=== PATIENT | female | born 1940 | race Caucasian/White ===

== ENCOUNTER → 2020-11-18 13:51 | Outpatient (BNVA) | payer MEDICARE, OTHER, SELFPAY | PROVIDERS: PCP Hospitalist; Referring Provider Hospitalist; Visit Provider Internal Medicine Cardiovascular Disease | DX: I48.0 Paroxysmal atrial fibrillation (principal); Z79.01 Long term (current) use of anticoagulants | CPT/HCPCS: 93005; 99202 ==

== ENCOUNTER 2020-12-03 10:07 | Outpatient (REF) | payer MEDICARE, OTHER, SELFPAY ==
[2020-12-03 14:50] LABS: TSH reflex Free T4 5.27 mIU/mL (0.32-4.0)
[2020-12-03 15:43] LABS: Free T4 (Free Thyroxine) 1.33 ng/dL (0.71-1.85)
== END 2020-12-03 10:08 | disposition home or self-care (01) ==
LOC: HO.WFDLDS 10:07
PROVIDERS: Visit Provider Hospitalist
DX: T46.2X1A Poisoning by other antidysrhythmic drugs, accidental (unintentional), initial encounter (principal); E03.2 Hypothyroidism due to medicaments and other exogenous substances
CPT/HCPCS: 36415; 84439; 84443

== ENCOUNTER → 2020-12-09 14:03 | Outpatient (REF) | payer MEDICARE, OTHER, SELFPAY ==
--- NOTE | 2020-12-09 14:06 | CA_ITS ---
Transthoracic Echocardiogram Patient (Last, First, Middle): Sandi Leonardo, Gender: Female Date of : 1940 Age: 79 Procedure Date: 12/09/2020 Procedure Type: Transthoracic Echocardiogram Location: OP Height: 170.18 cm Weight: 77.57 kg BSA: 1.89 m2 Heart Rate: bpm BP: 126 / 61 mmHg Wood [employer] Apprentice: DSG Referring MD: Don Gonzales MD Symptoms: I48.0 - Paroxysmal atrial fibrillation Study Quality: Good ECG Rhythm: Sinus Conclusions: - The left ventricular systolic function is normal. The visually estimated ejection fraction is between 65-70%. - Evidence suggests grade II (moderate) diastolic dysfunction. - There is mild aortic valve regurgitation. - There is mild mitral valve regurgitation. - There is mild tricuspid valve regurgitation. - Mild pulmonary hypertension is present. - There is mild dilatation of the ascending aorta measuring 3.90 cm. Findings Left Ventricle Normal left ventricular cavity size. There is normal left ventricular wall thickness. The left ventricular systolic function is normal. The visually estimated ejection fraction is between 65-70%. There is no evidence of regional wall motion abnormalities. E/E prime ratio is between 8 and 15 consistent with indeterminate filling pressures. Evidence suggests grade II (moderate) diastolic dysfunction. Right Ventricle Normal right ventricular cavity size and systolic function. Atria The left atrium is normal in size. The right atrium is normal in size. Aortic Valve There is a normal trileaflet aortic valve. There is mild calcification of the aortic valve. There is no aortic valve stenosis. There is mild aortic valve regurgitation. Mitral Valve The mitral valve appears normal. There is mild mitral valve regurgitation. There is no mitral valve stenosis. Pulmonic Valve The pulmonic valve was not well visualized. Tricuspid Valve Normal tricuspid valve structure. There is mild tricuspid valve regurgitation. The right ventricular systolic pressure is 40 mmHg. Mild pulmonary hypertension is present. Great Vessels There is mild dilatation of the ascending aorta measuring 3.90 cm. Venous The inferior vena cava is normal in size and collapses greater than 50% with inspiration. Pericardium/Pleural There is no evidence of pericardial effusion. Prior Study Comparison No prior study available for comparison. Measurements 2D Linear Measurements IVSd: 1.37 0.6-0.9/0.6-1.0 cm LVIDd: 4.43 3.9-5.3/4.2-5.9 cm LVIDd Index: 2.34 2.4-3.2/2.2-3.1 cm/m2 LVIDs: 2.29 2.0-3.6 cm LVPWd: 1.31 0.7-1.1 cm Ao Root: 3.10 2.1-3.5 cm LA Diam: 3.90 2.7-3.8/3.0-4.0 cm LAIDs Index: 2.06 1.5-2.3 cm/m2 LV Mass: 283.39 67-162/88-224 g LV Mass Index: 149.94 43-95/49-115 g/m2 LVOT Diam: 2.10 3.0+(-)1.3 cm 2D Systolic Function EF 4C: 81.50 >55% EF 2C: 67.60 >55% EF BiP: 75.60 >55% Mitral Valve MV Pk E: 0.85 MV PK A: 0.50 MV Decel Time: 239.00 E/A: 1.70 E'Lateral: 9.67 E'Medial: 7.25 E/E' Med: 11.80 E/E' Lat: 8.80 PHT: 70.00 MVA PHT: 3.14 Decel Angelina: 3.57 Aortic Valve AoV Pk Gabe: 1.28 AoV Pk Grad: 7.00 AI Pk Gabe: 3.60 AI Angelina: 1.24 LVOT LVOT Pk Gabe: 0.92 LVOT Mn Gabe: 0.58 LVOT VTI: 0.24 LVOT Pk Grad: 3.00 LVOT Mn Grad: 2.00 LVOT Diam: 2.10 LVOT Area: 3.46 Diastolic Function MV Pk E: 0.85 MV Pk A: 0.50 E/A: 1.70 E'Medial: 7.25 E/E' Med: 11.80 E' Laterial: 9.67 E/E' Lat: 8.80 Tricuspid Valve TR Pk Gabe: 3.05 TR Pk Grad: 37.00 RA Press: 3.00 RVSP: 40.00 Great Vessels Aorta Ao Root-2D: 3.10 2.0-3.7 cm Ao Asc: 3.90 2.1-3.4 cm Ao Arch: 2.40 Updated in Other Vendor System with Status of Final Aditya Espinosa MD electronically signed on 12/10/2020 10:22:34 AM with status of Final
== END ==
LOC: HO.CARD 14:03
PROVIDERS: PCP Hospitalist; Visit Provider Internal Medicine Cardiovascular Disease
DX: I48.0 Paroxysmal atrial fibrillation (principal); I10 Essential (primary) hypertension
CPT/HCPCS: 93306

== ENCOUNTER → 2021-02-26 11:01 | Outpatient (BNVA) | payer MEDICARE, OTHER, SELFPAY | PROVIDERS: PCP Hospitalist; Visit Provider Internal Medicine Cardiovascular Disease | DX: I10 Essential (primary) hypertension (principal); I48.0 Paroxysmal atrial fibrillation; Z51.81 Encounter for therapeutic drug level monitoring; Z79.899 Other long term (current) drug therapy | CPT/HCPCS: 93005; 99212 ==

== ENCOUNTER 2021-04-29 07:23 | Outpatient (REF) | payer MEDICARE, OTHER, SELFPAY ==
[2021-04-29 10:45] LABS: MANUAL DIFF FLAG NO
[2021-04-29 10:52] LABS: Basophils Percent Auto 0.7 % (0-2); Eosinophils Absolute Auto 0.2 X10*3/uL (0.0-0.4); Eosinophils Percent Auto 2.7 % (0-4); Hemoglobin 12.2 g/dl (12.0-16.0); Imm Gran Abs Auto 0.02 X10*3/uL (0.00-0.03); Imm Gran Pct Auto 0.4 % (0.0-0.4); Lymphocytes Absolute Auto 1.9 X10*3/uL (1.2-4.9); Lymphocytes Percent Auto 33.7 % (20-40); Mean Corpuscular HGB Conc 32.1 g/dl (31.0-35.0); Mean Corpuscular Volume 87.2 fL (80-98); Mean Platelet Volume 10.1 fL (9.4-12.3); Monocytes Percent Auto 18.1 % (2-11); Neutrophils Absolute Auto 2.5 X10*3/uL (2.0-8.3); Neutrophils Percent Auto 44.4 % (45-73); Platelet Count 247 X10*3/uL (160-400); Red Blood Count 4.36 X10*6/uL (4.20-5.50); Red Cell Distribution Width 14.2 % (11.0-16.0); White Blood Count 5.6 X10*3/uL (4.8-10.8)
[2021-04-29 11:20] LABS: Alanine Aminotransferase 24 U/L (0-31); Albumin Level 4.3 g/dL (3.5-5.0); Alkaline Phosphatase 103 U/L (39-117); Anion Gap 15 (12-20); Aspartate Amino Transferase 27 U/L (5-31); Bilirubin Total 0.7 mg/dL (0.0-1.0); Blood Urea Nitrogen 38 mg/dL (9-16); Calcium 10.4 mg/dL (8.4-10.2); Carbon Dioxide 21 mmol/L (22-29); Chloride 106 mmol/L (96-108); Cholesterol 180 mg/dL; Estimated Glomerular Filt Rate 25; Glucose Fasting 99 mg/dL (60-99); HDL Cholesterol 44 mg/dL; LDL Cholesterol Calculated 100 mg/dl; Potassium 5.2 mmol/L (3.3-5.1); Sodium 137 mmol/L (135-145); Total Protein 6.9 g/dL (6.5-8.0); Triglycerides 182 mg/dL
[2021-04-29 11:43] LABS: Thyroid Stimulating Hormone 5.49 uIU/mL (0.32-4.0); Vitamin D 25-OH Total 40.9 ng/mL (>30)
[2021-04-29 11:46] LABS: Creatinine Urine 213.97 mg/dL; Microalbum/Creatinine Ratio Ur 8.8 ug/mg cr
[2021-04-29 11:57] LABS: Folate > 20.0 ng/mL (> or = 4.0); Vitamin B12 996 pg/mL (200-900)
[2021-04-30 20:28] LABS: Triiodothyronine T3 Total 71 ng/dL (76-181)
== END 2021-04-29 07:24 | disposition home or self-care (01) ==
LOC: HO.WFDLDS 07:23
PROVIDERS: Visit Provider Family Medicine
DX: Z00.00 Encounter for general adult medical examination without abnormal findings (principal); E78.00 Pure hypercholesterolemia, unspecified; I10 Essential (primary) hypertension; E03.9 Hypothyroidism, unspecified; E03.2 Hypothyroidism due to medicaments and other exogenous substances; E53.8 Deficiency of other specified B group vitamins; E55.9 Vitamin D deficiency, unspecified; T46.2X1A Poisoning by other antidysrhythmic drugs, accidental (unintentional), initial encounter
CPT/HCPCS: 36415; 80053; 80061; 82043; 82306; 82607; 82746; 84443; 84480; 85025

== ENCOUNTER 2021-06-26 09:37 | Outpatient (REF) | payer MEDICARE, OTHER, SELFPAY ==
--- NOTE | ~2021-06-26 | MM_ITS ---
EXAMINATION: MM SCREENING DIGITAL BREAST TOMOSYNTHESIS, BILATERAL CLINICAL INFORMATION: Screening. Asymptomatic. Prior cbr-qa-[id number] mammography from [place] currently unavailable. The lifetime risk of breast cancer based on the Tyrer-Cuzick Model is 3%. COMPARISON: None. Radiology department staff will attempt to retrieve prior [id number] mammography to allow for comparison in an addendum report. TECHNIQUE: Digital breast tomosynthesis is performed in both the craniocaudal and mediolateral oblique views along with computer-aided detection (CAD). Synthesized 2D images are generated from the tomosynthesis. FINDINGS: There are scattered areas of fibroglandular density (ACR BI-RADS breast composition Category b). There are benign-appearing asymmetries on the right. Left breast has small intramammary node mid upper outer quadrant. Neither breast shows significant mass or architectural abnormality or abnormal calcifications. The axilla and skin contours are unremarkable. MM/MM tomosynthesis screening BI IMPRESSION: No mammographic evidence of malignancy. ASSESSMENT: BI-RADS 2: Benign RECOMMENDATION: Routine annual mammography screening. This patient's information was entered into a reminder system with a target due date for their next mammogram.
--- NOTE | ~2021-06-26 | XR_ITS ---
EXAMINATION: XR CHEST CLINICAL INFORMATION: Paroxysmal A. fib COMPARISON: None TECHNIQUE: 2 views of the chest were obtained. FINDINGS: Cardiac silhouette is normal in size. Lungs are well aerated. Subtle opacity at the medial right lung base is nonspecific but most suggestive of atelectasis. There is mild biapical pleural thickening. Mild degenerative changes of the spine. XR/XR chest 2V IMPRESSION: Suspected subtle right basilar atelectasis.
== END 2021-06-26 09:38 | disposition home or self-care (01) ==
LOC: HO.MAMMO 09:37
PROVIDERS: Absent Provider Internal Medicine Cardiovascular Disease; PCP Hospitalist; Visit Provider Family Medicine
DX: I48.0 Paroxysmal atrial fibrillation (principal); Z12.31 Encounter for screening mammogram for malignant neoplasm of breast
CPT/HCPCS: 71046; 77063; 77067

== ENCOUNTER 2021-06-30 09:20 | Outpatient (REF) | payer MEDICARE, OTHER, SELFPAY ==
[2021-06-30 11:29] LABS: Anion Gap 13 (12-20); Blood Urea Nitrogen 35 mg/dL (9-16); Calcium 10.4 mg/dL (8.4-10.2); Carbon Dioxide 23 mmol/L (22-29); Chloride 106 mmol/L (96-108); Estimated Glomerular Filt Rate 27; Glucose Random 123 mg/dL (60-115); Potassium 5.1 mmol/L (3.3-5.1); Sodium 137 mmol/L (135-145)
== END 2021-06-30 09:21 | disposition home or self-care (01) ==
LOC: HO.WFDLDS 09:20
PROVIDERS: Visit Provider Family Medicine
DX: T46.2X1A Poisoning by other antidysrhythmic drugs, accidental (unintentional), initial encounter (principal); E03.2 Hypothyroidism due to medicaments and other exogenous substances; R79.89 Other specified abnormal findings of blood chemistry
CPT/HCPCS: 36415; 80048; 84443

== ENCOUNTER → 2021-07-14 13:15 | Outpatient (BNVA) | payer MEDICARE, OTHER, SELFPAY | PROVIDERS: PCP Hospitalist; Referring Provider Hospitalist; Visit Provider Internal Medicine Cardiovascular Disease | DX: I48.0 Paroxysmal atrial fibrillation (principal); I10 Essential (primary) hypertension | CPT/HCPCS: 99212 ==

== ENCOUNTER → 2021-11-20 15:02 | Outpatient (BNVA) | payer MEDICARE, OTHER, SELFPAY | PROVIDERS: PCP Hospitalist; Referring Provider Hospitalist; Visit Provider Nurse Practitioner Family | DX: I48.91 Unspecified atrial fibrillation (principal) | CPT/HCPCS: 93005 ==

== ENCOUNTER → 2021-11-24 09:53 | Outpatient (BNVA) | payer MEDICARE, OTHER, SELFPAY | PROVIDERS: PCP Hospitalist; Referring Provider Hospitalist; Visit Provider Nurse Practitioner Family | DX: I48.91 Unspecified atrial fibrillation (principal) | CPT/HCPCS: 93005 ==

== ENCOUNTER → 2021-11-27 12:39 | Outpatient (BNVA) | payer MEDICARE, OTHER, SELFPAY | PROVIDERS: PCP Hospitalist; Referring Provider Hospitalist; Visit Provider Nurse Practitioner Family | DX: I48.0 Paroxysmal atrial fibrillation (principal); I10 Essential (primary) hypertension; Z79.01 Long term (current) use of anticoagulants | CPT/HCPCS: 93005; 99212 ==

== ENCOUNTER 2021-11-28 08:48 | Outpatient (REF) | payer MEDICARE, OTHER, SELFPAY ==
[2021-11-28 10:59] LABS: MANUAL DIFF FLAG NO
[2021-11-28 11:02] LABS: Basophils Absolute Auto 0.1 X10*3/uL (0.0-0.2); Eosinophils Absolute Auto 0.1 X10*3/uL (0.0-0.4); Eosinophils Percent Auto 1.3 % (0-4); Hematocrit 38.7 % (37.0-47.0); Hemoglobin 12.2 g/dl (12.0-16.0); Imm Gran Abs Auto 0.07 X10*3/uL (0.00-0.03); Imm Gran Pct Auto 1.2 % (0.0-0.4); Lymphocytes Absolute Auto 1.4 X10*3/uL (1.2-4.9); Lymphocytes Percent Auto 23.1 % (20-40); Mean Corpuscular HGB Conc 31.5 g/dl (31.0-35.0); Mean Corpuscular Hemoglobin 27.3 pg (27.0-33.0); Mean Corpuscular Volume 86.6 fL (80.0-98.0); Mean Platelet Volume 9.8 fL (9.4-12.3); Monocytes Absolute Auto 0.9 X10*3/uL (0.1-1.2); Monocytes Percent Auto 14.5 % (2-11); Neutrophils Absolute Auto 3.6 x10*3/uL (2.0-8.3); Neutrophils Percent Auto 58.9 % (45-73); Platelet Count 289 X10*3/uL (160-400); Red Blood Count 4.47 X10*6/uL (4.20-5.50); Red Cell Distribution Width 14.4 % (11.0-16.0)
[2021-11-28 11:27] LABS: Alanine Aminotransferase 15 U/L (0-31); Albumin Level 4.1 g/dL (3.5-5.0); Alkaline Phosphatase 90 U/L (39-117); Anion Gap 12 (12-20); Aspartate Amino Transferase 17 U/L (5-31); Bilirubin Total 0.4 mg/dL (0.0-1.0); Blood Urea Nitrogen 36 mg/dL (9-16); Calcium 10.3 mg/dL (8.4-10.2); Carbon Dioxide 22 mmol/L (22-29); Chloride 107 mmol/L (96-108); Estimated Glomerular Filt Rate 28; Glucose Random 98 mg/dL (60-115); Potassium 5.1 mmol/L (3.3-5.1); Sodium 136 mmol/L (135-145); Total Protein 6.7 g/dL (6.5-8.0)
[2021-11-28 11:54] LABS: TSH reflex Free T4 2.87 uIU/mL (0.32-4.0)
== END 2021-11-28 08:49 | disposition home or self-care (01) ==
LOC: HO.WFDLDS 08:48
PROVIDERS: PCP Hospitalist; Visit Provider Nurse Practitioner Family
DX: I48.0 Paroxysmal atrial fibrillation (principal); I48.20 Chronic atrial fibrillation, unspecified
CPT/HCPCS: 36415; 80053; 84443; 85025

== ENCOUNTER 2021-12-05 10:24 | Day surgery (SDC) | payer MEDICARE, OTHER, SELFPAY ==
--- NOTE | 2021-12-04 08:32 | HO.ANESPROP2 ---
Documented by User: Mari Rico NP 12/04/21 08:35 HPI - Anesthesia Eval Consult details Narrative: 80yo F for Cardioversion Eliquis for afib PMFSH Active Problems Active Problems: All Active Problems (Updated 11/27/21 @ 13:33 by Yvette Dinh NP-C) Anticoagulant long-term use (Acute) Elevated serum creatinine (Acute) Breast cancer screening by mammogram (Acute) Screening for osteoporosis (Acute) Adult general medical exam (Acute) Screening for breast cancer (Acute) Screening for colon cancer (Acute) Therapeutic drug monitoring (Acute) Hypertension, essential (Acute) High cholesterol (Acute) Hx of squamous cell carcinoma of skin (Acute) Hx of skin cancer, basal cell (Acute) Vitamin B 12 deficiency (Acute) PAF (paroxysmal atrial fibrillation) (Acute) Cellulitis of right lower extremity (Acute) Vitamin D deficiency (Acute) 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) Chronic a-fib (Acute) Past Medical History Medical History Anticoagulant long-term use High cholesterol History of cardioversion History of hypothyroidism History of vitamin D deficiency Hx of skin cancer, basal cell Hx of squamous cell carcinoma of skin Hypertension, essential PAF (paroxysmal atrial fibrillation) Vitamin B 12 deficiency Family History Family History Mother Stroke Father Pancreatic cancer Brother Lyme disease Surgical History Surgical History (Updated 12/05/21 @ 10:55 by Mis Armstrong RN) History of dilation and curettage History of hand surgery Status post surgical removal of malignant neoplasm of skin Social History Social History Housing: House Alcohol intake: current Alcohol intake frequency: holidays/special occasions only Alcohol type: wine Patient Tobacco Use Status: Never used Tobacco e-Cigarette/Vaping Use: Never Used Use of substances other than those prescribed or required for medical reasons: No Are you DNR?: No Advance Directives: No Advance Directives Information Provided: Yes Current occupational status: retired Meds Allergies Allergy/AdvReac Type Severity Reaction Status Date / Time prednisone Allergy Intermediate REd Verified 12/05/21 10:56 Blotchy codeine AdvReac Intermediate Swelling Verified 12/05/21 10:56 sulfamethoxazole AdvReac Intermediate Stomach Verified 12/05/21 10:56 [From Bactrim] Upset trimethoprim [From Bactrim] AdvReac Intermediate Stomach Verified 12/05/21 10:56 Upset Home Medications Medication Instructions Recorded Confirmed Last Taken Type spironolactone 25 mg tablet 25 mg PO DAILY 09/10/20 11/27/21 12/05/21 07:00 History apixaban 5 mg tablet (Eliquis) 5 mg PO BID 11/18/20 11/27/21 12/05/21 07:00 History cholecalciferol (vitamin D3) 50 50 mcg PO DAILY 11/18/20 11/27/21 Unknown History mcg (2,000 unit) capsule multivitamin,[id number] 1 tab PO DAILY 11/18/20 11/27/21 Unknown History (Complete Multivitamin) Exam Exam Date and Time: December 04, 2021 0832 Pertinent Lab Results Pertinent Lab Results: Laboratory Tests 11/28/21 11/28/21 09:00 09:00 WBC 6.0 Hgb 12.2 Hct 38.7 Plt Count 289 Sodium 136 Potassium 5.1 Chloride 107 Carbon Dioxide 22 BUN 36 H Creatinine 1.78 H Narrative Narrative: EKG 11/2021 atrial fibrillation, left axis deviation, septal Q-wave, rate 87, QTC 416 milliseconds ECHO 11/2020 Conclusions: - The left ventricular systolic function is normal.? The visually estimated ejection fraction is between 65-70%. ? - Evidence suggests grade II (moderate) diastolic dysfunction. ? - There is mild aortic valve regurgitation.? - There is mild mitral valve regurgitation.? - There is mild tricuspid valve regurgitation. ? - Mild pulmonary hypertension is present.? - There is mild dilatation of the ascending aorta measuring 3.90 cm.? ?? Assessment and Plan Assessment Anesthesia Assessment: Chart Reviewed Documented by User: Tuyet Rangel MD 12/05/21 12:36 PMF Past Medical History Medical History Anticoagulant long-term use High cholesterol History of cardioversion History of hypothyroidism History of vitamin D deficiency Hx of skin cancer, basal cell Hx of squamous cell carcinoma of skin Hypertension, essential PAF (paroxysmal atrial fibrillation) Vitamin B 12 deficiency Functional capacity: independent ambulation Patient : No Family History Family History Mother Stroke Father Pancreatic cancer Brother Lyme disease Family history of problems with anesthesia: No Surgical History Surgical History (Updated 12/05/21 @ 10:55 by Mis Armstrong RN) History of dilation and curettage History of hand surgery Status post surgical removal of malignant neoplasm of skin History of Problems with Anesthesia: No Social History Social History Housing: House Alcohol intake: current Alcohol intake frequency: holidays/special occasions only Alcohol type: wine Patient Tobacco Use Status: Never used Tobacco e-Cigarette/Vaping Use: Never Used Use of substances other than those prescribed or required for medical reasons: No Are you DNR?: No Advance Directives: No Advance Directives Information Provided: Yes Current occupational status: retired Meds Allergies Allergy/AdvReac Type Severity Reaction Status Date / Time prednisone Allergy Intermediate REd Verified 12/05/21 10:56 Blotchy codeine AdvReac Intermediate Swelling Verified 12/05/21 10:56 sulfamethoxazole AdvReac Intermediate Stomach Verified 12/05/21 10:56 [From Bactrim] Upset trimethoprim [From Bactrim] AdvReac Intermediate Stomach Verified 12/05/21 10:56 Upset Home Medications Medication Instructions Recorded Confirmed Last Taken Type spironolactone 25 mg tablet 25 mg PO DAILY 09/10/20 11/27/21 12/05/21 07:00 History apixaban 5 mg tablet (Eliquis) 5 mg PO BID 11/18/20 11/27/21 12/05/21 07:00 History cholecalciferol (vitamin D3) 50 50 mcg PO DAILY 11/18/20 11/27/21 Unknown History mcg (2,000 unit) capsule multivitamin,[id number] 1 tab PO DAILY 11/18/20 11/27/21 Unknown History (Complete Multivitamin) Exam Airway Mallampati Class: II TM Dist: >3cm Neck ROM: Full Heart: CTA Lungs: Irregular Assessment and Plan Final Anesthetic Review Family History of Problems with Anesthesia: No History of Problems with Anesthesia: No ASA Class: III Final Preanesthetic Review: No Changes in Pt Med Stat, Meds/Allgs Chart Reviewed, Consent Obtained/Reviewed and Anes Risks/Benef Reviewed Patient Risk: Intermediate Procedure Risk: Low Anesthetic Plan Anesthetic Plan: MAC: Disposition: Standard PACU
--- NOTE | 2021-12-05 | ECG_ITS ---
Test Reason : postop Blood Pressure : / mmHG Vent. Rate : 057 BPM Atrial Rate : 057 BPM P-R Int : 152 ms QRS Dur : 086 ms QT Int : 418 ms P-R-T Axes : 112 -26 -27 degrees QTc Int : 406 ms Sinus bradycardia Nonspecific ST and T wave abnormality Abnormal ECG No previous ECGs available Referred By: Don Gonzales Electronically Signed By:Don Gonzales
[2021-12-05 10:57] VITALS: BMI 26.5
[2021-12-05 11:05] VITALS: BP 172/96; PULSE 113; RESP 16; TEMP 36.4; O2SAT 98
[2021-12-05] MEDS: Lactated Ringers 1,000 ML 50 ML IVCONT (11:31)
--- NOTE | 2021-12-05 12:41 | MHC.SHP ---
Pre-Procedural Eval Section A Date of Service: 12/05/21 The patient is an INPATIENT: No The History & Physical has been completed within 30 days and I have reviewed it.: Yes Section B Chief Complaint: A-Fib Allergies: Allergies Allergy/AdvReac Type Severity Reaction Status Date / Time prednisone Allergy Intermediate REd Verified 12/05/21 10:56 Blotchy codeine AdvReac Intermediate Swelling Verified 12/05/21 10:56 sulfamethoxazole AdvReac Intermediate Stomach Verified 12/05/21 10:56 [From Bactrim] Upset trimethoprim [From Bactrim] AdvReac Intermediate Stomach Verified 12/05/21 10:56 Upset Plan Diagnosis/Plan: Unchanged I have reviewed the history and physical and performed a pertinent physical examination on my patient. No changes have occurred unless specified.
--- NOTE | 2021-12-05 12:47 | HO.CARDIVERS ---
Cardioversion Procedure Note Cardioversion Date of Procedure: 12/05/21 Ordering Provider: Don Gonzales Performing Provider: Don Gonzales Indication for Procedure: Afib Performed with Transesophageal Echo: No Consent: Verbal and Written consent was obtained from the patient before starting. The patient was made aware of the risk of stroke and failure. Procedure: After consent obtained, defib pads were attached and the patient was sedated by the anesthesia team. Once adequate sedation achieved, single synchronized shock of 200 J was given. Patient converted to sinus rhythm. Complications: None Recommendations: c/w Eliquis and Amiodarone as before.
[2021-12-05 12:50] VITALS: BP 175/97; PULSE 62; RESP 16; TEMP 36.1; O2SAT 100
--- NOTE | 2021-12-05 12:52 | HO.POSTANES ---
Post Anesthesia Evaluation Post Anesthesia Evaluation Vital Signs: Vital Signs Temp Pulse Resp BP Pulse Ox 12/05/21 12:50 97.0 F 62 16 175/97 H 100 12/05/21 11:05 97.5 F 113 H 16 172/96 H 98 Anesthesia: Monitored Pain Control: Satisfactory Nausea/Vomiting: None Hydration: Adequate Anesthesia-Related Issues: No Anes. Related Issues
[2021-12-05 12:55] VITALS: BP 138/51; PULSE 55; RESP 14; O2SAT 100
[2021-12-05 13:00] VITALS: BP 125/55; PULSE 57; RESP 17; O2SAT 99
[2021-12-05 13:05] VITALS: BP 143/56; PULSE 58; RESP 17; O2SAT 100
[2021-12-05 13:20] VITALS: BP 143/56; PULSE 55; RESP 17; TEMP 36.2; O2SAT 100
== END 2021-12-05 14:05 | disposition home or self-care (01) ==
PROVIDERS: PCP Hospitalist; Visit Provider Internal Medicine Cardiovascular Disease
PROC: 5A2204Z Restoration of Cardiac Rhythm, Single (ICD-10-PCS; principal; 2021-12-05 12:00)
DX: I48.0 Paroxysmal atrial fibrillation (principal); I10 Essential (primary) hypertension; E78.00 Pure hypercholesterolemia, unspecified; E03.9 Hypothyroidism, unspecified; Z79.01 Long term (current) use of anticoagulants; Z79.899 Other long term (current) drug therapy; Z88.8 Allergy status to other drugs, medicaments and biological substances
CPT/HCPCS: 92960; 93005; J0461

== ENCOUNTER → 2021-12-18 13:06 | Outpatient (BNVA) | payer MEDICARE, OTHER, SELFPAY | PROVIDERS: PCP Hospitalist; Referring Provider Hospitalist; Visit Provider Nurse Practitioner Family | DX: I48.0 Paroxysmal atrial fibrillation (principal); I10 Essential (primary) hypertension; Z79.01 Long term (current) use of anticoagulants | CPT/HCPCS: 93005; 99212 ==

== ENCOUNTER 2022-01-14 08:02 | Emergency (ER) | payer MEDICARE, OTHER, SELFPAY ==
[2022-01-14] VITALS (14 sets, daily range): BP systolic 162–219; BP diastolic 62–88; PULSE 66–105; RESP 8–18; TEMP 36.4; O2SAT 95–100; BMI 26.9
--- NOTE | 2022-01-14 | ECG_ITS ---
Test Reason : afib Blood Pressure : / mmHG Vent. Rate : 098 BPM Atrial Rate : 000 BPM P-R Int : 000 ms QRS Dur : 094 ms QT Int : 322 ms P-R-T Axes : 000 -46 097 degrees QTc Int : 411 ms Atrial fibrillation Left axis deviation Moderate voltage criteria for LVH, may be normal variant ( R in aVL , [place]of[place] product ) Septal infarct , age undetermined Abnormal ECG When compared with ECG of 05-DEC-2021 13:00, Significant changes have occurred Referred By: Thania Moore Electronically Signed By:Don Gonzales
--- NOTE | 2022-01-14 | ECG_ITS ---
Test Reason : POST CARDIOVERT Blood Pressure : / mmHG Vent. Rate : 071 BPM Atrial Rate : 071 BPM P-R Int : 212 ms QRS Dur : 088 ms QT Int : 384 ms P-R-T Axes : 091 -42 056 degrees QTc Int : 417 ms Sinus rhythm with 1st degree A-V block Left axis deviation Moderate voltage criteria for LVH, may be normal variant ( R in aVL , [place] product ) Anterolateral infarct (cited on or before 14-JAN-2022) Abnormal ECG When compared with ECG of 14-JAN-2022 08:10, Sinus rhythm has replaced Atrial fibrillation Questionable change in initial forces of Septal leads Nonspecific T wave abnormality has replaced inverted T waves in Lateral leads Referred By: Thania Moore Electronically Signed By:Don Gonzales
--- NOTE | ~2022-01-14 | XR_ITS ---
EXAMINATION: XR CHEST CLINICAL INFORMATION: Weakness COMPARISON: Chest 06/26/2021 TECHNIQUE: Frontal view of the chest was obtained. FINDINGS: The lungs are well-expanded and clear. The heart size and pulmonary vascularity is normal. There is mild bilateral apical pleural thickening. No gross bony abnormality seen. XR/XR chest 1V IMPRESSION: Unremarkable chest exam.
--- NOTE | 2022-01-14 08:21 | ED.ARRPALP ---
HPI - Arrhythmia/Palpitations General Chief Complaint: Arrhythmia/Palpitations Stated Complaint: heart issues/nausea Time Seen by Provider: 01/14/22 08:20 Source: patient and old records reviewed Mode of arrival: ambulatory Limitations: no limitations History of Present Illness MD complaint: palpitations, irregular heart beat and atrial fibrillation Onset (ago): day(s) (last night) Duration: constant Severity: moderate Context: occurred during rest Arrhythmia history: atrial fibrillation Associated symptoms: shortness of breath, diaphoresis and other (felt week) Treatments prior to arrival: other (BP low last night 101/70s HR in 120s took a dose of metoprolol 25mg , she is compliant with her eliquis and amiodarone 200mg daily, she is s/p cardioversion on 12/05/21) Related Data Home Medications Medication Instructions Recorded Confirmed spironolactone 25 mg tablet 25 mg PO DAILY 09/10/20 12/19/21 cholecalciferol (vitamin D3) 50 50 mcg PO DAILY 11/18/20 12/19/21 mcg (2,000 unit) capsule multivitamin,[id number] 1 tab PO DAILY 11/18/20 12/19/21 (Complete Multivitamin) Previous Rx's Medication Instructions Recorded losartan 25 mg tablet 25 mg PO DAILY #30 tab 05/21/21 pravastatin 40 mg tablet 40 mg PO DAILY #30 tab 09/24/21 levothyroxine 50 mcg capsule 50 mcg PO DAILY #30 cap 11/10/21 (Tirosint) apixaban 5 mg tablet (Eliquis) 5 mg PO BID 90 Days #180 tab 12/18/21 amiodarone 200 mg tablet 200 mg PO DAILY #90 tab 12/29/21 Allergies Allergy/AdvReac Type Severity Reaction Status Date / Time prednisone Allergy Intermediate REd Verified 12/05/21 10:56 Blotchy codeine AdvReac Intermediate Swelling Verified 12/05/21 10:56 sulfamethoxazole AdvReac Intermediate Stomach Verified 12/05/21 10:56 [From Bactrim] Upset trimethoprim [From Bactrim] AdvReac Intermediate Stomach Verified 12/05/21 10:56 Upset Review of Systems Review of Systems: Constitutional : No Weight loss, No Fever, No Chills, pos sweats ENT/Mouth : No sore throat, No Rhinorrhea Eyes: No Eye Pain, No Swelling Cardiovascular : no Chest Pain, pos SOB, no Dyspnea on Exertion, No Orthopnea, No Edema, pos Palpitations Respiratory : No Cough, No Sputum Gastrointestinal : pos Nausea, No Vomiting, No Diarrhea, No abdominal Pain, No Hematochezia, No Melena Genitourinary : No Dysuria, No Urinary Frequency Musculoskeletal : No joint pain, No Myalgias, No Joint Swelling Skin : No Skin Lesions, No rash Neuro : pos Weakness, No Numbness, No Dizziness, No Headache Psych : No Anxiety/Panic, No Depression Heme/Lymph: No Bruising, No Lymphadenopathy Endocrine : No Polyuria, No Polydipsia All other systems reviewed and are negative [facility] Past Medical History Attestation statement: The following information was validated with the patient. Medical History Anticoagulant long-term use High cholesterol History of cardioversion History of hypothyroidism History of vitamin D deficiency Hx of skin cancer, basal cell Hx of squamous cell carcinoma of skin Hypertension, essential PAF (paroxysmal atrial fibrillation) Vitamin B 12 deficiency Surgical History History of dilation and curettage History of hand surgery Status post surgical removal of malignant neoplasm of skin Family History Family History Mother Stroke Father Pancreatic cancer Brother Lyme disease Social History Social History Housing: House Alcohol intake: current Alcohol intake frequency: holidays/special occasions only Alcohol type: wine Patient Tobacco Use Status: Former Tobacco user e-Cigarette/Vaping Use: Never Used Use of substances other than those prescribed or required for medical reasons: No Advance Directives: No Advance Directives Information Provided: No Current occupational status: retired Physical Exam Vital Signs: Vital Signs: Last Vital Signs Pulse 66 01/14/22 11:18 Resp 18 01/14/22 11:18 BP 168/65 H 01/14/22 11:18 Pulse Ox 100 01/14/22 11:18 Oxygen Flow Rate 2 01/14/22 10:28 BMI result Body Mass Index 26.9 Appearance: Alert. Oriented X3. No acute distress. Eyes: Pupils equal, round and reactive to light. ENT: Pharynx normal. Neck: Normal inspection. Neck supple. CVS: irregular heart rate and rhythm. Pulses normal. Respiratory: No respiratory distress. Breath sounds normal. Abdomen: Soft and non-tender. Skin: Skin warm and dry. Normal skin color. Normal skin turgor. Extremities: No lower extremity edema. No calf ttp Neuro: Oriented X 3. No motor deficit. No sensory deficit. Course Course Course Narrative: Dr. Gonzales at bedside after discussion plan is for cardioversion patient wants to proceed Christian at bedside. compliant with eliquis doing well awake feels better - NSR has no symptoms son will be her ride home once fully recovered BNP elevated but CXR clear no peripheral edema likely due to afib doubt clinical CHF Cr at baseline, K 5.5 will give one dose of lokelma MDM - Arrhythmia/Palpitations MDM Narrative Medical decision making narrative: 81 yo female with hx of chronic afib s/p cardioversion on 12/05/21 she is compliant with with her eliquis and amiodarone 200mg now feels sweaty and weak while she's back in afib. No med misses. She is NPO. She has no chest pain. 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 Lab Data Result diagrams: 01/14/22 08:39 01/14/22 11:13 Labs: Lab Results 01/14/22 01/14/22 01/14/22 Range/Units 08:39 08:39 08:39 WBC 5.7 (4.8-10.8) X10*3/uL RBC 4.53 (4.20-5.50) X10*6/uL Hgb 12.5 (12.0-16.0) g/dl Hct 38.2 (37.0-47.0) % MCV 84.3 (80.0-98.0) fL MCH 27.6 (27.0-33.0) pg MCHC 32.7 (31.0-35.0) g/dl RDW 14.2 (11.0-16.0) % Plt Count 256 (160-400) X10*3/uL MPV 9.3 L (9.4-12.3) fL Immature Gran % (Auto) 0.9 H (0.0-0.4) % Neut % (Auto) 65.4 (45-73) % Lymph % (Auto) 20.4 (20-40) % [place] % (Auto) 12.2 H (2-11) % Eos % (Auto) 0.4 (0-4) % Baso % (Auto) 0.7 (0-2) % Lymph # (Auto) 1.2 (1.2-4.9) X10*3/uL [place] # (Auto) 0.7 (0.1-1.2) X10*3/uL Eos # (Auto) 0.0 (0.0-0.4) X10*3/uL Baso # (Auto) 0.0 (0.0-0.2) X10*3/uL Abs Immat Gran (auto) 0.05 H (0.00-0.03) X10*3/uL Absolute Neuts (auto) 3.7 (2.0-8.3) x10*3/uL Absolute Nucleated RBC 0.000 (0.0-0.012) X10*3/uL Nucleated RBC % (auto) 0.0 (0.0-0.2) /100WBC PT 19.3 H (9.9-13.0) SEC INR 1.7 H (0.9-1.1) Sodium (135-145) mmol/L Potassium (3.3-5.1) mmol/L Chloride (96-108) mmol/L Carbon Dioxide (22-29) mmol/L Anion Gap (12-20) BUN (9-16) mg/dL Creatinine (0.5-1.4) mg/dL Estim Creat Clear Calc Estimated GFR Random Glucose (60-115) mg/dL Calcium (8.4-10.2) mg/dL Magnesium (1.6-2.6) mg/dL Total Bilirubin (0.0-1.0) mg/dL Direct Bilirubin (0.0-0.5) mg/dL AST (5-31) U/L ALT (0-31) U/L Alkaline Phosphatase (39-117) U/L Troponin I High Sens 4.4 (<3.5-17.0) ng/L B-Natriuretic Peptide 778 H (<100) pg/mL Total Protein (6.5-8.0) g/dL Albumin (3.5-5.0) g/dL COVID-19 (AMIRAH) (Negative) COVID-19 Clin Com 01/14/22 01/14/22 Range/Units 08:39 11:13 WBC (4.8-10.8) X10*3/uL RBC (4.20-5.50) X10*6/uL Hgb (12.0-16.0) g/dl Hct (37.0-47.0) % MCV (80.0-98.0) fL MCH (27.0-33.0) pg MCHC (31.0-35.0) g/dl RDW (11.0-16.0) % Plt Count (160-400) X10*3/uL MPV (9.4-12.3) fL Immature Gran % (Auto) (0.0-0.4) % Neut % (Auto) (45-73) % Lymph % (Auto) (20-40) % [place] % (Auto) (2-11) % Eos % (Auto) (0-4) % Baso % (Auto) (0-2) % Lymph # (Auto) (1.2-4.9) X10*3/uL [place] # (Auto) (0.1-1.2) X10*3/uL Eos # (Auto) (0.0-0.4) X10*3/uL Baso # (Auto) (0.0-0.2) X10*3/uL Abs Immat Gran (auto) (0.00-0.03) X10*3/uL Absolute Neuts (auto) (2.0-8.3) x10*3/uL Absolute Nucleated RBC (0.0-0.012) X10*3/uL Nucleated RBC % (auto) (0.0-0.2) /100WBC PT (9.9-13.0) SEC INR (0.9-1.1) Sodium 135 (135-145) mmol/L Potassium 5.5 H (3.3-5.1) mmol/L Chloride 105 (96-108) mmol/L Carbon Dioxide 23 (22-29) mmol/L Anion Gap 13 (12-20) BUN 31 H (9-16) mg/dL Creatinine 1.80 H (0.5-1.4) mg/dL Estim Creat Clear Calc 27.2 Estimated GFR 27 Random Glucose 115 (60-115) mg/dL Calcium 10.9 H (8.4-10.2) mg/dL Magnesium 2.1 (1.6-2.6) mg/dL Total Bilirubin 0.5 (0.0-1.0) mg/dL Direct Bilirubin 0.2 (0.0-0.5) mg/dL AST 25 D (5-31) U/L ALT 17 (0-31) U/L Alkaline Phosphatase 87 (39-117) U/L Troponin I High Sens (<3.5-17.0) ng/L B-Natriuretic Peptide (<100) pg/mL Total Protein 6.7 (6.5-8.0) g/dL Albumin 4.1 (3.5-5.0) g/dL COVID-19 (AMIRAH) Negative (Negative) COVID-19 Clin Com See Note ECG Data Attestation: I personally reviewed and interpreted this ECG as follows: ECG interpretation date: 01/14/22 ECG interpretation time: : Interpretation: Rate: 98 Rhythm: afib [place]: left Normal QRS complex. ST T wave : inverted t waves I and aVL, no ALEXA qTC: normal prior studies: changed from nov 2021 The study has been interpreted contemporaneously by me. EKG #2 Rate: 71 Rhythm: NSR with 1st degree AVB [place]: left, LVH Normal P waves. Normal BENIGNO. Normal QRS complex. ST T wave : normal no ALEXA qTC: normal prior studies: no acute ischemia The study has been interpreted contemporaneously by me. Procedures Procedure Narrative Procedure Narrative: cardioversion 200J synchronized - consent obtained ant/post approach resulted in immediate return to NSR - Dr. Gonzales present and performed procedure while I performed sedation component Procedural Sedation Indication: other (cardioversion) ASA Class: II Mallampati Class: II Time of Last PO Intake: 12:00 Preparation: front desk monitor applied, pulse oximeter, capnometry used, supplemental O2 applied, suction/airway equipment at bedside and IV secured IV Propofol dose (mg): 70 Patient Tolerated Procedure: well and no complications Complications: none Interventions: oxygen applied Critical Care Time Critical Care Time Critical Care Time: Yes Total Critical Care Time: 35 Attestation: review of records, medical consult, cardioversion to NSR I attest to this time spent taking care of the patient Discharge Plan Discharge Clinical Impression: Chronic a-fib, Acute hyperkalemia Patient Disposition: Home, Self-Care Instructions: A-fib (Atrial Fibrillation) (ED), Cardioversion (DC), Procedural Sedation (ED), Hyperkalemia (ED) Additional Instructions: return to ED for any worsening symptoms or concerns please follow up with your Assistant Professor Of Life Sciences in the next couple of weeks. Prescriptions: No Action losartan 25 mg tablet 25 mg PO DAILY Qty: 30 11RF pravastatin 40 mg tablet 40 mg PO DAILY Qty: 30 11RF levothyroxine [Tirosint] 50 mcg capsule 50 mcg PO DAILY Qty: 30 11RF amiodarone 200 mg tablet 200 mg PO DAILY Qty: 90 1RF spironolactone 25 mg tablet 25 mg PO DAILY 0RF cholecalciferol (vitamin D3) 50 mcg (2,000 unit) capsule 50 mcg PO DAILY 0RF Complete Multivitamin Tablet 1 tab PO DAILY 0RF Eliquis 5 mg tablet 5 mg PO BID 90 Days Qty: 180 3RF
--- NOTE | 2022-01-14 08:45 | PC.NURSE ---
pt alert and oriented, skin pwd, respirations even and unlabored. pt reports that she is back in a-fib that started yesterday, pt reports feeling very weak/feels like her legs will just give out slightly sob and some nausea as well, denies chest pain or any pain at this time. a-fib on the monitor in the 's
[2022-01-14 08:46] LABS: MANUAL DIFF FLAG NO
[2022-01-14 08:51] LABS: Basophils Percent Auto 0.7 % (0-2); Eosinophils Percent Auto 0.4 % (0-4); Hematocrit 38.2 % (37.0-47.0); Hemoglobin 12.5 g/dl (12.0-16.0); Imm Gran Abs Auto 0.05 X10*3/uL (0.00-0.03); Imm Gran Pct Auto 0.9 % (0.0-0.4); Lymphocytes Absolute Auto 1.2 X10*3/uL (1.2-4.9); Lymphocytes Percent Auto 20.4 % (20-40); Mean Corpuscular HGB Conc 32.7 g/dl (31.0-35.0); Mean Corpuscular Hemoglobin 27.6 pg (27.0-33.0); Mean Corpuscular Volume 84.3 fL (80.0-98.0); Mean Platelet Volume 9.3 fL (9.4-12.3); Monocytes Absolute Auto 0.7 X10*3/uL (0.1-1.2); Monocytes Percent Auto 12.2 % (2-11); Neutrophils Absolute Auto 3.7 x10*3/uL (2.0-8.3); Neutrophils Percent Auto 65.4 % (45-73); Platelet Count 256 X10*3/uL (160-400); Red Blood Count 4.53 X10*6/uL (4.20-5.50); Red Cell Distribution Width 14.2 % (11.0-16.0); White Blood Count 5.7 X10*3/uL (4.8-10.8)
[2022-01-14 09:00] LABS: INTERNATIONAL NORM RATIO 1.7 (0.9-1.1); Prothrombin Time 19.3 SEC (9.9-13.0)
[2022-01-14 09:03] LABS: COVID-19 Test Negative (Negative); IDNOW Serial# 16C4AD1C
[2022-01-14 09:10] LABS: B Type Natriuretic Peptide 778 pg/mL (<100); Troponin-I High Sensitivity 4.4 ng/L (<3.5-17.0)
--- NOTE | 2022-01-14 09:26 | P.CONCA_ITS ---
History of Present Illness History of Present Illness Date of Service: 01/14/22 Requesting physician: Thania Moore Chief complaint: Afib with RVR Narrative: Pleasant 81 year female with history of symptomatic paroxysmal atrial fibrillation. She underwent cardioversion in November and was started on amiodarone. It appears he started having some palpitations last night. She said she does not take metoprolol but took a dose of metoprolol. She said she felt quite tired after that. The morning again she was getting palpitations and noted her heart to be racing and she decided come to the emergency department in the ER she was noted to be in AFib. Her heart rate was in 90s. She was feeling some palpitations. We discussed about doing cardioversion in the ER and we proceeded with that. [facility] Past Medical History Medical History Anticoagulant long-term use High cholesterol History of cardioversion History of hypothyroidism History of vitamin D deficiency Hx of skin cancer, basal cell Hx of squamous cell carcinoma of skin Hypertension, essential PAF (paroxysmal atrial fibrillation) Vitamin B 12 deficiency Family History Family History Mother Stroke Father Pancreatic cancer Brother Lyme disease Surgical History Surgical History History of dilation and curettage History of hand surgery Status post surgical removal of malignant neoplasm of skin Social History Social History Housing: House Alcohol intake: current Alcohol intake frequency: holidays/special occasions only Alcohol type: wine Patient Tobacco Use Status: Former Tobacco user e-Cigarette/Vaping Use: Never Used Use of substances other than those prescribed or required for medical reasons: No Advance Directives: No Advance Directives Information Provided: No Current occupational status: retired Meds Allergies Allergy/AdvReac Type Severity Reaction Status Date / Time prednisone Allergy Intermediate REd Verified 12/05/21 10:56 Blotchy codeine AdvReac Intermediate Swelling Verified 12/05/21 10:56 sulfamethoxazole AdvReac Intermediate Stomach Verified 12/05/21 10:56 [From Bactrim] Upset trimethoprim [From Bactrim] AdvReac Intermediate Stomach Verified 12/05/21 10:56 Upset Home Medications Medication Instructions Recorded Confirmed Last Taken Type spironolactone 25 mg tablet 25 mg PO DAILY 09/10/20 12/19/21 12/05/21 07:00 History cholecalciferol (vitamin D3) 50 50 mcg PO DAILY 11/18/20 12/19/21 Unknown History mcg (2,000 unit) capsule multivitamin,[id number] 1 tab PO DAILY 11/18/20 12/19/21 Unknown History (Complete Multivitamin) Physical Exam Vital Signs: Vital Signs: Last Vital Signs Pulse 91 01/14/22 08:40 Resp 18 01/14/22 08:40 BP 181/84 H 01/14/22 08:40 Pulse Ox 97 01/14/22 08:40 BMI result Body Mass Index 26.9 GENERAL APPEARANCE: in no acute distress, pleasant. NECK: no carotid bruit, no jugular venous distention. SKIN: no suspicious lesions, warm and dry. HEART: no murmurs, irregular rate and rhythm. LUNGS: clear to auscultation bilaterally. ABDOMEN: soft, nontender. EXTREMITIES: no edema. PERIPHERAL PULSES: equal. NEUROLOGIC: No gross deficits, AAO X 3 Objective Labs and Meds Result diagrams: 01/14/22 08:39 01/14/22 11:13 Lab results: Laboratory Results - last 24 hr 01/14/22 01/14/22 01/14/22 08:39 08:39 08:39 WBC 5.7 RBC 4.53 Hgb 12.5 Hct 38.2 MCV 84.3 MCH 27.6 MCHC 32.7 RDW 14.2 Plt Count 256 MPV 9.3 L Immature Gran % (Auto) 0.9 H Neut % (Auto) 65.4 Lymph % (Auto) 20.4 [place] % (Auto) 12.2 H Eos % (Auto) 0.4 Baso % (Auto) 0.7 Lymph # (Auto) 1.2 [place] # (Auto) 0.7 Eos # (Auto) 0.0 Baso # (Auto) 0.0 Abs Immat Gran (auto) 0.05 H Absolute Neuts (auto) 3.7 Absolute Nucleated RBC 0.000 Nucleated RBC % (auto) 0.0 PT 19.3 H INR 1.7 H Troponin I High Sens 4.4 B-Natriuretic Peptide 778 H COVID-19 (AMIRAH) COVID-19 Clin Com 01/14/22 08:39 WBC RBC Hgb Hct MCV MCH MCHC RDW Plt Count MPV Immature Gran % (Auto) Neut % (Auto) Lymph % (Auto) [place] % (Auto) Eos % (Auto) Baso % (Auto) Lymph # (Auto) [place] # (Auto) Eos # (Auto) Baso # (Auto) Abs Immat Gran (auto) Absolute Neuts (auto) Absolute Nucleated RBC Nucleated RBC % (auto) PT INR Troponin I High Sens B-Natriuretic Peptide COVID-19 (AMIRAH) Negative COVID-19 Clin Com See Note Assessment and Plan (1) PAF (paroxysmal atrial fibrillation): Status: Acute Plan Pleasant 81 female who is presenting for palpitations and AFib with RVR. She has known history of paroxysmal atrial fibrillation. She was previously cardioverted and started on amiodarone. We discussed about management plan and decided to cardioversion in the ER. She was sedated with help of ER team and was given single shock of 200 joules and reverted back to sinus rhythm. Plan is to send her back home as she recovers from sedation. She is hyperkalemic and I think her spironolactone should be discontinued going forward. We will bring her in the office in the coming weeks and reassess the blood pressure and rhythm. We will adjust her blood pressure medications if her BP is high. She should continue amiodarone and her Eliquis as before. She does not need beta-chrissy because she feels fatigued after taking it. Thank you for allowing me to participate in the care of your patient. Please feel free to contact me if you have any questions. Procedures Date of Service Date of Service: 01/14/22
--- NOTE | 2022-01-14 09:49 | PC.NURSE ---
pt moved to room 4, plan to cardio vert the pt pt placed on pacer pads, respiratory called, t placed on 2l nasal cannual with cacography outbound supervisor
[2022-01-14] MEDS: propofoL 200 MG/20 ML VIAL IVPUSH (10:08)
--- NOTE | 2022-01-14 10:08 | PC.NURSE ---
dr becker pushed propofal 50mg iv and at 1009 pushed additional propofal 20mg iv
--- NOTE | 2022-01-14 10:11 | PC.NURSE ---
dr gant, dr bustillo cardiology, respiratory therapy at bedside pt shocked at 200j, pt converted from a-fib of hr 105 now normal sinus at 69-78 pt tolerated the procedure well
--- NOTE | 2022-01-14 11:30 | PC.NURSE ---
pt ambulated with steady gait to the bathroom, denies pain, vs stable
[2022-01-14 11:41] LABS: Alanine Aminotransferase 17 U/L (0-31); Albumin Level 4.1 g/dL (3.5-5.0); Alkaline Phosphatase 87 U/L (39-117); Anion Gap 13 (12-20); Aspartate Amino Transferase 25 U/L (5-31); Bilirubin Direct 0.2 mg/dL (0.0-0.5); Bilirubin Total 0.5 mg/dL (0.0-1.0); Blood Urea Nitrogen 31 mg/dL (9-16); Calcium 10.9 mg/dL (8.4-10.2); Carbon Dioxide 23 mmol/L (22-29); Chloride 105 mmol/L (96-108); Creatinine Clr Calc Pharmacy 27.2; Estimated Glomerular Filt Rate 27; Glucose Random 115 mg/dL (60-115); Magnesium 2.1 mg/dL (1.6-2.6); Potassium 5.5 mmol/L (3.3-5.1); Sodium 135 mmol/L (135-145); Total Protein 6.7 g/dL (6.5-8.0)
[2022-01-14] MEDS: Sodium Zirconium Cyclosilicate 5 GM POWD.PACK PO (12:20)
--- NOTE | 2022-01-14 12:31 | PC.NURSE ---
BP improved prior to med administration. Dr Moore aware and gave verbal orders to hold BP meds
--- NOTE | 2022-01-14 21:39 | HO.CARDIVERS ---
Cardioversion Procedure Note Cardioversion Date of Procedure: 01/14/22 Ordering Provider: Thania Moore Performing Provider: Don Gonzales Indication for Procedure: PAF Pre-Op Diagnosis: PAF Post-Op Diagnosis: PAF Performed with Transesophageal Echo: No History: 81 female with symptomatic Afib. Consent: Verbal and Written consent was obtained from the patient before starting. The patient was made aware of the risk of stroke and failure to achieve sinus rhythm. Procedure: After consent obtained, defib pads were attached and the patient was sedated by the anesthesia team. Once adequate sedation achieved, single synchronized shock of 200 joules was given which reverted to sinus rhythm. She was left with Emergency Department team in stable condition for recovery from sedation.
== END 2022-01-14 12:33 | disposition home or self-care (01) ==
PROVIDERS: Emergency Provider Emergency Medicine; PCP Hospitalist
DX: I48.20 Chronic atrial fibrillation, unspecified (principal); E87.5 Hyperkalemia; R06.02 Shortness of breath; R00.2 Palpitations; I10 Essential (primary) hypertension; E78.5 Hyperlipidemia, unspecified; Z20.822 Contact with and (suspected) exposure to COVID-19; Z79.01 Long term (current) use of anticoagulants
CPT/HCPCS: 36415; 71045; 80048; 80076; 83735; 83880; 84484; 85025; 85610; 87635; 92960; 93005; 96374; 99152; 99285; 99291

== ENCOUNTER → 2022-02-16 11:05 | Outpatient (BNVA) | payer MEDICARE, OTHER, SELFPAY | PROVIDERS: PCP Hospitalist; Referring Provider Hospitalist; Visit Provider Internal Medicine Cardiovascular Disease | DX: I48.0 Paroxysmal atrial fibrillation (principal) | CPT/HCPCS: 99212 ==

== ENCOUNTER 2022-02-17 10:19 | Outpatient (REF) | payer MEDICARE, OTHER, SELFPAY ==
[2022-02-17 13:42] LABS: Alanine Aminotransferase 16 U/L (0-31); Albumin Level 4.2 g/dL (3.5-5.0); Alkaline Phosphatase 93 U/L (39-117); Anion Gap 12 (12-20); Aspartate Amino Transferase 23 U/L (5-31); Bilirubin Direct 0.2 mg/dL (0.0-0.5); Bilirubin Total 0.6 mg/dL (0.0-1.0); Blood Urea Nitrogen 28 mg/dL (9-16); Calcium 10.3 mg/dL (8.4-10.2); Carbon Dioxide 26 mmol/L (22-29); Chloride 102 mmol/L (96-108); Estimated Glomerular Filt Rate 28; Glucose Random 108 mg/dL (60-115); Potassium 4.7 mmol/L (3.3-5.1); Sodium 135 mmol/L (135-145); Total Protein 6.7 g/dL (6.5-8.0)
[2022-02-17 14:02] LABS: TSH reflex Free T4 3.99 uIU/mL (0.32-4.0)
== END 2022-02-17 10:20 | disposition home or self-care (01) ==
LOC: HO.WFDLDS 10:19
PROVIDERS: Visit Provider Internal Medicine Cardiovascular Disease
DX: Z51.81 Encounter for therapeutic drug level monitoring (principal); Z79.899 Other long term (current) drug therapy
CPT/HCPCS: 36415; 80048; 80076; 84443

== ENCOUNTER 2022-04-20 08:47 | Outpatient (REF) | payer MEDICARE, OTHER, SELFPAY ==
[2022-04-20 12:08] LABS: Alanine Aminotransferase 17 U/L (0-31); Albumin Level 4.1 g/dL (3.5-5.0); Alkaline Phosphatase 90 U/L (39-117); Anion Gap 13 (12-20); Aspartate Amino Transferase 23 U/L (5-31); Bilirubin Direct 0.2 mg/dL (0.0-0.5); Bilirubin Total 0.6 mg/dL (0.0-1.0); Blood Urea Nitrogen 30 mg/dL (9-16); Calcium 9.8 mg/dL (8.4-10.2); Carbon Dioxide 25 mmol/L (22-29); Chloride 105 mmol/L (96-108); Cholesterol 164 mg/dL; Estimated Glomerular Filt Rate 33; Glucose Random 103 mg/dL (60-115); HDL Cholesterol 44 mg/dL; LDL Cholesterol Calculated 94 mg/dl; Potassium 4.5 mmol/L (3.3-5.1); Sodium 138 mmol/L (135-145); Total Protein 6.6 g/dL (6.5-8.0); Triglycerides 134 mg/dL
[2022-04-20 12:28] LABS: Vitamin B12 571 pg/mL (200-900)
[2022-04-23 19:06] LABS: Vitamin D 25-OH, D2 <4 ng/mL; Vitamin D 25-OH, D3 44 ng/mL; Vitamin D 25-OH, Total 44 ng/mL (30-100)
== END 2022-04-20 08:48 | disposition home or self-care (01) ==
LOC: HO.WFDLDS 08:47
PROVIDERS: Visit Provider Hospitalist
DX: Z00.00 Encounter for general adult medical examination without abnormal findings (principal); R94.4 Abnormal results of kidney function studies; I48.0 Paroxysmal atrial fibrillation; E78.00 Pure hypercholesterolemia, unspecified; E53.8 Deficiency of other specified B group vitamins; Z86.39 Personal history of other endocrine, nutritional and metabolic disease
CPT/HCPCS: 36415; 80048; 80061; 80076; 82306; 82607

== ENCOUNTER 2022-04-30 09:57 | Outpatient (REF) | payer MEDICARE, OTHER, SELFPAY ==
[2022-04-30 11:51] LABS: Anion Gap 12 (12-20); Blood Urea Nitrogen 31 mg/dL (9-16); Calcium 10.2 mg/dL (8.4-10.2); Carbon Dioxide 25 mmol/L (22-29); Chloride 104 mmol/L (96-108); Estimated Glomerular Filt Rate 29; Glucose Fasting 101 mg/dL (60-99); Potassium 4.7 mmol/L (3.3-5.1); Sodium 136 mmol/L (135-145)
== END 2022-04-30 09:58 | disposition home or self-care (01) ==
LOC: HO.WFDLDS 09:57
PROVIDERS: Visit Provider Hospitalist
DX: R94.4 Abnormal results of kidney function studies (principal)
CPT/HCPCS: 36415; 80048

== ENCOUNTER → 2022-05-25 10:37 | Outpatient (BNVA) | payer MEDICARE, OTHER, SELFPAY | PROVIDERS: PCP Hospitalist; Referring Provider Hospitalist; Visit Provider Internal Medicine Cardiovascular Disease | DX: I48.0 Paroxysmal atrial fibrillation (principal); Z51.81 Encounter for therapeutic drug level monitoring | CPT/HCPCS: 93005; 99212 ==

== ENCOUNTER 2022-05-28 07:58 | Emergency (ER) | payer MEDICARE, OTHER, SELFPAY ==
[2022-05-28] VITALS (7 sets, daily range): BP systolic 174–215; BP diastolic 78–127; PULSE 74–114; RESP 14–20; TEMP 36.8; O2SAT 97–100; BMI 27.1
--- NOTE | ~2022-05-28 | XR_ITS ---
EXAMINATION: XR CHEST CLINICAL INFORMATION: Palpitations. COMPARISON: January 14 2022. TECHNIQUE: Portable AP view of the chest was obtained. FINDINGS: No significant abnormality is identified involving the heart, lungs, mediastinum, bony thorax or soft tissues. XR/XR chest 1V IMPRESSION: Unremarkable examination.
--- NOTE | 2022-05-28 08:04 | ECG_ITS ---
Test Reason : afib Blood Pressure : / mmHG Vent. Rate : 105 BPM Atrial Rate : 000 BPM P-R Int : 000 ms QRS Dur : 100 ms QT Int : 342 ms P-R-T Axes : 000 -38 107 degrees QTc Int : 452 ms Atrial fibrillation with rapid ventricular response Left axis deviation Moderate voltage criteria for LVH, may be normal variant ( R in aVL , Cristofer product ) Septal infarct (cited on or before 14-JAN-2022) ST & T wave abnormality, consider lateral ischemia Abnormal ECG When compared with ECG of 14-JAN-2022 10:12, Atrial fibrillation has replaced Sinus rhythm Questionable change in initial forces of Septal leads Questionable change in initial forces of Lateral leads Referred By: Thania Moore Electronically Signed By:ARTHUR CALI MD
--- NOTE | 2022-05-28 08:05 | ED.ARRPALP ---
HPI - Arrhythmia/Palpitations General Chief Complaint: Arrhythmia/Palpitations Stated Complaint: AFIB Time Seen by Provider: 05/28/22 08:01 Source: patient and old records reviewed Mode of arrival: ambulatory Limitations: no limitations History of Present Illness HPI narrative: 81 yo female with hx of PAF on amio and eliquis, hypothyroidism s/p cardioversion in November and January 2022 by me in our ED. Noted she went back into afib last night while at rest. No associated CP/SOB. Compliant with all her medications. Just had checked up with Dr. Gonzales on Wednesday complaint: rapid heart beat and palpitations Onset (ago): day(s) Duration: constant Severity: moderate Context: occurred during rest Arrhythmia history: atrial fibrillation Associated symptoms: denies other symptoms Related Data Home Medications Medication Instructions Recorded Confirmed cholecalciferol (vitamin D3) 50 50 mcg PO DAILY 11/18/20 05/25/22 mcg (2,000 unit) capsule multivitamin,cm-[id number]-rcycyabk 1 tab PO DAILY 11/18/20 05/25/22 (Complete Multivitamin) fluticasone propionate 50 2 spray intranasal DAILY PRN 05/25/22 05/25/22 mcg/actuation nasal spray,suspension (Allergy Relief (fluticasone)) Previous Rx's Medication Instructions Recorded pravastatin 40 mg tablet 40 mg PO DAILY #30 tabs 09/24/21 levothyroxine 50 mcg capsule 50 mcg PO DAILY #30 caps 11/10/21 (Tirosint) apixaban 5 mg tablet (Eliquis) 5 mg PO BID 90 days #180 tabs 12/18/21 amiodarone 200 mg tablet 200 mg PO DAILY #90 tabs 03/05/22 chlorpheniramine-dextromethorphan 1 tab PO Q6H PRN cold symptoms #30 03/23/22 4 mg-30 mg tablet (Coricidin HBP tabs Cough and Cold) guaifenesin 600 mg tablet, 600 mg PO Q12H PRN congestion #30 03/23/22 extended release 12 hr (Mucinex) tabs losartan 25 mg tablet 25 mg PO DAILY #30 tabs 05/20/22 Allergies Allergy/AdvReac Type Severity Reaction Status Date / Time prednisone Allergy Intermediate REd Verified 05/25/22 10:40 Blotchy codeine AdvReac Intermediate Swelling Verified 05/25/22 10:40 sulfamethoxazole AdvReac Intermediate Stomach Verified 05/25/22 10:40 [From Bactrim] Upset trimethoprim [From Bactrim] AdvReac Intermediate Stomach Verified 05/25/22 10:40 Upset Review of Systems Review of Systems: Constitutional : No Weight loss, No Fever, No Chills ENT/Mouth : No sore throat, No Rhinorrhea Eyes: No Eye Pain, No Swelling Cardiovascular : no Chest Pain, no SOB, no Dyspnea on Exertion, No Orthopnea, No Edema, pos Palpitations Respiratory : No Cough, No Sputum Gastrointestinal : no Nausea, No Vomiting, No Diarrhea, No abdominal Pain, No Hematochezia, No Melena Genitourinary : No Dysuria, No Urinary Frequency Musculoskeletal : No joint pain, No Myalgias, No Joint Swelling Skin : No Skin Lesions, No rash Neuro : No Weakness, No Numbness, No Dizziness, No Headache Psych : No Anxiety/Panic, No Depression Heme/Lymph: No Bruising, No Lymphadenopathy Endocrine : No Polyuria, No Polydipsia All other systems reviewed and are negative [facility] Past Medical History Attestation statement: The following information was validated with the patient. Source: old records reviewed Medical History Anticoagulant long-term use High cholesterol History of cardioversion History of hypothyroidism History of vitamin D deficiency Hx of skin cancer, basal cell Hx of squamous cell carcinoma of skin Hypertension, essential PAF (paroxysmal atrial fibrillation) Vitamin B 12 deficiency Surgical History History of dilation and curettage History of hand surgery Status post surgical removal of malignant neoplasm of skin Family History Family History Mother Stroke Father Pancreatic cancer Brother Lyme disease Social History Social History Housing: House Alcohol intake: current Alcohol intake frequency: holidays/special occasions only Alcohol type: wine Patient Tobacco Use Status: Never used Tobacco e-Cigarette/Vaping Use: Never Used Advance Directives: No Advance Directives Information Provided: Yes Current occupational status: retired Physical Exam Vital Signs: Vital Signs: Last Vital Signs Temp 98.3 F 05/28/22 08:21 Pulse 80 05/28/22 11:00 Resp 14 05/28/22 11:00 BP 193/78 H 05/28/22 11:00 Pulse Ox 99 05/28/22 11:00 O2 Del Method 05/28/22 10:33 Oxygen Flow Rate 2 05/28/22 11:00 BMI result Body Mass Index 27.1 Appearance: Alert. Oriented X3. No acute distress. Eyes: Pupils equal, round and reactive to light. ENT: Pharynx normal. Neck: Normal inspection. Neck supple. CVS: irregular tachyardic heart rate and rhythm. Pulses normal. Respiratory: No respiratory distress. Breath sounds normal. Abdomen: Soft and nontender. Skin: Skin warm and dry. Normal skin color. Normal skin turgor. Extremities: trace pitting lower extremity edema. No calf ttp Neuro: Oriented X 3. No motor deficit. No sensory deficit. Course Course Course Narrative: Cardiology John aware - if no response to cardizem plan to cardiovert, patient agrees has been NPO since last night HR 60s 70s will hold dilt can follow up with cardiology chronically HTNive post cardioversion same as last time doing well post cardioversion no complaints will call son and DC her to son. MDM - Arrhythmia/Palpitations MDM Narrative Medical decision making narrative: 81 yo female with hx of PAF on amio and eliquis, hypothyroidism s/p cardioversion in November and January 2022 by me in our ED. Comes in with palpitations that started yesterday no CP/SOB. compliant with all medications. Just saw her administrative resources associate on Wednesday. At this time will obtain labs, EKG, CXR, IV dilt. If this does not work will discuss with cardiology about cardioversion has been NPO since last night. Lab Data Result diagrams: 05/28/22 08:30 05/28/22 09:01 Labs: Lab Results 05/28/22 05/28/22 05/28/22 Range/Units 08:30 08:30 08:30 WBC 5.8 (4.8-10.8) X10*3/uL RBC 4.63 (4.20-5.50) X10*6/uL Hgb 12.6 (12.0-16.0) g/dl Hct 38.6 (37.0-47.0) % MCV 83.4 (80.0-98.0) fL MCH 27.2 (27.0-33.0) pg MCHC 32.6 (31.0-35.0) g/dl RDW 14.3 (11.0-16.0) % Plt Count 260 (160-400) X10*3/uL MPV 9.2 L (9.4-12.3) fL Immature Gran % (Auto) 0.5 H (0.0-0.4) % Neut % (Auto) 56.2 (45-73) % Lymph % (Auto) 25.4 (20-40) % [place] % (Auto) 16.2 H (2-11) % Eos % (Auto) 0.5 (0-4) % Baso % (Auto) 1.2 (0-2) % Lymph # (Auto) 1.5 (1.2-4.9) X10*3/uL [place] # (Auto) 0.9 (0.1-1.2) X10*3/uL Eos # (Auto) 0.0 (0.0-0.4) X10*3/uL Baso # (Auto) 0.1 (0.0-0.2) X10*3/uL Abs Immat Gran (auto) 0.03 (0.00-0.03) X10*3/uL Absolute Neuts (auto) 3.2 (2.0-8.3) x10*3/uL Absolute Nucleated RBC 0.000 (0.0-0.012) X10*3/uL Nucleated RBC % (auto) 0.0 (0.0-0.2) /100WBC PT 17.5 H (10.0-13.1) SEC INR 1.5 H (0.9-1.1) Sodium (135-145) mmol/L Potassium (3.3-5.1) mmol/L Chloride (96-108) mmol/L Carbon Dioxide (22-29) mmol/L Anion Gap (12-20) BUN (9-16) mg/dL Creatinine (0.5-1.4) mg/dL Estim Creat Clear Calc Estimated GFR Random Glucose (60-115) mg/dL Calcium (8.4-10.2) mg/dL Magnesium (1.6-2.6) mg/dL Total Bilirubin (0.0-1.0) mg/dL Direct Bilirubin (0.0-0.5) mg/dL AST (5-31) U/L ALT (0-31) U/L Alkaline Phosphatase (39-117) U/L Troponin I High Sens 6.7 D (<3.5-17.0) ng/L B-Natriuretic Peptide 582 H (<100) pg/mL Total Protein (6.5-8.0) g/dL Albumin (3.5-5.0) g/dL COVID-19 (AMIRAH) (Negative) COVID-19 Clin Com 05/28/22 05/28/22 Range/Units 08:55 09:01 WBC (4.8-10.8) X10*3/uL RBC (4.20-5.50) X10*6/uL Hgb (12.0-16.0) g/dl Hct (37.0-47.0) % MCV (80.0-98.0) fL MCH (27.0-33.0) pg MCHC (31.0-35.0) g/dl RDW (11.0-16.0) % Plt Count (160-400) X10*3/uL MPV (9.4-12.3) fL Immature Gran % (Auto) (0.0-0.4) % Neut % (Auto) (45-73) % Lymph % (Auto) (20-40) % [place] % (Auto) (2-11) % Eos % (Auto) (0-4) % Baso % (Auto) (0-2) % Lymph # (Auto) (1.2-4.9) X10*3/uL [place] # (Auto) (0.1-1.2) X10*3/uL Eos # (Auto) (0.0-0.4) X10*3/uL Baso # (Auto) (0.0-0.2) X10*3/uL Abs Immat Gran (auto) (0.00-0.03) X10*3/uL Absolute Neuts (auto) (2.0-8.3) x10*3/uL Absolute Nucleated RBC (0.0-0.012) X10*3/uL Nucleated RBC % (auto) (0.0-0.2) /100WBC PT (10.0-13.1) SEC INR (0.9-1.1) Sodium 136 (135-145) mmol/L Potassium 4.2 (3.3-5.1) mmol/L Chloride 104 (96-108) mmol/L Carbon Dioxide 24 (22-29) mmol/L Anion Gap 12 (12-20) BUN 27 H (9-16) mg/dL Creatinine 1.69 H (0.5-1.4) mg/dL Estim Creat Clear Calc 29.1 Estimated GFR 29 Random Glucose 135 H (60-115) mg/dL Calcium 9.8 (8.4-10.2) mg/dL Magnesium 1.9 (1.6-2.6) mg/dL Total Bilirubin 0.5 (0.0-1.0) mg/dL Direct Bilirubin 0.2 (0.0-0.5) mg/dL AST 22 (5-31) U/L ALT 15 (0-31) U/L Alkaline Phosphatase 91 (39-117) U/L Troponin I High Sens (<3.5-17.0) ng/L B-Natriuretic Peptide (<100) pg/mL Total Protein 6.5 (6.5-8.0) g/dL Albumin 4.1 (3.5-5.0) g/dL COVID-19 (AMIRAH) Negative (Negative) COVID-19 Clin Com See Note ECG Data Attestation: I personally reviewed and interpreted this ECG as follows: ECG interpretation date: 05/28/22 ECG interpretation time: 08:23 Interpretation: Rate: 105 Rhythm: afib [place]: left , LVH Normal QRS complex. ST T wave : no ALEXA, nonspecific qTC: normal prior studies: no acute ischemia The study has been interpreted contemporaneously by me. . EKG #2 Rate: 80 Rhythm: NSR [place]: left LVH Normal P waves. 1st degree AVB Normal QRS complex. ST T wave : nonspecific no ALEXA qTC: normal prior studies: no acute ischemia The study has been interpreted contemporaneously by me. . Procedures Procedure Narrative Procedure Narrative: cardioversion - front and back lead placement 1 attempt at 200J patient in NSR 80s, under conscious sedation see procedure note Procedural Sedation Indication: other (cardioversion) ASA Class: II Mallampati Class: II Time of Last PO Intake: 20:00 Preparation: beef breaker applied, pulse oximeter, capnometry used, supplemental O2 applied, suction/airway equipment at bedside and IV secured IV Propofol dose (mg): 50 Patient Tolerated Procedure: well and no complications Complications: none Critical Care Time Critical Care Time Critical Care Time: Yes Total Critical Care Time: 45 Attestation: conscious sedation, medical consult, cardioversion I attest to this time spent taking care of the patient Discharge Plan Discharge Clinical Impression: Atrial fibrillation with rapid ventricular response Patient Disposition: Home, Self-Care Instructions: A-fib (Atrial Fibrillation) (ED), Cardioversion (DC) Additional Instructions: return to ED for any worsening symptoms or concerns continue medications please follow up with your administrative resources associate in the next week stay with responsible adult today Prescriptions: No Action pravastatin 40 mg tablet 40 mg PO DAILY Qty: 30 11RF levothyroxine [Tirosint] 50 mcg capsule 50 mcg PO DAILY Qty: 30 11RF amiodarone 200 mg tablet 200 mg PO DAILY Qty: 90 1RF losartan 25 mg tablet 25 mg PO DAILY Qty: 30 11RF cholecalciferol (vitamin D3) 50 mcg (2,000 unit) capsule 50 mcg PO DAILY Coricidin HBP Cough and Cold 4-30 mg tablet 1 tab PO Q6H PRN (Reason: cold symptoms) Qty: 30 1RF guaifenesin [Mucinex] 600 mg tablet extended release 12hr 600 mg PO Q12H PRN (Reason: congestion) Qty: 30 1RF Complete Multivitamin Tablet 1 tab PO DAILY Eliquis 5 mg tablet 5 mg PO BID 90 Days Qty: 180 3RF fluticasone propionate [Allergy Relief (fluticasone)] 50 mcg/actuation spray,suspension 2 spray intranasal DAILY PRN Rx Instructions: administer into each nostril Referrals: Don Gonzales MD [Physician] - (in next week)
[2022-05-28] MEDS: dilTIAZem HCL 50 MG/10 ML VIAL 10 MG IVPUSH ×2 (08:36→09:58)
[2022-05-28 08:42] LABS: MANUAL DIFF FLAG NO
[2022-05-28 08:46] LABS: Basophils Absolute Auto 0.1 X10*3/uL (0.0-0.2); Basophils Percent Auto 1.2 % (0-2); Eosinophils Percent Auto 0.5 % (0-4); Hematocrit 38.6 % (37.0-47.0); Hemoglobin 12.6 g/dl (12.0-16.0); Imm Gran Abs Auto 0.03 X10*3/uL (0.00-0.03); Imm Gran Pct Auto 0.5 % (0.0-0.4); Lymphocytes Absolute Auto 1.5 X10*3/uL (1.2-4.9); Lymphocytes Percent Auto 25.4 % (20-40); Mean Corpuscular HGB Conc 32.6 g/dl (31.0-35.0); Mean Corpuscular Hemoglobin 27.2 pg (27.0-33.0); Mean Corpuscular Volume 83.4 fL (80.0-98.0); Mean Platelet Volume 9.2 fL (9.4-12.3); Monocytes Absolute Auto 0.9 X10*3/uL (0.1-1.2); Monocytes Percent Auto 16.2 % (2-11); Neutrophils Absolute Auto 3.2 x10*3/uL (2.0-8.3); Neutrophils Percent Auto 56.2 % (45-73); Platelet Count 260 X10*3/uL (160-400); Red Blood Count 4.63 X10*6/uL (4.20-5.50); Red Cell Distribution Width 14.3 % (11.0-16.0); White Blood Count 5.8 X10*3/uL (4.8-10.8)
[2022-05-28 08:51] LABS: INTERNATIONAL NORM RATIO 1.5 (0.9-1.1); Prothrombin Time 17.5 SEC (10.0-13.1)
[2022-05-28 09:07] LABS: B Type Natriuretic Peptide 582 pg/mL (<100); Troponin-I High Sensitivity 6.7 ng/L (<3.5-17.0)
[2022-05-28 09:23] LABS: COVID-19 Test Negative (Negative)
[2022-05-28 09:46] LABS: Alanine Aminotransferase 15 U/L (0-31); Albumin Level 4.1 g/dL (3.5-5.0); Alkaline Phosphatase 91 U/L (39-117); Anion Gap 12 (12-20); Aspartate Amino Transferase 22 U/L (5-31); Bilirubin Direct 0.2 mg/dL (0.0-0.5); Bilirubin Total 0.5 mg/dL (0.0-1.0); Blood Urea Nitrogen 27 mg/dL (9-16); Calcium 9.8 mg/dL (8.4-10.2); Carbon Dioxide 24 mmol/L (22-29); Chloride 104 mmol/L (96-108); Creatinine Clr Calc Pharmacy 29.1; Estimated Glomerular Filt Rate 29; Glucose Random 135 mg/dL (60-115); Magnesium 1.9 mg/dL (1.6-2.6); Potassium 4.2 mmol/L (3.3-5.1); Sodium 136 mmol/L (135-145); Total Protein 6.5 g/dL (6.5-8.0)
--- NOTE | 2022-05-28 10:53 | ECG_ITS ---
Test Reason : cardioversion Blood Pressure : / mmHG Vent. Rate : 080 BPM Atrial Rate : 080 BPM P-R Int : 206 ms QRS Dur : 092 ms QT Int : 384 ms P-R-T Axes : 072 -41 086 degrees QTc Int : 442 ms Normal sinus rhythm Left axis deviation Left ventricular hypertrophy with repolarization abnormality ( R in aVL , [place] product ) Cannot rule out Septal infarct (cited on or before 14-JAN-2022) Abnormal ECG When compared with ECG of 28-MAY-2022 08:17, Sinus rhythm has replaced Atrial fibrillation Referred By: Thania Moore Electronically Signed By:ARTHUR CALI MD
[2022-05-28] MEDS: propofoL 200 MG/20 ML VIAL 100 MG IVPUSH (10:56)
== END 2022-05-28 13:21 | disposition home or self-care (01) ==
PROVIDERS: Emergency Provider Emergency Medicine; PCP Hospitalist
DX: I48.91 Unspecified atrial fibrillation (principal); R00.2 Palpitations; R06.02 Shortness of breath; Z79.899 Other long term (current) drug therapy; Z20.822 Contact with and (suspected) exposure to COVID-19
CPT/HCPCS: 36415; 71045; 80048; 80076; 83735; 83880; 84484; 85025; 85610; 87635; 93005; 96374; 96375; 96376; 99284

== ENCOUNTER 2022-09-04 09:50 | Emergency (ER) | payer MEDICARE, OTHER, SELFPAY ==
--- NOTE | ~2022-09-04 | XR_ITS ---
EXAMINATION: XR CHEST CLINICAL INFORMATION: Palpitations COMPARISON: May 28, 2022 TECHNIQUE: AP portable view of the chest was obtained. FINDINGS: No significant abnormality is noted involving the heart, lungs, mediastinum, bony thorax or soft tissues. XR/XR chest 1V IMPRESSION: No acute disease.
--- NOTE | 2022-09-04 09:51 | ECG_ITS ---
Test Reason : afib Blood Pressure : / mmHG Vent. Rate : 118 BPM Atrial Rate : 000 BPM P-R Int : 000 ms QRS Dur : 104 ms QT Int : 346 ms P-R-T Axes : 000 -52 105 degrees QTc Int : 484 ms Atrial fibrillation with rapid ventricular response Left anterior fascicular block Left ventricular hypertrophy with repolarization abnormality ( R in aVL , [place] product ) Anteroseptal infarct (cited on or before 14-JAN-2022) Abnormal ECG When compared with ECG of 28-MAY-2022 10:56, Atrial fibrillation has replaced Sinus rhythm T wave amplitude has increased in Inferior leads T wave amplitude has increased in Anterolateral leads Referred By: Generic ED Physician Electronically Signed By:MARNI GORDON MD
--- NOTE | 2022-09-04 10:03 | ED_ITS ---
HPI - Arrhythmia/Palpitations General Chief Complaint: Arrhythmia/Palpitations Stated Complaint: A fib Time Seen by Provider: 09/04/22 09:59 Source: patient Mode of arrival: ambulatory Limitations: no limitations History of Present Illness HPI narrative: 81 yo female with hx of afib on amiodarone on eliquis (compliant), HTN, here with c/o onset of afib and palpitations 530am. Usually does not respond to IV medications last cardioverted back in May by me. Feels palpitations. complaint: palpitations Onset (ago): hour(s) (530am today ) Duration: constant Severity: moderate Context: occurred during rest Arrhythmia history: atrial fibrillation Associated symptoms: shortness of breath Related Data Home Medications Medication Instructions Recorded Confirmed cholecalciferol (vitamin D3) 50 50 mcg PO DAILY 11/18/20 05/25/22 mcg (2,000 unit) capsule multivitamin,[id number] 1 tab PO DAILY 11/18/20 05/25/22 (Complete Multivitamin tablet) fluticasone propionate 50 2 spray intranasal DAILY PRN 05/25/22 05/25/22 mcg/actuation nasal spray,suspension (Allergy Relief (fluticasone)) Previous Rx's Medication Instructions Recorded pravastatin 40 mg tablet 40 mg PO DAILY #30 tabs 09/24/21 levothyroxine 50 mcg capsule 50 mcg PO DAILY #30 caps 11/10/21 (Tirosint) apixaban 5 mg tablet (Eliquis) 5 mg PO BID 90 days #180 tabs 12/18/21 amiodarone 200 mg tablet 200 mg PO DAILY #90 tabs 03/05/22 chlorpheniramine-dextromethorphan 1 tab PO Q6H PRN cold symptoms #30 03/23/22 4 mg-30 mg tablet (Coricidin HBP tabs Cough and Cold) guaifenesin 600 mg tablet, 600 mg PO Q12H PRN congestion #30 03/23/22 extended release 12 hr (Mucinex) tabs losartan 25 mg tablet 25 mg PO DAILY #30 tabs 05/20/22 Allergies Allergy/AdvReac Type Severity Reaction Status Date / Time prednisone Allergy Intermediate REd Verified 05/25/22 10:40 Blotchy codeine AdvReac Intermediate Swelling Verified 05/25/22 10:40 sulfamethoxazole AdvReac Intermediate Stomach Verified 05/25/22 10:40 [From Bactrim] Upset trimethoprim [From Bactrim] AdvReac Intermediate Stomach Verified 05/25/22 10:40 Upset Review of Systems Review of Systems: Constitutional : No Fever, No Chills ENT/Mouth : No sore throat, No Rhinorrhea, No Swallowing Difficulty Eyes: No Eye Pain, No Swelling, No Redness Cardiovascular : No Chest Pain, positive SOB, No Orthopnea, no edema, pos palpitations Respiratory : No Cough, No Sputum, No Wheezing, positive dyspnea Gastrointestinal : No Nausea, No Vomiting, No Diarrhea, No abdominal Pain, No Hematochezia, No Melena Genitourinary : No Dysuria, No Urinary Frequency, No Hematuria Musculoskeletal : No joint pain, No Myalgias Skin : No Skin Lesions, No rash Neuro : No Weakness, No Numbness, No Dizziness, No Headache Psych : No Anxiety/Panic, No Depression Heme/Lymph: No Bruising, No Lymphadenopathy Endocrine : No Polyuria, No Polydipsia All other systems reviewed and are negative FORMERLY [facility], [facility] Past Medical History Attestation statement: The following information was validated with the patient. Medical History Anticoagulant long-term use High cholesterol History of cardioversion History of hypothyroidism History of vitamin D deficiency Hx of skin cancer, basal cell Hx of squamous cell carcinoma of skin Hypertension, essential PAF (paroxysmal atrial fibrillation) Vitamin B 12 deficiency Surgical History History of dilation and curettage History of hand surgery Status post surgical removal of malignant neoplasm of skin Family History Family History Mother Stroke Father Pancreatic cancer Brother Lyme disease Social History Social History Housing: House Alcohol intake: current Alcohol intake frequency: holidays/special occasions only Alcohol type: wine Patient Tobacco Use Status: Never used Tobacco e-Cigarette/Vaping Use: Never Used Advance Directives: Yes Advance Directives Information Provided: Yes Advance Directives on File: No Current occupational status: retired Physical Exam Vital Signs: Vital Signs: Last Vital Signs Pulse 63 09/04/22 13:19 Resp 14 09/04/22 13:19 BP 196/69 H 09/04/22 13:19 Pulse Ox 100 09/04/22 13:19 O2 Del Method 09/04/22 13:19 O2 Flow Rate 3 09/04/22 13:19 BMI result Body Mass Index 27.2 Appearance: Alert. Oriented X3. No acute distress. Eyes: Pupils equal, round and reactive to light. ENT: Pharynx normal. Neck: Normal inspection. Neck supple. CVS: irregular tachycardic heart rate and rhythm. Pulses normal. Respiratory: No respiratory distress. Breath sounds normal. Abdomen: Soft and non-tender. Skin: Skin warm and dry. Normal skin color. Normal skin turgor. Extremities: No lower extremity edema. No calf ttp Neuro: Oriented X 3. No motor deficit. No sensory deficit. Course Course Course Narrative: has no complaints at this time feels much better at baseline stable for DC has safe ride home MDM - Arrhythmia/Palpitations MDM Narrative Medical decision making narrative: 81 yo female with hx of afib on amiodarone on eliquis (compliant), HTN, here with c/o onset of afib here with rapid afib with RVR feels palpitations and dyspnea - at this time will need basic labs, attempt IV dilt and if failed will discuss with diltiazem attempt cardioversion. The patient is requesting cardioversion has been converted in the past in our ED last in May. NPO since midnight. Lab Data Result diagrams: 09/04/22 10:09/04/22 10: Labs: Lab Results 09/04/22 09/04/22 09/04/22 Range/Units 10: 10: 10:22 WBC 6.5 (4.8-10.8) X10*3/uL RBC 4.63 (4.20-5.50) X10*6/uL Hgb 12.4 (12.0-16.0) g/dl Hct 38.7 (37.0-47.0) % MCV 83.6 (80.0-98.0) fL MCH 26.8 L (27.0-33.0) pg MCHC 32.0 (31.0-35.0) g/dl RDW 14.7 (11.0-16.0) % Plt Count 266 (160-400) X10*3/uL MPV 9.6 (9.4-12.3) fL Immature Gran % (Auto) 0.5 H (0.0-0.4) % Neut % (Auto) 73.9 H (45-73) % Lymph % (Auto) 16.6 L (20-40) % [place] % (Auto) 8.0 (2-11) % Eos % (Auto) 0.2 (0-4) % Baso % (Auto) 0.8 (0-2) % Lymph # (Auto) 1.1 L (1.2-4.9) X10*3/uL [place] # (Auto) 0.5 (0.1-1.2) X10*3/uL Eos # (Auto) 0.0 (0.0-0.4) X10*3/uL Baso # (Auto) 0.1 (0.0-0.2) X10*3/uL Abs Immat Gran (auto) 0.03 (0.00-0.03) X10*3/uL Absolute Neuts (auto) 4.8 (2.0-8.3) x10*3/uL Absolute Nucleated RBC 0.000 (0.0-0.012) X10*3/uL Nucleated RBC % (auto) 0.0 (0.0-0.2) /100WBC PT (10.0-13.1) SEC INR (0.9-1.1) Sodium 138 (135-145) mmol/L Potassium 4.3 (3.3-5.1) mmol/L Chloride 102 (96-108) mmol/L Carbon Dioxide 23 (22-29) mmol/L Anion Gap 17 (12-20) BUN 27 H (9-16) mg/dL Creatinine 1.52 H (0.5-1.4) mg/dL Estim Creat Clear Calc 32.4 Estimated GFR 33 Random Glucose 160 H (60-115) mg/dL Calcium 10.9 H D (8.4-10.2) mg/dL Magnesium 2.0 (1.6-2.6) mg/dL Total Bilirubin 0.5 (0.0-1.0) mg/dL Direct Bilirubin 0.2 (0.0-0.5) mg/dL AST 25 (5-31) U/L ALT 15 (0-31) U/L Alkaline Phosphatase 115 D (39-117) U/L Troponin I High Sens 8.4 (<3.5-17.0) ng/L B-Natriuretic Peptide 390 H (<100) pg/mL Total Protein 7.2 (6.5-8.0) g/dL Albumin 4.5 (3.5-5.0) g/dL Urine Color Urine Appearance Urine pH (5.0-9.0) Ur Specific [place] (1.005-1.025) Urine Protein (Neg-Trace) mg/dL Urine Glucose (UA) (Negative) mg/dL Urine Ketones (Negative) mg/dL Urine Blood (Negative) Urine Nitrite (Negative) Ur Leukocyte Esterase (Negative) COVID-19 (AMIRAH) (Negative) COVID-19 Clin Com 09/04/22 09/04/22 09/04/22 Range/Units 11:05 11:08 11:23 WBC (4.8-10.8) X10*3/uL RBC (4.20-5.50) X10*6/uL Hgb (12.0-16.0) g/dl Hct (37.0-47.0) % MCV (80.0-98.0) fL MCH (27.0-33.0) pg MCHC (31.0-35.0) g/dl RDW (11.0-16.0) % Plt Count (160-400) X10*3/uL MPV (9.4-12.3) fL Immature Gran % (Auto) (0.0-0.4) % Neut % (Auto) (45-73) % Lymph % (Auto) (20-40) % [place] % (Auto) (2-11) % Eos % (Auto) (0-4) % Baso % (Auto) (0-2) % Lymph # (Auto) (1.2-4.9) X10*3/uL [place] # (Auto) (0.1-1.2) X10*3/uL Eos # (Auto) (0.0-0.4) X10*3/uL Baso # (Auto) (0.0-0.2) X10*3/uL Abs Immat Gran (auto) (0.00-0.03) X10*3/uL Absolute Neuts (auto) (2.0-8.3) x10*3/uL Absolute Nucleated RBC (0.0-0.012) X10*3/uL Nucleated RBC % (auto) (0.0-0.2) /100WBC PT 16.9 H (10.0-13.1) SEC INR 1.5 H (0.9-1.1) Sodium (135-145) mmol/L Potassium (3.3-5.1) mmol/L Chloride (96-108) mmol/L Carbon Dioxide (22-29) mmol/L Anion Gap (12-20) BUN (9-16) mg/dL Creatinine (0.5-1.4) mg/dL Estim Creat Clear Calc Estimated GFR Random Glucose (60-115) mg/dL Calcium (8.4-10.2) mg/dL Magnesium (1.6-2.6) mg/dL Total Bilirubin (0.0-1.0) mg/dL Direct Bilirubin (0.0-0.5) mg/dL AST (5-31) U/L ALT (0-31) U/L Alkaline Phosphatase (39-117) U/L Troponin I High Sens (<3.5-17.0) ng/L B-Natriuretic Peptide (<100) pg/mL Total Protein (6.5-8.0) g/dL Albumin (3.5-5.0) g/dL Urine Color Yellow Urine Appearance Clear Urine pH 7.5 (5.0-9.0) Ur Specific [place] 1.010 (1.005-1.025) Urine Protein Negative (Neg-Trace) mg/dL Urine Glucose (UA) Negative (Negative) mg/dL Urine Ketones Negative (Negative) mg/dL Urine Blood Negative (Negative) Urine Nitrite Negative (Negative) Ur Leukocyte Esterase Negative (Negative) COVID-19 (AMIRAH) Negative (Negative) COVID-19 Clin Com See Note ECG Data Attestation: I personally reviewed and interpreted this ECG as follows: ECG interpretation date: 09/04/22 ECG interpretation time: 10:27 Interpretation: Rate: 118 Rhythm: afib with RVR [place]: left Normal QRS complex. ST T wave : no ALEXA, nonspecific changes inverted t waves I and aVL qTC: normal prior studies: no acute ischemia The study has been interpreted contemporaneously by me. EKG #2 Rate: 61 Rhythm: NSR [place]: left Normal P waves. Normal BENIG[place]. Normal QRS complex. Poor R wave progression ST T wave : nonspecific I and aVL, slight elevation in V2, no other ALEXA qTC: normal prior studies: changed from rapid afib The study has been interpreted contemporaneously by me. . Procedures Procedure Narrative Procedure Narrative: consent obtained : under consscious see separate note cardiac nurse practitioner bedside attendance RT and RN present, PA at bedside as well with me 200J synchronized cardioversion first attempt failed to convert to NSR 2nd attempt at 200J synchronized cardioverson in NSR front to back pads used BP stable, tolerated well no complications Procedural Sedation Indication: other (cardioversion) ASA Class: II Mallampati Class: II Time of Last PO Intake: 00:00 Preparation: cardiac nurse practitioner applied, pulse oximeter, capnometry used, supplemental O2 applied, reversal agents at bedside, suction/airway equipment at bedside and IV secured IV Propofol dose (mg): 110 Patient Tolerated Procedure: well and no complications Complications: none Critical Care Time Critical Care Time Critical Care Time: Yes Total Critical Care Time: 40 Attestation: cardioversion, review of records IV dilt bolus, reassessments, discussion with instrument lens inspector I attest to this time spent taking care of the patient Discharge Plan Discharge Clinical Impression: Atrial fibrillation with rapid ventricular response Patient Disposition: Home, Self-Care Instructions: A-fib (Atrial Fibrillation) (ED), Moderate Sedation (ED), Cardioversion (DC) Additional Instructions: return to ED for any worsening symptoms or concerns please see instrument lens inspector for discussion about ablation, take all medications as prescribed - call for appointment in next 2 weeks stay with responsible adult today Prescriptions: No Action pravastatin 40 mg tablet 40 mg PO DAILY Qty: 30 11RF levothyroxine [Tirosint] 50 mcg capsule 50 mcg PO DAILY Qty: 30 11RF amiodarone 200 mg tablet 200 mg PO DAILY Qty: 90 1RF losartan 25 mg tablet 25 mg PO DAILY Qty: 30 11RF cholecalciferol (vitamin D3) 50 mcg (2,000 unit) capsule 50 mcg PO DAILY Coricidin HBP Cough and Cold 4-30 mg tablet 1 tab PO Q6H PRN (Reason: cold symptoms) Qty: 30 1RF guaifenesin [Mucinex] 600 mg tablet extended release 12hr 600 mg PO Q12H PRN (Reason: congestion) Qty: 30 1RF Complete Multivitamin Tablet 1 tab PO DAILY Eliquis 5 mg tablet 5 mg PO BID 90 Days Qty: 180 3RF fluticasone propionate [Allergy Relief (fluticasone)] 50 mcg/actuation spray,suspension 2 spray intranasal DAILY PRN Rx Instructions: administer into each nostril Interventions: ED Discharge Assessment Last Done: 09/04/22 15:37 Discharge Date/Time: 09/04/22 15:37
[2022-09-04] MEDS: dilTIAZem HCL 50 MG/10 ML VIAL 10 MG IVPUSH (10:18)
[2022-09-04 10:19] VITALS: BP 188/100; PULSE 111; RESP 12; O2SAT 99; BMI 27.2
[2022-09-04 10:28] LABS: MANUAL DIFF FLAG NO
[2022-09-04 10:46] LABS: Basophils Absolute Auto 0.1 X10*3/uL (0.0-0.2); Basophils Percent Auto 0.8 % (0-2); Eosinophils Percent Auto 0.2 % (0-4); Hematocrit 38.7 % (37.0-47.0); Hemoglobin 12.4 g/dl (12.0-16.0); Imm Gran Abs Auto 0.03 X10*3/uL (0.00-0.03); Imm Gran Pct Auto 0.5 % (0.0-0.4); Lymphocytes Absolute Auto 1.1 X10*3/uL (1.2-4.9); Lymphocytes Percent Auto 16.6 % (20-40); Mean Corpuscular Hemoglobin 26.8 pg (27.0-33.0); Mean Corpuscular Volume 83.6 fL (80.0-98.0); Mean Platelet Volume 9.6 fL (9.4-12.3); Monocytes Absolute Auto 0.5 X10*3/uL (0.1-1.2); Neutrophils Absolute Auto 4.8 x10*3/uL (2.0-8.3); Neutrophils Percent Auto 73.9 % (45-73); Platelet Count 266 X10*3/uL (160-400); Red Blood Count 4.63 X10*6/uL (4.20-5.50); Red Cell Distribution Width 14.7 % (11.0-16.0); White Blood Count 6.5 X10*3/uL (4.8-10.8)
[2022-09-04 11:21] LABS: Appearance Urine Clear; Color Urine Yellow; Glucose Urine UA Negative (Negative); Leukocyte Esterase Urine Negative (Negative); Nitrite Urine Negative (Negative); PH 7.5 (5.0-9.0); Urine Blood Negative (Negative); Urine Ketones Negative (Negative); Urine Protein Negative (Neg-Trace)
[2022-09-04 11:37] LABS: INTERNATIONAL NORM RATIO 1.5 (0.9-1.1); Prothrombin Time 16.9 SEC (10.0-13.1)
[2022-09-04 11:38] LABS: COVID-19 Test Negative (Negative)
[2022-09-04 12:12] LABS: Alanine Aminotransferase 15 U/L (0-31); Albumin Level 4.5 g/dL (3.5-5.0); Alkaline Phosphatase 115 U/L (39-117); Anion Gap 17 (12-20); Aspartate Amino Transferase 25 U/L (5-31); Bilirubin Direct 0.2 mg/dL (0.0-0.5); Bilirubin Total 0.5 mg/dL (0.0-1.0); Blood Urea Nitrogen 27 mg/dL (9-16); Calcium 10.9 mg/dL (8.4-10.2); Carbon Dioxide 23 mmol/L (22-29); Chloride 102 mmol/L (96-108); Creatinine Clr Calc Pharmacy 32.4; Estimated Glomerular Filt Rate 33; Glucose Random 160 mg/dL (60-115); Potassium 4.3 mmol/L (3.3-5.1); Sodium 138 mmol/L (135-145); Total Protein 7.2 g/dL (6.5-8.0)
[2022-09-04 12:16] LABS: B Type Natriuretic Peptide 390 pg/mL (<100); Troponin-I High Sensitivity 8.4 ng/L (<3.5-17.0)
[2022-09-04 12:55] VITALS: BP 194/89; PULSE 108; RESP 16; O2SAT 97
[2022-09-04 13:04] VITALS: BP 194/89; PULSE 124; RESP 18; O2SAT 99
[2022-09-04] MEDS: propofoL 200 MG/20 ML VIAL 100 MG IVPUSH (13:04)
[2022-09-04] MEDS: propofoL 200 MG/20 ML VIAL 10 MG IVPUSH (13:05)
[2022-09-04 13:07] VITALS: O2SAT 98; O2SAT 99
--- NOTE | 2022-09-04 13:12 | ECG_ITS ---
Test Reason : AFIB Blood Pressure : / mmHG Vent. Rate : 061 BPM Atrial Rate : 061 BPM P-R Int : 196 ms QRS Dur : 096 ms QT Int : 446 ms P-R-T Axes : 072 -45 052 degrees QTc Int : 448 ms Normal sinus rhythm Left anterior fascicular block Moderate voltage criteria for LVH, may be normal variant ( R in aVL , [place] product ) Septal infarct (cited on or before 14-JAN-2022) Abnormal ECG When compared with ECG of 04-SEP-2022 09:51, Sinus rhythm has replaced Atrial fibrillation Vent. rate has decreased BY 57 BPM T wave inversion no longer evident in Lateral leads Referred By: Raquel Moore Electronically Signed By:MARNI GORDON MD
[2022-09-04 13:19] VITALS: BP 196/69; PULSE 63; RESP 14; O2SAT 100
--- NOTE | 2022-09-04 14:46 | PC.NURSE ---
awake and at baseline feels ready to go home. tolerated po intake
--- NOTE | 2022-09-04 14:47 | PC.NURSE ---
remains in a sr
== END 2022-09-04 15:37 | disposition home or self-care (01) ==
PROVIDERS: Emergency Provider Emergency Medicine; PCP Hospitalist
DX: I48.20 Chronic atrial fibrillation, unspecified (principal); Z20.822 Contact with and (suspected) exposure to COVID-19; R06.02 Shortness of breath; I10 Essential (primary) hypertension; E78.00 Pure hypercholesterolemia, unspecified; Z79.01 Long term (current) use of anticoagulants; Z79.02 Long term (current) use of antithrombotics/antiplatelets; Z79.899 Other long term (current) drug therapy
CPT/HCPCS: 71045; 80048; 80076; 81003; 83735; 83880; 84484; 85025; 85610; 87635; 92960; 93005; 99285

== ENCOUNTER → 2022-09-30 12:26 | Outpatient (BNVA) | payer MEDICARE, OTHER, SELFPAY | PROVIDERS: PCP Hospitalist; Visit Provider Internal Medicine Cardiovascular Disease | DX: I44.4 Left anterior fascicular block (principal); I48.0 Paroxysmal atrial fibrillation; R94.31 Abnormal electrocardiogram [ECG] [EKG]; Z98.890 Other specified postprocedural states; Z79.01 Long term (current) use of anticoagulants; Z51.81 Encounter for therapeutic drug level monitoring | CPT/HCPCS: 93005; 99212 ==

== ENCOUNTER 2022-10-21 08:45 | Inpatient (IN) | payer MEDICARE, OTHER, SELFPAY ==
[2022-10-21] VITALS (8 sets, daily range): BP systolic 128–175; BP diastolic 60–124; PULSE 98–127; RESP 11–20; TEMP 36.5–36.9; O2SAT 95–99; BMI 27.7
--- NOTE | 2022-10-21 | ECG_ITS ---
Test Reason : palpations, afib Blood Pressure : / mmHG Vent. Rate : 112 BPM Atrial Rate : 288 BPM P-R Int : 000 ms QRS Dur : 100 ms QT Int : 326 ms P-R-T Axes : 000 -48 112 degrees QTc Int : 444 ms Atrial fibrillation with rapid ventricular response Left axis deviation Left ventricular hypertrophy with repolarization abnormality ( R in aVL , [place] product ) Abnormal ECG When compared with ECG of 04-SEP-2022 13:12, Atrial flutter has replaced Sinus rhythm Vent. rate has increased BY 51 BPM T wave inversion now evident in Lateral leads Referred By: Magdiel Bolanos Electronically Signed By:ARTHUR CALI MD
--- NOTE | ~2022-10-21 | XR_ITS ---
EXAMINATION: XR CHEST CLINICAL INFORMATION: Bradycardia. COMPARISON: 09/04/2022 chest radiograph. TECHNIQUE: Frontal view of the chest was obtained. FINDINGS: No significant abnormality is noted involving the heart, lungs, mediastinum, bony thorax or soft tissues. XR/XR chest 1V IMPRESSION: No acute cardiopulmonary process.
--- NOTE | 2022-10-21 09:25 | ED.GENADULT ---
HPI - General Adult General Chief complaint: Arrhythmia/Palpitations Stated complaint: Afib Time Seen by Provider: 10/21/22 09:20 Source: patient Mode of arrival: ambulatory Limitations: no limitations History of Present Illness HPI narrative: Sandi is a 81 yo female with a PMHx of atrial fibrillation and hypothyroidism who presents to the emergency department today with a CC of palpitations. She says that she noticed these intermittent palpitations which started last night. She denies any chest pain, headache, fever, chills, nausea, vomiting, diarrhea, or constipation. She followed up with cardiology a few weeks ago and was told that she was stable at the time. She admits she has been cardioverted several times and this is the only thing that works, to correct the palpitations. The last time she underwent a cardioversion was 08/30/22. Patient states that she is having some minimal shortness of breath and has had issues of fluid retention in the past. Onset (ago): day(s) (1) Location: chest Radiation: non-radiation Severity: moderate Relieving factors: none Exacerbating factors: none Associated symptoms: shortness of breath Treatments prior to arrival: none Related Data Home Medications Medication Instructions Recorded Confirmed cholecalciferol (vitamin D3) 50 50 mcg PO DAILY 11/18/20 09/30/22 mcg (2,000 unit) capsule multivitamin,[id number] 1 tab PO DAILY 11/18/20 09/30/22 (Complete Multivitamin tablet) fluticasone propionate 50 2 spray intranasal DAILY PRN 05/25/22 09/30/22 mcg/actuation nasal spray,suspension (Allergy Relief (fluticasone)) Previous Rx's Medication Instructions Recorded pravastatin 40 mg tablet 40 mg PO DAILY #30 tabs 09/24/21 levothyroxine 50 mcg capsule 50 mcg PO DAILY #30 caps 11/10/21 (Tirosint) apixaban 5 mg tablet (Eliquis) 5 mg PO BID 90 days #180 tabs 12/18/21 amiodarone 200 mg tablet 200 mg PO DAILY #90 tabs 03/05/22 losartan 25 mg tablet 25 mg PO DAILY #30 tabs 05/20/22 Allergies Allergy/AdvReac Type Severity Reaction Status Date / Time prednisone Allergy Intermediate REd Verified 10/19/22 08:43 Blotchy codeine AdvReac Intermediate Swelling Verified 10/19/22 08:43 sulfamethoxazole AdvReac Intermediate Stomach Verified 10/19/22 08:43 [From Bactrim] Upset trimethoprim [From Bactrim] AdvReac Intermediate Stomach Verified 10/19/22 08:43 Upset Review of Systems Constitutional: Constitutional: Reports no additional constitutional complaints, Denies chills, Denies fever(s) and Denies night sweats Eyes: Eyes: Reports no additional eye complaints, Denies blurry vision, Denies change in vision, Denies diplopia, Denies eye discharge, Denies loss of vision and Denies eye pain ENT: Denies dizziness Cardiovascular: Cardiovascular: Reports no additional cardiovascular complaints, Denies chest pain, Reports irregular heart rhythm, Denies lightheadedness, Denies Loss of Consciousness and Reports dyspnea Respiratory: Respiratory: Reports no additional respiratory complaints and Reports dyspnea Gastrointestinal: Gastrointestinal: Reports no additional gastrointestinal complaints, Denies abdominal pain, Denies melena, Denies hematochezia, Denies change in bowel habits and Denies change in stool character Genitourinary: Genitourinary: Denies hematuria, Denies urinary frequency, Denies dysuria, Denies urinary incontinence, Denies urinary hesitancy and Denies urinary urgency Musculoskeletal: Musculoskeletal: Reports no additional musculoskeletal complaints, Denies numbness and Denies tingling Neurologic: Denies dizziness, Denies loss of vision, Denies numbness and Denies tingling Psychiatric: Psychiatric: Reports no additional psychiatric complaints Endocrine: Endocrine: Reports no additional endocrine complaints Hematologic/Lymphatic: Hematologic/Lymphatic: Reports no additional hematologic/lymphatic complaints Allergic/Immunologic: Allergic/Immunologic: Reports no additional allergic/immunologic complaints [facility] [place] Past Medical History Attestation statement: The following information was validated with the patient. Source: old records reviewed and nursing notes reviewed Medical History Anticoagulant long-term use High cholesterol History of cardioversion History of hypothyroidism History of vitamin D deficiency Hx of skin cancer, basal cell Hx of squamous cell carcinoma of skin Hypertension, essential PAF (paroxysmal atrial fibrillation) Vitamin B 12 deficiency Surgical History History of dilation and curettage History of hand surgery Status post surgical removal of malignant neoplasm of skin Family History Family History Mother Stroke Father Pancreatic cancer Brother Lyme disease Social History Social History Housing: House Alcohol intake: never Patient Tobacco Use Status: Never used Tobacco Smoked in Last 30 Days: No e-Cigarette/Vaping Use: Never Used Use of substances other than those prescribed or required for medical reasons: No Advance Directives: No Current occupational status: retired Physical Exam ED Vital Signs: Vital Signs - 24 hr 10/21/22 09:10 10/21/22 09:23 Temperature 97.9 F 98.5 F Pulse Rate 126 H 127 H Respiratory Rate 20 14 Blood Pressure 160/109 H 175/124 H Pulse Oximetry 98 95 Oxygen Delivery Method Room Air Room Air BMI result Body Mass Index 27.7 Const General: cooperative, no acute distress, alert and awake Nutritional Appearance: well nourished Orientation/consciousness: patient oriented x3 Limitations: no limitations HENMT Head: Yes normal to inspection and Yes atraumatic Ears: hearing grossly normal bilaterally and external ears normal General nose exam: Normal external nose present, no nasal discharge noted and no epistaxis Face and sinus: Yes normal facial exam, No abrasion and No laceration Mouth: Normal oral and palatal mucosa present, no drooling and no muffled voice Eyes General: appearance normal, both eyes and all related structures Periorbital: periorbital findings normal Eyelids: Yes eyelids normal Conjunctivae: conjunctivae normal Pupils: Equal, round and reactive pupils present EOM: EOMs intact bilaterally Neck Neck: Yes normal visual inspection, Yes full ROM and Yes no lymphadenopathy Chest Chest palpation & inspection: normal inspection of the chest Resp Effort & Inspection: normal respiratory effort and able to speak in complete sentences Auscultation: clear to auscultation bilaterally Cardio Rate: regular rate Rhythm: abnormal rhythm irregularly irregular Heart sounds: S1 normal heart sound present and S2 normal heart sound present Peripheral pulses: Peripheral pulses 2+ throughout GI Inspection: Yes normal to inspection Palpation (GI): Soft to palpation, not firm, nontender, no guarding and not rigid Neuro General: patient oriented x3 and moves all extremities Cranial nerves: Yes Equal, round and reactive pupils present Cognition (Neuro): normal cognition Motor exam (neuro): 5/5 motor strength present throughout Sensory Exam: Normal double simultaneous stimulation for sensation Coordination: [id number] test normal Extrem Other: minimal edema to the bilateral lower extremities General: Yes full ROM and Yes capillary refill normal Psych Appearance: grossly normal Mental Status: mental status grossly normal Affect: normal affect Attitude: cooperative Thought process: Normal thought process present Thought content: Normal thought content present Insight: Good insight present (Psych) Course Course Course Narrative: Sandi is a 81 yo female with a PMHx of Afib and hypothyroidism who presents today with 1 day of palpitations. She denies any other associated symptoms. PE is notable for Afib with some bilateral non-pitting edema, negative Mimi's sign, no chest pain, or SOB. Pt is taking 5mg of Eliquis. Pt would like to be cardioverted as she states this is the only treatment that helps her palpitations. She was last cardioverted on 08/30/22. Cardiology would like to consider an ablation but per cardiology note, pt wants to wait as is currently very ill. She does not want to schedule that procedure at this time. Reevaluation(s) Reevaluation #1: 10:38 Chest X-ray-no acute cardiopulmonary process is noted. CBC is consistent with previous values, PT and INR are therapeutic, chemistry still pending. Medications Administered Discontinued Medications Generic Name Dose Route Start Last Admin Trade Name Simoneq PRN Reason Stop Dose Admin Furosemide 40 mg 10/21/22 10:58 10/21/22 11:15 Furosemide 40 Mg/4 Ml Vial IVPUSH 10/21/22 10:59 40 mg ONCE ONE Administration Protocol Medical Decision Making Medical Decision Making [facility] Narrative: Patient is a 81 year old assigned female at with a history of atrial fibrillation presenting to the emergency department today with palpitations and shortness of breath. Patient's physical exam showed atrial fibrillation ranging from 88-110 with minimal bilateral lower leg edema. Patient's blood work showed an elevated BNP of 855. Patient's urine showed no acute process. Patient's EKG showed atrial fibrillation with a rate in the 110s. Patient's chest x-ray showed no acute process. I spoke to the hospitalist team who agreed to admission. I explained my physical exam findings as well as all test results to the patient. I answered all questions asked by the patient. Patient verbalized agreement and understanding with this treatment plan and admission. Differential Diagnoses: Differential diagnosis Differential Diagnosis: The differential diagnosis associated with the patient?s presentation includes: CHF exacerbation, fluid overload, atrial fibrillation with RVR Discussion of management with other physician/healthcare provider/other source (e.g., hospitalist, sap solution manager consultant, behavioral health): Discussion w/other physician/healthcare provider Management of the patient was discussed with: Hospitalist Spoke with the hospitalist team who agreed to admission. Lab Attestation: I reviewed the patient's lab results. Independent interpretation of EKG, rhythm strip, radiology study: Independent interp EKG,rhythm strip, radiology study I performed an independent interpretation of the: EKG Vent. Rate: 112 BPM ? ? Atrial Rate: 288 BPM P-R Int: 000 ms? QRS Dur: 100 ms QT Int: 326 ms ? ? ? P-R-T Axes: 000 -48 112 degrees QTc Int: 444 ms ? Atrial flutter with variable A-V block Left axis deviation Left ventricular hypertrophy with repolarization abnormality ( R in aVL , [place] product ) Abnormal ECG When compared with ECG of 04-SEP-2022 13:12, Atrial flutter has replaced Sinus rhythm Vent. rate has increased BY? 51 BPM T wave inversion now evident in Lateral leads DD/ [id number] Discussion of test interpretation with radiology: Discussion of test interpretation with radiology I did not discuss this result directly with the radiologist however, this is the radiologist impresson per their report. EXAMINATION: XR CHEST CLINICAL INFORMATION: Bradycardia. COMPARISON: 09/04/2022 chest radiograph. TECHNIQUE: Frontal view of the chest was obtained. FINDINGS: No significant abnormality is noted involving the heart, lungs, mediastinum, bony thorax or soft tissues. XR/XR chest 1V IMPRESSION: No acute cardiopulmonary process. Dictated By: Janusz Koehler MD Signed By: Electronically signed by Janusz Koehler MD 10/21/22 1024 Critical Care Time Critical Care Time Critical Care Time: Yes Total Critical Care Time: 30 Attestation: I spent 30 minutes of Critical Care Time with this patient. This does not include time spent on separately reported billable procedures. Discharge Plan Discharge Clinical Impression: PAF (paroxysmal atrial fibrillation), Elevated brain natriuretic peptide (BNP) level, Breath shortness Patient Disposition: Admitted As Inpatient Prescriptions: No Action pravastatin 40 mg tablet 40 mg PO DAILY Qty: 30 11RF levothyroxine [Tirosint] 50 mcg capsule 50 mcg PO DAILY Qty: 30 11RF amiodarone 200 mg tablet 200 mg PO DAILY Qty: 90 1RF losartan 25 mg tablet 25 mg PO DAILY Qty: 30 11RF cholecalciferol (vitamin D3) 50 mcg (2,000 unit) capsule 50 mcg PO DAILY Complete Multivitamin Tablet 1 tab PO DAILY Eliquis 5 mg tablet 5 mg PO BID 90 Days Qty: 180 3RF fluticasone propionate [Allergy Relief (fluticasone)] 50 mcg/actuation spray,suspension 2 spray intranasal DAILY PRN Rx Instructions: administer into each nostril
--- NOTE | 2022-10-21 10:03 | PC.NURSE ---
pt a&ox3, traffic monitor specialist intact afib on monitor, pt denies pain/discomfort at this time, iv inserted- unable to draw labs, pt is a difficulty stick, attemptedx2, currently warming arms with blankets to attempt again, call sawyer within reach, will continue to monitor
[2022-10-21 10:23] LABS: MANUAL DIFF FLAG NO
[2022-10-21 10:25] LABS: Basophils Percent Auto 0.8 % (0-2); Eosinophils Percent Auto 0.6 % (0-4); Hematocrit 37.8 % (37.0-47.0); Imm Gran Abs Auto 0.02 X10*3/uL (0.00-0.03); Imm Gran Pct Auto 0.4 % (0.0-0.4); Lymphocytes Absolute Auto 1.1 X10*3/uL (1.2-4.9); Lymphocytes Percent Auto 20.9 % (20-40); Mean Corpuscular HGB Conc 31.7 g/dl (31.0-35.0); Mean Corpuscular Hemoglobin 25.9 pg (27.0-33.0); Mean Corpuscular Volume 81.6 fL (80.0-98.0); Mean Platelet Volume 8.9 fL (9.4-12.3); Monocytes Absolute Auto 0.7 X10*3/uL (0.1-1.2); Monocytes Percent Auto 13.5 % (2-11); Neutrophils Absolute Auto 3.2 x10*3/uL (2.0-8.3); Neutrophils Percent Auto 63.8 % (45-73); Platelet Count 233 X10*3/uL (160-400); Red Blood Count 4.63 X10*6/uL (4.20-5.50); Red Cell Distribution Width 14.6 % (11.0-16.0)
--- NOTE | 2022-10-21 10:25 | PC.NURSE ---
pt ambulated with steady gait to bathroom, labs drawn by tech, will continue to monitor
[2022-10-21 10:31] LABS: INTERNATIONAL NORM RATIO 1.5 (0.9-1.1); Prothrombin Time 17.2 SEC (10.0-13.1)
[2022-10-21 10:34] LABS: Partial Thromboplastin Time 32.6 SEC (26.0-36.4)
[2022-10-21 10:41] LABS: Anion Gap 14 (12-20); Carbon Dioxide 25 mmol/L (22-29); Chloride 105 mmol/L (96-108); Potassium 4.6 mmol/L (3.3-5.1); Sodium 139 mmol/L (135-145)
[2022-10-21 10:45] LABS: B Type Natriuretic Peptide 855 pg/mL (<100)
[2022-10-21 10:46] LABS: Alanine Aminotransferase 18 U/L (0-31); Albumin Level 4.2 g/dL (3.5-5.0); Alkaline Phosphatase 101 U/L (39-117); Anion Gap 11 (12-20); Aspartate Amino Transferase 25 U/L (5-31); Bilirubin Total 0.5 mg/dL (0.0-1.0); Blood Urea Nitrogen 24 mg/dL (9-16); Calcium 10.8 mg/dL (8.4-10.2); Carbon Dioxide 28 mmol/L (22-29); Chloride 107 mmol/L (96-108); Creatinine Clr Calc Pharmacy 32.3; Estimated Glomerular Filt Rate 32; Glucose Random 130 mg/dL (60-115); Potassium 4.6 mmol/L (3.3-5.1); Sodium 141 mmol/L (135-145); Total Protein 6.6 g/dL (6.5-8.0)
[2022-10-21] MEDS: Furosemide 40 MG/4 ML VIAL IVPUSH ×2 (11:15→19:44)
[2022-10-21 11:57] LABS: Appearance Urine Clear; Color Urine Yellow; Glucose Urine UA Negative (Negative); Leukocyte Esterase Urine Trace (Negative); Nitrite Urine Negative (Negative); PH 7.5 (5.0-9.0); Specific Gravity - Urine <= 1.005 (1.005-1.025); UMIC TRIGGER UACC YES; Urine Blood Negative (Negative); Urine Ketones Negative (Negative); Urine Protein Negative (Neg-Trace)
[2022-10-21 12:02] LABS: Bacteria Urine None Seen (None Seen); Hyaline Casts Urine 0-2 /LPF (0-2); RBC Urine 0-2 /HPF (0-2); Squamous Epithelial Cell Urine 0-2 /HPF (0-2); WBC Urine 0-5 /HPF (0-5)
[2022-10-21 12:16] LABS: COVID-19 Test Negative (Negative); IDNOW Serial# 55D5AD1C
--- NOTE | 2022-10-21 12:37 | P.HPHOSP_ITS ---
History of Present Illness Date of Service: 10/21/22 Chief Complaint: palpitations 81 yo female with a PMHx of atrial fibrillation and hypothyroidism presents to the emergency department with palpitations that started yesterday. She has a hx of afib and has felt these palpitations in the past when she goes in afib. He previously had undergone cardioversion x6 last being 08/30/2022 and has recently talked about an ablation with youth coordinator. She denies any chest pain, headache, fever, chills, nausea, vomiting, diarrhea, or constipation. In the ER, heart rate noted to be in the 120s, Creatinine 1.54 seems at baseline, BNP 855, chest x-ray negative for consolidation effusion, elevated heart rate and blood pressure, urinalysis negative, COVID negative. In the ER she was started on diltiazem drip and given a dose of IV Lasix. She will be admitted for further management and treatment of acute congestive heart failure and atrial fibrillation with rapid ventricular response. Review of Systems Review of Systems: Denies any recent fever chills or decrease in appetite respiratory denies any shortness of breath coverage production cardiovascular denied chest pain, felt palpitations gastrointestinal denies any dysphagia abdominal pain nausea vomiting or diarrhea genitourinary denies any dysuria frequency or hematuria musculoskeletal denies any joint pain or swelling neuropsych denies any weakness or seizures all other systems reviewed are negative [facility] Medical History Anticoagulant long-term use High cholesterol History of cardioversion History of hypothyroidism History of vitamin D deficiency Hx of skin cancer, basal cell Hx of squamous cell carcinoma of skin Hypertension, essential PAF (paroxysmal atrial fibrillation) Vitamin B 12 deficiency Family History Mother Stroke Father Pancreatic cancer Brother Lyme disease Surgical History History of dilation and curettage History of hand surgery Status post surgical removal of malignant neoplasm of skin Social History Housing: House Alcohol intake: never Patient Tobacco Use Status: Never used Tobacco Smoked in Last 30 Days: No e-Cigarette/Vaping Use: Never Used Use of substances other than those prescribed or required for medical reasons: No Advance Directives: No Current occupational status: retired Meds Allergies Allergy/AdvReac Type Severity Reaction Status Date / Time prednisone Allergy Intermediate REd Verified 10/19/22 08:43 Blotchy codeine AdvReac Intermediate Swelling Verified 10/19/22 08:43 sulfamethoxazole AdvReac Intermediate Stomach Verified 10/19/22 08:43 [From Bactrim] Upset trimethoprim [From Bactrim] AdvReac Intermediate Stomach Verified 10/19/22 08:43 Upset Active Medications: Current Medications Acetaminophen (Acetaminophen 325 Mg Tablet) 650 mg PO Q6H PRN PRN Reason: Pain, Mild (Pain Scale 1-3) Furosemide (Furosemide 40 Mg/4 Ml Vial) 40 mg IVPUSH BID@0900,1800 GIRISH; Protocol Ondansetron HCl (Ondansetron Hcl 4 Mg/2 Ml Vial) 4 mg IVPUSH Q8H PRN PRN Reason: Nausea and Vomiting Pharmacy Consult (Consult Rx Perform Med Rec) 1 each MISCELLANE ONCE PRN PRN Reason: patient to be admitted Sodium Chloride (0.9 % Sodium Chloride Flush 3 Ml Syringe) 3 ml IVFLUSH QSHIST. [facility] Home Medications Medication Instructions Recorded Confirmed Last Taken Type cholecalciferol (vitamin D3) 50 50 mcg PO DAILY 11/18/20 10/21/22 Unknown History mcg (2,000 unit) capsule acetaminophen 325 mg tablet 650 mg PO Q4H PRN Mild Pain (Scale 10/21/22 10/21/22 Unknown History Score 1-4) pravastatin 40 mg tablet 40 mg PO BEDTIME 10/21/22 10/21/22 Unknown History Physical Exam Vital Signs and Narrative: Vital Signs: Last Vital Signs Temp 98.5 F 10/21/22 09:23 Pulse 127 H 10/21/22 09:23 Resp 14 10/21/22 09:23 BP 175/124 H 10/21/22 09:23 Pulse Ox 95 10/21/22 09:23 O2 Del Method 10/21/22 09:23 BMI result Body Mass Index 27.7 Appearing in no acute distress head is normocephalic atraumatic eyes pupils are PERRLA sclera is anicteric mouth throat mucous membranes are intact and moist neck is supple no lymphadenopathy, no JVD noted lung sounds are clear to auscultation heart irregularly irregular positive bowel sounds, abdomen is soft, nontender neuro patient is alert x3, no focal deficits Results Labs CBC and Chem 7: 10/21/22 10:20 10/21/22 10:20 Labs: Laboratory Results - last 24 hr 10/21/22 10/21/22 10/21/22 10:20 10:20 10:20 MCV 81.6 MCH 25.9 L MCHC 31.7 RDW 14.6 Plt Count 233 MPV 8.9 L Immature Gran % (Auto) 0.4 Neut % (Auto) 63.8 Lymph % (Auto) 20.9 [place] % (Auto) 13.5 H Eos % (Auto) 0.6 Baso % (Auto) 0.8 Lymph # (Auto) 1.1 L [place] # (Auto) 0.7 Eos # (Auto) 0.0 Baso # (Auto) 0.0 Abs Immat Gran (auto) 0.02 Absolute Neuts (auto) 3.2 Absolute Nucleated RBC 0.000 Nucleated RBC % (auto) 0.0 PT INR APTT Anion Gap 14 Estim Creat Clear Calc Estimated GFR Random Glucose Calcium Total Bilirubin AST ALT Alkaline Phosphatase Troponin I High Sens 9.0 B-Natriuretic Peptide Total Protein Albumin Urine Color Urine Appearance Urine pH Ur Specific [place] Urine Protein Urine Glucose (UA) Urine Ketones Urine Blood Urine Nitrite Ur Leukocyte Esterase Urine RBC Urine WBC Ur Squamous Epith Cells Urine Bacteria Hyaline Casts COVID-19 (AMIRAH) COVID-19 Clin Com 10/21/22 10/21/22 10/21/22 10:20 10:20 10:20 MCV MCH MCHC RDW Plt Count MPV Immature Gran % (Auto) Neut % (Auto) Lymph % (Auto) [place] % (Auto) Eos % (Auto) Baso % (Auto) Lymph # (Auto) [place] # (Auto) Eos # (Auto) Baso # (Auto) Abs Immat Gran (auto) Absolute Neuts (auto) Absolute Nucleated RBC Nucleated RBC % (auto) PT 17.2 H INR 1.5 H APTT 32.6 Anion Gap 11 L Estim Creat Clear Calc 32.3 Estimated GFR 32 Random Glucose 130 H Calcium 10.8 H Total Bilirubin 0.5 AST 25 ALT 18 Alkaline Phosphatase 101 Troponin I High Sens B-Natriuretic Peptide 855 H Total Protein 6.6 Albumin 4.2 Urine Color Urine Appearance Urine pH Ur Specific [place] Urine Protein Urine Glucose (UA) Urine Ketones Urine Blood Urine Nitrite Ur Leukocyte Esterase Urine RBC Urine WBC Ur Squamous Epith Cells Urine Bacteria Hyaline Casts COVID-19 (AMIRAH) COVID-19 Clin Com 10/21/22 10/21/22 11:48 11:48 MCV MCH MCHC RDW Plt Count MPV Immature Gran % (Auto) Neut % (Auto) Lymph % (Auto) [place] % (Auto) Eos % (Auto) Baso % (Auto) Lymph # (Auto) [place] # (Auto) Eos # (Auto) Baso # (Auto) Abs Immat Gran (auto) Absolute Neuts (auto) Absolute Nucleated RBC Nucleated RBC % (auto) PT INR APTT Anion Gap Estim Creat Clear Calc Estimated GFR Random Glucose Calcium Total Bilirubin AST ALT Alkaline Phosphatase Troponin I High Sens B-Natriuretic Peptide Total Protein Albumin Urine Color Yellow Urine Appearance Clear Urine pH 7.5 Ur Specific [place] <= 1.005 Urine Protein Negative Urine Glucose (UA) Negative Urine Ketones Negative Urine Blood Negative Urine Nitrite Negative Ur Leukocyte Esterase Trace H Urine RBC 0-2 Urine WBC 0-5 Ur Squamous Epith Cells 0-2 Urine Bacteria None Seen Hyaline Casts 0-2 COVID-19 (AMIRAH) Negative COVID-19 Clin Com See Note Imaging Radiologist's Impressions: Impressions Chest X-Ray 10/21/22 09:52 IMPRESSION: No acute cardiopulmonary process. Assessment and Plan (1) Persistent atrial fibrillation: Status: Acute Plan 81 year old women admitted with afib rvr and acute in chronic CHF Atrial fibrillation with rapid ventricular response Heart rate in the 120s Start diltiazem drip Cardiology consultation monitor on telemetry Previous history of successful cardioversion, may need to be cardioverted again Hold amiodarone for now Continue apixaban Acute on chronic heart failure with preserved ejection fraction Last echocardiogram 12/09/2020 showed EF of 65-70% with grade 2 diastolic dysfunction, mild pulmonary hypertension and no evidence of regional wall motion abnormalities Will start Lasix 40 mg IV b.i.d. Cardiology consultation Monitor on telemetry Daily weights, strict intake and output Hypertension Needs better blood pressure control Continue losartan and Lasix Hypothyroidism Continue levothyroxine CKD stage IIIB Baseline DVT prophylaxis with apixaban Attending Dr. Winters Full code Patient needs to inpatient midnights for treatment of atrial fibrillation with rapid ventricular response requiring IV diltiazem drip and possible cardioversion as well as IV diuretics for acute heart failure Quality Stroke Does the patient have a stroke diagnosis?: No VTE Prior VTE?: No VTE Risk Level:: Medical - moderate - high VTE Device Contraindication: Treatment Not Indicated VTE Drug Contraindication: N/A - Med Ordered
--- NOTE | 2022-10-21 12:51 | PHA.MEDREC ---
Pharmacy Consult ? Medication Reconciliation Pharmacy has completed the medication reconciliation.
[2022-10-21] MEDS: dilTIAZem HCL 125 MG in 0.9 % Sodium Chloride 100 ML 10 MG IVCONT (14:30)
--- NOTE | 2022-10-21 14:50 | PC.NURSE ---
Pt heart rate maintaining between 100-115, diltiazem drip parameters state to maintain drip to keep heart rate below 120. This RN santo texted Supriya Garvin, Hospitalist for confirmation of whether or not she wanted to have the drip started or held. Supriya would like the drip started. This RN started diltiazem drip at 1430, pt continues to maintain heart rate 100-115 at this time
--- NOTE | 2022-10-21 15:56 | PM.CNCAR ---
History of Present Illness History of Present Illness Date of Service: 10/21/22 Requesting physician: Surpiya Gonzales Consult reason: atrial fibrillation Chief complaint: Afib Narrative: I was consulted to see Sandi in cardiology consultation today for recurrent atrial fibrillation. She is a 81-year-old woman who has prior history of atrial fibrillation for last 5 years or so being managed on amiodarone with rhythm control has done very well with rhythm control. However she has had multiple cardioversions and last time seen couple weeks ago by she was recommended to see tree worker although due to social situation she wanted to postpone it. She came to the hospital starting having symptoms yesterday. She felt like heart was irregular and jumpy yesterday the whole day but then settled down and evening time went back into normal rhythm as per her. The around 02:30 she woke up and felt like she was in atrial fibrillation. She again in the morning when she woke up at 07:30 she felt not well she took a blood pressure and was this was low and she got diaphoretic and nauseous. She therefore decided come to the emergency room. Her blood pressure is low but heart rate was 88 beats per minute. She went to walk her dog out and said that she had reduce exercise capacity. She denies any lightheadedness, syncope although says she did not feel well and is very nondescript about not feeling well. No recent illness except for few weeks ago she said she had chills and fever but then this subsided. She has had no recent fever or chills or cough productive of phlegm. Review of Systems Constitutional: Constitutional: Reports lethargy, Reports malaise and Reports weakness Eyes: Eyes: Reports no additional eye complaints ENT: Reports system reviewed and no additional complaints, except as documented Cardiovascular: Cardiovascular: Denies chest pain, Denies lightheadedness, Denies Loss of Consciousness, Reports palpitations and Reports dyspnea on exertion Respiratory: Respiratory: Reports no additional respiratory complaints and Reports dyspnea on exertion Gastrointestinal: Gastrointestinal: Reports no additional gastrointestinal complaints Genitourinary: Genitourinary: Reports no additional female genitourinary complaints Musculoskeletal: Musculoskeletal: Reports no additional musculoskeletal complaints Integumentary/Breasts: Skin/Breast: Reports system reviewed and no additional complaints, except as docu Neurologic: Reports system reviewed and no additional complaints, except as documented and Reports weakness Psychiatric: Psychiatric: Reports no additional psychiatric complaints Endocrine: Endocrine: Reports no additional endocrine complaints and Reports palpitations Hematologic/Lymphatic: Hematologic/Lymphatic: Reports no additional hematologic/lymphatic complaints Allergic/Immunologic: Allergic/Immunologic: Reports no additional allergic/immunologic complaints [facility] Past Medical History Medical History (Updated 10/21/22 @ 16:04 by Wayne Lopez MD) Anticoagulant long-term use High cholesterol History of cardioversion History of hypothyroidism History of vitamin D deficiency Hx of skin cancer, basal cell Hx of squamous cell carcinoma of skin Hypertension, essential PAF (paroxysmal atrial fibrillation) Vitamin B 12 deficiency Family History Family History Mother Stroke Father Pancreatic cancer Brother Lyme disease Surgical History Surgical History History of dilation and curettage History of hand surgery Status post surgical removal of malignant neoplasm of skin Social History Social History Housing: House Alcohol intake: never Patient Tobacco Use Status: Never used Tobacco Smoked in Last 30 Days: No e-Cigarette/Vaping Use: Never Used Use of substances other than those prescribed or required for medical reasons: No Advance Directives: No Current occupational status: retired Meds Allergies Allergy/AdvReac Type Severity Reaction Status Date / Time prednisone Allergy Intermediate REd Verified 10/19/22 08:43 Blotchy codeine AdvReac Intermediate Swelling Verified 10/19/22 08:43 sulfamethoxazole AdvReac Intermediate Stomach Verified 10/19/22 08:43 [From Bactrim] Upset trimethoprim [From Bactrim] AdvReac Intermediate Stomach Verified 10/19/22 08:43 Upset Active Medications: Current Medications Acetaminophen (Acetaminophen 325 Mg Tablet) 650 mg PO Q6H PRN PRN Reason: Pain, Mild (Pain Scale 1-3) Apixaban (Apixaban 5 Mg Tablet) 5 mg PO BID [facility] Furosemide (Furosemide 40 Mg/4 Ml Vial) 40 mg IVPUSH BID@0900,1800 [facility]; Protocol Diltiazem HCl 125 mg/ Sodium (Chloride) 125 mls @ 0 mls/hr IVCONT .Q0M GIR[facility]; Protocol Last Admin: 10/21/22 14:30 Dose: 10 mg/hr, 10 mls/hr Levothyroxine Sodium (Levothyroxine Sodium 50 Mcg Tablet) 50 mcg PO DAILY [facility] Losartan Potassium (Losartan Potassium 25 Mg Tablet) 25 mg PO DAILY [facility]; Protocol Ondansetron HCl (Ondansetron Hcl 4 Mg/2 Ml Vial) 4 mg IVPUSH Q8H PRN PRN Reason: Nausea and Vomiting Pharmacy Consult (Consult Rx Perform Med Rec) 1 each MISCELLANE ONCE PRN PRN Reason: patient to be admitted Pravastatin Sodium (Pravastatin Sodium 40 Mg Tablet) 40 mg PO BEDTIME [facility] Sodium Chloride (0.9 % Sodium Chloride Flush 3 Ml Syringe) 3 ml IVFLUSH QSHIFT [facility] Vitamin D (Cholecalciferol (Vitamin D3) 25 Mcg Tablet) 50 mcg PO DAILY [facility] Home Medications Medication Instructions Recorded Confirmed Last Taken Type cholecalciferol (vitamin D3) 50 50 mcg PO DAILY 11/18/20 10/21/22 Unknown History mcg (2,000 unit) capsule acetaminophen 325 mg tablet 650 mg PO Q4H PRN Mild Pain (Scale 10/21/22 10/21/22 Unknown History Score 1-4) pravastatin 40 mg tablet 40 mg PO BEDTIME 10/21/22 10/21/22 Unknown History Physical Exam Vital Signs: Vital Signs: Last Vital Signs Temp 97.7 F 10/21/22 13:54 Pulse 118 H 10/21/22 14:30 Resp 11 L 10/21/22 14:30 BP 159/84 H 10/21/22 14:30 Pulse Ox 99 10/21/22 14:30 O2 Del Method 10/21/22 14:30 BMI result Body Mass Index 27.7 Const: General: cooperative, comfortable, no acute distress, alert and awake Nutritional Appearance: average body habitus Orientation/consciousness: patient oriented x3 HEENT: Head: Yes normocephalic and Yes atraumatic Neck: Neck: Yes trachea midline, Yes supple and Yes no JVD Resp: Effort & Inspection: normal respiratory effort Auscultation: clear to auscultation bilaterally Cardio: Jugular venous distension: no JVD Palpation: normal PMI Rate: tachycardic Rhythm: abnormal rhythm regularly irregular Heart sounds: S1 normal heart sound present, S2 normal heart sound present, no click, no gallops, no murmurs and no rubs GI: Percussion: Yes normal to percussion Skin: General skin exam: no rashes or lesions noted and ecchymosis Neuro: General: patient oriented x3 and no focal motor deficits Extrem: General: Yes no clubbing, cyanosis or edema Psych: Appearance: grossly normal Objective Labs and Meds Result diagrams: 10/21/22 10:20 10/21/22 10:20 Lab results: Laboratory Results - last 24 hr 10/21/22 10/21/22 10/21/22 10:20 10:20 10:20 WBC 5.0 RBC 4.63 Hgb 12.0 Hct 37.8 MCV 81.6 MCH 25.9 L MCHC 31.7 RDW 14.6 Plt Count 233 MPV 8.9 L Immature Gran % (Auto) 0.4 Neut % (Auto) 63.8 Lymph % (Auto) 20.9 Douglas % (Auto) 13.5 H Eos % (Auto) 0.6 Baso % (Auto) 0.8 Lymph # (Auto) 1.1 L Douglas # (Auto) 0.7 Eos # (Auto) 0.0 Baso # (Auto) 0.0 Abs Immat Gran (auto) 0.02 Absolute Neuts (auto) 3.2 Absolute Nucleated RBC 0.000 Nucleated RBC % (auto) 0.0 PT INR APTT Sodium 139 Potassium 4.6 Chloride 105 Carbon Dioxide 25 Anion Gap 14 BUN Creatinine Estim Creat Clear Calc Estimated GFR Random Glucose Calcium Total Bilirubin AST ALT Alkaline Phosphatase Troponin I High Sens 9.0 B-Natriuretic Peptide Total Protein Albumin Urine Color Urine Appearance Urine pH Ur Specific [place] Urine Protein Urine Glucose (UA) Urine Ketones Urine Blood Urine Nitrite Ur Leukocyte Esterase Urine RBC Urine WBC Ur Squamous Epith Cells Urine Bacteria Hyaline Casts COVID-19 (AMIRAH) COVID-19 Clin Com 10/21/22 10/21/22 10/21/22 10:20 10:20 10:20 WBC RBC Hgb Hct MCV MCH MCHC RDW Plt Count MPV Immature Gran % (Auto) Neut % (Auto) Lymph % (Auto) Douglas % (Auto) Eos % (Auto) Baso % (Auto) Lymph # (Auto) Douglas # (Auto) Eos # (Auto) Baso # (Auto) Abs Immat Gran (auto) Absolute Neuts (auto) Absolute Nucleated RBC Nucleated RBC % (auto) PT 17.2 H INR 1.5 H APTT 32.6 Sodium 141 Potassium 4.6 Chloride 107 Carbon Dioxide 28 Anion Gap 11 L BUN 24 H Creatinine 1.54 H Estim Creat Clear Calc 32.3 Estimated GFR 32 Random Glucose 130 H Calcium 10.8 H Total Bilirubin 0.5 AST 25 ALT 18 Alkaline Phosphatase 101 Troponin I High Sens B-Natriuretic Peptide 855 H Total Protein 6.6 Albumin 4.2 Urine Color Urine Appearance Urine pH Ur Specific [place] Urine Protein Urine Glucose (UA) Urine Ketones Urine Blood Urine Nitrite Ur Leukocyte Esterase Urine RBC Urine WBC Ur Squamous Epith Cells Urine Bacteria Hyaline Casts COVID-19 (AMIRAH) COVID-19 Clin Com 10/21/22 10/21/22 11:48 11:48 WBC RBC Hgb Hct MCV MCH MCHC RDW Plt Count MPV Immature Gran % (Auto) Neut % (Auto) Lymph % (Auto) Douglas % (Auto) Eos % (Auto) Baso % (Auto) Lymph # (Auto) Douglas # (Auto) Eos # (Auto) Baso # (Auto) Abs Immat Gran (auto) Absolute Neuts (auto) Absolute Nucleated RBC Nucleated RBC % (auto) PT INR APTT Sodium Potassium Chloride Carbon Dioxide Anion Gap BUN Creatinine Estim Creat Clear Calc Estimated GFR Random Glucose Calcium Total Bilirubin AST ALT Alkaline Phosphatase Troponin I High Sens B-Natriuretic Peptide Total Protein Albumin Urine Color Yellow Urine Appearance Clear Urine pH 7.5 Ur Specific [place] <= 1.005 Urine Protein Negative Urine Glucose (UA) Negative Urine Ketones Negative Urine Blood Negative Urine Nitrite Negative Ur Leukocyte Esterase Trace H Urine RBC 0-2 Urine WBC 0-5 Ur Squamous Epith Cells 0-2 Urine Bacteria None Seen Hyaline Casts 0-2 COVID-19 (AMIRAH) Negative COVID-19 Clin Com See Note Imaging Radiologist's impression: Impressions Chest X-Ray 10/21/22 09:52 IMPRESSION: No acute cardiopulmonary process. Assessment and Plan (1) Persistent atrial fibrillation: Status: Acute Persistent highly symptomatic atrial fibrillation most likely due to loss of AV synchrony. She did not have significant fast heart rate in the morning and felt very clammy. He has very difficult control and maintain atrial fibrillation. She has had multiple cardioversion the last year or so and the duration between cardioversion is getting shorter. Last cardioverted within last 2 months. Her overall clinical picture is consistent with structural atrial fibrillation. I think she would require electrophysiology consultation and consideration of ablation in addition to antiarrhythmic drug therapy with amiodarone. This was discussed with her. She was not very enthusiastic about it but she understands that she has no other option at this point time. She has elevated BNP but this most likely is related to atrial fibrillation and underlying diastolic dysfunction. Overtly does not appear to be in significant heart failure at this point time. Hold off on diuretic regimen. Continue with Cardizem therapy for rate control in addition to amiodarone. Continue Eliquis. Keep her NPO past midnight. Will pursue synchronized cardioversion again. This was discussed with her. She was explained the risk, benefits, alternatives and 2nd open to procedure. She understands agrees. Continue full oral anticoagulation. Eventually probably need dual therapy with amiodarone and possible Cardizem at the low-dose. She has not tolerated metoprolol therapy in the past with significant side effects with fatigue. Repeat echocardiogram Will follow with her. Thank you for allowing me to partake in the care Procedures Date of Service Date of Service: 10/21/22
--- NOTE | 2022-10-21 16:51 | MHC.CM.PN ---
IMM 10/21. Lives alone. A&Ox4. Independent. Drives. No DME/services. Pfizer x2. Booster x1. HCP at home. HCP/son Leland Rashid ([phone]). Copy requested. D/C plan: home without services. Pt to arrange transport. CM to follow for discharge needs.
--- NOTE | 2022-10-21 21:34 | PC.NURSE ---
RN to RN report given to TERRI Marcano. Pt being transferred to [facility]. Pt aware of plan of care.
[2022-10-21] MEDS: Apixaban 5 MG TABLET PO (22:42)
[2022-10-21] MEDS: Pravastatin Sodium 40 MG TABLET PO (22:42)
[2022-10-22] VITALS (12 sets, daily range): BP systolic 97–177; BP diastolic 48–90; PULSE 55–119; RESP 12–18; TEMP 36.1–37; O2SAT 95–99; BMI 27.2
--- NOTE | 2022-10-22 03:26 | PC.NURSE ---
Pt's finished first dose of diltiazem. When the bag finished pt's HR was in the range of 80-90 bpm. Pt was off the infusion for 15 minutes and HR increased to a 90-100 bpm. This RN contacted hospitalist to inform them about to pt. Hospitalist would like us to hold off on another dose of diltiazem unless the HR increased to <120 bpm.
[2022-10-22 04:47] LABS: Hematocrit 39.4 % (37.0-47.0); Hemoglobin 12.9 g/dl (12.0-16.0); Mean Corpuscular HGB Conc 32.7 g/dl (31.0-35.0); Mean Corpuscular Hemoglobin 26.6 pg (27.0-33.0); Mean Corpuscular Volume 81.2 fL (80.0-98.0); Mean Platelet Volume 9.4 fL (9.4-12.3); Platelet Count 246 X10*3/uL (160-400); Red Blood Count 4.85 X10*6/uL (4.20-5.50); Red Cell Distribution Width 14.6 % (11.0-16.0); White Blood Count 6.4 X10*3/uL (4.8-10.8)
[2022-10-22 05:02] LABS: Anion Gap 16 (12-20); Blood Urea Nitrogen 28 mg/dL (9-16); Calcium 10.6 mg/dL (8.4-10.2); Carbon Dioxide 26 mmol/L (22-29); Chloride 103 mmol/L (96-108); Creatinine Clr Calc Pharmacy 22.8; Estimated Glomerular Filt Rate 22; Glucose Random 123 mg/dL (60-115); Potassium 4.1 mmol/L (3.3-5.1); Sodium 141 mmol/L (135-145)
[2022-10-22 08:30] LABS: Glucose, Whole Blood 123 mg/dL (60-115)
[2022-10-22] MEDS: Apixaban 5 MG TABLET PO ×2 (08:51→20:08)
[2022-10-22] MEDS: 0.9 % Sodium Chloride Flush 3 ML SYRINGE IVFLUSH ×2 (08:52→18:02)
--- NOTE | 2022-10-22 09:00 | PC.NURSE ---
pt taken to OR for cardioversion. she denies cp/dizziness. c/o sob with exertion. HR mid to high 90s, diltiazem drip remains on hold. report given to short stay rn.
--- NOTE | 2022-10-22 09:30 | PC.NURSE ---
pt afib hr up to 127 denies chest pain, dizziness or chest pain, sob only mild with activity reported to dr. mae, here for cardioversion. initial order to re-start nohemy goddard, rescinded.
--- NOTE | 2022-10-22 10:23 | ECG_ITS ---
Test Reason : s/p cardioversion Blood Pressure : / mmHG Vent. Rate : 056 BPM Atrial Rate : 056 BPM P-R Int : 178 ms QRS Dur : 098 ms QT Int : 438 ms P-R-T Axes : 057 -41 092 degrees QTc Int : 422 ms Sinus bradycardia Left axis deviation Left ventricular hypertrophy with repolarization abnormality ( R in aVL , Cristofer product ) Abnormal ECG When compared with ECG of 21-OCT-2022 09:06, Normal sinus rhythm has replaced Atrial fibrillation with rapid ventricular response ST more depressed Lateral leads Nonspecific T wave abnormality now evident in Inferior leads Nonspecific T wave abnormality now evident in Anterior leads Nonspecific T wave abnormality has replaced inverted T waves in Lateral leads Referred By: Wayne Lopez Electronically Signed By:WAYNE LOPEZ MD
--- NOTE | 2022-10-22 10:32 | PM.PNCARD ---
Subjective Subjective Date of Service: 10/22/22 Principal diagnosis: Atrial fibrillation Interval history: Patient status post synchronized cardioversion. Currently maintaining sinus rhythm. Hemodynamically stable. Review of Systems Review of Systems Yes all other systems are reviewed and are negative Physical Exam Vital Signs: Last Vital Signs Temp 98.2 F 10/22/22 09:06 Pulse 119 H 10/22/22 09:06 Resp 18 10/22/22 09:06 BP 177/90 H 10/22/22 09:06 Pulse Ox 98 10/22/22 09:06 O2 Del Method 10/22/22 09:06 BMI result Body Mass Index 27.2 Const Orientation/consciousness: patient oriented x3 Neck Neck: Yes trachea midline, Yes supple and Yes no JVD Resp Effort & Inspection: normal respiratory effort Auscultation: clear to auscultation bilaterally Cardio Jugular venous distension: no JVD Palpation: normal PMI Rate: regular rate Rhythm: regular rhythm Heart sounds: S1 normal heart sound present, S2 normal heart sound present, no click, no gallops and no murmurs GI Auscultation: normal bowel sounds Neuro General: patient oriented x3 and no focal motor deficits Extrem General: Yes no clubbing, cyanosis or edema Objective Labs and Meds Result diagrams: 10/22/22 04:27 10/22/22 04:27 Lab results: Laboratory Results - last 24 hr 10/21/22 10/21/22 10/21/22 10:20 10:20 10:20 WBC RBC Hgb Hct MCV MCH MCHC RDW Plt Count MPV Absolute Nucleated RBC Nucleated RBC % (auto) PT 17.2 H INR 1.5 H APTT 32.6 Sodium 139 Potassium 4.6 Chloride 105 Carbon Dioxide 25 Anion Gap 14 BUN Creatinine Estim Creat Clear Calc Estimated GFR POC Glucose Random Glucose Calcium Total Bilirubin AST ALT Alkaline Phosphatase Troponin I High Sens 9.0 B-Natriuretic Peptide Total Protein Albumin Urine Color Urine Appearance Urine pH Ur Specific [place] Urine Protein Urine Glucose (UA) Urine Ketones Urine Blood Urine Nitrite Ur Leukocyte Esterase Urine RBC Urine WBC Ur Squamous Epith Cells Urine Bacteria Hyaline Casts COVID-19 (AMIRAH) COVID-19 Clin Com 10/21/22 10/21/22 10/21/22 10:20 10:20 11:48 WBC RBC Hgb Hct MCV MCH MCHC RDW Plt Count MPV Absolute Nucleated RBC Nucleated RBC % (auto) PT INR APTT Sodium 141 Potassium 4.6 Chloride 107 Carbon Dioxide 28 Anion Gap 11 L BUN 24 H Creatinine 1.54 H Estim Creat Clear Calc 32.3 Estimated GFR 32 POC Glucose Random Glucose 130 H Calcium 10.8 H Total Bilirubin 0.5 AST 25 ALT 18 Alkaline Phosphatase 101 Troponin I High Sens B-Natriuretic Peptide 855 H Total Protein 6.6 Albumin 4.2 Urine Color Urine Appearance Urine pH Ur Specific [place] Urine Protein Urine Glucose (UA) Urine Ketones Urine Blood Urine Nitrite Ur Leukocyte Esterase Urine RBC Urine WBC Ur Squamous Epith Cells Urine Bacteria Hyaline Casts COVID-19 (AMIRAH) Negative COVID-19 Clin Com See Note 10/21/22 10/22/22 10/22/22 11:48 04:27 04:27 WBC 6.4 RBC 4.85 Hgb 12.9 Hct 39.4 MCV 81.2 MCH 26.6 L MCHC 32.7 RDW 14.6 Plt Count 246 MPV 9.4 Absolute Nucleated RBC 0.000 Nucleated RBC % (auto) 0.0 PT INR APTT Sodium 141 Potassium 4.1 Chloride 103 Carbon Dioxide 26 Anion Gap 16 BUN 28 H Creatinine 2.18 H Estim Creat Clear Calc 22.8 Estimated GFR 22 POC Glucose Random Glucose 123 H Calcium 10.6 H Total Bilirubin AST ALT Alkaline Phosphatase Troponin I High Sens B-Natriuretic Peptide Total Protein Albumin Urine Color Yellow Urine Appearance Clear Urine pH 7.5 Ur Specific [place] <= 1.005 Urine Protein Negative Urine Glucose (UA) Negative Urine Ketones Negative Urine Blood Negative Urine Nitrite Negative Ur Leukocyte Esterase Trace H Urine RBC 0-2 Urine WBC 0-5 Ur Squamous Epith Cells 0-2 Urine Bacteria None Seen Hyaline Casts 0-2 COVID-19 (AMIRAH) COVID-19 Clin Com 10/22/22 08:27 WBC RBC Hgb Hct MCV MCH MCHC RDW Plt Count MPV Absolute Nucleated RBC Nucleated RBC % (auto) PT INR APTT Sodium Potassium Chloride Carbon Dioxide Anion Gap BUN Creatinine Estim Creat Clear Calc Estimated GFR POC Glucose 123 H Random Glucose Calcium Total Bilirubin AST ALT Alkaline Phosphatase Troponin I High Sens B-Natriuretic Peptide Total Protein Albumin Urine Color Urine Appearance Urine pH Ur Specific [place] Urine Protein Urine Glucose (UA) Urine Ketones Urine Blood Urine Nitrite Ur Leukocyte Esterase Urine RBC Urine WBC Ur Squamous Epith Cells Urine Bacteria Hyaline Casts COVID-19 (AMIRAH) COVID-19 Clin Com Progress Note: A&P Assessment and plan (1) Persistent atrial fibrillation: Status: Acute Assessment and Plan: Recurrent persistent atrial fibrillation status post synchronized cardioversion currently maintaining rhythm. Patient will be continued on amiodarone therapy. Start her on Cardizem 30 mg q.12 hours to assist with maintaining rhythm. Have referred her to EPS for urgent consultation for consideration for ablation. Patient is agreeable to this management plan. Continue full oral anticoagulation. Repeat BNP today. Twelve lead EKG. Avoidance of stimulants was discussed. Patient can be discharged home later today. Time Spent With Patient Time: Total time spent is greater than 50% in coordination of care (as documented) at patient's floor/unit and/or counseling patient: Progress Note: Quality Stroke Does the patient have a stroke diagnosis?: No Procedures Date of Service Date of Service: 10/22/22
--- NOTE | 2022-10-22 10:32 | HO.CARDIVERS ---
Cardioversion Procedure Note Cardioversion Date of Procedure: Today Ordering Provider: Myself Performing Provider: Myself Indication for Procedure: Recurrent symptomatic atrial fibrillation Pre-Op Diagnosis: Same Post-Op Diagnosis: Sinus rhythm Performed with Transesophageal Echo: No Consent: Verbal and Written consent was obtained from the patient before starting the procedure and confirming oral anticoagulation use. The patient was made aware of the risk of synchronized cardioversion including benefits and alternatives Procedure: After consent obtained, cardioversion pads were attached in anteroposterior configuration and the patient was sedated by the anesthesia team. Once adequate sedation achieved, patient was delivered 200 joules of biphasic synchronized energy in anteroposterior configuration Complications: None Impression: Successful conversion to sinus rhythm Recommendations: 1. 12 lead EKG 2. Continue amiodarone and add Cardizem 30 mg q.12 hours to her regimen 3. Continue full oral anticoagulation and repeat BNP 4. Patient can be discharged home later today
--- NOTE | 2022-10-22 14:34 | P.PNIM_ITS ---
Subjective Subjective Date of Service: 10/22/22 Interval History: seen and examined this afternoon in PACU follow up for afib rvr had successful cardioversion this morning no sob, chest pain or palpitations at this time Review of Systems Review of Systems: Yes all other systems are reviewed and are negative Constitutional Constitutional: Denies chills and Denies fever(s) Cardiovascular Cardiovascular: Denies chest pain, Denies palpitations and Denies dyspnea Respiratory Respiratory: Denies cough and Denies dyspnea Gastrointestinal Gastrointestinal: Denies abdominal pain Endocrine Endocrine: Denies palpitations Physical Exam Vital Signs: Vital Signs: Last Vital Signs Temp 97 F 10/22/22 12:30 Pulse 59 10/22/22 12:30 Resp 16 10/22/22 12:30 BP 145/59 H 10/22/22 12:30 Pulse Ox 95 10/22/22 12:30 O2 Del Method 10/22/22 12:30 O2 Flow Rate 1 10/22/22 11:15 BMI result Body Mass Index 27.2 Const: General: cooperative, comfortable, alert and awake Nutritional Appearance: average body habitus Orientation/consciousness: patient oriented x3 Resp: Effort & Inspection: normal respiratory effort and able to speak in complete sentences Auscultation: clear to auscultation bilaterally Cardio: Rate: regular rate Heart sounds: S1 normal heart sound present and S2 normal heart sound present GI: Inspection: No distended Palpation (GI): Soft to palpation and nontender Neuro: General: patient oriented x3 and CN's II-XI intact bilaterally Extrem: General: Yes no pedal edema Objective Data Active Medications Acetaminophen (Acetaminophen 325 Mg Tablet) 650 mg PO Q6H PRN PRN Reason: Pain, Mild (Pain Scale 1-3) Amiodarone HCl (Amiodarone Hcl 200 Mg Tablet) 200 mg PO DAILY [facility] Apixaban (Apixaban 5 Mg Tablet) 5 mg PO BID [facility] Last Admin: 10/22/22 08:51 Dose: 5 mg Documented By: NIKITA Diltiazem HCl (Diltiazem Hcl 30 Mg Tablet) 30 mg PO BID [facility]; Protocol Furosemide (Furosemide 40 Mg/4 Ml Vial) 40 mg IVPUSH BID@0900,1800 [facility]; Protocol Last Admin: 10/22/22 10:48 Dose: Not Given Documented By: NIKITA Non-Admin Reason: Off Unit: Surgery Levothyroxine Sodium (Levothyroxine Sodium 50 Mcg Tablet) 50 mcg PO DAILY [facility] Last Admin: 10/22/22 10:49 Dose: Not Given Documented By: NIKITA Non-Admin Reason: Off Unit: Surgery Losartan Potassium (Losartan Potassium 25 Mg Tablet) 25 mg PO DAILY [facility]; Protocol Last Admin: 10/22/22 10:49 Dose: Not Given Documented By: NIKITA Non-Admin Reason: Off Unit: Surgery Ondansetron HCl (Ondansetron Hcl 4 Mg/2 Ml Vial) 4 mg IVPUSH Q8H PRN PRN Reason: Nausea and Vomiting Pharmacy Consult (Consult Rx Perform Med Rec) 1 each MISCELLANE ONCE PRN PRN Reason: patient to be admitted Pravastatin Sodium (Pravastatin Sodium 40 Mg Tablet) 40 mg PO BEDTIME [facility] Last Admin: 10/21/22 22:42 Dose: 40 mg Documented By: SIENNA Sodium Chloride (0.9 % Sodium Chloride Flush 3 Ml Syringe) 3 ml IVFLUSH QSHIFT [facility] Last Admin: 10/22/22 08:52 Dose: 3 ml Documented By: NIKITA Vitamin D (Cholecalciferol (Vitamin D3) 25 Mcg Tablet) 50 mcg PO DAILY [facility] Last Admin: 10/22/22 10:48 Dose: Not Given Documented By: NIKITA Non-Admin Reason: Off Unit: Surgery Labs CBC & Chem 7: 10/22/22 04:27 10/22/22 04:27 Labs: Laboratory Results - last 24 hr 10/22/22 10/22/22 10/22/22 04:27 04:27 08:27 MCV 81.2 MCH 26.6 L MCHC 32.7 RDW 14.6 Plt Count 246 MPV 9.4 Absolute Nucleated RBC 0.000 Nucleated RBC % (auto) 0.0 Anion Gap 16 Estim Creat Clear Calc 22.8 Estimated GFR 22 POC Glucose 123 H Random Glucose 123 H Calcium 10.6 H Assessment and Plan (1) Persistent atrial fibrillation: Status: Acute (2) NAN (acute kidney injury): Status: Acute Plan 81 year old women admitted with afib rvr and acute in chronic CHF Atrial fibrillation with rapid ventricular response s/p cardizem drip and successful cardioversion resume amiodarone start low dose cardizem Continue apixaban Acute on chronic heart failure with preserved ejection fraction Last echocardiogram 12/09/2020 showed EF of 65-70% with grade 2 diastolic dysfunction, mild pulmonary hypertension and no evidence of regional wall motion abnormalities Monitor on telemetry does not appear fluid overloaded at this time, will d/c lasix NAN on CKD3 creatinine up to 2.18 from 1.54 hold losartan d/c IV lasix follow BMP in am Hypertension hold losartan for NAN continue cardizem Hypothyroidism Continue levothyroxine HLD continue statin DVT prophylaxis with apixaban Attending Dr. Winters Full code Requires ongoing hospitalization for NAN, close monitoring of renal function, tele monitoring for afib Quality Stroke Does the patient have a stroke diagnosis?: No VTE Prior VTE?: No VTE Risk Level:: Medical - moderate - high VTE Device Contraindication: Treatment Not Indicated VTE Drug Contraindication: N/A - Med Ordered
--- NOTE | 2022-10-22 14:45 | PC.NURSE ---
RN called Short Stay to check on status of patient, RN transferred to PACU. Documentation reports that the pt was successfully cardioverted earlier today and per NEUROLOGY TECHNICIAN pt to be discharged from PACU to bed 462-1 and not returning to the ED and/or ED Overflow. RN will consult with nurse charge rn to see how this should be handled as pt still showing as a patient in ED Obs.
[2022-10-22] MEDS: Amiodarone HCL 200 MG TABLET PO (18:03)
[2022-10-22] MEDS: dilTIAZem HCL 30 MG TABLET PO (20:08)
[2022-10-22] MEDS: Pravastatin Sodium 40 MG TABLET PO (20:08)
[2022-10-23] VITALS: BP 131/52; PULSE 56; RESP 18; TEMP 35.6; O2SAT 98
[2022-10-23] MEDS: 0.9 % Sodium Chloride Flush 3 ML SYRINGE IVFLUSH (00:07)
[2022-10-23 04:00] VITALS: BP 167/72; PULSE 55; RESP 18; TEMP 35.9; O2SAT 99
[2022-10-23 07:15] LABS: Anion Gap 14 (12-20); Blood Urea Nitrogen 42 mg/dL (9-16); Carbon Dioxide 26 mmol/L (22-29); Chloride 102 mmol/L (96-108); Creatinine Clr Calc Pharmacy 21.3; Estimated Glomerular Filt Rate 20; Glucose Random 96 mg/dL (60-115); Potassium 4.3 mmol/L (3.3-5.1); Sodium 138 mmol/L (135-145)
[2022-10-23 08:00] VITALS: BP 138/68; PULSE 58; RESP 16; TEMP 36.3; O2SAT 94
[2022-10-23] MEDS: Apixaban 5 MG TABLET PO (08:49)
[2022-10-23] MEDS: dilTIAZem HCL 30 MG TABLET PO (08:49)
[2022-10-23] MEDS: Levothyroxine Sodium 50 MCG TABLET PO (08:49)
[2022-10-23] MEDS: Amiodarone HCL 200 MG TABLET PO (08:50)
[2022-10-23] MEDS: Cholecalciferol (Vitamin D3) 25 MCG TABLET 50 MCG PO (08:50)
--- NOTE | 2022-10-23 11:26 | PM.DS ---
DS: Providers Provider Date of Service: 10/23/22 Date of admission: 10/21/22 12:38 Primary care physician: Liset Wesley NP Consults: 10/21/22 12:31 Consult to Cardiology Routine Consulting Provider: Wayne Lopez Reason for consultation: afib rvr DS: Diagnosis Discharge Diagnosis (1) Persistent atrial fibrillation: Status: Acute (2) NAN (acute kidney injury): Status: Acute DS: Summary Hospital Course Hospital Course: from initial hpi: Chief Complaint: palpitations 81 yo female with a PMHx of atrial fibrillation and hypothyroidism? presents to the emergency department with palpitations that started yesterday. She has a hx of afib and has felt these palpitations in the past when she goes in afib.? He previously had undergone cardioversion x6 last being 08/30/2022? and has recently talked about an ablation with transportation department head.? She denies any chest pain, headache, fever, chills, nausea, vomiting, diarrhea, or constipation.? In the ER, heart rate noted to be in the 120s, Creatinine 1.54 seems at baseline, BNP 855, chest x-ray negative for consolidation effusion, elevated heart rate and blood pressure, urinalysis negative, COVID negative.? In the ER she was started on diltiazem drip and given a dose of IV Lasix.? She will be admitted for further management and treatment of acute congestive heart failure and atrial fibrillation with rapid ventricular response. hospital course: Patient was admitted for paroxysmal atrial fibrillation with rapid ventricular response. She was treated with diltiazem infusion and then underwent successful cardioversion. She will continue oral amiodarone and started on low-dose p.o. diltiazem. She will continue on apixaban. On presentation she had acute on chronic CHF with preserved ejection fraction, she was treated with IV Lasix which have now been held at discharge. Course was complicated by acute kidney injury on CKD 3. Losartan has been held. Patient ideally would receive IV fluids and close monitoring inpatient, however, she would prefer to manage outpatient. Therefore will encourage oral intake and recheck labs on In about 3 days. For hypertension she will continue on diltiazem and losartan has been held due to NAN. For hypothyroidism she was continued on Synthroid. Hyperlipidemia she was continued on statin. Patient feeling better will be discharged home. Time Spent with Patient Time attestation: Total time spent providing and/or coordinating discharge services: Discharge coordination time: Greater than 30 minutes Quality: Safe Use of Opioids Does Pt have an Active Cancer Diagnosis on the Problem List?: No Quality: Stroke Does the patient have a stroke diagnosis?: No Physical Exam Vital Signs: Vital Signs: Last Vital Signs Temp 97.4 F 10/23/22 08:00 Pulse 58 10/23/22 08:00 Resp 16 10/23/22 08:00 BP 138/68 10/23/22 08:00 Pulse Ox 94 10/23/22 08:00 O2 Del Method 10/23/22 08:00 O2 Flow Rate 1 10/22/22 11:15 BMI result Body Mass Index 27.2 General: AO X 3, no acute distress Resp: CTA bilateral, no accessory muscles used CVS: S1,S2,RRR GI: soft, non tender, non distended Neuro: motor grossly intact, alert Psych: appropriate affect, appropriate insight DS: Data Data Completed and Pending Labs on day of discharge: Laboratory Results - last 24 hr 10/23/22 06:08 Sodium 138 Potassium 4.3 Chloride 102 Carbon Dioxide 26 Anion Gap 14 BUN 42 H Creatinine 2.31 H Estim Creat Clear Calc 21.3 Estimated GFR 20 Random Glucose 96 Calcium 10.0 Discharge Plan Discharge Anticipated Discharge Date/Time: 10/23/22 11:22 Patient Disposition: Home, Self-Care Discharge Diagnosis: nan, afib Referrals: Liset Wesley AC[employer] CONDENSER [Primary Care Provider] - 1 Week Discharge Medications: New diltiazem HCl 30 mg Tablet 30 mg PO BID Qty: 60 0RF Protocol: Hold for SBP/HR < HOLD for SBP < : 90 HOLD for HR < : 60 Continued levothyroxine [Tirosint] 50 mcg capsule 50 mcg PO DAILY Qty: 30 11RF amiodarone 200 mg tablet 200 mg PO DAILY Qty: 90 1RF acetaminophen 325 mg Tablet 650 mg PO Q4H PRN (Reason: Mild Pain (Scale Score 1-4)) pravastatin 40 mg tablet 40 mg PO BEDTIME cholecalciferol (vitamin D3) 50 mcg (2,000 unit) capsule 50 mcg PO DAILY Eliquis 5 mg tablet 5 mg PO BID 90 Days Qty: 180 3RF Held losartan 25 mg tablet 25 mg PO DAILY Qty: 30 11RF Hold Instructions: Resume on 10/29/22. Discharge Orders: Discharge Order (Routine); Ordered 10/23/22 Ordered By: Vijay Garcia Diet: Advance to usual diet Activity on Discharge: As tolerated Stand Alone Forms: Patient Portal Discharge page Other Ambulatory Orders: Basic Metabolic Panel Fasting (Routine) Timeframe: 3 Days Facility: [facility] - Location: Laboratory Ordered By: Vijay Garcia Care Plan Goals: recovery Health Concerns: afib, nan Plan of Treatment: hold losartan, start cardizem, recheck labs on wednesday Assessment: see above
--- NOTE | 2022-10-23 11:30 | MHC.CM.PN ---
Patient has been medically cleared for dc to home today, self care. Lsst IMM was addressed on 10/21/2022.
--- NOTE | 2022-10-23 11:37 | HO.POSTANES ---
Post Anesthesia Evaluation Post Anesthesia Evaluation Vital Signs: Vital Signs Temp Pulse Resp BP Pulse Ox O2 Del Method 10/23/22 08:00 97.4 F 58 16 138/68 94 Room Air 10/23/22 04:00 96.6 F L 55 18 167/72 H 99 Room Air 10/23/22 00:00 96.1 F L 56 18 131/52 L 98 Room Air Anesthesia: General Mental Status: Awake Pain Control: Satisfactory Nausea/Vomiting: None Hydration: Adequate Anesthesia-Related Issues: No Anes. Related Issues
[2022-10-23 11:57] VITALS: BP 99/54; PULSE 87; RESP 16; TEMP 36.7; O2SAT 95
--- NOTE | 2022-10-23 13:52 | PM.PNCARD ---
Subjective Subjective Date of Service: 10/23/22 <DELFINO Coronado - Last Filed: 10/23/22 13:59> 10/23/22 <Wayne Lopez MD - Last Filed: 10/23/22 14:09> Principal diagnosis: Atrial fibrillation <DELFINO Coronado - Last Filed: 10/23/22 13:59> Interval history: Seen at 1015. Today she reports feeling well and like to go home. No heart palpitations, shortness of breath, chest discomfort. Steady on her feet this morning. environmental monitoring technician showing sinus rhythm heart rate 50s to 60s. <DELFINO Coronado - Last Filed: 10/23/22 13:59> Review of Systems Review of Systems As above <DELFINO Coronado - Last Filed: 10/23/22 13:59> Yes all other systems are reviewed and are negative <DELFINO Coronado - Last Filed: 10/23/22 13:59> Physical Exam Vital Signs: Last Vital Signs Temp 98.1 F 10/23/22 11:57 Pulse 87 10/23/22 11:57 Resp 16 10/23/22 11:57 BP 99/54 L 10/23/22 11:57 Pulse Ox 95 10/23/22 11:57 O2 Del Method 10/23/22 11:57 O2 Flow Rate 2 10/23/22 11:57 BMI result Body Mass Index 27.2 <DELFINO Coronado - Last Filed: 10/23/22 13:59> Const General: cooperative, healthy appearing, comfortable and no acute distress <DELFINO Coronado - Last Filed: 10/23/22 13:59> Orientation/consciousness: patient oriented x3 <DELFINO Coronado - Last Filed: 10/23/22 13:59> Neck Neck: Yes normal visual inspection <DELFINO Coronado Last Filed: 10/23/22 13:59> Resp Effort & Inspection: normal respiratory effort <DELFINO Coronado - Last Filed: 10/23/22 13:59> Auscultation: clear to auscultation bilaterally, no crackles, no rales, no rhonchi and no wheezes <Yvette Dinh NP - Last Filed: 10/23/22 13:59> Cardio Jugular venous distension: no JVD <[facility] Last Filed: 10/23/22 13:59> Rate: regular rate <[facility] Last Filed: 10/23/22 13:59> Rhythm: regular rhythm <[facility] Last Filed: 10/23/22 13:59> Heart sounds: S1 normal heart sound present, S2 normal heart sound present, no gallops, no murmurs and no rubs <[facility] Last Filed: 10/23/22 13:59> Skin General skin exam: no rashes or lesions noted <Yvette [facility] Last Filed: 10/23/22 13:59> Neuro General: patient oriented x3 <[facility]h [facility] Last Filed: 10/23/22 13:59> Extrem General: Yes normal to inspection <Yvette Dinh NP - Last Filed: 10/23/22 13:59> Psych Appearance: grossly normal <[facility] Last Filed: 10/23/22 13:59> Mental Status: mental status grossly normal <[facility] Last Filed: 10/23/22 13:59> Speech and movement: Normal speech and movement present <[facility] Last Filed: 10/23/22 13:59> Objective Labs and Meds Result diagrams: : 10/22/22 04:27 10/23/22 06:08 <Yvette Dinh [facility] - Last Filed: 10/23/22 13:59> Lab results: Laboratory Results - last 24 hr 10/23/22 06:08 Sodium 138 Potassium 4.3 Chloride 102 Carbon Dioxide 26 Anion Gap 14 BUN 42 H Creatinine 2.31 H Estim Creat Clear Calc 21.3 Estimated GFR 20 Random Glucose 96 Calcium 10.0 <Yvette Dinh STEREO OPERATOR - Last Filed: 10/23/22 13:59> Progress Note: A&P Assessment and plan (1) Persistent atrial fibrillation: Status: Acute <DELFINO Coronado - Last Filed: 10/23/22 13:59> Assessment and Plan: History of AFib with cardioversion 2 months ago. Presented with recurrent AFib and underwent cardioversion again yesterday with successful conversion to sinus rhythm. She has maintained normal sinus rhythm, heart rate 50s to 60s since that time. She continues on her usual amiodarone, carvedilol and Eliquis 5 mg b.i.d.. This morning she reports feeling well and is ready for discharge. Continue current meds. We will arrange for outpatient EP evaluation for ablation and for cardiology outpatient follow-up. <DELFINO Coronado - Last Filed: 10/23/22 13:59> History of AFib with cardioversion 2 months ago. Presented with recurrent AFib and underwent cardioversion again yesterday with successful conversion to sinus rhythm. She has maintained normal sinus rhythm, heart rate 50s to 60s since that time. She continues on her usual amiodarone, carvedilol and Eliquis 5 mg b.i.d.. This morning she reports feeling well and is ready for discharge. Continue current meds. We will arrange for outpatient EP evaluation for ablation and for cardiology outpatient follow-up. Patient seen and examined. Case discussed with Yvette Dinh. Patient feeling extremely well at this point time. Status post cardioversion yesterday. Continue amiodarone as well as Cardizem 30 mg b.i.d.. Have discussed with EPS about consultation for ablation in the near future. She is feeling much better. Full oral anticoagulation with Eliquis. Follow-up in 2 weeks time <Wayne Lopez MD - Last Filed: 10/23/22 14:09> (2) NAN (acute kidney injury): Status: Acute <DELFINO Coronado - Last Filed: 10/23/22 13:59> Assessment and Plan: History of chronic kidney disease, she was given IV Lasix this admission. Her creatinine is more elevated at 2.31 today, 2.18 yesterday. Baseline seems to run 1.7-1.9. Patient aware of this rise in creatinine and does not want to stay in the hospital for further monitoring. She tells me she will increase her fluids at home. She will need a BMP in 5 days. Losartan currently on hold. Recommended she monitor blood pressure and restart losartan if blood pressure rises and once kidney function has returned to her baseline. <DELFINO Coronado - Last Filed: 10/23/22 13:59> History of chronic kidney disease, she was given IV Lasix this admission. Her creatinine is more elevated at 2.31 today, 2.18 yesterday. Baseline seems to run 1.7-1.9. Patient aware of this rise in creatinine and does not want to stay in the hospital for further monitoring. She tells me she will increase her fluids at home. She will need a BMP in 5 days. Losartan currently on hold. Recommended she monitor blood pressure and restart losartan if blood pressure rises and once kidney function has returned to her baseline. Acute kidney injury, marginally elevated creatinine compared to a baseline. Will need to follow-up with next week. Most likely related to poor perfusion related to persistent atrial fibrillation. <Wayne Lopez MD - Last Filed: 10/23/22 14:09> (3) History of cardioversion: Status: Acute <DELFINO Coronado - Last Filed: 10/23/22 13:59> Time Spent With Patient Time: Total time spent is greater than 50% in coordination of care (as documented) at patient's floor/unit and/or counseling patient: 18 <DELFINO Coronado - Last Filed: 10/23/22 13:59> Progress Note: Quality Stroke Does the patient have a stroke diagnosis?: No <DELFINO Coronado - Last Filed: 10/23/22 13:59> Procedures Date of Service Date of Service: 10/23/22 <DELFINO Coronado - Last Filed: 10/23/22 13:59>
== END 2022-10-23 12:54 | disposition home or self-care (01) | DRG 308 ==
LOC: HO.ED 12:20 → HO.EDOVER 12:39 → HO.IMC 10-22 14:33
PROVIDERS: Internal Medicine Cardiovascular Disease; Physician Assistant Medical; Admitting Provider Nurse Practitioner Acute Care; Emergency Provider Emergency Medicine Emergency Medical Services; PCP Hospitalist; Visit Provider Internal Medicine
PROC: 5A2204Z Restoration of Cardiac Rhythm, Single (ICD-10-PCS; principal; 2022-10-22 09:30)
DX: I48.19 Other persistent atrial fibrillation (principal); I50.33 Acute on chronic diastolic (congestive) heart failure; I13.0 Hypertensive heart and chronic kidney disease with heart failure and stage 1 through stage 4 chronic kidney disease, or unspecified chronic kidney disease; N17.9 Acute kidney failure, unspecified; E03.9 Hypothyroidism, unspecified; Z20.822 Contact with and (suspected) exposure to COVID-19; I27.20 Pulmonary hypertension, unspecified; E78.00 Pure hypercholesterolemia, unspecified; N18.32 Chronic kidney disease, stage 3b; Z85.828 Personal history of other malignant neoplasm of skin; Z88.5 Allergy status to narcotic agent; Z88.8 Allergy status to other drugs, medicaments and biological substances; Z79.01 Long term (current) use of anticoagulants; Z79.890 Hormone replacement therapy; Z79.899 Other long term (current) drug therapy
CPT/HCPCS: 36415; 71045; 80048; 80051; 80053; 81001; 82947; 83880; 84484; 85025; 85027; 85610; 85730; 87635; 92960; 93005; 99285; J0330; J0461; J1940; J2250; J2370

== ENCOUNTER 2022-10-29 09:09 | Outpatient (REF) | payer MEDICARE, OTHER, SELFPAY ==
[2022-10-29 11:58] LABS: Anion Gap 12 (12-20); Blood Urea Nitrogen 29 mg/dL (9-16); Calcium 9.9 mg/dL (8.4-10.2); Carbon Dioxide 24 mmol/L (22-29); Chloride 105 mmol/L (96-108); Estimated Glomerular Filt Rate 27; Glucose Fasting 149 mg/dL (60-99); Potassium 4.3 mmol/L (3.3-5.1); Sodium 137 mmol/L (135-145)
== END 2022-10-29 09:10 | disposition home or self-care (01) ==
LOC: HO.WFDLDS 09:09
PROVIDERS: Visit Provider Internal Medicine
DX: N17.9 Acute kidney failure, unspecified (principal)
CPT/HCPCS: 36415; 80048

== ENCOUNTER → 2022-11-11 09:34 | Outpatient (BNVA) | payer MEDICARE, OTHER, SELFPAY | PROVIDERS: PCP Hospitalist; Visit Provider Internal Medicine Cardiovascular Disease | DX: I48.0 Paroxysmal atrial fibrillation (principal); I10 Essential (primary) hypertension; Z79.01 Long term (current) use of anticoagulants; Z79.899 Other long term (current) drug therapy | CPT/HCPCS: 93005; 99212 ==

== ENCOUNTER 2022-11-19 07:26 | Inpatient (IN) | payer MEDICARE, OTHER, SELFPAY ==
[2022-11-19] VITALS (8 sets, daily range): BP systolic 102–167; BP diastolic 64–112; PULSE 66–127; RESP 14–18; TEMP 36.1–37.2; O2SAT 95–98; BMI 26.3
--- NOTE | 2022-11-19 | ECG_ITS ---
Test Reason : TACHYCARDIA Blood Pressure : / mmHG Vent. Rate : 112 BPM Atrial Rate : 000 BPM P-R Int : 000 ms QRS Dur : 098 ms QT Int : 328 ms P-R-T Axes : 000 -51 104 degrees QTc Int : 447 ms Atrial fibrillation with rapid ventricular response Left axis deviation Left ventricular hypertrophy with repolarization abnormality ( R in aVL , [place] product ) Cannot rule out Septal infarct , age undetermined Abnormal ECG When compared with ECG of 22-OCT-2022 10:25, Rhythm change Referred By: Nahun León Electronically Signed By:ESTIVEN HARMON
--- NOTE | 2022-11-19 | ECG_ITS ---
Test Reason : cp Blood Pressure : / mmHG Vent. Rate : 127 BPM Atrial Rate : 127 BPM P-R Int : 178 ms QRS Dur : 090 ms QT Int : 332 ms P-R-T Axes : 000 -45 123 degrees QTc Int : 482 ms Probably atrial flutter with rapid rate Left axis deviation Minimal voltage criteria for LVH, may be normal variant ( [place] product ) Septal infarct , age undetermined Abnormal ECG When compared with ECG of 22-OCT-2022 10:25, Rhythm change Referred By: Vijay Garcia Electronically Signed By:ESTIVEN HARMON
[2022-11-19 08:01] LABS: MANUAL DIFF FLAG NO
[2022-11-19 08:02] LABS: Basophils Absolute Auto 0.1 X10*3/uL (0.0-0.2); Basophils Percent Auto 0.8 % (0-2); Eosinophils Absolute Auto 0.1 X10*3/uL (0.0-0.4); Eosinophils Percent Auto 1.1 % (0-4); Hematocrit 38.5 % (37.0-47.0); Hemoglobin 12.3 g/dl (12.0-16.0); Imm Gran Abs Auto 0.02 X10*3/uL (0.00-0.03); Imm Gran Pct Auto 0.3 % (0.0-0.4); Lymphocytes Absolute Auto 1.4 X10*3/uL (1.2-4.9); Lymphocytes Percent Auto 21.6 % (20-40); Mean Corpuscular HGB Conc 31.9 g/dl (31.0-35.0); Mean Corpuscular Hemoglobin 26.2 pg (27.0-33.0); Mean Corpuscular Volume 81.9 fL (80.0-98.0); Monocytes Absolute Auto 0.8 X10*3/uL (0.1-1.2); Monocytes Percent Auto 13.3 % (2-11); Neutrophils Absolute Auto 3.9 x10*3/uL (2.0-8.3); Neutrophils Percent Auto 62.9 % (45-73); Platelet Count 306 X10*3/uL (160-400); Red Cell Distribution Width 14.3 % (11.0-16.0); White Blood Count 6.3 X10*3/uL (4.8-10.8)
--- NOTE | 2022-11-19 08:12 | PC.NURSE ---
Patient presents to ED with report of palpitations, history of A fib in Afib from 109-126 takes amiodarone and diltiazem at home did not take today. Patient AOx 4 neuros intact no facial droop no deviation of tongue grasp equal no drift noted. IV access obtained no s/s of infiltration noted will CTM
[2022-11-19 08:20] LABS: Anion Gap 16 (12-20); Blood Urea Nitrogen 25 mg/dL (9-16); Calcium 10.6 mg/dL (8.4-10.2); Carbon Dioxide 20 mmol/L (22-29); Chloride 106 mmol/L (96-108); Creatinine Clr Calc Pharmacy 31.1; Estimated Glomerular Filt Rate 32; Glucose Random 172 mg/dL (60-115); Potassium 4.1 mmol/L (3.3-5.1); Sodium 138 mmol/L (135-145)
[2022-11-19 08:30] LABS: Troponin-I High Sensitivity 7.5 ng/L (<3.5-17.0)
--- NOTE | 2022-11-19 09:40 | ED.ARRPALP ---
HPI - Arrhythmia/Palpitations General Chief Complaint: Arrhythmia/Palpitations Stated Complaint: irregular heart beat Time Seen by Provider: 11/19/22 09:35 Source: patient Mode of arrival: ambulatory Limitations: no limitations History of Present Illness HPI narrative: 81-year-old female full status atrial fibrillation on amiodarone diltiazem and apixaban. Patient states she has not taken her meds this morning woke up around 04:00 and had palpitations and came in here for evaluation. Patient was started on diltiazem about 1 month ago. Patient did not take an extra dose or her morning meds. Patient denies fevers chills cough she denies any changes in anything else she has an appointment at the beginning of December to see someone about ablation. She has no chest pain she does not feel dizzy MD complaint: rapid heart beat, heart racing and palpitations Related Data Home Medications Medication Instructions Recorded Confirmed acetaminophen 325 mg tablet 650 mg PO Q4H PRN Mild Pain (Scale 10/21/22 11/11/22 Score 1-4) Previous Rx's Medication Instructions Recorded apixaban 5 mg tablet (Eliquis) 5 mg PO BID 90 days #180 tabs 12/18/21 amiodarone 200 mg tablet 200 mg PO DAILY #90 tabs 03/05/22 diltiazem HCl 30 mg tablet 30 mg PO BID #180 tabs 11/11/22 levothyroxine 50 mcg capsule 50 mcg PO DAILY #30 caps 11/18/22 (Tirosint) pravastatin 40 mg tablet 40 mg PO BEDTIME 90 days #90 tabs 11/18/22 Allergies Allergy/AdvReac Type Severity Reaction Status Date / Time prednisone Allergy Intermediate REd Verified 11/19/22 07:46 Blotchy codeine AdvReac Intermediate Swelling Verified 11/19/22 07:46 sulfamethoxazole AdvReac Intermediate Stomach Verified 11/19/22 07:46 [From Bactrim] Upset trimethoprim [From Bactrim] AdvReac Intermediate Stomach Verified 11/19/22 07:46 Upset Review of Systems Review of Systems: Review of systems: General: Patient denies any fever chills recent illness or falls Musculoskeletal: Denies back pain or body aches or other injuries HEENT: denies headache, runny nose, ear pain Respiratory: denies shortness of breath, cough Cardiovascular: palpitations no chest pain : denies dysuria, frequency Abdomen: no nausea vomiting denies abdominal pain Extremities: no swelling, no pain Skin: no diaphoresis Yes all other systems are reviewed and are negative PMFSH Past Medical History Medical History (Updated 11/19/22 @ 11:33 by Nahun León DO) Anticoagulant long-term use High cholesterol History of cardioversion History of hypothyroidism History of vitamin D deficiency Hx of skin cancer, basal cell Hx of squamous cell carcinoma of skin Hypertension, essential PAF (paroxysmal atrial fibrillation) Vitamin B 12 deficiency Surgical History History of dilation and curettage History of hand surgery Status post surgical removal of malignant neoplasm of skin Family History Family History Mother Stroke Father Pancreatic cancer Brother Lyme disease Social History Social History Household Members: None Housing: House Do you presently have visiting nurse or other home services: No Alcohol intake: unknown Patient Tobacco Use Status: Never used Tobacco Smoked in Last 30 Days: No e-Cigarette/Vaping Use: Never Used Second Hand Smoke Exposure: No Use of substances other than those prescribed or required for medical reasons: No Advance Directives: Yes Advance Directives Information Provided: Yes Advance Directives on File: No service: No Current occupational status: retired Physical Exam Vital Signs: Vital Signs: Last Vital Signs Temp 97.0 F 11/19/22 07:32 Pulse 120 H 11/19/22 11:12 Resp 18 11/19/22 11:12 BP 162/112 H 11/19/22 11:12 Pulse Ox 98 11/19/22 11:12 O2 Del Method 11/19/22 11:12 BMI result Body Mass Index 26.3 General: Well-appearing well-nourished in no signs of distress HEENT: Normocephalic atraumatic Neck: No signs of JVD, no masses no tenderness or lymphadenopathy Cardiovascular: Irregularly irregular Respiratory: Clear to auscultation bilaterally Abdomen: Soft nontender no masses Extremities: Normal pedal pulses no signs of edema Skin: Dry warm no rashes Back: No tenderness full ROM Medications Administered Generic Name Dose Route Start Last Admin Trade Name Freq PRN Reason Stop Dose Admin Diltiazem HCl 125 mg/ Sodium 125 mls @ 0 mls/hr 11/19/22 11:30 11/19/22 11:39 Chloride IVCONT 5 mg/hr .Q0M GIRISH 5 mls/hr Administration Protocol Per Protocol Discontinued Medications Generic Name Dose Route Start Last Admin Trade Name Simoneq PRN Reason Stop Dose Admin Amiodarone HCl 200 mg 11/19/22 10:57 11/19/22 11:12 Amiodarone Hcl 200 Mg Tablet PO 11/19/22 10:58 200 mg ONCE ONE Administration Diltiazem HCl 20 mg 11/19/22 09:36 11/19/22 09:49 Diltiazem Hcl 50 Mg/10 Ml Vial IVPUSH 11/19/22 09:37 20 mg STAT STA Administration Diltiazem HCl 30 mg 11/19/22 09:36 11/19/22 09:49 Diltiazem Hcl 30 Mg Tablet PO 11/19/22 09:37 30 mg ONCE ONE Administration Protocol Diltiazem HCl 19.051 mg 11/19/22 11:29 11/19/22 11:38 Diltiazem Hcl 50 Mg/10 Ml Vial 0.25 mg/kg (19.051 mg) 11/19/22 11:30 19.051 mg IVPUSH Administration ONCE ONE Sodium Chloride 1,000 mls @ 999 mls/hr 11/19/22 09:45 11/19/22 11:14 Ns IV 11/19/22 10:45 Infused .Q1H1M GIRISH Infusion Medical Decision Making Medical Decision Making MDM Narrative: Patient with palpitations but did not take her morning medicaitons. I will give her diltiazem IV and orally and reassess. HR still in the 120's I will give her, her dose of amiodarone. 1130 HR still in 120's I will start on diltiazem bolus and drip and admit to medicine for rate control 1154 Hospitalist agrees to admit the patient. Differential Diagnosis Differential Diagnoses: The differential diagnosis associated with the presentation includes Atrial fibrillation palpitations, acs Admission/Observation Consideration of admission/observation: Escalation of care including admission/observation considered Not needed patient rate controlled and anticoagulated. Consult Healthcare Provider Management of the patient was discussed with: Hospitalist Lab Data Result Diagrams: 11/19/22 07:49 11/19/22 07:49 Labs: Lab Results 11/19/22 11/19/22 11/19/22 Range/Units 07:49 07:49 07:49 WBC 6.3 (4.8-10.8) X10*3/uL RBC 4.70 (4.20-5.50) X10*6/uL Hgb 12.3 (12.0-16.0) g/dl Hct 38.5 (37.0-47.0) % MCV 81.9 (80.0-98.0) fL MCH 26.2 L (27.0-33.0) pg MCHC 31.9 (31.0-35.0) g/dl RDW 14.3 (11.0-16.0) % Plt Count 306 (160-400) X10*3/uL MPV 9.0 L (9.4-12.3) fL Immature Gran % (Auto) 0.3 (0.0-0.4) % Neut % (Auto) 62.9 (45-73) % Lymph % (Auto) 21.6 (20-40) % [place] % (Auto) 13.3 H (2-11) % Eos % (Auto) 1.1 (0-4) % Baso % (Auto) 0.8 (0-2) % Lymph # (Auto) 1.4 (1.2-4.9) X10*3/uL [place] # (Auto) 0.8 (0.1-1.2) X10*3/uL Eos # (Auto) 0.1 (0.0-0.4) X10*3/uL Baso # (Auto) 0.1 (0.0-0.2) X10*3/uL Abs Immat Gran (auto) 0.02 (0.00-0.03) X10*3/uL Absolute Neuts (auto) 3.9 (2.0-8.3) x10*3/uL Absolute Nucleated RBC 0.000 (0.0-0.012) X10*3/uL Nucleated RBC % (auto) 0.0 (0.0-0.2) /100WBC Sodium 138 (135-145) mmol/L Potassium 4.1 (3.3-5.1) mmol/L Chloride 106 (96-108) mmol/L Carbon Dioxide 20 L (22-29) mmol/L Anion Gap 16 (12-20) BUN 25 H (9-16) mg/dL Creatinine 1.56 H (0.5-1.4) mg/dL Estim Creat Clear Calc 31.1 Estimated GFR 32 Random Glucose 172 H (60-115) mg/dL Calcium 10.6 H D (8.4-10.2) mg/dL Troponin I High Sens 7.5 (<3.5-17.0) ng/L Discharge Plan Discharge Clinical Impression: Atrial fibrillation with rapid ventricular response Patient Disposition: Admitted As Inpatient
[2022-11-19] MEDS: dilTIAZem HCL 50 MG/10 ML VIAL 20 MG IVPUSH (09:49)
[2022-11-19] MEDS: 0.9 % Sodium Chloride 1,000 ML 999 ML IV (09:49)
[2022-11-19] MEDS: dilTIAZem HCL 30 MG TABLET PO (09:49)
--- NOTE | 2022-11-19 09:54 | PC.NURSE ---
Antidysrhtymic medications admin patient from sinus tach to afib no distress or chest pain noted will CTM
--- NOTE | 2022-11-19 10:33 | PC.NURSE ---
Patient remains in afib no chest pain or distress noted will CTM
[2022-11-19] MEDS: Amiodarone HCL 200 MG TABLET PO (11:12)
[2022-11-19] MEDS: dilTIAZem HCL 50 MG/10 ML VIAL 19.051 MG IVPUSH (11:38)
[2022-11-19] MEDS: dilTIAZem HCL 125 MG in 0.9 % Sodium Chloride 100 ML IVCONT (11:39)
--- NOTE | 2022-11-19 13:03 | PHA.MEDREC ---
Pharmacy Consult ? Medication Reconciliation Pharmacy has completed the medication reconciliation.
--- NOTE | 2022-11-19 13:13 | P.HPHOSP_ITS ---
History of Present Illness Date of Service: 11/19/22 Attending physician on admission: Vijay Garcia Chief Complaint: AFib with RVR Pt is a 81-year-old female with a PMH significant for?paroxysmal AFib on apixaban, amiodarone, and diltiazem, CHF, HTN, CKD, and hypothyroidism who presents to the ED after going into AFib last night. Patient states that last evening around 16:00 she felt herself going into AFib, which she describes as feeling like ?a bull frog jumping around? in her chest. Patient took a dose losartan, which her PCP recently had her discontinue d/t interactiopn with dilt iazem of lowering her BP too much, hoping it would bring her into NSR as she slept. Woke up still in afib, and felt SOB and weak when walking her dog. Called a neighbor who brought her to the ED. Of note patient was last hospitalized here for similar complaints of symptomatic AFib on 10/21/2022 and treated for AFib with diltiazem drip and successfully cardioverted and CHF with IV Lasix. Patient sent home with new prescription of low-dose p.o. diltiazem. Patient has undergone cardioversion x7. Is set to talk to a specialtist about ablation in early December. In the ED labs were significant for no leukocytosis, elevated BUN of 25 (at baseline), creatinine of 1.56 (at baseline), and glucose elevated of 172. EKG showed AFib with RVR, HR in the 140s. Pt was treated with diltiazem IV and then started a diltiazem drip. Heart rhythm still in AFib, but rate now in the 110s, Pt will be admitted to the hospital for treatment and evaluation AFib. Review of Systems Review of Systems: Palpitations SOB with exertion Generalized weakness No chest pain/pressure No fever/chills, nausea/vomiting No headache, blurriness, dizziness Yes all other systems are reviewed and are negative [facility] Medical History Anticoagulant long-term use High cholesterol History of cardioversion History of hypothyroidism History of vitamin D deficiency Hx of skin cancer, basal cell Hx of squamous cell carcinoma of skin Hypertension, essential PAF (paroxysmal atrial fibrillation) Vitamin B 12 deficiency Family History Mother Stroke Father Pancreatic cancer Brother Lyme disease Surgical History History of dilation and curettage History of hand surgery Status post surgical removal of malignant neoplasm of skin Social History Household Members: None Housing: House Do you presently have visiting nurse or other home services: No Alcohol intake: unknown Patient Tobacco Use Status: Never used Tobacco Smoked in Last 30 Days: No e-Cigarette/Vaping Use: Never Used Second Hand Smoke Exposure: No Use of substances other than those prescribed or required for medical reasons: No Advance Directives: Yes Advance Directives Information Provided: Yes Advance Directives on File: No service: No Current occupational status: retired [employer] Allergies Allergy/AdvReac Type Severity Reaction Status Date / Time prednisone Allergy Intermediate REd Verified 11/19/22 07:46 Blotchy codeine AdvReac Intermediate Swelling Verified 11/19/22 07:46 sulfamethoxazole AdvReac Intermediate Stomach Verified 11/19/22 07:46 [From Bactrim] Upset trimethoprim [From Bactrim] AdvReac Intermediate Stomach Verified 11/19/22 07:46 Upset Active Medications: Current Medications Diltiazem HCl 125 mg/ Sodium (Chloride) 125 mls @ 0 mls/hr IVCONT .Q0M GIRISH; Protocol Last Titration: 11/19/22 12:21 Dose: 10 mg/hr, 10 mls/hr Home Medications Medication Instructions Recorded Confirmed Last Taken Type acetaminophen 325 mg tablet 650 mg PO Q4H PRN Mild Pain (Scale 10/21/22 11/19/22 Unknown History Score 1-4) Physical Exam Vital Signs and Narrative: Vital Signs: Last Vital Signs Temp 97.0 F 11/19/22 07:32 Pulse 98 11/19/22 12:41 Resp 18 11/19/22 11:12 BP 167/87 H 11/19/22 12:41 Pulse Ox 96 11/19/22 12:41 O2 Del Method 11/19/22 12:41 BMI result Body Mass Index 26.3 Constitutional: Alert, in no acute distress. Mental Status: Oriented to person, place and time. Eyes: Pupils are equal, round, and reactive to light. Ear, Nose, and Throat: Oropharynx clear, mucous membranes moist. Ears and nose without deformities. Trachea midline. Respiratory: Clear to auscultation bilaterally. No wheezing, rales, or rhonchi. Cardiovascular: Irregularly irregular rhythm. Gastrointestinal: Abdomen soft, non-tender, non-distended. Normal bowel sounds. Neurologic: Cranial nerves II-XI are grossly intact. No focal neurological deficits. Moves all extremities spontaneously. Skin: No rashes or lesions noted. Musculoskeletal: No cyanosis or clubbing. Extremities: No edema. Psychiatric: Normal mood and affect. Results Labs CBC and Chem 7: 11/19/22 07:49 11/19/22 07:49 Labs: Laboratory Results - last 24 hr 11/19/22 11/19/22 11/19/22 07:49 07:49 07:49 MCV 81.9 MCH 26.2 L MCHC 31.9 RDW 14.3 Plt Count 306 MPV 9.0 L Immature Gran % (Auto) 0.3 Neut % (Auto) 62.9 Lymph % (Auto) 21.6 [place] % (Auto) 13.3 H Eos % (Auto) 1.1 Baso % (Auto) 0.8 Lymph # (Auto) 1.4 [place] # (Auto) 0.8 Eos # (Auto) 0.1 Baso # (Auto) 0.1 Abs Immat Gran (auto) 0.02 Absolute Neuts (auto) 3.9 Absolute Nucleated RBC 0.000 Nucleated RBC % (auto) 0.0 Anion Gap 16 Estim Creat Clear Calc 31.1 Estimated GFR 32 Random Glucose 172 H Calcium 10.6 H D Troponin I High Sens 7.5 Assessment and Plan (1) Atrial fibrillation with rapid ventricular response: Status: Acute Plan Pt is a 81-year-old female with a PMH significant for?paroxysmal AFib on apixaban, amiodarone, and diltiazem, CHF, HTN, CKD, and hypothyroidism who presents to the ED after going into AFib last night and persisting into the morning. Generalized weakness and SOB with exertion. Pt will be admitted to telemetry for evaluation treatment of symptomatic AFib. Atrial fibrillation with rapid ventricular response Heart rate in the 140s Started on diltiazem drip, HR now in 110s Continue diltiazem drip Cardiology consultation Monitor on telemetry History of cardioversion x7, may need cardioversion again Hold diliazem p.o. while on drip Continue apixaban, amiodorone Diastolic CHF with preserved ejection fraction Does not appear to be in acute exacerbation: Lung sounds clear, no pitting edema, SOB likely secondary to onset of AFib Check BMP Monitor for exacerbation CKD stage IIIB Creatinine 1.56, at baseline Monitor labs HTN No longer on home meds Monitor Hypothyroidism Continue levothyroxine Full Code Attending:?Dr. Garcia DVT Prophylaxis: On Eliquis Pt will require a hospitalization of at least two nights for treatment of?AFib with RVR with IV diltiazem. Time Spent With Patient Time: Total time managing care of this patient today ____ minutes. Quality Stroke Does the patient have a stroke diagnosis?: No VTE Prior VTE?: No VTE Risk Level:: Medical - moderate - high VTE Device Contraindication: Treatment Not Indicated VTE Drug Contraindication: N/A - Med Ordered
--- NOTE | 2022-11-19 14:00 | PC.NURSE ---
Patient remains in A fib better controlled rate 90-115 MD aware good with 10mg/hr iv diltiazem will CTM
[2022-11-19 14:54] LABS: COVID-19 Test Negative (Negative); IDNOW Serial# 16C4AD1C
[2022-11-19] MEDS: 0.9 % Sodium Chloride Flush 3 ML SYRINGE IVFLUSH ×2 (16:27→20:08)
--- NOTE | 2022-11-19 16:47 | PC.NURSE ---
Patient tolerating IV diltiazem controlled afib on cardiac exercise specialist no distress noted will CTM
--- NOTE | 2022-11-19 17:08 | PC.NURSE ---
Report to Overflow RN will prepare for transfer
--- NOTE | 2022-11-19 19:20 | PC.NURSE ---
assumed care of patient at 1900 - report received from Renzo MURRAY. patient has bed assignment ready on [facility] floor. report called to Randy MURRAY. will transport to floor shortly. patient still on diltiazem drip 10ml/hr. HR still in Afib 100-115. patient sitting up eating sandwich. will continue to monitor
[2022-11-19] MEDS: Pravastatin Sodium 40 MG TABLET PO (20:08)
[2022-11-19] MEDS: Apixaban 5 MG TABLET PO (20:08)
[2022-11-20] VITALS (8 sets, daily range): BP systolic 113–172; BP diastolic 72–101; PULSE 77–115; RESP 16–20; TEMP 35.9–37.1; O2SAT 91–98
[2022-11-20] MEDS: dilTIAZem HCL 125 MG in 0.9 % Sodium Chloride 100 ML IVCONT (06:17)
[2022-11-20] MEDS: Levothyroxine Sodium 50 MCG TABLET PO (06:17)
[2022-11-20 07:18] LABS: B Type Natriuretic Peptide 466 pg/mL (<100)
[2022-11-20 07:28] LABS: Anion Gap 14 (12-20); Blood Urea Nitrogen 27 mg/dL (9-16); Calcium 10.3 mg/dL (8.4-10.2); Carbon Dioxide 22 mmol/L (22-29); Chloride 110 mmol/L (96-108); Creatinine Clr Calc Pharmacy 34.4; Estimated Glomerular Filt Rate 36; Glucose Random 116 mg/dL (60-115); Potassium 4.5 mmol/L (3.3-5.1); Sodium 141 mmol/L (135-145)
[2022-11-20] MEDS: Apixaban 5 MG TABLET PO ×2 (08:24→19:49)
[2022-11-20] MEDS: Amiodarone HCL 200 MG TABLET PO (08:24)
[2022-11-20] MEDS: 0.9 % Sodium Chloride Flush 3 ML SYRINGE IVFLUSH (08:24)
--- NOTE | 2022-11-20 11:20 | PM.CNCAR ---
History of Present Illness History of Present Illness Date of Service: 11/20/22 Chief complaint: Symptomatic Afib Narrative: This is a cardiology consultation regarding recurrent atrial fibrillation. Patient is seen in our clinic by Dr. Gonzales. It seems that she gets recurrent episodes of atrial fibrillation. She states that she has been cardioverted almost 6-7 times over the last few years. Most recently just few weeks back. She is also on amiodarone but still had palpitations and leading to 1 further hospitalization. She has again atrial fibrillation with rapid rate and maintained on diltiazem drip at this time. It seems that she has been referred to EP at [facility] but has not been able to see them yet. No other complaints like angina or shortness of breath. Review of Systems Review of Systems: Yes all other systems are reviewed and are negative Constitutional: Constitutional: Reports as per HPI Eyes: Eyes: Reports as per HPI ENT: Reports as per HPI Cardiovascular: Cardiovascular: Reports as per HPI, Denies acrocyanosis, Denies cool extremities, Denies chest pain, Denies leg edema, Denies lightheadedness, Reports palpitations and Denies dyspnea Respiratory: Respiratory: Reports as per HPI, Reports no additional respiratory complaints and Denies dyspnea Gastrointestinal: Gastrointestinal: Reports as per HPI and Reports no additional gastrointestinal complaints Genitourinary: Genitourinary: Reports as per HPI Musculoskeletal: Musculoskeletal: Reports no additional musculoskeletal complaints and Reports as per HPI Integumentary/Breasts: Skin/Breast: Reports system reviewed and no additional complaints, except as docu Neurologic: Reports system reviewed and no additional complaints, except as documented and Reports as per HPI Psychiatric: Psychiatric: Reports no additional psychiatric complaints and Reports as per HPI Endocrine: Endocrine: Reports no additional endocrine complaints, Reports as per HPI and Reports palpitations Hematologic/Lymphatic: Hematologic/Lymphatic: Reports no additional hematologic/lymphatic complaints and Reports as per HPI Allergic/Immunologic: Allergic/Immunologic: Reports no additional allergic/immunologic complaints and Reports as per HPI [facility] Past Medical History Medical History Anticoagulant long-term use High cholesterol History of cardioversion History of hypothyroidism History of vitamin D deficiency Hx of skin cancer, basal cell Hx of squamous cell carcinoma of skin Hypertension, essential PAF (paroxysmal atrial fibrillation) Vitamin B 12 deficiency Family History Family History Mother Stroke Father Pancreatic cancer Brother Lyme disease Surgical History Surgical History History of dilation and curettage History of hand surgery Status post surgical removal of malignant neoplasm of skin Social History Social History Household Members: None Housing: House Do you presently have visiting nurse or other home services: No Alcohol intake: unknown Patient Tobacco Use Status: Never used Tobacco e-Cigarette/Vaping Use: Never Used Second Hand Smoke Exposure: No Advance Directives Date on File: 11/19/22 service: No Current occupational status: retired Meds Allergies Allergy/AdvReac Type Severity Reaction Status Date / Time prednisone Allergy Intermediate REd Verified 11/19/22 07:46 Blotchy codeine AdvReac Intermediate Swelling Verified 11/19/22 07:46 sulfamethoxazole AdvReac Intermediate Stomach Verified 11/19/22 07:46 [From Bactrim] Upset trimethoprim [From Bactrim] AdvReac Intermediate Stomach Verified 11/19/22 07:46 Upset Active Medications: Current Medications Acetaminophen (Acetaminophen 325 Mg Tablet) 650 mg PO Q6H PRN PRN Reason: Pain, Mild (Pain Scale 1-3) Amiodarone HCl (Amiodarone Hcl 200 Mg Tablet) 200 mg PO DAILY [facility] Last Admin: 11/20/22 08:24 Dose: 200 mg Apixaban (Apixaban 5 Mg Tablet) 5 mg PO BID [facility] Last Admin: 11/20/22 08:24 Dose: 5 mg Docusate Sodium (Docusate Sodium 100 Mg Capsule) 100 mg PO DAILY PRN PRN Reason: Constipation Diltiazem HCl 125 mg/ Sodium (Chloride) 125 mls @ 0 mls/hr IVCONT .Q0M [facility]; Protocol Last Admin: 11/20/22 06:17 Dose: 5 mg/hr, 5 mls/hr Levothyroxine Sodium (Levothyroxine Sodium 50 Mcg Tablet) 50 mcg PO DAILY@0600 [facility] Last Admin: 11/20/22 06:17 Dose: 50 mcg Ondansetron HCl (Ondansetron Hcl 4 Mg/2 Ml Vial) 4 mg IVPUSH Q8H PRN PRN Reason: Nausea and Vomiting Pravastatin Sodium (Pravastatin Sodium 40 Mg Tablet) 40 mg PO BEDTIME [facility] Last Admin: 11/19/22 20:08 Dose: 40 mg Sodium Chloride (0.9 % Sodium Chloride Flush 3 Ml Syringe) 3 ml IVFLUSH QSHIFT [facility] Last Admin: 11/20/22 08:24 Dose: 3 ml Home Medications Medication Instructions Recorded Confirmed Last Taken Type acetaminophen 325 mg tablet 650 mg PO Q4H PRN Mild Pain (Scale 10/21/22 11/19/22 Unknown History Score 1-4) Physical Exam Vital Signs: Vital Signs: Last Vital Signs Temp 97.5 F 11/20/22 08:00 Pulse 104 H 11/20/22 08:00 Resp 20 11/20/22 08:00 BP 172/89 H 11/20/22 08:00 Pulse Ox 94 11/20/22 08:00 O2 Del Method 11/20/22 08:00 BMI result Body Mass Index 26.3 Const: General: comfortable and no acute distress Orientation/consciousness: patient oriented x3 HEENT: Other: Unremarkable Head: Yes normal to inspection Neck: Neck: Yes normal visual inspection Chest: Chest palpation & inspection: normal inspection of the chest Resp: Auscultation: clear to auscultation bilaterally Cardio: Palpation: normal PMI Heart sounds: S1 normal heart sound present, S2 normal heart sound present, no gallops, no murmurs and no rubs GI: Palpation (GI): Soft to palpation Back/Spine/Pelvis: Other: unremarkable Skin: General skin exam: no rashes or lesions noted Neuro: General: patient oriented x3 Extrem: General: Yes normal to inspection Psych: Mental Status: mental status grossly normal Objective Labs and Meds 11/19/22 07:49 11/20/22 06:30 Lab results: Laboratory Results - last 24 hr 11/19/22 11/20/22 11/20/22 14:29 06:30 06:30 Sodium 141 Potassium 4.5 Chloride 110 H Carbon Dioxide 22 Anion Gap 14 BUN 27 H Creatinine 1.41 H Estim Creat Clear Calc 34.4 Estimated GFR 36 Random Glucose 116 H Calcium 10.3 H B-Natriuretic Peptide 466 H COVID-19 (AMIRAH) Negative COVID-19 Clin Com See Note ECG Interpretation: EKG with atrial fibrillation at 112/min. Left ventricular hypertrophy; left axis deviation and cannot exclude old septal infarct. Assessment and Plan (1) Atrial fibrillation with rapid ventricular response: Status: Acute Plan Her last echocardiogram is from 2020 that shows LVEF of 65-70% and moderate diastolic dysfunction. In telemetry, in atrial fibrillation at about 100-110/Min. High sensitivity troponin 7.5. Cardiac BNP 466. At this current time, keep her on Cardizem drip. Continue anticoagulation. Also, continue Eliquis. Will discuss with EP at [facility] regarding further plan. Discussed with Dr. Garcia. Time Spent With Patient Time: Total time managing care of this patient today 70 minutes. Procedures Date of Service Date of Service: 11/20/22
--- NOTE | 2022-11-20 11:24 | HO.PM.IMPN ---
Subjective Subjective Date of Service: 11/20/22 Interval History: cc: palpitations interval history: a bit better, still present Physical Exam Vital Signs: Vital Signs: Last Vital Signs Temp 97.5 F 11/20/22 08:00 Pulse 104 H 11/20/22 08:00 Resp 20 11/20/22 08:00 BP 172/89 H 11/20/22 08:00 Pulse Ox 94 11/20/22 08:00 O2 Del Method 11/20/22 08:00 BMI result Body Mass Index 26.3 General: AO X 3, no acute distress Resp: CTA bilateral, no accessory muscles used CVS: S1,S2,Rapid, irregular GI: soft, non tender, non distended Neuro: motor grossly intact, alert Psych: appropriate affect, appropriate insight Objective Data Active Medications Acetaminophen (Acetaminophen 325 Mg Tablet) 650 mg PO Q6H PRN PRN Reason: Pain, Mild (Pain Scale 1-3) Amiodarone HCl (Amiodarone Hcl 200 Mg Tablet) 200 mg PO DAILY [facility] Last Admin: 11/20/22 08:24 Dose: 200 mg Documented By: CHARLIE Apixaban (Apixaban 5 Mg Tablet) 5 mg PO BID [facility] Last Admin: 11/20/22 08:24 Dose: 5 mg Documented By: CHARLIE Docusate Sodium (Docusate Sodium 100 Mg Capsule) 100 mg PO DAILY PRN PRN Reason: Constipation Diltiazem HCl 125 mg/ Sodium (Chloride) 125 mls @ 0 mls/hr IVCONT .Q0M [facility]; Protocol Last Admin: 11/20/22 06:17 Dose: 5 mg/hr, 5 mls/hr Documented By: GABRIELE Levothyroxine Sodium (Levothyroxine Sodium 50 Mcg Tablet) 50 mcg PO DAILY@0600 [facility] Last Admin: 11/20/22 06:17 Dose: 50 mcg Documented By: GABRIELE Ondansetron HCl (Ondansetron Hcl 4 Mg/2 Ml Vial) 4 mg IVPUSH Q8H PRN PRN Reason: Nausea and Vomiting Pravastatin Sodium (Pravastatin Sodium 40 Mg Tablet) 40 mg PO BEDTIME [facility] Last Admin: 11/19/22 20:08 Dose: 40 mg Documented By: GABRIELE Sodium Chloride (0.9 % Sodium Chloride Flush 3 Ml Syringe) 3 ml IVFLUSH QSHIFT [facility] Last Admin: 11/20/22 08:24 Dose: 3 ml Documented By: CHARLIE Labs 11/19/22 07:49 11/20/22 06:30 Labs: Laboratory Results - last 24 hr 11/19/22 11/20/22 11/20/22 14:29 06:30 06:30 Anion Gap 14 Estim Creat Clear Calc 34.4 Estimated GFR 36 Random Glucose 116 H Calcium 10.3 H B-Natriuretic Peptide 466 H COVID-19 (AMIRAH) Negative COVID-19 Clin Com See Note Assessment and Plan (1) Atrial fibrillation with rapid ventricular response: Status: Acute Plan 81-year-old female with a PMH significant for?paroxysmal AFib on apixaban, amiodarone, and diltiazem, chornic diastolic CHF, HTN, CKD IIIB, and hypothyroidism who presented to the ED after going into AFib paroxysmal Atrial fibrillation with rapid ventricular response Started on diltiazem drip, HR now in 110s Continue diltiazem drip Cardiology consultation Monitor on telemetry Continue apixaban, amiodorone chronic Diastolic CHF with preserved ejection fraction euvolemic CKD stage IIIB Creatinine 1.56, at baseline Monitor labs HTN diltiazem Hypothyroidism Continue levothyroxine Full Code DVT Prophylaxis:? On Eliquis reason for continued hospitalization:still with syptomatic afib Time Spent With Patient Time: Total time managing care of this patient today ____ minutes. Quality Stroke Does the patient have a stroke diagnosis?: No VTE Prior VTE?: No VTE Risk Level:: Medical - moderate - high VTE Device Contraindication: Treatment Not Indicated VTE Drug Contraindication: N/A - Med Ordered
--- NOTE | 2022-11-20 11:29 | CA_ITS ---
Transthoracic Echocardiogram Patient (Last, First, Middle): Sandi Leonardo, Gender: Female Date of : 1940 Age: 81 Procedure Date: 11/20/2022 Procedure Type: Transthoracic Echocardiogram [place] [facility] [place] Height: 170. cm Weight: 76. kg BSA: 1.87 m2 Heart Rate: bpm BP: 113 / 72 mmHg Director Loss Prevention: ANA Referring MD: Aditya Espinosa MD Symptoms: Atrial fibrillation Study Quality: Adequate ECG Rhythm: Atrial Fibrillation Conclusions: - The left ventricular systolic function is mildly decreased. The visually estimated ejection fraction is between 45-50%. - The left atrium is mildly dilated. - The right atrium is moderately dilated. - Trace to mild aortic regurgitation. - There is mild mitral valve regurgitation. - There is mild tricuspid valve regurgitation. Findings Left Ventricle Normal left ventricular cavity size. There is mildly increased left ventricular wall thickness. The left ventricular systolic function is mildly decreased. The visually estimated ejection fraction is between 45-50%. There is mild global hypokinesis. Diastolic function is indeterminate on the basis of available data. Right Ventricle Normal right ventricular cavity size. There is mildly decreased right ventricular systolic function. Atria The left atrium is mildly dilated. The right atrium is moderately dilated. Aortic Valve There is a normal trileaflet aortic valve. There is mild calcification of the aortic valve. There is no aortic valve stenosis. Trace to mild aortic regurgitation. Mitral Valve The mitral valve appears normal. There is mild mitral valve regurgitation. There is no mitral valve stenosis. Pulmonic Valve The pulmonic valve is likely normal. Tricuspid Valve Normal tricuspid valve structure. There is mild tricuspid valve regurgitation. There is no evidence of pulmonary hypertension. Great Vessels The asc aorta is normal in size. Venous The inferior vena cava is normal in size and collapses greater than 50% with inspiration. Pericardium/Pleural There is no evidence of pericardial effusion. Prior Study Comparison Changes noted compared to prior study dated: 12/09/2020. Decrease in LVEF. Measurements 2D Linear Measurements IVSd: 1.15 0.6-0.9/0.6-1.0 cm LVIDd: 4.49 3.9-5.3/4.2-5.9 cm LVIDd Index: 2.40 2.4-3.2/2.2-3.1 cm/m2 LVIDs: 3.53 2.0-3.6 cm LVPWd: 1.36 0.7-1.1 cm LA Diam: 4.50 2.7-3.8/3.0-4.0 cm LAIDs Index: 2.41 1.5-2.3 cm/m2 LV Mass: 262.58 67-162/88-224 g LV Mass Index: 140.42 43-95/49-115 g/m2 LVOT Diam: 2.00 3.0+(-)1.3 cm 2D Systolic Function EF 4C: 49.60 >55% EF 2C: 47.40 >55% EF BiP: 48.60 >55% Mitral Valve E'Lateral: 5.98 E'Medial: 4.13 Aortic Valve AoV Pk Gabe: 0.88 AoV Pk Grad: 3.00 LVOT LVOT Pk Gabe: 0.65 LVOT Mn Gabe: 0.49 LVOT VTI: 0.12 LVOT Pk Grad: 2.00 LVOT Mn Grad: 1.00 LVOT Diam: 2.00 LVOT Area: 3.14 Diastolic Function E'Medial: 4.13 E' Laterial: 5.98 Right Ventricle TAPSE (mm): 14.70 TVS' Gabe: 10.00 Tricuspid Valve TR Pk Gabe: 2.05 TR Pk Grad: 17.00 RA Press: 3.00 RVSP: 20.00 Great Vessels Aorta Sinus of Valsalva: 3.20 2.0-3.5 cm Ao Asc: 3.90 2.1-3.4 cm Pulmonary Valve PV Pk Gabe: 0.77 Peak PV Grad: 2.00 Updated in Other Vendor System with Status of Final Aditya Espinosa MD electronically signed on 11/20/2022 3:37:29 PM with status of Final
--- NOTE | 2022-11-20 12:38 | MHC.CM.PN ---
pt lives alone is independent cm intervention si not indicated pt is covbid vax x 3 has own ride home dc plan home no servceis
[2022-11-20] MEDS: Digoxin 0.5 MG/2 ML AMPUL 0.25 MG IVPUSH ×2 (13:41→18:30)
--- NOTE | 2022-11-20 14:06 | PC.NURSE ---
pt. resting comfortably. stopped Cardizem drip per provider's orders. HR in the mid 90s. She has been started on 0.25 digoxin IV push q6.
[2022-11-20] MEDS: Pravastatin Sodium 40 MG TABLET PO (19:49)
[2022-11-21] MEDS: Digoxin 0.5 MG/2 ML AMPUL 0.25 MG IVPUSH ×2 (01:28→07:24)
[2022-11-21 04:00] VITALS: BP 123/80; PULSE 78; RESP 15; TEMP 36.6; O2SAT 96
[2022-11-21] MEDS: Levothyroxine Sodium 50 MCG TABLET PO (04:15)
[2022-11-21 06:24] LABS: Hematocrit 38.8 % (37.0-47.0); Hemoglobin 12.4 g/dl (12.0-16.0); Mean Corpuscular Hemoglobin 26.8 pg (27.0-33.0); Mean Corpuscular Volume 83.8 fL (80.0-98.0); Mean Platelet Volume 9.7 fL (9.4-12.3); Platelet Count 290 X10*3/uL (160-400); Red Blood Count 4.63 X10*6/uL (4.20-5.50); Red Cell Distribution Width 14.5 % (11.0-16.0); White Blood Count 6.8 X10*3/uL (4.8-10.8)
[2022-11-21 06:37] LABS: Anion Gap 14 (12-20); Blood Urea Nitrogen 29 mg/dL (9-16); Calcium 10.3 mg/dL (8.4-10.2); Carbon Dioxide 24 mmol/L (22-29); Chloride 108 mmol/L (96-108); Creatinine Clr Calc Pharmacy 31.9; Estimated Glomerular Filt Rate 33; Glucose Fasting 100 mg/dL (60-99); Potassium 4.9 mmol/L (3.3-5.1); Sodium 141 mmol/L (135-145)
[2022-11-21] MEDS: Apixaban 5 MG TABLET PO ×2 (07:24→19:44)
[2022-11-21] MEDS: Amiodarone HCL 200 MG TABLET PO ×2 (07:25→11:04)
[2022-11-21] MEDS: 0.9 % Sodium Chloride Flush 3 ML SYRINGE IVFLUSH ×2 (07:25→19:45)
[2022-11-21 08:00] VITALS: BP 133/82; PULSE 102; RESP 18; TEMP 36.6; O2SAT 96
[2022-11-21] MEDS: dilTIAZem HCL 125 MG in 0.9 % Sodium Chloride 100 ML IVCONT (08:14)
--- NOTE | 2022-11-21 10:07 | P.PNIM_ITS ---
Subjective Subjective Date of Service: 11/21/22 Interval History: cc: palpitations interval history: a bit better, still present Physical Exam Vital Signs: Vital Signs: Last Vital Signs Temp 97.8 F 11/21/22 08:00 Pulse 102 H 11/21/22 08:00 Resp 18 11/21/22 08:00 BP 133/82 11/21/22 08:00 Pulse Ox 96 11/21/22 08:00 O2 Del Method 11/21/22 08:00 BMI result Body Mass Index 26.3 General: AO X 3, no acute distress Resp: CTA bilateral, no accessory muscles used CVS: S1,S2,Rapid, irregular GI: soft, non tender, non distended Neuro: motor grossly intact, alert Psych: appropriate affect, appropriate insight Objective Data Active Medications Acetaminophen (Acetaminophen 325 Mg Tablet) 650 mg PO Q6H PRN PRN Reason: Pain, Mild (Pain Scale 1-3) Apixaban (Apixaban 5 Mg Tablet) 5 mg PO BID [facility] Last Admin: 11/21/22 07:24 Dose: 5 mg Documented By: CARLOTTA Docusate Sodium (Docusate Sodium 100 Mg Capsule) 100 mg PO DAILY PRN PRN Reason: Constipation Diltiazem HCl 125 mg/ Sodium (Chloride) 125 mls @ 0 mls/hr IVCONT .Q0M [facility]; Protocol Last Admin: 11/21/22 08:14 Dose: 5 mg/hr, 5 mls/hr Documented By: CARLOTTA Comments: NOT DOCUMENTED BY PREVIOUS NURSE: GTT RUNNING AT 5 MG/HR AT START OF THIS RN'S SHIFT Levothyroxine Sodium (Levothyroxine Sodium 50 Mcg Tablet) 50 mcg PO DAILY@0600 [facility] Last Admin: 11/21/22 04:15 Dose: 50 mcg Documented By: JUNIOR Ondansetron HCl (Ondansetron Hcl 4 Mg/2 Ml Vial) 4 mg IVPUSH Q8H PRN PRN Reason: Nausea and Vomiting Pravastatin Sodium (Pravastatin Sodium 40 Mg Tablet) 40 mg PO BEDTIME [facility] Last Admin: 11/20/22 19:49 Dose: 40 mg Documented By: JUNIOR Sodium Chloride (0.9 % Sodium Chloride Flush 3 Ml Syringe) 3 ml IVFLUSH QSHIFT [facility] Last Admin: 01/07/23 07:25 Dose: 3 ml Documented By: CARLOTTA Labs 11/21/22 05:55 11/21/22 05:55 Labs: Laboratory Results - last 24 hr 11/21/22 11/21/22 05:55 05:55 MCV 83.8 MCH 26.8 L MCHC 32.0 RDW 14.5 Plt Count 290 MPV 9.7 Absolute Nucleated RBC 0.000 Nucleated RBC % (auto) 0.0 Anion Gap 14 Estim Creat Clear Calc 31.9 Estimated GFR 33 Fasting Glucose 100 H Calcium 10.3 H Assessment and Plan (1) Atrial fibrillation with rapid ventricular response: Status: Acute Plan 81-year-old female with a PMH significant for?paroxysmal AFib on apixaban, amiodarone, and diltiazem, chornic diastolic CHF, HTN, CKD IIIB, and hypothyroidism who presented to the ED after going into AFib paroxysmal Atrial fibrillation with rapid ventricular response Continue diltiazem drip, increased amio to 400mg daily plan for CV tomorrow Monitor on telemetry Continue apixaban chronic Diastolic CHF with preserved ejection fraction euvolemic CKD stage IIIB Creatinine 1.52, at baseline Monitor labs HTN diltiazem Hypothyroidism Continue levothyroxine Full Code DVT Prophylaxis:? On Eliquis reason for continued hospitalization:still with syptomatic afib Time Spent With Patient Time: Total time managing care of this patient today ____ minutes. Quality Stroke Does the patient have a stroke diagnosis?: No VTE Prior VTE?: No VTE Risk Level:: Medical - moderate - high VTE Device Contraindication: Treatment Not Indicated VTE Drug Contraindication: N/A - Med Ordered
--- NOTE | 2022-11-21 11:18 | PM.PNCARD ---
Subjective Subjective Date of Service: 11/21/22 Interval history: She still feels palpitations. Remains on Cardizem drip. Review of Systems Review of Systems Yes all other systems are reviewed and are negative Constitutional: Reports as per HPI Eyes: Reports as per HPI Reports as per HPI Cardiovascular: Reports as per HPI, Denies acrocyanosis, Denies cool extremities, Denies chest pain, Denies leg edema, Denies lightheadedness, Reports palpitations and Denies dyspnea Respiratory: Reports as per HPI, Reports no additional respiratory complaints and Denies dyspnea Gastrointestinal: Reports as per HPI and Reports no additional gastrointestinal complaints Genitourinary: Reports as per HPI Musculoskeletal: Reports no additional musculoskeletal complaints and Reports as per HPI Skin/Breast: Reports system reviewed and no additional complaints, except as docu Reports system reviewed and no additional complaints, except as documented and Reports as per HPI Psychiatric: Reports no additional psychiatric complaints and Reports as per HPI Endocrine: Reports no additional endocrine complaints, Reports as per HPI and Reports palpitations Hematologic/Lymphatic: Reports no additional hematologic/lymphatic complaints and Reports as per HPI Allergic/Immunologic: Reports no additional allergic/immunologic complaints and Reports as per HPI Physical Exam Vital Signs: Last Vital Signs Temp 97.8 F 11/21/22 08:00 Pulse 102 H 11/21/22 08:00 Resp 18 11/21/22 08:00 BP 133/82 11/21/22 08:00 Pulse Ox 96 11/21/22 08:00 O2 Del Method 11/21/22 08:00 BMI result Body Mass Index 26.3 Const General: comfortable and no acute distress Orientation/consciousness: patient oriented x3 HEENT Other: Unremarkable Head: Yes normal to inspection Neck Neck: Yes normal visual inspection Chest Chest palpation & inspection: normal inspection of the chest Resp Auscultation: clear to auscultation bilaterally Cardio Palpation: normal PMI Heart sounds: S1 normal heart sound present, S2 normal heart sound present, no gallops, no murmurs and no rubs GI Palpation (GI): Soft to palpation Back/Spine/Pelvis Other: unremarkable Skin General skin exam: no rashes or lesions noted Neuro General: patient oriented x3 Extrem General: Yes normal to inspection Psych Mental Status: mental status grossly normal Objective Labs and Meds 11/21/22 05:55 11/21/22 05:55 Lab results: Laboratory Results - last 24 hr 11/21/22 11/21/22 05:55 05:55 WBC 6.8 RBC 4.63 Hgb 12.4 Hct 38.8 MCV 83.8 MCH 26.8 L MCHC 32.0 RDW 14.5 Plt Count 290 MPV 9.7 Absolute Nucleated RBC 0.000 Nucleated RBC % (auto) 0.0 Sodium 141 Potassium 4.9 Chloride 108 Carbon Dioxide 24 Anion Gap 14 BUN 29 H Creatinine 1.52 H Estim Creat Clear Calc 31.9 Estimated GFR 33 Fasting Glucose 100 H Calcium 10.3 H Progress Note: A&P Assessment and plan (1) Atrial fibrillation with rapid ventricular response: Status: Acute (2) Cardiomyopathy: Status: Acute Plan Atrial fibrillation rapid rate in spite of multiple cardioversions. At this time, she is on diltiazem drip. Also on her home dose of Cardizem. She did get some digoxin yesterday. We will plan on doing a cardioversion tomorrow. She has been on uninterrupted anticoagulation. Mild cardiomyopathy on the echocardiogram is due to atrial fibrillation, likely. Otherwise, will need ablation as an outpatient. Discussed with . Discussed with nursing co-ordinator, anesthesia- tentatively cardioversion 10am tomorrow. Time Spent With Patient Time: Total time managing care of this patient today 35 minutes. Progress Note: Quality Stroke Does the patient have a stroke diagnosis?: No Procedures Date of Service Date of Service: 11/21/22
[2022-11-21 11:54] VITALS: BP 125/79; PULSE 79; RESP 18; TEMP 36.6; O2SAT 95
[2022-11-21 16:00] VITALS: BP 171/66; PULSE 56; RESP 16; TEMP 36.7; O2SAT 93
[2022-11-21] MEDS: Pravastatin Sodium 40 MG TABLET PO (19:44)
[2022-11-21 20:16] VITALS: BP 126/77; PULSE 79; RESP 17; TEMP 36.6; O2SAT 95
[2022-11-21 23:46] VITALS: BP 132/73; PULSE 77; RESP 15; TEMP 36.3; O2SAT 96
[2022-11-22] VITALS (11 sets, daily range): BP systolic 121–171; BP diastolic 60–87; PULSE 57–96; RESP 14–18; TEMP 36.2–37.1; O2SAT 95–98
--- NOTE | 2022-11-22 | ECG_ITS ---
Test Reason : cp Blood Pressure : / mmHG Vent. Rate : 061 BPM Atrial Rate : 061 BPM P-R Int : 206 ms QRS Dur : 112 ms QT Int : 392 ms P-R-T Axes : 072 -43 070 degrees QTc Int : 394 ms Normal sinus rhythm Left axis deviation Left ventricular hypertrophy with repolarization abnormality ( R in aVL , Cristofer product ) Cannot rule out Septal infarct , age undetermined Abnormal ECG When compared with ECG of 22-NOV-2022 10:53, No significant change was found Referred By: Vijay Garcia Electronically Signed By:Don Gonzales
[2022-11-22] MEDS: Levothyroxine Sodium 50 MCG TABLET PO (05:22)
[2022-11-22 06:19] LABS: Hematocrit 37.6 % (37.0-47.0); Hemoglobin 11.8 g/dl (12.0-16.0); Mean Corpuscular HGB Conc 31.4 g/dl (31.0-35.0); Mean Corpuscular Hemoglobin 26.2 pg (27.0-33.0); Mean Corpuscular Volume 83.4 fL (80.0-98.0); Platelet Count 278 X10*3/uL (160-400); Red Blood Count 4.51 X10*6/uL (4.20-5.50); Red Cell Distribution Width 14.2 % (11.0-16.0); White Blood Count 5.7 X10*3/uL (4.8-10.8)
[2022-11-22 06:51] LABS: Anion Gap 10 (12-20); Blood Urea Nitrogen 31 mg/dL (9-16); Calcium 9.9 mg/dL (8.4-10.2); Carbon Dioxide 23 mmol/L (22-29); Chloride 107 mmol/L (96-108); Creatinine Clr Calc Pharmacy 34.4; Estimated Glomerular Filt Rate 36; Glucose Fasting 109 mg/dL (60-99); Magnesium 1.9 mg/dL (1.6-2.6); Potassium 4.3 mmol/L (3.3-5.1); Sodium 136 mmol/L (135-145)
[2022-11-22] MEDS: Apixaban 5 MG TABLET PO ×2 (08:01→20:10)
[2022-11-22] MEDS: Amiodarone HCL 200 MG TABLET 400 MG PO (08:01)
--- NOTE | 2022-11-22 09:28 | P.PNIM_ITS ---
Subjective Subjective Date of Service: 11/22/22 Interval History: cc: palpitations interval history: unchanged Physical Exam Vital Signs: Vital Signs: Last Vital Signs Temp 97.1 F 11/22/22 07:45 Pulse 94 11/22/22 07:45 Resp 18 11/22/22 07:45 BP 158/73 H 11/22/22 07:45 Pulse Ox 95 11/22/22 07:45 O2 Del Method 11/22/22 07:45 BMI result Body Mass Index 26.3 Const: General: comfortable and no acute distress [place] ation/consciousness: patient oriented x3 HEENT: Other: Unremarkable Head: Yes normal to inspection Neck: Neck: Yes normal visual inspection Chest: Chest palpation & inspection: normal inspection of the chest Resp: Auscultation: clear to auscultation bilaterally Cardio: Palpation: normal PMI Heart sounds: S1 normal heart sound present, S2 normal heart sound present, no gallops, no murmurs and no rubs GI: Palpation (GI): Soft to palpation Back/Spine/Pelvis: Other: unremarkable Skin: General skin exam: no rashes or lesions noted Neuro: General: patient oriented x3 Extrem: General: Yes normal to inspection Psych: Mental Status: mental status grossly normal Objective Data Active Medications Acetaminophen (Acetaminophen 325 Mg Tablet) 650 mg PO Q6H PRN PRN Reason: Pain, Mild (Pain Scale 1-3) Amiodarone HCl (Amiodarone Hcl 200 Mg Tablet) 400 mg PO DAILY [facility] Last Admin: 11/22/22 08:01 Dose: 400 mg Documented By: JOSE JUAN Apixaban (Apixaban 5 Mg Tablet) 5 mg PO BID [facility] Last Admin: 11/22/22 08:01 Dose: 5 mg Documented By: JOSE JUAN Docusate Sodium (Docusate Sodium 100 Mg Capsule) 100 mg PO DAILY PRN PRN Reason: Constipation Diltiazem HCl 125 mg/ Sodium (Chloride) 125 mls @ 0 mls/hr IVCONT .Q0M [facility]; Protocol Last Titration: 11/22/22 07:25 Dose: 5 mg/hr, 5 mls/hr Documented By: JOSE JUAN Levothyroxine Sodium (Levothyroxine Sodium 50 Mcg Tablet) 50 mcg PO DAILY@0600 [facility] Last Admin: 11/22/22 05:22 Dose: 50 mcg Documented By: YVONNE Ondansetron HCl (Ondansetron Hcl 4 Mg/2 Ml Vial) 4 mg IVPUSH Q8H PRN PRN Reason: Nausea and Vomiting Pravastatin Sodium (Pravastatin Sodium 40 Mg Tablet) 40 mg PO BEDTIME [facility] Last Admin: 11/21/22 19:44 Dose: 40 mg Documented By: YVONNE Sodium Chloride (0.9 % Sodium Chloride Flush 3 Ml Syringe) 3 ml IVFLUSH QSHIFT [facility] Last Admin: 11/22/22 08:01 Dose: Not Given Documented By: JOSE JUAN Non-Admin Reason: IV Running Labs 11/22/22 06:04 11/22/22 06:04 Labs: Laboratory Results - last 24 hr 11/22/22 11/22/22 06:04 06:04 MCV 83.4 MCH 26.2 L MCHC 31.4 RDW 14.2 Plt Count 278 MPV 9.0 L Absolute Nucleated RBC 0.000 Nucleated RBC % (auto) 0.0 Anion Gap 10 L Estim Creat Clear Calc 34.4 Estimated GFR 36 Fasting Glucose 109 H Calcium 9.9 Magnesium 1.9 Assessment and Plan (1) Atrial fibrillation with rapid ventricular response: Status: Acute Plan 81-year-old female with a PMH significant for?paroxysmal AFib on apixaban, amiodarone, and diltiazem, chornic diastolic CHF, HTN, CKD IIIB, and hypothyroidism who presented to the ED after going into AFib paroxysmal Atrial fibrillation with rapid ventricular response Continue diltiazem drip, increased amio to 400mg daily plan for CV today Monitor on telemetry Continue apixaban chronic Diastolic CHF with preserved ejection fraction euvolemic CKD stage IIIB Creatinine at baseline Monitor labs HTN diltiazem Hypothyroidism Continue levothyroxine Full Code DVT Prophylaxis:? On Eliquis reason for continued hospitalization:still with syptomatic afib Time Spent With Patient Time: Total time managing care of this patient today ____ minutes. Quality Stroke Does the patient have a stroke diagnosis?: No VTE Prior VTE?: No VTE Risk Level:: Medical - moderate - high VTE Device Contraindication: Treatment Not Indicated VTE Drug Contraindication: N/A - Med Ordered
--- NOTE | 2022-11-22 10:21 | MHC.SHP ---
Pre-Procedural Eval Section A Date of Service: 11/22/22 Section B Chief Complaint: Symptomatic Afib Allergies: Allergies Allergy/AdvReac Type Severity Reaction Status Date / Time prednisone Allergy Intermediate REd Verified 11/19/22 07:46 Blotchy codeine AdvReac Intermediate Swelling Verified 11/19/22 07:46 sulfamethoxazole AdvReac Intermediate Stomach Verified 11/19/22 07:46 [From Bactrim] Upset Plan I have reviewed the history and physical and performed a pertinent physical examination on my patient. No changes have occurred unless specified. Time Spent With Patient Time: Total time managing care of this patient today ____ minutes.
--- NOTE | 2022-11-22 10:21 | HO.CARDIVERS ---
Cardioversion Procedure Note Cardioversion Date of Procedure: 11/22/2022 Ordering Provider: Dr. Espinosa Performing Provider: Dr. Espinosa Indication for Procedure: Atrial fibrillation with rapid rate Pre-Op Diagnosis: Atrial fibrillation Post-Op Diagnosis: Sinus rhythm YOLETTE findings (if YOLETTE Performed): Not performed History: See progress note Consent: Informed consent obtained Procedure: After informed consent was obtained, patient was taken to the PACU. The patient was then positioned appropriately. The cardioversion pads were placed in anteroposterior position. Once under anesthesia, 120 joules of synchronized shock was administered. The rhythm converted from atrial fibrillation to sinus rhythm. Patient remained in sinus rhythm after the end of procedure. Complications: None Impression: Successful cardioversion. Recommendations: Continue amiodarone 400 mg daily till ablation. Diltiazem CD 120 mg daily.
--- NOTE | 2022-11-22 10:33 | ECG_ITS ---
Test Reason : cp Blood Pressure : / mmHG Vent. Rate : 072 BPM Atrial Rate : 072 BPM P-R Int : 220 ms QRS Dur : 104 ms QT Int : 368 ms P-R-T Axes : 070 -47 093 degrees QTc Int : 402 ms Sinus rhythm with 1st degree A-V block Left axis deviation Left ventricular hypertrophy with repolarization abnormality ( R in aVL , Marshall product ) Abnormal ECG When compared with ECG of 19-NOV-2022 10:21, Sinus rhythm has replaced Atrial fibrillation Vent. rate has decreased BY 40 BPM Nonspecific T wave abnormality now evident in Inferior leads Referred By: Aditya Espinosa Electronically Signed By:Don Gonzales
--- NOTE | 2022-11-22 11:02 | P.CONAN_ITS ---
[facility] Active Problems Active Problems: All Active Problems (Updated 11/21/22 @ 11:21 by Aditya Espinosa MD) Cardiomyopathy (Acute) Atrial fibrillation with rapid ventricular response (Acute) PAF (paroxysmal atrial fibrillation) (Acute) History of cardioversion (Acute) NAN (acute kidney injury) (Acute) Persistent atrial fibrillation (Acute) Elevated brain natriuretic peptide (BNP) level (Acute) Breath shortness (Acute) History of vitamin D deficiency (Acute) Abnormal creatinine clearance glomerular filtration (Acute) Seasonal allergies (Acute) Cough with congestion of paranasal sinus (Acute) PAF (paroxysmal atrial fibrillation) (Acute) 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) Vitamin D deficiency (Acute) Cellulitis of right lower extremity (Acute) Therapeutic drug monitoring (Acute) Screening for colon cancer (Acute) Screening for breast cancer (Acute) Adult general medical exam (Acute) Screening for osteoporosis (Acute) Breast cancer screening by mammogram (Acute) Elevated serum creatinine (Acute) Anticoagulant long-term use (Acute) Hypertension, essential (Acute) High cholesterol (Acute) Hx of squamous cell carcinoma of skin (Acute) Hx of skin cancer, basal cell (Acute) Vitamin B 12 deficiency (Acute) PAF (paroxysmal atrial fibrillation) (Acute) Past Medical History Medical History Anticoagulant long-term use High cholesterol History of cardioversion History of hypothyroidism History of vitamin D deficiency Hx of skin cancer, basal cell Hx of squamous cell carcinoma of skin Hypertension, essential PAF (paroxysmal atrial fibrillation) Vitamin B 12 deficiency Family History Family History Mother Stroke Father Pancreatic cancer Brother Lyme disease Family history of problems with anesthesia: No Surgical History Surgical History History of dilation and curettage History of hand surgery Status post surgical removal of malignant neoplasm of skin History of Problems with Anesthesia: No Social History Social History Household Members: None Housing: House Do you presently have visiting nurse or other home services: No Alcohol intake: unknown Patient Tobacco Use Status: Never used Tobacco e-Cigarette/Vaping Use: Never Used Second Hand Smoke Exposure: No Advance Directives Date on File: 11/19/22 service: No Current occupational status: retired Meds Allergies Allergy/AdvReac Type Severity Reaction Status Date / Time prednisone Allergy Intermediate REd Verified 11/19/22 07:46 Blotchy codeine AdvReac Intermediate Swelling Verified 11/19/22 07:46 sulfamethoxazole AdvReac Intermediate Stomach Verified 11/19/22 07:46 [From Bactrim] Upset Active Medications: Current Medications Acetaminophen (Acetaminophen 325 Mg Tablet) 650 mg PO Q6H PRN PRN Reason: Pain, Mild (Pain Scale 1-3) Amiodarone HCl (Amiodarone Hcl 200 Mg Tablet) 400 mg PO DAILY COUNTS INCLUDE 234 BEDS AT THE [facility] Last Admin: 11/22/22 08:01 Dose: 400 mg Apixaban (Apixaban 5 Mg Tablet) 5 mg PO BID COUNTS INCLUDE 234 BEDS AT THE [facility] Last Admin: 11/22/22 08:01 Dose: 5 mg Diltiazem HCl (Diltiazem Hcl Cd 120 Mg Cap.Er.Deg) 120 mg PO DAILY COUNTS INCLUDE 234 BEDS AT THE [facility]; Protocol Docusate Sodium (Docusate Sodium 100 Mg Capsule) 100 mg PO DAILY PRN PRN Reason: Constipation Levothyroxine Sodium (Levothyroxine Sodium 50 Mcg Tablet) 50 mcg PO DAILY@0600 COUNTS INCLUDE 234 BEDS AT THE [facility] Last Admin: 11/22/22 05:22 Dose: 50 mcg Ondansetron HCl (Ondansetron Hcl 4 Mg/2 Ml Vial) 4 mg IVPUSH Q8H PRN PRN Reason: Nausea and Vomiting Pravastatin Sodium (Pravastatin Sodium 40 Mg Tablet) 40 mg PO BEDTIME COUNTS INCLUDE 234 BEDS AT THE [facility] Last Admin: 11/21/22 19:44 Dose: 40 mg Sodium Chloride (0.9 % Sodium Chloride Flush 3 Ml Syringe) 3 ml IVFLUSH QSHIFT COUNTS INCLUDE 234 BEDS AT THE [facility] Last Admin: 11/22/22 08:01 Dose: Not Given Home Medications Medication Instructions Recorded Confirmed Last Taken Type acetaminophen 325 mg tablet 650 mg PO Q4H PRN Mild Pain (Scale 10/21/22 11/19/22 Unknown History Score 1-4) Exam Exam Date and Time: November 22, 2022 110 Height,Weight and Vital Signs: Height 5 ft 7 in Weight 76.204 kg Last Vital Signs Temp 97.5 F 11/22/22 10:47 Pulse 73 11/22/22 10:57 Resp 16 11/22/22 10:57 BP 157/71 H 11/22/22 10:57 Pulse Ox 95 11/22/22 10:57 O2 Del Method 11/22/22 10:57 O2 Flow Rate 2 11/22/22 10:52 Pertinent Lab Results Pertinent Lab Results: Laboratory Tests 11/19/22 11/19/22 11/19/22 07:49 07:49 07:49 WBC 6.3 RBC 4.70 Hgb 12.3 Hct 38.5 MCV 81.9 MCH 26.2 L MCHC 31.9 RDW 14.3 Plt Count 306 MPV 9.0 L Immature Gran % (Auto) 0.3 Neut % (Auto) 62.9 Lymph % (Auto) 21.6 [place] % (Auto) 13.3 H Eos % (Auto) 1.1 Baso % (Auto) 0.8 Lymph # (Auto) 1.4 [place] # (Auto) 0.8 Eos # (Auto) 0.1 Baso # (Auto) 0.1 Abs Immat Gran (auto) 0.02 Absolute Neuts (auto) 3.9 Absolute Nucleated RBC 0.000 Nucleated RBC % (auto) 0.0 Sodium 138 Potassium 4.1 Chloride 106 Carbon Dioxide 20 L Anion Gap 16 BUN 25 H Creatinine 1.56 H Estim Creat Clear Calc 31.1 Estimated GFR 32 Random Glucose 172 H Fasting Glucose Calcium 10.6 H D Magnesium Troponin I High Sens 7.5 B-Natriuretic Peptide COVID-19 (AMIRAH) COVID-[employer] 11/19/22 11/20/22 11/20/22 14:29 06:30 06:30 WBC RBC Hgb Hct MCV MCH MCHC RDW Plt Count MPV Immature Gran % (Auto) Neut % (Auto) Lymph % (Auto) [place] % (Auto) Eos % (Auto) Baso % (Auto) Lymph # (Auto) [place] # (Auto) Eos # (Auto) Baso # (Auto) Abs Immat Gran (auto) Absolute Neuts (auto) Absolute Nucleated RBC Nucleated RBC % (auto) Sodium 141 Potassium 4.5 Chloride 110 H Carbon Dioxide 22 Anion Gap 14 BUN 27 H Creatinine 1.41 H Estim Creat Clear Calc 34.4 Estimated GFR 36 Random Glucose 116 H Fasting Glucose Calcium 10.3 H Magnesium Troponin I High Sens B-Natriuretic Peptide 466 H COVID-19 (AMIRAH) Negative COVID-19 Clin Com See Note 11/21/22 11/21/22 11/22/22 05:55 05:55 06:04 WBC 6.8 5.7 RBC 4.63 4.51 Hgb 12.4 11.8 L Hct 38.8 37.6 MCV 83.8 83.4 MCH 26.8 L 26.2 L MCHC 32.0 31.4 RDW 14.5 14.2 Plt Count 290 278 MPV 9.7 9.0 L Immature Gran % (Auto) Neut % (Auto) Lymph % (Auto) [place] % (Auto) Eos % (Auto) Baso % (Auto) Lymph # (Auto) [place] # (Auto) Eos # (Auto) Baso # (Auto) Abs Immat Gran (auto) Absolute Neuts (auto) Absolute Nucleated RBC 0.000 0.000 Nucleated RBC % (auto) 0.0 0.0 Sodium 141 Potassium 4.9 Chloride 108 Carbon Dioxide 24 Anion Gap 14 BUN 29 H Creatinine 1.52 H Estim Creat Clear Calc 31.9 Estimated GFR 33 Random Glucose Fasting Glucose 100 H Calcium 10.3 H Magnesium Troponin I High Sens B-Natriuretic Peptide COVID-19 (AMIRAH) COVID-Hyginex Com 11/22/22 06:04 WBC RBC Hgb Hct MCV MCH MCHC RDW Plt Count MPV Immature Gran % (Auto) Neut % (Auto) Lymph % (Auto) [place] % (Auto) Eos % (Auto) Baso % (Auto) Lymph # (Auto) [place] # (Auto) Eos # (Auto) Baso # (Auto) Abs Immat Gran (auto) Absolute Neuts (auto) Absolute Nucleated RBC Nucleated RBC % (auto) Sodium 136 Potassium 4.3 Chloride 107 Carbon Dioxide 23 Anion Gap 10 L BUN 31 H Creatinine 1.41 H Estim Creat Clear Calc 34.4 Estimated GFR 36 Random Glucose Fasting Glucose 109 H Calcium 9.9 Magnesium 1.9 Troponin I High Sens B-Natriuretic Peptide COVID-19 (AMIRAH) COVID-19 Clin Com Airway Mallampati Class: II TM Dist: >3cm Neck ROM: Full Heart: irreg.irreg rhythm Lungs: clear Assessment and Plan Assessment Anesthesia Assessment: Anesthesia Plan Discussed Final Anesthetic Review Family History of Problems with Anesthesia: No History of Problems with Anesthesia: No NPO: Yes ASA Class: III and Emergency Final Preanesthetic Review: No Changes in Pt Med Stat, Meds/Allgs Chart Reviewed, Anes Risks/Benef Reviewed and DNR Form (If Appl.) Patient Risk: Low Procedure Risk: Low Anesthetic Plan Anesthetic Plan: GA Disposition: Standard PACU
[2022-11-22] MEDS: dilTIAZem HCL CD 120 MG CAP.ER.DEG PO (11:44)
--- NOTE | 2022-11-22 11:45 | PM.PNCARD ---
Subjective Subjective Date of Service: 11/22/22 Interval history: No new complaints. Feels okay. Review of Systems Review of Systems Yes all other systems are reviewed and are negative Constitutional: Reports as per HPI Eyes: Reports as per HPI Reports as per HPI Cardiovascular: Reports as per HPI, Denies acrocyanosis, Denies cool extremities, Denies chest pain, Denies leg edema, Denies lightheadedness, Denies palpitations and Denies dyspnea Respiratory: Reports as per HPI, Reports no additional respiratory complaints and Denies dyspnea Gastrointestinal: Reports as per HPI and Reports no additional gastrointestinal complaints Genitourinary: Reports as per HPI Musculoskeletal: Reports no additional musculoskeletal complaints and Reports as per HPI Skin/Breast: Reports system reviewed and no additional complaints, except as docu Reports system reviewed and no additional complaints, except as documented and Reports as per HPI Psychiatric: Reports no additional psychiatric complaints and Reports as per HPI Endocrine: Reports no additional endocrine complaints, Reports as per HPI and Denies palpitations Hematologic/Lymphatic: Reports no additional hematologic/lymphatic complaints and Reports as per HPI Allergic/Immunologic: Reports no additional allergic/immunologic complaints and Reports as per HPI Physical Exam Vital Signs: Last Vital Signs Temp 97.3 F 11/22/22 11:30 Pulse 64 11/22/22 11:30 Resp 18 11/22/22 11:30 BP 138/83 11/22/22 11:30 Pulse Ox 95 11/22/22 11:30 O2 Del Method 11/22/22 11:30 O2 Flow Rate 2 11/22/22 10:52 BMI result Body Mass Index 26.3 Const General: comfortable and no acute distress Orientation/consciousness: patient oriented x3 HEENT Other: Unremarkable Head: Yes normal to inspection Neck Neck: Yes normal visual inspection Chest Chest palpation & inspection: normal inspection of the chest Resp Auscultation: clear to auscultation bilaterally Cardio Palpation: normal PMI Heart sounds: S1 normal heart sound present, S2 normal heart sound present, no gallops, no murmurs and no rubs GI Palpation (GI): Soft to palpation Back/Spine/Pelvis Other: unremarkable Skin General skin exam: no rashes or lesions noted Neuro General: patient oriented x3 Extrem General: Yes normal to inspection Psych Mental Status: mental status grossly normal Objective Labs and Meds 11/22/22 06:04 11/22/22 06:04 Lab results: Laboratory Results - last 24 hr 11/22/22 11/22/22 06:04 06:04 WBC 5.7 RBC 4.51 Hgb 11.8 L Hct 37.6 MCV 83.4 MCH 26.2 L MCHC 31.4 RDW 14.2 Plt Count 278 MPV 9.0 L Absolute Nucleated RBC 0.000 Nucleated RBC % (auto) 0.0 Sodium 136 Potassium 4.3 Chloride 107 Carbon Dioxide 23 Anion Gap 10 L BUN 31 H Creatinine 1.41 H Estim Creat Clear Calc 34.4 Estimated GFR 36 Fasting Glucose 109 H Calcium 9.9 Magnesium 1.9 Progress Note: A&P Assessment and plan (1) Atrial fibrillation with rapid ventricular response: Status: Acute Assessment and Plan: Continue to remain in atrial fibrillation with rapid rate. In spite of amiodarone as well as IV diltiazem and digoxin. Hence we proceeded with cardioversion today. She converted to sinus rhythm. We can keep her amiodarone at 400 mg daily for the next few weeks. Diltiazem CD 120 mg daily. Stop digoxin. Continue Eliquis. (2) Cardiomyopathy: Status: Acute Assessment and Plan: Mild cardiomyopathy on echo. Likely from atrial fibrillation. Hopefully will improve. Time Spent With Patient Time: Total time managing care of this patient today 35 minutes. Progress Note: Quality Stroke Does the patient have a stroke diagnosis?: No Procedures Date of Service Date of Service: 11/22/22
--- NOTE | 2022-11-22 11:51 | PM.DS ---
DS: Providers Provider Date of Service: 11/23/22 Date of admission: 11/19/22 13:57 Primary care physician: Liset Wesley NP Consults: 11/19/22 14:02 Consult to Cardiology Routine Consulting Provider: Aditya Espinosa Reason for consultation: Symptomatic Afib Has provider been notified: No DS: Diagnosis Discharge Diagnosis (1) Atrial fibrillation with rapid ventricular response: Status: Acute (2) Cardiomyopathy: Status: Acute DS: Summary Hospital Course Hospital Course: from initial hpi: Pt is a 81-year-old female with a PMH significant for?paroxysmal AFib on apixaban, amiodarone, and diltiazem, CHF, HTN, CKD, and hypothyroidism who presents to the ED after going into AFib last night.? Patient states that last evening around 16:00 she felt herself going into AFib, which she describes as feeling like ?a bull frog jumping around? in her chest.? Patient took a dose losartan, which her PCP recently had her discontinue d/t interactiopn with diltiazem of lowering her BP too much, hoping it would bring her into NSR as she slept. Woke up still in afib, and felt SOB and weak when walking her dog. Called a neighbor who brought her to the ED. Of note patient was last hospitalized here for similar complaints of symptomatic AFib on 10/21/2022 and treated for AFib with diltiazem drip and successfully cardioverted and CHF with IV Lasix. Patient sent home with new prescription of low-dose p.o. diltiazem. Patient has undergone cardioversion x7. Is set to talk to a specialtist about ablation in early December. In the ED labs were significant for no leukocytosis, elevated BUN of 25 (at baseline), creatinine of 1.56 (at baseline), and glucose elevated of 172.? EKG showed AFib with RVR, HR in the 140s. Pt was treated with diltiazem IV and then started a diltiazem drip.? Heart rhythm still in AFib, but rate now in the 110s, Pt will be admitted to the hospital for treatment and evaluation AFib. hsopital course: Patient was admitted for paroxysmal atrial fibrillation with rapid ventricular response. She was given diltiazem infusion, amiodarone was increased to 400 mg daily. She was given digoxin load. She was seen by Cardiology recommended cardioversion which was done successfully. Patient will be discharged on increased dose of amiodarone for one week, then decrease again to 200mg daily, and diltiazem will change from 30 mg b.i.d. to 120 mg long-acting daily. She will follow-up with electrophysiology. For chronic diastolic CHF with preserved ejection fraction she was euvolemic. For CKD stage IIIB her creatinine stated baseline. For hypertension she was continued on diltiazem. For hypothyroidism she was continue on Synthroid. Patient is feeling better will be discharged home. Time Spent with Patient Time attestation: Total time managing care of this patient today ____ minutes. Discharge coordination time: Greater than 30 minutes Quality: Safe Use of Opioids Does Pt have an Active Cancer Diagnosis on the Problem List?: No Quality: Stroke Does the patient have a stroke diagnosis?: No Physical Exam Vital Signs: Vital Signs: Last Vital Signs Temp 97.3 F 11/22/22 11:30 Pulse 64 11/22/22 11:30 Resp 18 11/22/22 11:30 BP 138/83 11/22/22 11:30 Pulse Ox 95 11/22/22 11:30 O2 Del Method 11/22/22 11:30 O2 Flow Rate 2 11/22/22 10:52 BMI result Body Mass Index 26.3 General: AO X 3, no acute distress Resp: CTA bilateral, no accessory muscles used CVS: S1,S2,RRR GI: soft, non tender, non distended Neuro: motor grossly intact, alert Psych: appropriate affect, appropriate insight DS: Data Data Completed and Pending Completed studies during hospitalization [Text1]: Procedures Worship of Cardiac Rhythm, Single (10/21/22) Labs on day of discharge: Laboratory Results - last 24 hr 11/22/22 11/22/22 06:04 06:04 WBC 5.7 RBC 4.51 Hgb 11.8 L Hct 37.6 MCV 83.4 MCH 26.2 L MCHC 31.4 RDW 14.2 Plt Count 278 MPV 9.0 L Absolute Nucleated RBC 0.000 Nucleated RBC % (auto) 0.0 Sodium 136 Potassium 4.3 Chloride 107 Carbon Dioxide 23 Anion Gap 10 L BUN 31 H Creatinine 1.41 H Estim Creat Clear Calc 34.4 Estimated GFR 36 Fasting Glucose 109 H Calcium 9.9 Magnesium 1.9 Discharge Plan Discharge Anticipated Discharge Date/Time: 11/22/22 11:49 Patient Disposition: Home, Self-Care Discharge Diagnosis: afib Referrals: Liset Wesley NP [Primary Care Provider] - 1 Week Discharge Medications: New amiodarone 200 mg Tablet 400 mg PO DAILY Qty: 14 0RF diltiazem HCl [Cardizem CD] 120 mg Capsule,Extended Release 24hr 120 mg PO DAILY Qty: 30 0RF Protocol: Hold for SBP/HR < HOLD for SBP < : 90 HOLD for HR < : 60 Continued levothyroxine [Tirosint] 50 mcg capsule 50 mcg PO DAILY Qty: 30 11RF pravastatin 40 mg tablet 40 mg PO BEDTIME 90 Days Qty: 90 3RF acetaminophen 325 mg Tablet 650 mg PO Q4H PRN (Reason: Mild Pain (Scale Score 1-4)) Eliquis 5 mg tablet 5 mg PO BID 90 Days Qty: 180 3RF Discontinued amiodarone 200 mg tablet 200 mg PO DAILY Qty: 90 1RF diltiazem HCl 30 mg tablet 30 mg PO BID Qty: 180 3RF Discharge Orders: Discharge Order (Routine); Ordered 11/23/22 Ordered By: Vijay Garcia Diet: Advance to usual diet Activity on Discharge: As tolerated Stand Alone Forms: Patient Portal Discharge page Care Plan Goals: avoid afib Health Concerns: afib Plan of Treatment: change cardizem to 120mg daily, and increase amio to 400mg daily for one week, then decrease to 200mg daily, follow up with EP Assessment: see above
--- NOTE | 2022-11-22 12:08 | MHC.CM.PN ---
order for home, self care. CM acknowledge.
[2022-11-22] MEDS: 0.9 % Sodium Chloride Flush 3 ML SYRINGE IVFLUSH (16:50)
[2022-11-22] MEDS: Pravastatin Sodium 40 MG TABLET PO (20:10)
[2022-11-23] MEDS: 0.9 % Sodium Chloride Flush 3 ML SYRINGE IVFLUSH ×2 (00:54→08:42)
[2022-11-23 03:55] VITALS: BP 143/65; PULSE 52; RESP 15; TEMP 37.2; O2SAT 96
[2022-11-23] MEDS: Levothyroxine Sodium 50 MCG TABLET PO (05:43)
[2022-11-23 06:36] LABS: Hematocrit 34.7 % (37.0-47.0); Hemoglobin 10.8 g/dl (12.0-16.0); Mean Corpuscular HGB Conc 31.1 g/dl (31.0-35.0); Mean Corpuscular Hemoglobin 26.2 pg (27.0-33.0); Mean Corpuscular Volume 84.2 fL (80.0-98.0); Mean Platelet Volume 9.4 fL (9.4-12.3); Platelet Count 295 X10*3/uL (160-400); Red Blood Count 4.12 X10*6/uL (4.20-5.50); Red Cell Distribution Width 14.2 % (11.0-16.0); White Blood Count 6.3 X10*3/uL (4.8-10.8)
[2022-11-23 06:47] LABS: Anion Gap 12 (12-20); Blood Urea Nitrogen 29 mg/dL (9-16); Calcium 10.2 mg/dL (8.4-10.2); Carbon Dioxide 25 mmol/L (22-29); Chloride 106 mmol/L (96-108); Creatinine Clr Calc Pharmacy 33.5; Estimated Glomerular Filt Rate 35; Glucose Fasting 97 mg/dL (60-99); Potassium 4.6 mmol/L (3.3-5.1); Sodium 138 mmol/L (135-145)
[2022-11-23 08:00] VITALS: BP 174/70; PULSE 51; RESP 20; TEMP 36.4; O2SAT 98
[2022-11-23] MEDS: Apixaban 5 MG TABLET PO (08:42)
[2022-11-23] MEDS: Amiodarone HCL 200 MG TABLET 400 MG PO (08:42)
--- NOTE | 2022-11-23 09:51 | PM.PNCARD ---
Subjective Subjective Date of Service: 11/23/22 Interval history: Status post cardioversion. Feeling good. She has ambulated the hallways and has been asymptomatic. Physical Exam Vital Signs: Last Vital Signs Temp 97.6 F 11/23/22 08:00 Pulse 51 11/23/22 08:00 Resp 20 11/23/22 08:00 BP 174/70 H 11/23/22 08:00 Pulse Ox 98 11/23/22 08:00 O2 Del Method 11/23/22 08:00 O2 Flow Rate 2 11/22/22 10:52 BMI result Body Mass Index 26.3 GENERAL APPEARANCE: in no acute distress, pleasant. NECK: no carotid bruit, no jugular venous distention. SKIN: no suspicious lesions, warm and dry. HEART: no murmurs, regular rate and rhythm. Bradycardic. LUNGS: clear to auscultation bilaterally. ABDOMEN: soft, nontender. EXTREMITIES: no edema. PERIPHERAL PULSES: equal. NEUROLOGIC: No gross deficits, AAO X 3 Objective Labs and Meds 11/23/22 05:54 11/23/22 05:54 Lab results: Laboratory Results - last 24 hr 11/23/22 11/23/22 05:54 05:54 WBC 6.3 RBC 4.12 L Hgb 10.8 L Hct 34.7 L MCV 84.2 MCH 26.2 L MCHC 31.1 RDW 14.2 Plt Count 295 MPV 9.4 Absolute Nucleated RBC 0.000 Nucleated RBC % (auto) 0.0 Sodium 138 Potassium 4.6 Chloride 106 Carbon Dioxide 25 Anion Gap 12 BUN 29 H Creatinine 1.45 H Estim Creat Clear Calc 33.5 Estimated GFR 35 Fasting Glucose 97 Calcium 10.2 Progress Note: A&P Assessment and plan (1) PAF (paroxysmal atrial fibrillation): Status: Acute (2) Cardiomyopathy: Status: Acute Plan 81-year-old female who is presenting with paroxysmal atrial fibrillation. She had multiple episodes in the past of symptomatic atrial fibrillation despite being on amiodarone therapy for last 5 years. She was referred for outpatient electrophysiology evaluation and will be seen by [facility] electrophysiology soon. I think she will benefit from ablation. Her amiodarone was increased to 400 mg and Cardizem to 120 mg already. I think amiodarone can be continued for 7 days at this dose and then she would be decreased back to 200 mg daily. Agree with Cardizem sustained release 120 mg daily. ARB should be held. Blood pressure has been up and down but mostly improving. She had mild cardiomyopathy noticed on the echocardiogram. She previously had normal ejection fraction. It is possible that ejection fraction is slightly underestimated because she was in atrial fibrillation during the study. I do not think this is related to atrial fibrillation because she does not stay in atrial fibrillation for long time and usually gets symptoms right away and comes in. Denying any ischemic symptoms and I do not think we need to do ischemic evaluation right away. I think she should have repeat echocardiogram in couple of months to see if ejection fraction is improving and we will make sure that she is in sinus rhythm at the time of ECHO. Thank you for allowing me to participate in the care of your patient. Please feel free to contact me if you have any questions. Time Spent With Patient Time: Total time managing care of this patient today ____ minutes. Progress Note: Quality Stroke Does the patient have a stroke diagnosis?: No Procedures Date of Service Date of Service: 11/23/22
[2022-11-23 10:59] VITALS: BP 116/68; PULSE 54; RESP 20; TEMP 35.9; O2SAT 96
[2022-11-23 11:01] VITALS: O2SAT 96
--- NOTE | 2022-11-23 11:48 | MHC.CM.PN ---
IMM 11/23/22 Patient is discharged to home with family assist and transportation.
== END 2022-11-23 13:40 | disposition home or self-care (01) | DRG 309 ==
LOC: HO.ED 11:33 → HO.EDOVER 14:16 → HO.IMC 17:41
PROVIDERS: Internal Medicine; Admitting Provider Student in an Organized Health Care Education/Training Program; Emergency Provider Student in an Organized Health Care Education/Training Program; PCP Hospitalist; Visit Provider Internal Medicine
PROC: 5A2204Z Restoration of Cardiac Rhythm, Single (ICD-10-PCS; principal; 2022-11-22 10:00)
DX: I48.0 Paroxysmal atrial fibrillation (principal); I13.0 Hypertensive heart and chronic kidney disease with heart failure and stage 1 through stage 4 chronic kidney disease, or unspecified chronic kidney disease; I50.32 Chronic diastolic (congestive) heart failure; I42.9 Cardiomyopathy, unspecified; E03.9 Hypothyroidism, unspecified; N18.32 Chronic kidney disease, stage 3b; Z20.822 Contact with and (suspected) exposure to COVID-19; Z79.01 Long term (current) use of anticoagulants; Z79.890 Hormone replacement therapy; Z79.899 Other long term (current) drug therapy
CPT/HCPCS: 36415; 80048; 83735; 83880; 84484; 85025; 85027; 87635; 93005; 93306; 96361; 96365; 96366; 96375; 96376; 99285; J1160; Q9957

== ENCOUNTER → 2022-11-30 09:48 | Outpatient (BNVA) | payer MEDICARE, OTHER, SELFPAY | PROVIDERS: PCP Hospitalist; Referring Provider Hospitalist; Visit Provider Internal Medicine Cardiovascular Disease | DX: R00.1 Bradycardia, unspecified (principal); I44.4 Left anterior fascicular block | CPT/HCPCS: 93005 ==

== ENCOUNTER → 2023-04-16 11:11 | Outpatient (BNVA) | payer MEDICARE, OTHER, SELFPAY | PROVIDERS: PCP Hospitalist; Referring Provider Hospitalist; Visit Provider Internal Medicine Cardiovascular Disease | DX: I48.0 Paroxysmal atrial fibrillation (principal) | CPT/HCPCS: 93005; 99212 ==

== ENCOUNTER 2023-06-17 09:10 | Outpatient (AMB) | payer MEDICARE, OTHER, SELFPAY ==
[2023-06-17 09:14] VITALS: BP 124/70; PULSE 59; BMI 25.2
--- NOTE | 2023-06-17 09:14 | MHC.OFFVIS ---
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 Allergies prednisone Allergy (Intermediate, Verified 06/17/23 09:18) REd Blotchy codeine Adverse Reaction (Intermediate, Verified 06/17/23 09:18) Swelling sulfamethoxazole [From Bactrim] Adverse Reaction (Intermediate, Verified 06/17/23 09:18) Stomach Upset Medication List - Last Reconciled 06/17/23 by Yvette Dinh, [employer]ER-C acetaminophen (Tylenol Extra Strength) 500 mg PO Q6H PRN amiodarone (Pacerone) 200 mg PO DAILY amlodipine 10 mg PO DAILY apixaban (Eliquis) 5 mg PO BID 90 days levothyroxine (Tirosint) 50 mcg PO DAILY pravastatin 40 mg PO BEDTIME 90 days HPI 2 MON FUP (KM PT R/S BY US) HPI Details Sandi is an 82-year-old female with past medical history of hypertension, hyperlipidemia, cardiomyopathy, paroxysmal atrial fibrillation with prior cardioversion send recurrent AFib in underwent AFib ablation on 03/26/2023, who presents for follow-up. Today she reports that she has not had any known episodes of atrial fibrillation since her last visit. She will feel an occasional skip in her heartbeat. No chest discomfort, shortness of breath, palpitation, dizziness, presyncope, syncope, PND, orthopnea. She does have chronic bilateral lower leg edema which she says currently is looking good for her. She says that in the hot weather it is worse and in the cooler weather is better. Taking all meds as directed. No bleeding issues reported. [facility] Medical History Anticoagulant long-term use High cholesterol History of cardioversion History of hypothyroidism History of vitamin D deficiency Hx of skin cancer, basal cell Hx of squamous cell carcinoma of skin Hypertension, essential PAF (paroxysmal atrial fibrillation) Vitamin B 12 deficiency Surgical History History of dilation and curettage History of hand surgery S/P ablation of atrial fibrillation Status post surgical removal of malignant neoplasm of skin Family History Mother Stroke Father Pancreatic cancer Brother Lyme disease Social History Household Members: None Housing: House Do you presently have visiting nurse or other home services: No Alcohol intake: never Patient Tobacco Use Status: Never used Tobacco e-Cigarette/Vaping Use: Never Used Second Hand Smoke Exposure: No Advance Directives Date on File: 11/19/22 service: No Current occupational status: retired Review of Systems Const All systems reviewed & are unremarkable except as noted in HPI and below ENT Denies dizziness Card Denies chest pain, Denies chest pain at rest, Denies chest pain with activity, Denies rapid heart rate, Denies pedal edema, Denies edema, Reports leg edema, Denies lightheadedness, Denies palpitations, Denies dyspnea, Denies dyspnea on exertion and Denies orthopnea Resp Denies cough, Denies dyspnea and Denies dyspnea on exertion GI Denies hematochezia and Denies change in stool character Musc Denies abnormal gait, Reports limited range of motion, Reports muscle cramps, Denies muscle weakness, Denies numbness, Denies radiating pain into limb, Denies stiffness and Denies tingling Neuro Denies abnormal gait, Denies dizziness, Denies numbness and Denies tingling Endo Denies palpitations Physical Exam Vital Signs: Last Vital Signs Pulse 59 06/17/23 09:14 BP 124/70 06/17/23 09:14 BMI result Body Mass Index 25.2 Const General: cooperative, healthy appearing, comfortable and no acute distress Orientation/consciousness: patient oriented x3 HEENT Head: Yes normal to inspection Neck Neck: Yes normal visual inspection and Yes no JVD Carotids: normal carotid upstroke Resp Effort & Inspection: normal respiratory effort Auscultation: clear to auscultation bilaterally, no crackles, no rales, no rhonchi and no wheezes Cardio Jugular venous distension: no JVD Rate: regular rate Rhythm: regular rhythm Heart sounds: S1 normal heart sound present, S2 normal heart sound present, no gallops, no murmurs and no rubs Peripheral pulses: Peripheral pulses 2+ throughout GI Inspection: Yes normal to inspection Skin General skin exam: no rashes or lesions noted Neuro General: patient oriented x3 Extrem Other: Soft ankle swelling bilateral Psych Appearance: grossly normal Mental Status: mental status grossly normal Speech and movement: Normal speech and movement present Office Procedures EKG Details: Today, read by me, sinus bradycardia with sinus arrhythmia, rate 55, left axis deviation, anterior Q-waves, rate 55, QTC 441, Q-wave present on last EKG is well [id number], Complete Assessment & Plan Assessment & Plan (1) PAF (paroxysmal atrial fibrillation): Code(s): I48.0 - Paroxysmal atrial fibrillation Plan: History of paroxysmal atrial fibrillation with prior failed cardioversions. She did undergo an AFib ablation on 03/26/[address] Guadalupe. She has not had any documented or clinical signs of recurrent AFib since that time. EKG done today showing sinus bradycardia with sinus arrhythmia, left axis deviation, anterior Q-wave, rate 55, QTC 441 milliseconds.-overall no significant change from prior. At this time will have her stop amiodarone as directed by last office note. Heart rate 55, will hold on addition of rate slowing medications at this time. Will check a Holter monitor prior to her next visit. Instructed to call if she has any clinical signs of AFib. Will continue anti coagulation with Eliquis. No bleeding issues reported. Cardiology follow-up in 3 months, sooner if needed (2) Cardiomyopathy: Code(s): I42.9 - Cardiomyopathy, unspecified Plan: Mild cardiomyopathy. Last echo done 11/20/2022 showed EF 45-50%, left atrium mildly dilated, mild AR, mild MR, mild TR. May have been related to AFib with elevated rates. Prior echo in 2020 showed EF 65-70%. Will check an updated limited echocardiogram to assess for improvement in EF now that AF has been ablated. Orders: Orders ECG 3 day holter monitor 10 Weeks I48.0 - Paroxysmal atrial fibrillation CA echo limited Today I42.9 - Cardiomyopathy, unspecified Coding Level of Care Code Est Pt Level 4 (75692) Diagnoses PAF (paroxysmal atrial fibrillation) I48.0 Cardiomyopathy I42.9 CPT Codes EKG - CPT: 56222-[id number], Complete ([id number]) Time Spent (min) 26 Comment Chart review, documentation, interview comes
== END 2023-06-17 09:39 | disposition home or self-care (01) ==
PROVIDERS: PCP Hospitalist; Referring Provider Hospitalist; Visit Provider Nurse Practitioner Family
DX: I48.0 Paroxysmal atrial fibrillation (principal); I42.9 Cardiomyopathy, unspecified
CPT/HCPCS: 93010; 99214

== ENCOUNTER → 2023-06-17 09:10 | Outpatient (BNVA) | payer MEDICARE, OTHER, SELFPAY | PROVIDERS: PCP Hospitalist; Referring Provider Hospitalist; Visit Provider Nurse Practitioner Family | DX: I48.0 Paroxysmal atrial fibrillation (principal); I42.9 Cardiomyopathy, unspecified | CPT/HCPCS: 93005; 99212 ==

== ENCOUNTER → 2023-08-26 09:59 | Outpatient (REF) | payer MEDICARE, OTHER, SELFPAY ==
--- NOTE | 2023-08-26 10:15 | CA_ITS ---
Transthoracic Echocardiogram Patient (Last, First, Middle): Sandi Leonardo, Gender: Female Date of : 1940 Age: 82 Procedure Date: 08/26/2023 Procedure Type: Transthoracic Echocardiogram Location: OP Height: 170.18 cm Weight: 72.58 kg BSA: 1.84 m2 Heart Rate: bpm BP: 128 / 85 mmHg Vocational Rehabilitation Teacher: ANA Referring MD: Yvette Dinh DIRECTOR TECHNICAL-C Symptoms: I42.9 - Cardiomyopathy, unspecified Study Quality: Adequate w contrast Conclusions: - The left ventricular systolic function is normal. The calculated ejection fraction is 62% by biplane method. Findings Procedure Information Contrast agent, definity, is being given per protocol without apparent complications. Left Ventricle Normal left ventricular cavity size. There is mildly increased left ventricular wall thickness. The left ventricular systolic function is normal. The calculated ejection fraction is 62% by biplane method. There is no evidence of regional wall motion abnormalities. Prior Study Comparison Changes noted compared to prior study dated: 11/20/2022. Improved LVEF. Measurements 2D Linear Measurements IVSd: 1.30 0.6-0.9/0.6-1.0 cm LVIDd: 4.60 3.9-5.3/4.2-5.9 cm LVIDd Index: 2.50 2.4-3.2/2.2-3.1 cm/m2 LVIDs: 3.10 2.0-3.6 cm LVPWd: 1.30 0.7-1.1 cm LV Mass: 286.95 67-162/88-224 g LV Mass Index: 155.95 43-95/49-115 g/m2 LVOT Diam: 2.20 3.0+(-)1.3 cm 2D Systolic Function EF 4C: 63.50 >55% EF 2C: 58.40 >55% EF BiP: 62.00 >55% LVOT LVOT Pk Gabe: 0.99 LVOT Mn Gabe: 0.73 LVOT VTI: 0.26 LVOT Pk Grad: 4.00 LVOT Mn Grad: 2.00 LVOT Diam: 2.20 LVOT Area: 3.80 Updated in Other Vendor System with Status of Final Aditya Espinosa MD electronically signed on 08/26/2023 2:52:04 PM with status of Final
--- NOTE | 2023-08-26 10:15 | HM_ITS ---
* Total monitoring time about 3 days. * Underlying rhythm is sinus. Average ventricular rate 57/Min. Range 46 to 90/Min. * Rare supraventricular ectopy. * Very rare ventricular ectopy. * No significant pauses or AV blocks. * No patient markers or events in diary. MTDD
== END ==
LOC: HO.CARD 09:59
PROVIDERS: PCP Family Medicine; Visit Provider Nurse Practitioner Family
DX: I48.0 Paroxysmal atrial fibrillation (principal); I42.9 Cardiomyopathy, unspecified
CPT/HCPCS: 93242; 93308; Q9957

== ENCOUNTER → 2023-08-26 10:15 | Outpatient (BNV) | payer MEDICARE, OTHER, SELFPAY | PROVIDERS: PCP Family Medicine; Visit Provider Internal Medicine | DX: I47.10 Supraventricular tachycardia, unspecified (principal) | CPT/HCPCS: 93244; 93308 ==

== ENCOUNTER 2023-10-18 11:04 | Outpatient (AMB) | payer MEDICARE, OTHER, SELFPAY ==
--- NOTE | 2023-10-18 11:07 | MHC.OFFVIS ---
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 Accompanied by: Self / Same As Patient Allergies prednisone Allergy (Intermediate, Verified 10/18/23 11:11) REd Blotchy codeine Adverse Reaction (Intermediate, Verified 10/18/23 11:11) Swelling sulfamethoxazole [From Bactrim] Adverse Reaction (Intermediate, Verified 10/18/23 11:11) Stomach Upset Medication List - Last Reconciled 10/18/23 by Don Gonzales MD acetaminophen (Tylenol Extra Strength) 500 mg PO Q6H PRN amlodipine 10 mg PO DAILY apixaban (Eliquis) 5 mg PO BID 90 days levothyroxine (Tirosint) 50 mcg PO DAILY pravastatin 40 mg PO BEDTIME 90 days HPI HPI Comments History of Present Illness Details 82 year old female with PAF. She has symptomatic Afib. She was cardioverted before and has been on amiodarone. In October 2022 she again developed atrial fibrillation and was in the emergency department. She was cardioverted by my partner Dr. Lopez. She was subsequently referred to electrophysiology and underwent AFib ablation on 03/26/[address] Crystal. She said 2 days later she had episode of atrial fibrillation and she was advised to restart amiodarone at this stage at 200 mg twice a day. She took amiodarone for a week at 200 mg twice a day and has been taking 200 mg daily since then. She has not had an further episodes of AFib. She is saying she is still recovering from the procedure and trying to get her strength back.\ October for 2022: She returns for follow-up. She is recovering from gastroenteritis. No palpitations. No chest pain or shortness of breath. Blood pressure control is good. Continues to be in sinus rhythm based on EKG. On apixaban without any bleeding issues. [facility] Medical History Anticoagulant long-term use High cholesterol History of cardioversion History of hypothyroidism History of vitamin D deficiency Hx of skin cancer, basal cell Hx of squamous cell carcinoma of skin Hypertension, essential PAF (paroxysmal atrial fibrillation) Vitamin B 12 deficiency Surgical History History of dilation and curettage History of hand surgery S/P ablation of atrial fibrillation Status post surgical removal of malignant neoplasm of skin Family History Mother Stroke Father Pancreatic cancer Brother Lyme disease Social History Household Members: None Housing: House Do you presently have visiting nurse or other home services: No Alcohol intake: never Comment: pt refuses bed alarm Patient Tobacco Use Status: Never used Tobacco e-Cigarette/Vaping Use: Never Used Second Hand Smoke Exposure: No Advance Directives Date on File: 11/19/22 service: No Current occupational status: retired Review of Systems Const Reports chills, Reports fatigue, Reports fever(s), Reports frequent falls, Reports weakness, Reports weight gain and Reports weight loss ENT Reports dizziness Card Reports chest pain, Reports leg edema, Reports lightheadedness, Reports palpitations, Reports dyspnea and Reports dyspnea on exertion Resp Reports cough, Reports dyspnea and Reports dyspnea on exertion GI Reports hematochezia Musc Reports abnormal gait, Reports muscle weakness, Reports numbness, Reports radiating pain into limb and Reports tingling Neuro Reports abnormal gait, Reports dizziness, Reports frequent falls, Reports numbness, Reports tingling and Reports weakness Endo Reports fatigue and Reports palpitations Physical Exam Vital Signs: Last Vital Signs Pulse 75 10/18/23 11:09 BP 120/72 10/18/23 11:09 BMI result Body Mass Index 25.6 GENERAL APPEARANCE: in no acute distress, pleasant. NECK: no carotid bruit, no jugular venous distention. SKIN: no suspicious lesions, warm and dry. HEART: no murmurs, regular rate and rhythm. LUNGS: clear to auscultation bilaterally. ABDOMEN: soft, nontender. EXTREMITIES: no edema. PERIPHERAL PULSES: equal. NEUROLOGIC: No gross deficits, AAO X 3 Const General: cooperative, healthy appearing, comfortable and no acute distress Orientation/consciousness: patient oriented x3 HEENT Head: Yes normal to inspection Neck Neck: Yes normal visual inspection and Yes no JVD Carotids: normal carotid upstroke Resp Effort & Inspection: normal respiratory effort Auscultation: clear to auscultation bilaterally, no crackles, no rales, no rhonchi and no wheezes Cardio Jugular venous distension: no JVD Rate: regular rate Rhythm: regular rhythm Heart sounds: S1 normal heart sound present, S2 normal heart sound present, no gallops, no murmurs and no rubs Peripheral pulses: Peripheral pulses 2+ throughout GI Inspection: Yes normal to inspection Skin General skin exam: no rashes or lesions noted Neuro General: patient oriented x3 Extrem Other: Soft ankle swelling bilateral Psych Appearance: grossly normal Mental Status: mental status grossly normal Speech and movement: Normal speech and movement present Office Procedures EKG Details: NSR 75/min, LAFB, Pulmonary disease pattern, septal infarct, QTc 466 msec. [id number], Complete Assessment & Plan Assessment & Plan (1) PAF (paroxysmal atrial fibrillation): Code(s): I48.0 - Paroxysmal atrial fibrillation Plan Pleasant 82-year-old female who is here for follow-up. She is status post ablation for atrial fibrillation. She is off amiodarone now. EKG showing sinus rhythm. Clinically stable. On apixaban for stroke prevention. Blood pressure control is good on amlodipine 10 mg daily. Follow-up with us in 4-6 months. Thank you for allowing me to participate in the care of your patient. Please feel free to contact me if you have any questions. Coding Level of Care Code Est Pt Level 3 (28635) Diagnoses PAF (paroxysmal atrial fibrillation) I48.0 CPT Codes EKG - CPT: 92826-[id number], Complete ([id number])
[2023-10-18 11:09] VITALS: BP 120/72; PULSE 75; BMI 25.6
== END 2023-10-18 11:33 | disposition home or self-care (01) ==
PROVIDERS: PCP Hospitalist; Visit Provider Internal Medicine Cardiovascular Disease
DX: I48.0 Paroxysmal atrial fibrillation (principal)
CPT/HCPCS: 93010; 99213

== ENCOUNTER → 2023-10-18 11:04 | Outpatient (BNVA) | payer MEDICARE, OTHER, SELFPAY | PROVIDERS: PCP Hospitalist; Visit Provider Internal Medicine Cardiovascular Disease | DX: I48.0 Paroxysmal atrial fibrillation (principal) | CPT/HCPCS: 93005; 99212 ==

== ENCOUNTER 2023-11-03 09:56 | Outpatient (AMB) | payer MEDICARE, OTHER, SELFPAY ==
[2023-11-03 10:40] VITALS: BP 118/60; PULSE 65; O2SAT 100; BMI 25.8
--- NOTE | 2023-11-03 10:40 | A.OFFPC_ITS ---
Vital Signs 11/03/23 10:40 Height 5 ft 7 in Weight 165 lb BMI 25.8 BP 118/60 Pulse 65 Pulse Source Pulse Oximeter Pulse Oximetry (%) 100 Oxygen Delivery Method Room Air Intake Visit Reasons: trans care from [facility] Intake Note: Patient is here as a transfer of care from [facility]. Allergies prednisone Allergy (Intermediate, Verified 11/03/23 10:42) REd Blotchy codeine Adverse Reaction (Intermediate, Verified 11/03/23 10:42) Swelling sulfamethoxazole [From Bactrim] Adverse Reaction (Intermediate, Verified 11/03/23 10:42) Stomach Upset Tobacco use date assessed: 11/03/23 Fall risk assessment: No Falls in past year Last assessed Fall Risk: 11/03/23 Dental Screening Dental Screen Date: 11/03/23 Did you have a dental visit in the last 12 months?: No Did you have a dental problem in the last 6 months where you did not have access to dental care?: No Was dental information given to patient?: Yes HPI trans care from [facility] HPI Details Transfer of Care Prior PCP:?SV Last office visit/CPE: Acute issue(s): Establish?care PMHx: ?Paroxysmal? atrial?fibrillation?with?rapid?ventricular?rate?now?status?post?ablation. Off?amiodarone?and?just?on?Eliquis. Cardiomyopathy, hypertension, Hypothyroidism, Hx NAN. SurgHx: ?Cardiac?ablation, SocHx: Nonsmoker, EtOH Rarely 1 dr[address] 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, basal cell Vitamin B 12 deficiency High cholesterol Hypertension, essential Surgical History S/P ablation of atrial fibrillation History of hand surgery History of dilation and curettage Status post surgical removal of malignant neoplasm of skin Family History Mother Stroke Father Pancreatic cancer Brother Lyme disease Social History Household Members: None Housing: House Do you presently have visiting nurse or other home services: No Alcohol intake: never Comment: pt refuses bed alarm Patient Tobacco Use Status: Never used Tobacco e-Cigarette/Vaping Use: Never Used Second Hand Smoke Exposure: No Advance Directives Date on File: 11/19/22 service: No Current occupational status: retired Cognitive needs: No Hearing needs: No Vision needs: Yes (Patient wears reading glasses.) Questionnaire PHQ-9 Over the last 2 weeks, how often have you been bothered by any of the following problems? 1. Little interest or pleasure in doing things: not at all 2. Feeling down, depressed, or hopeless: not at all 3. Trouble falling or staying asleep, or sleeping too much: several days 4. Feeling tired or having little energy: not at all 5. Poor appetite or overeating: not at all 6. Feeling bad about yourself - or that you are a failure or have let yourself or your family down: not at all 7. Trouble concentrating on things, such as reading the newspaper or watching television: not at all 8. Moving or speaking so slowly that other people could have noticed. Or the opposite - being so fidgety or restless that you have been moving around a lot more than usual: not at all 9. Thoughts that you would be better off or of hurting yourself in some way: not at all Total score: 1 Depression Screening Interpretation: Negative Depression Screening Done: Yes Source: Developed by Drs. Jadiel Marrero, Melany Strickland, Manuel Ferguson and colleagues, with an educational ellen from [employer]. Thrive Questionnaire Date Thrive assessed: 11/03/23 I am a: Patient What is your living situation today?: I have a steady place to live Within the past 12 months, did the food you bought not last and you didn't have the money to get more?: Never true Within the past 12 months, did you worry whether your food would run out before you got money to buy more?: Never true Do you have trouble paying for medicines?: No Do you have trouble getting transportation to medical appointments?: No Do you have trouble paying your heating and electricity bill?: No Do you have trouble taking care of your child, family member or friend?: No Do you have trouble with day-to-day activities such as bathing, preparing meals, shopping, managing finances, etc.?: No Are you currently unemployed and looking for a job?: No Are you interested in more education?: No ASUNCION-7 AMB Questionnaire ASUNCION-7 Date ASUNCION - 7 assessed: 11/03/23 Feeling nervous, anxious, or on edge: 0 = Not at all Not being able to stop or control worryin = Not at all Worrying too much about different things: 1 = Several days (Patient worries about her children.) Trouble relaxin = Not at all Being so restless that it is hard to sit still: 0 = Not at all Becoming easily annoyed or irritable: 0 = Not at all Feeling afraid as if something awful might happen: 0 = Not at all Total ASUNCION-7 score (0-4 normal; 5-9 mild; 10-14 moderate; 15-21 severe): 1 Source: Developed by Drs. Jadiel Marrero, Melany Strickland, Manuel Ferguson and colleagues, with an educational ellen from [employer]. Review of Systems Const Denies chills, Denies fatigue, Denies fever(s), Denies headache(s) and Denies weakness ENT Denies dizziness and Denies headache(s) Card Denies chest pain, Denies lightheadedness, Denies dyspnea and Denies other (Palpitations) Resp Denies cough, Denies dyspnea, Denies wheezing and Denies other ( shortness of breath) Musc Denies numbness and Denies tingling Neuro Denies dizziness, Denies headache(s), Denies numbness, Denies tingling, Denies paresthesias and Denies weakness Psych Denies anxiety and Denies depression Endo Denies fatigue Aller/Immun Denies wheezing Physical exam (Primary Care) Vital Signs: Last Vital Signs Pulse 65 11/03/23 10:40 BP 118/60 11/03/23 10:40 Pulse Ox 100 11/03/23 10:40 Oxygen Delivery Method Room Air 11/03/23 10:40 BMI result Body Mass Index 25.8 Tobacco/Smoking Status: Tobacco use Status Tobacco use date assessed 11/03/23 11/03/23 10:48 Patient Tobacco Use Status Never used Tobacco 11/03/23 10:48 e-Cigarette/Vaping Use Never Used 11/03/23 10:48 PHQ-9: PHQ-9 Score PHQ-9: Total score 1 11/03/23 11:03 Depression Screening Interpretation: Negative Thrive Assessment: Date of Thrive Assessment Date Thrive assessed 11/03/23 11/03/23 10:57 Const General: no acute distress and well developed Nutritional Appearance: well nourished Orientation/consciousness: patient oriented x3 HENMT Head: Yes normocephalic and Yes atraumatic Eyes General: appearance normal, both eyes and all related structures Pupils: Equal, round and reactive pupils present EOM: EOMs intact bilaterally Resp Effort & Inspection: normal respiratory effort Auscultation: clear to auscultation bilaterally Cardio Rate: regular rate Rhythm: regular rhythm Heart sounds: S1 normal heart sound present, S2 normal heart sound present, no gallops, no murmurs and no rubs Neuro General: patient oriented x3 and gait normal Cranial nerves: Yes Equal, round and reactive pupils present Psych Affect: normal affect Assessment and Plan Assessment & Plan (1) Cardiomyopathy: Code(s): I42.9 - Cardiomyopathy, unspecified Plan: Followed?by?cardiology Stable (2) History of cardioversion: Code(s): Z98.890 - Other specified postprocedural states Plan: History?of?paroxysmal?atrial?fibrillation?and?cardioversion Now?in?regular?rhythm?and?rate Continue?Eliquis Follow-up?with?Cardiology?as?recommended (3) Hypothyroidism: Code(s): E03.9 - Hypothyroidism, unspecified Plan: Possibly?secondary?to?amiodarone?use?in?the?past Check?thyroid?hormone?levels (4) Vitamin D deficiency: Code(s): E55.9 - Vitamin D deficiency, unspecified Plan: Check?vitamin-D?level (5) Breast cancer screening by mammogram: Code(s): Z12.31 - Encounter for screening mammogram for malignant neoplasm of breast Plan: Last?mammogram?about?1.5?years?ago.??She?has?had?no?abnormal?mammograms Will?get?mammogram?this? year?and?we?can?discuss?continuing?or?discontinuing?mammograms?as?patient?prefer s (6) Screening for colon cancer: Code(s): Z12.11 - Encounter for screening for malignant neoplasm of colon Plan: Patient?had?a?Cologuard?test?3?years?ago?and?would?like?to?continue?these Cologuard?test?order (7) Screening for osteoporosis: Code(s): Z13.820 - Encounter for screening for osteoporosis Plan: Patient?declines?screening?for?osteoporosis She?takes?vitamin-D?supplement?and?has?good?sources?of?calcium Orders: Orders Comprehensive Maryneal. Panel Fast Today Z00.00 - Encounter for general adult medical examination without abnormal findings Complete Blood Count Auto Diff Today Z00.00 - Encounter for general adult medical examination without abnormal findings MM tomosynthesis screening BI Today Z12.31 - Encounter for screening mammogram for malignant neoplasm of breast Microalbumin, Random (w Creat) Today I10 - Essential (primary) hypertension Lipid Panel Today Z00.00 - Encounter for general adult medical examination without abnormal findings UA and rflx microscopic Today Z00.00 - Encounter for general adult medical examination without abnormal findings Triiodothyronine T3 Total Today E03.9 - Hypothyroidism, unspecified Thyroid Stimulating Hormone Today E03.9 - Hypothyroidism, unspecified Free T4 (Free Thyroxine) Today E03.9 - Hypothyroidism, unspecified Vitamin D 25-OH Total Today E55.9 - Vitamin D deficiency, unspecified Referrals Cologuard Test Z12.11 - Encounter for screening for malignant neoplasm of colon, Z12.12 - Encounter for screening for malignant neoplasm of rectum Coding Level of Care Code Est Pt Level 4 (66192) Diagnoses Cardiomyopathy I42.9 History of cardioversion Z98.890 Hypothyroidism E03.9 Vitamin D deficiency E55.9 Breast cancer screening by mammogram Z12.31 Screening for colon cancer Z12.11 Screening for osteoporosis Z13.820
== END 2023-11-03 11:32 | disposition home or self-care (01) ==
PROVIDERS: PCP Family Medicine; Visit Provider Family Medicine
DX: I42.9 Cardiomyopathy, unspecified (principal); Z98.890 Other specified postprocedural states; E03.9 Hypothyroidism, unspecified; I48.0 Paroxysmal atrial fibrillation; E55.9 Vitamin D deficiency, unspecified
CPT/HCPCS: 99214

== ENCOUNTER 2023-11-25 08:45 | Outpatient (AMB) | payer MEDICARE, OTHER, SELFPAY ==
--- NOTE | 2023-11-25 08:55 | MHC.PC.OV ---
Vital Signs 11/25/23 09:10 Height 5 ft 7 in Weight 163 lb BMI 25.5 BP 140/74 H Blood Pressure Location Lt brachial Position Sitting Pulse 71 Pulse Source Pulse Oximeter Pulse Oximetry (%) 100 Oxygen Delivery Method Room Air Intake Visit Reasons: rash on legs Allergies prednisone Allergy (Intermediate, Verified 11/03/23 10:42) REd Blotchy codeine Adverse Reaction (Intermediate, Verified 11/03/23 10:42) Swelling sulfamethoxazole [From Bactrim] Adverse Reaction (Intermediate, Verified 11/03/23 10:42) Stomach Upset Tobacco use date assessed: 11/03/23 HPI rash on legs HPI Details 82 y/o female presents with complaints of a rash on her legs. Pt also has complaints of swelling on her shins. Rash is pink and flaky. 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, basal cell Vitamin B 12 deficiency High cholesterol Hypertension, essential Surgical History S/P ablation of atrial fibrillation History of hand surgery History of dilation and curettage Status post surgical removal of malignant neoplasm of skin Family History Mother Stroke Father Pancreatic cancer Brother Lyme disease Social History Household Members: None Housing: House Do you presently have visiting nurse or other home services: No Alcohol intake: never Comment: pt refuses bed alarm Patient Tobacco Use Status: Never used Tobacco e-Cigarette/Vaping Use: Never Used Second Hand Smoke Exposure: No Advance Directives Date on File: 11/19/22 service: No Current occupational status: retired Cognitive needs: No Hearing needs: No Vision needs: Yes (Patient wears reading glasses.) Questionnaire Thrive Questionnaire Date Thrive assessed: 11/03/23 ASUNCION-7 AMB Questionnaire ASUNCION-7 Date ASUNCION - 7 assessed: 11/03/23 Source: Developed by Drs. Jadiel Marrero, Melany B.W. Manuel Strickland and colleagues, with an educational ellen from [employer]. Review of Systems Const Denies chills, Denies fatigue, Denies fever(s), Denies headache(s) and Denies weakness ENT Denies dizziness and Denies headache(s) Card Denies dyspnea Resp Denies cough, Denies dyspnea, Denies wheezing and Denies other (shortness of breath) Musc Denies numbness and Denies tingling Skin/Breast Reports rash Neuro Denies dizziness, Denies headache(s), Denies numbness, Denies tingling and Denies weakness Psych Denies anxiety and Denies depression Endo Denies fatigue Aller/Immun Denies wheezing Physical exam (Primary Care) Vital Signs: Last Vital Signs Pulse 71 11/25/23 09:10 BP 140/74 H 11/25/23 09:10 Pulse Ox 100 11/25/23 09:10 Oxygen Delivery Method Room Air 11/25/23 09:10 BMI result Body Mass Index 25.5 Tobacco/Smoking Status: Tobacco use Status Tobacco use date assessed 11/03/23 11/25/23 08:56 Patient Tobacco Use Status Never used Tobacco 11/25/23 08:56 e-Cigarette/Vaping Use Never Used 11/25/23 08:56 Thrive Assessment: Date of Thrive Assessment Date Thrive assessed 11/03/23 11/25/23 08:56 Const General: well developed; No acute distress Nutritional Appearance: well nourished Orientation/consciousness: patient oriented x3 HENMT Head: Yes normocephalic and Yes atraumatic Eyes General: appearance normal, both eyes and all related structures Pupils: Equal, round and reactive pupils present EOM: EOMs intact bilaterally Resp Effort & Inspection: normal respiratory effort Skin Other: Hewitt flaky rash on bilateral shins Neuro General: patient oriented x3 and gait normal Cranial nerves: Yes Equal, round and reactive pupils present Extrem Other: 1+ edema on her shins Psych Affect: normal affect Assessment and Plan Assessment & Plan (1) Rash: Code(s): R21 - Rash and other nonspecific skin eruption Plan: Likely?venous?stasis?dermatitis Should?benefit?from?clobetasol Ultimately?will?improve?with?improvement?of?lower?extremity?edema Elevate?legs (2) Lower extremity edema: Code(s): R60.0 - Localized edema Plan: As?above,?elevate?legs Medications: New clobetasol 0.025% 1 appl topical DAILY 100 grams 0RF 30 days Coding Level of Care Code Est Pt Level 3 (04555) Diagnoses Rash R21 Lower extremity edema R60.0
[2023-11-25 09:10] VITALS: BP 140/74; PULSE 71; O2SAT 100; BMI 25.5
== END 2023-11-25 09:16 | disposition home or self-care (01) ==
LOC: HO.HMGFM 09:13
PROVIDERS: PCP Family Medicine; Visit Provider Family Medicine
DX: R21 Rash and other nonspecific skin eruption (principal); R60.0 Localized edema
CPT/HCPCS: 99213

== ENCOUNTER 2023-11-25 08:46 | Outpatient (REF) | payer MEDICARE, OTHER, SELFPAY ==
[2023-11-25 11:28] LABS: MANUAL DIFF FLAG NO
[2023-11-25 11:51] LABS: Basophils Absolute Auto 0.1 X10*3/uL (0.0-0.2); Basophils Percent Auto 1.6 % (0-2); Eosinophils Absolute Auto 0.2 X10*3/uL (0.0-0.4); Eosinophils Percent Auto 3.1 % (0-4); Hemoglobin 10.8 g/dl (12.0-16.0); Imm Gran Abs Auto 0.04 X10*3/uL (0.00-0.03); Imm Gran Pct Auto 0.8 % (0.0-0.4); Lymphocytes Absolute Auto 1.5 X10*3/uL (1.2-4.9); Mean Corpuscular HGB Conc 30.9 g/dl (31.0-35.0); Mean Corpuscular Hemoglobin 24.2 pg (27.0-33.0); Mean Corpuscular Volume 78.3 fL (80.0-98.0); Mean Platelet Volume 9.4 fL (9.4-12.3); Monocytes Absolute Auto 0.7 X10*3/uL (0.1-1.2); Monocytes Percent Auto 14.1 % (2-11); Neutrophils Absolute Auto 2.6 x10*3/uL (2.0-8.3); Neutrophils Percent Auto 51.4 % (45-73); Platelet Count 312 X10*3/uL (160-400); Red Blood Count 4.47 X10*6/uL (4.20-5.50); Red Cell Distribution Width 16.1 % (11.0-16.0); White Blood Count 5.1 X10*3/uL (4.8-10.8)
[2023-11-25 12:17] LABS: Alanine Aminotransferase 15 U/L (0-31); Albumin Level 4.3 g/dL (3.5-5.0); Alkaline Phosphatase 119 U/L (39-117); Anion Gap 13 (12-20); Aspartate Amino Transferase 22 U/L (5-31); Bilirubin Total 0.5 mg/dL (0.0-1.0); Blood Urea Nitrogen 31 mg/dL (9-16); Calcium 11.3 mg/dL (8.4-10.2); Carbon Dioxide 26 mmol/L (22-29); Chloride 105 mmol/L (96-108); Cholesterol 188 mg/dL (<200); Estimated Glomerular Filt Rate 29; Glucose Fasting 90 mg/dL (60-99); HDL Cholesterol 59 mg/dL (>40); LDL Cholesterol Calculated 101 mg/dL (<100); Potassium 4.4 mmol/L (3.3-5.1); Sodium 140 mmol/L (135-145); Total Protein 7.3 g/dL (6.5-8.0); Triglycerides 144 mg/dL (<150)
[2023-11-25 12:45] LABS: Vitamin D 25-OH Total 37.7 ng/mL (>30)
[2023-11-28 06:28] LABS: Triiodothyronine T3 Total 97 ng/dL (76-181)
== END 2023-11-25 08:47 | disposition home or self-care (01) ==
LOC: HO.WFDLDS 08:46
PROVIDERS: Visit Provider Family Medicine
DX: Z00.00 Encounter for general adult medical examination without abnormal findings (principal); I10 Essential (primary) hypertension; E03.9 Hypothyroidism, unspecified; E55.9 Vitamin D deficiency, unspecified
CPT/HCPCS: 36415; 80053; 80061; 82306; 84439; 84443; 84480; 85025

== ENCOUNTER 2023-12-10 09:28 | Outpatient (AMB) | payer MEDICARE, OTHER, SELFPAY ==
[2023-12-10 09:30] VITALS: BP 122/72; PULSE 70; O2SAT 98; BMI 25.7
--- NOTE | 2023-12-10 09:30 | HO.NEPHOV ---
HPI HPI Comments History of Present Illness Details I would the privilege of seeing Sandi in consultation for abnormal renal function. She has history of cardiomyopathy and atrial fibrillation. She has history of ablation and had been on medications under the regular follow-up of her events director. She moved from [place] few years ago. She does not remember exactly what her serum creatinine had been prior to her relocation to [facility]. She is not a diabetic but has longstanding hypertension. She denies any history of epistaxis, recurrent sinusitis, sensorineural deafness, hemoptysis, hematemesis, melena, nausea, vomiting, diarrhea, history of significant proteinuria, peripheral arterial disease, coronary artery disease, renal artery stenosis, carotid stenosis, microscopic hematuria, microscopic hematuria, history of cancers, history of hypercalcemia, history of new bone or back pain. Her serum creatinine had been fluctuant and lately had been around 1.8. she had edema in the past which she thinks was due to medication.she does not take any excessive nonsteroidal anti-inflammatories and tries to maintain good hydration. She denies any orthostatic symptoms. She has no family history of ESRD or renal transplantation. She is concerned about her abnormal renal functions. [facility] Medical History History of cardioversion History of vitamin D deficiency History of hypothyroidism Anticoagulant long-term use PAF (paroxysmal atrial fibrillation) Hx of squamous cell carcinoma of skin Hx of skin cancer, basal cell Vitamin B 12 deficiency High cholesterol Hypertension, essential Surgical History S/P ablation of atrial fibrillation History of hand surgery History of dilation and curettage Status post surgical removal of malignant neoplasm of skin Family History Mother Stroke Father Pancreatic cancer Brother Lyme disease Social History Household Members: None Housing: House Do you presently have visiting nurse or other home services: No Alcohol intake: never Comment: pt refuses bed alarm Patient Tobacco Use Status: Never used Tobacco e-Cigarette/Vaping Use: Never Used Second Hand Smoke Exposure: No Advance Directives Date on File: 11/19/22 service: No Current occupational status: retired Cognitive needs: No Hearing needs: No Vision needs: Yes (Patient wears reading glasses.) Vital Signs 12/10/23 09:30 Height 5 ft 7 in Weight 164 lb 6 oz BMI 25.7 BP 122/72 Blood Pressure Location Lt brachial Position Sitting Pulse 70 Pulse Source Pulse Oximeter Pulse Oximetry (%) 98 Oxygen Delivery Method Room Air Physical Exam Vital Signs: Last Vital Signs Pulse 70 12/10/23 09:30 BP 122/72 12/10/23 09:30 Pulse Ox 98 12/10/23 09:30 Oxygen Delivery Method Room Air 12/10/23 09:30 BMI result Body Mass Index 25.7 Const General: comfortable and no acute distress Orientation/consciousness: patient oriented x3 HEENT Head: Yes normocephalic Mouth: Normal oral and palatal mucosa present Eyes EOM: EOMs intact bilaterally Neck Neck: Yes supple Resp Auscultation: clear to auscultation bilaterally Cardio Jugular venous distension: no JVD Rate: regular rate GI Palpation (GI): Soft to palpation Auscultation: normal bowel sounds General: Yes no CVA tenderness Back/Spine/Pelvis Back: no CVA tenderness Skin General skin exam: no rashes or lesions noted Neuro General: patient oriented x3 and moves all extremities Extrem General: Yes no pedal edema Assessment & Plan Assessment & Plan (1) Hypertension: Code(s): I10 - Essential (primary) hypertension Qualifiers: Hypertension type: primary hypertension Qualified Code(s): I10 - Essential (primary) hypertension (2) Anemia in chronic kidney disease: Code(s): N18.9 - Chronic kidney disease, unspecified; D63.1 - Anemia in chronic kidney disease Qualifiers: Chronic kidney disease stage: stage 3 (moderate) Chronic kidney disease stage 3 subtype: stage 3b (GFR 30-44) Qualified Code(s): N18.32 - Chronic kidney disease, stage 3b; D63.1 - Anemia in chronic kidney disease (3) CKD stage G3b/A1, GFR 30-44 and albumin creatinine ratio <30 mg/g: Code(s): N18.32 - Chronic kidney disease, stage 3b Plan Sandi has CKD stage 3 B at baseline most likely due to vascular disease and age related loss of renal function. Her serum creatinine had been fluctuating. She is not on any SEAN inhibitor or ARB now but had been on losartan in the past. She does not have any orthostatic symptoms. She has longstanding hypertension. She denies retinopathy, peripheral arterial disease, carotid stenosis, coronary artery disease. I have ordered workup including imaging studies, blood work and urine studies. She is on anticoagulation for her atrial fibrillation. She is on statins. I did not make any medication changes today but rather more than 50% of the time spent on discussing etiologies, investigations and management strategies. Further renal care is pending evolving data. All questions answered and follow-up appointment given. Orders: Orders Vitamin D 1,25 dihydroxy 12/14/23 I10 - Essential (primary) hypertension, N18.9 - Chronic kidney disease, unspecified, D63.1 - Anemia in chronic kidney disease, N18.32 - Chronic kidney disease, stage 3b Immunofixation Pnl, Serum 12/14/23 I10 - Essential (primary) hypertension, N18.9 - Chronic kidney disease, unspecified, D63.1 - Anemia in chronic kidney disease, N18.32 - Chronic kidney disease, stage 3b Ferritin 12/14/23 I10 - Essential (primary) hypertension, N18.9 - Chronic kidney disease, unspecified, D63.1 - Anemia in chronic kidney disease, N18.32 - Chronic kidney disease, stage 3b IRON PROFILE 12/14/23 I10 - Essential (primary) hypertension, N18.9 - Chronic kidney disease, unspecified, D63.1 - Anemia in chronic kidney disease, N18.32 - Chronic kidney disease, stage 3b Electrolytes 12/14/23 I10 - Essential (primary) hypertension, N18.9 - Chronic kidney disease, unspecified, D63.1 - Anemia in chronic kidney disease, N18.32 - Chronic kidney disease, stage 3b Anti DNA DS Antibody 12/14/23 I10 - Essential (primary) hypertension, N18.9 - Chronic kidney disease, unspecified, D63.1 - Anemia in chronic kidney disease, N18.32 - Chronic kidney disease, stage 3b Complete Blood Count Auto Diff 12/14/23 I10 - Essential (primary) hypertension, N18.9 - Chronic kidney disease, unspecified, D63.1 - Anemia in chronic kidney disease, N18.32 - Chronic kidney disease, stage 3b US renal BI 12/10/23 N18.32 - Chronic kidney disease, stage 3b, N18.9 - Chronic kidney disease, unspecified, D63.1 - Anemia in chronic kidney disease, I10 - Essential (primary) hypertension Phosphorus 12/14/23 I10 - Essential (primary) hypertension, N18.9 - Chronic kidney disease, unspecified, D63.1 - Anemia in chronic kidney disease, N18.32 - Chronic kidney disease, stage 3b Calcium 12/14/23 I10 - Essential (primary) hypertension, N18.9 - Chronic kidney disease, unspecified, D63.1 - Anemia in chronic kidney disease, N18.32 - Chronic kidney disease, stage 3b Vitamin D 25-OH Total 12/14/23 I10 - Essential (primary) hypertension, N18.9 - Chronic kidney disease, unspecified, D63.1 - Anemia in chronic kidney disease, N18.32 - Chronic kidney disease, stage 3b Parathyroid Hormone Intact 12/14/23 I10 - Essential (primary) hypertension, N18.9 - Chronic kidney disease, unspecified, D63.1 - Anemia in chronic kidney disease, N18.32 - Chronic kidney disease, stage 3b Immunofixation, Random Urine 12/14/23 I10 - Essential (primary) hypertension, N18.9 - Chronic kidney disease, unspecified, D63.1 - Anemia in chronic kidney disease, N18.32 - Chronic kidney disease, stage 3b Creatinine 12/14/23 I10 - Essential (primary) hypertension, N18.9 - Chronic kidney disease, unspecified, D63.1 - Anemia in chronic kidney disease, N18.32 - Chronic kidney disease, stage 3b Blood Urea Nitrogen 12/14/23 I10 - Essential (primary) hypertension, N18.9 - Chronic kidney disease, unspecified, D63.1 - Anemia in chronic kidney disease, N18.32 - Chronic kidney disease, stage 3b Phospholipase A2 Receptor Pnl 12/14/23 I10 - Essential (primary) hypertension, N18.9 - Chronic kidney disease, unspecified, D63.1 - Anemia in chronic kidney disease, N18.32 - Chronic kidney disease, stage 3b Complement C3 12/14/23 I10 - Essential (primary) hypertension, N18.9 - Chronic kidney disease, unspecified, D63.1 - Anemia in chronic kidney disease, N18.32 - Chronic kidney disease, stage 3b Complement C4 12/14/23 I10 - Essential (primary) hypertension, N18.9 - Chronic kidney disease, unspecified, D63.1 - Anemia in chronic kidney disease, N18.32 - Chronic kidney disease, stage 3b Anti Glomerular Basement Memb 12/14/23 I10 - Essential (primary) hypertension, N18.9 - Chronic kidney disease, unspecified, D63.1 - Anemia in chronic kidney disease, N18.32 - Chronic kidney disease, stage 3b Myeloperoxidase Antibody 12/14/23 I10 - Essential (primary) hypertension, N18.9 - Chronic kidney disease, unspecified, D63.1 - Anemia in chronic kidney disease, N18.32 - Chronic kidney disease, stage 3b Proteinase 3 PR3 Antibodies 12/14/23 I10 - Essential (primary) hypertension, N18.9 - Chronic kidney disease, unspecified, D63.1 - Anemia in chronic kidney disease, N18.32 - Chronic kidney disease, stage 3b UA and rflx microscopic 12/14/23 I10 - Essential (primary) hypertension, N18.9 - Chronic kidney disease, unspecified, D63.1 - Anemia in chronic kidney disease, N18.32 - Chronic kidney disease, stage 3b Protein Creatinine Ratio, Ur 12/14/23 I10 - Essential (primary) hypertension, N18.9 - Chronic kidney disease, unspecified, D63.1 - Anemia in chronic kidney disease, N18.32 - Chronic kidney disease, stage 3b Coding Level of Care Code New Pt Level 4 (55181) Diagnoses Primary hypertension I10 Hypertension type: primary hypertension Anemia in stage 3b chronic kidney disease N18.32; D63.1 Chronic kidney disease stage: stage 3 (moderate) Chronic kidney disease stage 3 subtype: stage 3b (GFR 30-44) CKD stage G3b/A1, GFR 30-44 and albumin creatinine ratio <30 mg/g Results Reviewed Nephrology Results: Hgb 10.3 g/dl (12.0-16.0) L 12/14/23 WBC 5.8 X10*3/uL (4.8-10.8) 12/14/23 Plt Count 249 X10*3/uL (160-400) 12/14/23 Sodium 139 mmol/L (135-145) 12/14/23 Potassium 4.3 mmol/L (3.3-5.1) 12/14/23 Chloride 106 mmol/L (96-108) 12/14/23 Carbon Dioxide 25 mmol/L (22-29) 12/14/23 BUN 33 mg/dL (9-16) H 12/14/23 Creatinine 1.81 mg/dL (0.5-1.4) H 12/14/23 Calcium 10.7 mg/dL (8.4-10.2) H 12/14/23 Phosphorus 3.1 mg/dL (2.7-4.5) 12/14/23 PTH Intact 205.4 pg/mL (8.7-77.1) H 12/14/23 Urine Protein 30 (1+) mg/dL (Neg-Trace) H 12/14/23 Urine Creatinine 247.68 mg/dL 12/14/23 Protein/Creatinin Ratio 0.22 (<0.2) H 12/14/23
== END 2023-12-10 10:21 | disposition home or self-care (01) ==
PROVIDERS: PCP Family Medicine; Visit Provider Internal Medicine Nephrology
DX: I10 Essential (primary) hypertension (principal); N18.32 Chronic kidney disease, stage 3b; D63.1 Anemia in chronic kidney disease
CPT/HCPCS: 99204

== ENCOUNTER → 2023-12-10 09:28 | Outpatient (BNVA) | payer MEDICARE, OTHER, SELFPAY | PROVIDERS: PCP Family Medicine; Visit Provider Internal Medicine Nephrology | DX: I12.9 Hypertensive chronic kidney disease with stage 1 through stage 4 chronic kidney disease, or unspecified chronic kidney disease (principal); N18.32 Chronic kidney disease, stage 3b; D63.1 Anemia in chronic kidney disease | CPT/HCPCS: 99202 ==

== ENCOUNTER 2023-12-14 08:00 | Outpatient (REF) | payer MEDICARE, OTHER, SELFPAY ==
[2023-12-14 11:12] LABS: MANUAL DIFF FLAG NO
[2023-12-14 11:14] LABS: Basophils Absolute Auto 0.1 X10*3/uL (0.0-0.2); Eosinophils Absolute Auto 0.1 X10*3/uL (0.0-0.4); Eosinophils Percent Auto 2.1 % (0-4); Hematocrit 33.3 % (37.0-47.0); Hemoglobin 10.3 g/dl (12.0-16.0); Imm Gran Abs Auto 0.02 X10*3/uL (0.00-0.03); Imm Gran Pct Auto 0.3 % (0.0-0.4); Lymphocytes Absolute Auto 1.5 X10*3/uL (1.2-4.9); Lymphocytes Percent Auto 25.8 % (20-40); Mean Corpuscular HGB Conc 30.9 g/dl (31.0-35.0); Mean Corpuscular Hemoglobin 23.7 pg (27.0-33.0); Mean Corpuscular Volume 76.7 fL (80.0-98.0); Mean Platelet Volume 8.9 fL (9.4-12.3); Monocytes Absolute Auto 0.9 X10*3/uL (0.1-1.2); Monocytes Percent Auto 15.1 % (2-11); Neutrophils Absolute Auto 3.2 x10*3/uL (2.0-8.3); Neutrophils Percent Auto 55.7 % (45-73); Platelet Count 249 X10*3/uL (160-400); Red Blood Count 4.34 X10*6/uL (4.20-5.50); Red Cell Distribution Width 15.8 % (11.0-16.0); White Blood Count 5.8 X10*3/uL (4.8-10.8)
[2023-12-14 11:25] LABS: Appearance Urine Cloudy; Color Urine Yellow; Glucose Urine UA Negative (Negative); Leukocyte Esterase Urine Moderate (2+) (Negative); Nitrite Urine Negative (Negative); UMIC TRIGGER UA YES; Urine Blood Negative (Negative); Urine Ketones Negative (Negative); Urine Protein 30 (1+) mg/dL (Neg-Trace)
[2023-12-14 11:33] LABS: Blood Urea Nitrogen 33 mg/dL (9-16); Calcium 10.6 mg/dL (8.4-10.2)
[2023-12-14 11:37] LABS: Alanine Aminotransferase 14 U/L (0-31); Albumin Level 4.1 g/dL (3.5-5.0); Alkaline Phosphatase 111 U/L (39-117); Anion Gap 12 (12-20); Aspartate Amino Transferase 20 U/L (5-31); Bilirubin Total 0.3 mg/dL (0.0-1.0); Blood Urea Nitrogen 33 mg/dL (9-16); Calcium 10.7 mg/dL (8.4-10.2); Carbon Dioxide 25 mmol/L (22-29); Chloride 106 mmol/L (96-108); Estimated Glomerular Filt Rate 27; Glucose Random 96 mg/dL (60-115); Iron 28 mcg/dL (30-160); Percent Iron Saturation 7 % (15-50); Phosphorus 3.1 mg/dL (2.7-4.5); Potassium 4.3 mmol/L (3.3-5.1); Sodium 139 mmol/L (135-145); Total Iron Binding Capacity 397 mcg/dL (228-428); Total Protein 7.2 g/dL (6.5-8.0); Unsaturated Iron Binding 369 ug/dL
[2023-12-14 11:54] LABS: Bacteria Urine Trace (None Seen); Calcium Oxalate Crystals Urine Present; RBC Urine 0-2 /HPF (0-2); Squamous Epithelial Cell Urine 0-2 /HPF (0-2); WBC Urine >50 /HPF (0-5)
[2023-12-14 11:55] LABS: Ferritin 17 ng/mL (10-250); Free T4 (Free Thyroxine) 1.43 ng/dL (0.71-1.85); Parathyroid Hormone Intact 205.4 pg/mL (8.7-77.1); Thyroid Stimulating Hormone 3.08 uIU/mL (0.32-4.0); Vitamin D 25-OH Total 36.8 ng/mL (>30)
[2023-12-14 12:12] LABS: Creatinine Urine 247.68 mg/dL; Protein/Creatinine Ratio, Ur 0.22 (<0.2); Total Protein Urine Random 54 mg/dL (<12)
[2023-12-15 11:38] LABS: Complement C3 126 mg/dL (83-193)
[2023-12-15 18:18] LABS: Triiodothyronine T3 Total 108 ng/dL (76-181)
[2023-12-15 20:49] LABS: Anti DNA DS Antibody <1 IU/mL; Anti Glomerular Basement Memb <1.0 AI; Myeloperoxidase Antibody <1.0 AI; Proteinase 3 PR3 Antibodies <1.0 AI
[2023-12-17 12:43] LABS: IgA 93 mg/dL (70-320); IgG 787 mg/dL (600-1540); IgM 213 mg/dL (50-300)
[2023-12-22 22:03] LABS: VITAMIN D (1,25 OH) D3 33 pg/mL; Vit D (1,25-Dihydroxy) Total 33 pg/mL (18-72); Vitamin D (1,25 OH) D2 <8 pg/mL
[2023-12-23 12:32] LABS: Phospholipase A2 IgG ELISA <4 RU/mL; Phospholipase A2 IgG IFA NEGATIVE (NEGATIVE)
== END 2023-12-14 08:01 | disposition home or self-care (01) ==
LOC: HO.WFDLDS 08:00
PROVIDERS: Internal Medicine Nephrology; Visit Provider Family Medicine
DX: Z00.00 Encounter for general adult medical examination without abnormal findings (principal); N17.9 Acute kidney failure, unspecified; I12.9 Hypertensive chronic kidney disease with stage 1 through stage 4 chronic kidney disease, or unspecified chronic kidney disease; N18.32 Chronic kidney disease, stage 3b; D63.1 Anemia in chronic kidney disease; E03.9 Hypothyroidism, unspecified
CPT/HCPCS: 36415; 80053; 81001; 82306; 82310; 82570; 82652; 82728; 82784; 83520; 83540; 83970; 84100; 84156; 84439; 84443; 84480; 84520; 85025; 86021; 86160; 86225; 86255; 86334

== ENCOUNTER 2023-12-30 09:06 | Outpatient (REF) | payer MEDICARE, OTHER, SELFPAY ==
--- NOTE | ~2023-12-30 | MM_ITS ---
EXAMINATION: MM SCREENING DIGITAL BREAST TOMOSYNTHESIS, BILATERAL CLINICAL INFORMATION: Screening. Asymptomatic. COMPARISON: Mammography: This study is compared with prior exams dating back to 2016. TECHNIQUE: Digital breast tomosynthesis is performed in both the craniocaudal and mediolateral oblique views along with computer-aided detection (CAD). Synthesized 2D images are generated from the tomosynthesis. FINDINGS: There are scattered areas of fibroglandular density (ACR BI-RADS breast composition Category b). There are no significant masses, abnormal calcifications, or other abnormalities. MM/MM tomosynthesis screening BI IMPRESSION: No mammographic evidence of malignancy. ASSESSMENT: BI-RADS BI-RADS 1 - Negative RECOMMENDATION: Routine annual mammography screening. 1 year F/U This examination should not preclude the clinical evaluation of a suspicious palpable abnormality. This patient's information was entered into a reminder system with a target due date for their next mammogram.
== END 2023-12-30 09:07 | disposition home or self-care (01) ==
LOC: HO.MAMMO 09:06
PROVIDERS: PCP Family Medicine; Visit Provider Family Medicine
DX: Z12.31 Encounter for screening mammogram for malignant neoplasm of breast (principal)
CPT/HCPCS: 77063; 77067

== ENCOUNTER → 2023-12-30 09:15 | Outpatient (BNV) | payer MEDICARE, OTHER, SELFPAY | PROVIDERS: PCP Family Medicine; Visit Provider Radiology Diagnostic Radiology | DX: Z12.31 Encounter for screening mammogram for malignant neoplasm of breast (principal) | CPT/HCPCS: 77063; 77067 ==

== ENCOUNTER 2024-01-04 15:13 | Outpatient (REF) | payer MEDICARE, OTHER, SELFPAY ==
--- NOTE | ~2024-01-04 | US_ITS ---
EXAMINATION: US RETROPERITONEAL LIMITED (RENAL ONLY) CLINICAL INFORMATION: Chronic kidney disease, stage IIIB. COMPARISON: None available. TECHNIQUE: Real-time ultrasound the kidneys was performed. FINDINGS: RIGHT KIDNEY: 9.7 x 4.4 x 4.6 cm (SAG x AP x TRV). The kidney is normal in size, contour, and echogenicity. Renal cortical thickness is normal. No calculi or focal parenchymal lesions. No hydronephrosis. LEFT KIDNEY: 10.0 x 4.8 x 5.0 cm (SAG x AP x TRV). The kidney is normal in size, contour, and echogenicity. Renal cortical thickness is normal. No calculi. No hydronephrosis. 0.8 x 0.6 x 0.8 cm simple lower pole cyst is seen. No imaging follow-up is recommended. US/US renal BI IMPRESSION: No significant finding within the kidneys.
== END 2024-01-04 15:14 | disposition home or self-care (01) ==
LOC: HO.US 15:13
PROVIDERS: PCP Family Medicine; Visit Provider Internal Medicine Nephrology
DX: I12.9 Hypertensive chronic kidney disease with stage 1 through stage 4 chronic kidney disease, or unspecified chronic kidney disease (principal); N18.32 Chronic kidney disease, stage 3b; D63.1 Anemia in chronic kidney disease
CPT/HCPCS: 76775

== ENCOUNTER 2024-01-12 09:44 | Outpatient (AMB) | payer MEDICARE, OTHER, SELFPAY ==
[2024-01-12 09:45] VITALS: BP 138/82; PULSE 68; O2SAT 99; BMI 26.5
--- NOTE | 2024-01-12 09:45 | HO.NEPHOV_ITS ---
HPI HPI Comments History of Present Illness Details I would the privilege of seeing Sandi in follow up for CKD. She has history of cardiomyopathy and atrial fibrillation. She has history of ablation and had been on medications under the regular follow-up of her travel sales consultant. She moved from [place] few years ago. She does not remember exactly what her serum creatinine had been prior to her relocation to [facility]. She is not a diabetic but has longstanding hypertension. She denies any history of epistaxis, recurrent sinusitis, sensorineural deafness, hemoptysis, hematemesis, melena, nausea, vomiting, diarrhea, history of significant proteinuria, peripheral arterial disease, coronary artery disease, renal artery stenosis, carotid stenosis, microscopic hematuria, microscopic hematuria, history of cancers, history of hypercalcemia, history of new bone or back pain. Her serum creatinine had been fluctuant and lately had been around 1.8. she had edema in the past which she thinks was due to medication.she does not take any excessive nonsteroidal anti-inflammatories and tries to maintain good hydration. She denies any orthostatic symptoms. She has no family history of ESRD or renal transplantation. Her renal functions are stable when she compared her lab work which was done in [place]. She has hypercalcemia with high PTH. She also has iron deficiency with cologuard positivity . She is awaiting to see GI for colonoscopy. Her edema is better. [facility] Medical History History of cardioversion History of vitamin D deficiency History of hypothyroidism Anticoagulant long-term use PAF (paroxysmal atrial fibrillation) Hx of squamous cell carcinoma of skin Hx of skin cancer, basal cell Vitamin B 12 deficiency High cholesterol Hypertension, essential Surgical History S/P ablation of atrial fibrillation History of hand surgery History of dilation and curettage Status post surgical removal of malignant neoplasm of skin Family History Mother Stroke Father Pancreatic cancer Brother Lyme disease Social History Household Members: None Housing: House Do you presently have visiting nurse or other home services: No Alcohol intake: never Comment: pt refuses bed alarm Patient Tobacco Use Status: Never used Tobacco e-Cigarette/Vaping Use: Never Used Second Hand Smoke Exposure: No Advance Directives Date on File: 11/19/22 service: No Current occupational status: retired Cognitive needs: No Hearing needs: No Vision needs: Yes (Patient wears reading glasses.) Vital Signs 01/12/24 09:45 Height 5 ft 7 in Weight 169 lb BMI 26.5 BP 138/82 Blood Pressure Location Rt brachial Position Sitting Pulse 68 Pulse Source Pulse Oximeter Pulse Oximetry (%) 99 Oxygen Delivery Method Room Air Physical Exam Vital Signs: Last Vital Signs Pulse 68 01/12/24 09:45 BP 138/82 01/12/24 09:45 Pulse Ox 99 01/12/24 09:45 Oxygen Delivery Method Room Air 01/12/24 09:45 BMI result Body Mass Index 26.5 Const General: comfortable and no acute distress Orientation/consciousness: patient oriented x3 HEENT Head: Yes normocephalic Mouth: Normal oral and palatal mucosa present Eyes EOM: EOMs intact bilaterally Neck Neck: Yes supple Resp Auscultation: clear to auscultation bilaterally Cardio Jugular venous distension: no JVD Rate: regular rate GI Palpation (GI): Soft to palpation Auscultation: normal bowel sounds General: Yes no CVA tenderness Back/Spine/Pelvis Back: no CVA tenderness Skin General skin exam: no rashes or lesions noted Neuro General: patient oriented x3 and moves all extremities Extrem General: Yes edema Assessment & Plan Assessment & Plan (1) CKD stage G3b/A1, GFR 30-44 and albumin creatinine ratio <30 mg/g: Code(s): N18.32 - Chronic kidney disease, stage 3b (2) Hypertension, essential: Code(s): I10 - Essential (primary) hypertension (3) Anemia in chronic kidney disease: Code(s): N18.9 - Chronic kidney disease, unspecified; D63.1 - Anemia in chronic kidney disease Qualifiers: Chronic kidney disease stage: stage 3 (moderate) Chronic kidney disease stage 3 subtype: stage 3b (GFR 30-44) Qualified Code(s): N18.32 - Chronic kidney disease, stage 3b; D63.1 - Anemia in chronic kidney disease (4) Iron deficiency: Code(s): E61.1 - Iron deficiency (5) Hyperparathyroidism: Code(s): E21.3 - Hyperparathyroidism, unspecified Plan Sandi has CKD stage 3 B at baseline most likely due to vascular disease and age related loss of renal function. Her serum creatinine had been fluctuating but stable. She is not on any SEAN inhibitor or ARB now but had been on losartan in the past. She does not have any orthostatic symptoms. She has longstanding hypertension. She denies retinopathy, peripheral arterial disease, carotid stenosis, coronary artery disease. Her renal USS showed a renal cyst. She is on anticoagulation for her atrial fibrillation. She is on statins. She will need IV iron and colonoscopy / upper GI study . I have ordered Sestamibi scan. I did not make any medication changes today but rather more than 50% of the time spent on discussing etiologies, investigations and management strategies. Further renal care is pending evolving data. All questions answered and follow-up appointment given Orders: Orders Creatinine Today N18.32 - Chronic kidney disease, stage 3b Electrolytes Today N18.32 - Chronic kidney disease, stage 3b NM parathyroid Today E21.3 - Hyperparathyroidism, unspecified Blood Urea Nitrogen Today N18.32 - Chronic kidney disease, stage 3b Calcium Today N18.32 - Chronic kidney disease, stage 3b Coding Level of Care Code Est Pt Level 4 (65376) Diagnoses CKD stage G3b/A1, GFR 30-44 and albumin creatinine ratio <30 mg/g N18.32 Hypertension, essential I10 Anemia in stage 3b chronic kidney disease N18.32; D63.1 Chronic kidney disease stage: stage 3 (moderate) Chronic kidney disease stage 3 subtype: stage 3b (GFR 30-44) Iron deficiency E61.1 Hyperparathyroidism E21.3 Results Reviewed Nephrology Results: Hgb 10.3 g/dl (12.0-16.0) L 12/14/23 WBC 5.8 X10*3/uL (4.8-10.8) 12/14/23 Plt Count 249 X10*3/uL (160-400) 12/14/23 Sodium 139 mmol/L (135-145) 12/14/23 Potassium 4.3 mmol/L (3.3-5.1) 12/14/23 Chloride 106 mmol/L (96-108) 12/14/23 Carbon Dioxide 25 mmol/L (22-29) 12/14/23 BUN 33 mg/dL (9-16) H 12/14/23 Creatinine 1.81 mg/dL (0.5-1.4) H 12/14/23 Calcium 10.7 mg/dL (8.4-10.2) H 12/14/23 Phosphorus 3.1 mg/dL (2.7-4.5) 12/14/23 PTH Intact 205.4 pg/mL (8.7-77.1) H 12/14/23 Urine Protein 30 (1+) mg/dL (Neg-Trace) H 12/14/23 Urine Creatinine 247.68 mg/dL 12/14/23 Protein/Creatinin Ratio 0.22 (<0.2) H 12/14/23 Renal US 01/04/24
== END 2024-01-12 10:29 | disposition home or self-care (01) ==
PROVIDERS: PCP Family Medicine; Visit Provider Internal Medicine Nephrology
DX: N18.32 Chronic kidney disease, stage 3b (principal); I10 Essential (primary) hypertension; D63.1 Anemia in chronic kidney disease; E61.1 Iron deficiency; E21.3 Hyperparathyroidism, unspecified
CPT/HCPCS: 99214

== ENCOUNTER → 2024-01-12 09:44 | Outpatient (BNVA) | payer MEDICARE, OTHER, SELFPAY | PROVIDERS: PCP Family Medicine; Visit Provider Internal Medicine Nephrology | DX: I12.9 Hypertensive chronic kidney disease with stage 1 through stage 4 chronic kidney disease, or unspecified chronic kidney disease (principal); N18.32 Chronic kidney disease, stage 3b; D63.1 Anemia in chronic kidney disease; E61.1 Iron deficiency; E21.3 Hyperparathyroidism, unspecified | CPT/HCPCS: 99212 ==

== ENCOUNTER → 2024-01-31 07:54 | Outpatient (REF) | payer MEDICARE, OTHER, SELFPAY ==
--- NOTE | ~2024-01-31 | NM_ITS ---
EXAMINATION: NM PARATHYROID SCAN CLINICAL INFORMATION: Primary hyperparathyroidism. Hypercalcemia with high PTH. Patient on levothyroxine for 3 to 5 years. Referring physician does not want levothyroxine discontinued. COMPARISON: No previous thyroid or parathyroid imaging studies are available for comparison. TECHNIQUE: A double radionuclide study of the thyroid bed region and upper chest in multiple projections was performed 4 hours after the oral administration of 950 microcuries I-123 sodium iodide and immediately following the intravenous administration of 30 mCi Tc-99m sestamibi. Repeat imaging was performed 2 hours later. The iodide images were electronically subtracted from the sestamibi images using different weighting factors. FINDINGS: There is decreased activity in the thyroid gland, likely due to the patient's concurrent use of exogenous thyroid hormone. The gland is asymmetrical with the left lobe significantly larger than the right. The distribution of activity is heterogeneous with a small focus of relatively increased activity present in the lower pole of the left lobe. Technetium 99m sestamibi images are very similar to the radioiodine images showing an asymmetrical gland with the left lobe significantly larger than the right. A similar small region of slightly more prominent activity is present in the lower pole of the left lobe. There are no foci of more prominently increased sestamibi activity present, and there are no foci of abnormal sestamibi activity extrinsic to the thyroid gland on either the immediate or 2 hour delayed images. Computer-generated digital subtraction images reveal no evidence of excess sestamibi activity. NM/NM parathyroid IMPRESSION: No evidence of excess sestamibi activity suggestive of parathyroid adenoma or hyperplasia. There is homogeneous uptake of radioiodine in the thyroid gland which is also normal in size and shape. The thyroid gland is asymmetrical with the left lobe significantly larger than the right and a prominent focus of slightly increased activity present in the lower pole of the left lobe, all nonspecific findings.
== END ==
LOC: HO.NUCMED 07:54
PROVIDERS: PCP Family Medicine; Visit Provider Internal Medicine Nephrology
DX: E21.3 Hyperparathyroidism, unspecified (principal)
CPT/HCPCS: 78070; A9500; A9516

== ENCOUNTER 2024-02-29 08:06 | Outpatient (AMB) | payer MEDICARE, OTHER, SELFPAY ==
--- NOTE | 2024-02-29 08:10 | A.OFFVIS_ITS ---
Intake Vital Signs 02/29/24 08:12 Height 5 ft 7 in Weight 163 lb BMI 25.5 BP 151/72 H Blood Pressure Location Lt brachial Position Sitting Respiration 15 Pulse 82 Intake Visit Reasons: Colonoscopy screening/fecal abnormalities Intake Note: New consult for 1st pre colonoscopy screening and fecal abnormalities. Patient denies any GI issues. Patient have a positive cologuard. Aviation Boatswain'S Mate Required: No Accompanied by: Self / Same As Patient Allergies amlodipine Allergy (Intermediate, Verified 02/29/24 08:10) Swelling ankles/feet w rash prednisone Allergy (Intermediate, Verified 02/29/24 08:10) REd Blotchy codeine Adverse Reaction (Intermediate, Verified 02/29/24 08:10) Swelling sulfamethoxazole [From Bactrim] Adverse Reaction (Intermediate, Verified 02/29/24 08:10) Stomach Upset HPI Colonoscopy screening/fecal abnormalities HPI Details 83-year-old female here for preprocedura l meeting to discuss a screening colonoscopy. She is referred by Capo Sales of [facility] primary care. PMX AFib-on anticoagulant Cardiomyopathy Hypertension High cholesterol Chronic kidney disease stage III Anemia of chronic disease Hyperparathyroidism Hypothyroid History of squamous cell carcinoma of the skin Vitamin B12 deficiency * SURGICAL HISTORY Cardiac ablation Left hand surgery D&C Excuse excision of skin cancer History of cardioversion * ALLERGIES Amlodipine Prednisone Codeine Sulfa * [employer] LABS: Laboratory Tests 12/14/23 08:10 WBC 5.8 Hgb 10.3 L Hct 33.3 L MCV 76.7 L MCH 23.7 L MCHC 30.9 L Plt Count 249 Estimated GFR 27 Calcium 10.6 H Total Bilirubin 0.3 AST 20 ALT 14 Alkaline Phosphata se 111 TSH 3.08 Free T4 1.43 PTH Intact 205.4 H TODAY'S VISIT Her daycare teacher is Dr. Tian and Dr. Sahni is her renal specialist at [address] [place] [address]. She has never had a colonoscopy. She also just had a positive Cologuard. She says she gets dehydrated easily and this will set off her afib. This is a concern for her prep, she is not on dialysis. She denies any bowel or upper GI problems. She will need cardiology clearance and renal clearance for the procedure. Also for the prep given her low GFR. She has no prior problems with anesthesia or sedation, except trouble waking up after 1 of her cardiac ablations. No ID problems. Her brother had CRC at age 75 and survived. [facility] Medical History (Updated 02/29/24 @ 08:37 by GARY Vazquez) PAF (paroxysmal atrial fibrillation) Persistent atrial fibrillation Breast cancer screening by mammogram PAF (paroxysmal atrial fibrillation) Hx of skin cancer, basal cell Elevated serum creatinine Screening for colon cancer Adult general medical exam Screening for osteoporosis Screening for breast cancer Therapeutic drug monitoring Cough with congestion of paranasal sinus Abnormal creatinine clearance glomerular filtration Breath shortness Rash History of cardioversion PAF (paroxysmal atrial fibrillation) Atrial fibrillation with rapid ventricular response History of vitamin D deficiency History of hypothyroidism Anticoagulant long-term use Hx of squamous cell carcinoma of skin Vitamin B 12 deficiency High cholesterol Hypertension, essential Surgical History S/P ablation of atrial fibrillation History of hand surgery History of dilation and curettage Status post surgical removal of malignant neoplasm of skin Family History Mother Stroke Father Pancreatic cancer Brother Lyme disease Social History Household Members: None Housing: House Do you presently have visiting nurse or other home services: No Alcohol intake: never Comment: pt refuses bed alarm Patient Tobacco Use Status: Never used Tobacco e-Cigarette/Vaping Use: Never Used Second Hand Smoke Exposure: No Advance Directives Date on File: 11/19/22 service: No Current occupational status: retired Cognitive needs: No Hearing needs: No Vision needs: Yes (Patient wears reading glasses.) Review of Systems Const Denies fatigue, Denies fever(s), Denies night sweats, Denies poor appetite and Denies weight loss ENT Reports Normal hearing present, Denies dental pain, Denies dysphagia, Denies hearing loss, Denies mouth pain, Denies odynophagia, Denies throat swelling, Denies tongue swelling and Reports other (Dentition adequate) Card Reports no additional complaints Resp Reports no additional complaints GI Details: Denies abdominal pain, Denies melena, Denies bloating, Denies hematochezia, Denies constipation, Denies GI cramping, Denies dysphagia, Denies excessive flatus, Denies early satiety, Denies heartburn, Denies diarrhea, Denies nausea, Denies odynophagia, Denies vomiting and Denies hematemesis Skin/Breast Denies pruritus, Denies lesions, Denies rash and Denies jaundice Neuro Reports Normal hearing present and Denies Abnormal speech present Endo Denies fatigue Aller/Immun Denies throat swelling and Denies tongue swelling Physical Exam Vital Signs: Last Vital Signs Pulse 82 02/29/24 08:12 Resp 15 02/29/24 08:12 BP 151/72 H 02/29/24 08:12 BMI result Body Mass Index 25.5 Const General: cooperative, no acute distress, well developed and well groomed Nutritional Appearance: average body habitus and well nourished Orientation/consciousness: oriented to person, oriented to place and oriented to time Limitations: No language barrier HEENT Head: Yes normocephalic and Yes atraumatic Eyes General: appearance normal, both eyes and all related structures Pupils: Equal, round and reactive pupils present Neck Neck: Yes normal visual inspection and Yes no lymphadenopathy Thyroid: Thyroid normal Resp Effort & Inspection: normal respiratory effort and able to speak in complete sentences Auscultation: clear to auscultation bilaterally Cardio Other: No afib today! Rate: regular rate Rhythm: regular rhythm Heart sounds: Normal, physiologic split S2 sound present Peripheral pulses: radial pulses present and posterior tibial pulses present GI Inspection: No distended and No Abdominal panniculus present Palpation (GI): Soft to palpation, nontender, no guarding, not rigid and No hepatosplenomegaly present Percussion: Yes normal to percussion Auscultation: normal bowel sounds Rectal Exam - Female: deferred Skin General skin exam: no rashes or lesions noted, turgor normal, skin not dry, no jaundice, No spider nevi and no striae Rashes: no rashes Nails: normal Neuro General: oriented to person, oriented to place and oriented to time Cranial nerves: Yes Equal, round and reactive pupils present and Yes Normal hearing present Speech: No Abnormal speech present Extrem General: No clubbing, No cyanosis, Yes edema and Yes venous stasis dermatitis (severe biaterally with skin cancer left LE) Psych Appearance: grossly normal and well kempt Mental Status: mental status grossly normal Speech and movement: Normal speech and movement present Affect: normal affect Attitude: cooperative Thought process: Normal thought process present and not confabulating Thought content: Normal thought content present Insight: Fair insight present (Psych) Judgement: Fair judgement present (Psych) Assessment & Plan Assessment & Plan (1) Positive colorectal cancer screening using Cologuard test: Code(s): R19.5 - Other fecal abnormalities (2) CHF (congestive heart failure): Code(s): I50.9 - Heart failure, unspecified (3) Hyperparathyroidism: Code(s): E21.3 - Hyperparathyroidism, unspecified (4) CKD stage G3b/A1, GFR 30-44 and albumin creatinine ratio <30 mg/g: Code(s): N18.32 - Chronic kidney disease, stage 3b (5) Renal failure: Code(s): N19 - Unspecified kidney failure (6) Anemia in chronic kidney disease: Code(s): N18.9 - Chronic kidney disease, unspecified; D63.1 - Anemia in chronic kidney disease Qualifiers: Chronic kidney disease stage: stage 3 (moderate) Chronic kidney disease stage 3 subtype: stage 3b (GFR 30-44) Qualified Code(s): N18.32 - Chronic kidney disease, stage 3b; D63.1 - Anemia in chronic kidney disease (7) Cardiomyopathy: Code(s): I42.9 - Cardiomyopathy, unspecified (8) PAF (paroxysmal atrial fibrillation): Code(s): I48.0 - Paroxysmal atrial fibrillation Plan Her daycare teacher is Dr. Tian and Dr. Sahni is her renal specialist at [address] [place] [address]. She has never had a colonoscopy. She also just had a positive Cologuard. She says she gets dehydrated easily and this will set off her afib. This is a concern for her prep, she is not on dialysis. She denies any bowel or upper GI problems. She will need cardiology clearance and renal clearance for the procedure. Also for the prep given her low GFR. She has no prior problems with anesthesia or sedation, except trouble waking up after 1 of her cardiac ablations. No ID problems. Her brother had CRC at age 75 and survived. Orders: Orders Colonoscopy - GI Use Only 02/29/24 R19.5 - Other fecal abnormalities Medications: New peg 3350-electrolytes 236-22.74-6.74 -5.86 gram (Golytely) until fecal effluent is clear; do not exceed a total volume of 2,000 mL 240 mL PO Q10M 4,000 mL 0RF 1 day Z12.11 - Encounter for screening for malignant neoplasm of colon Coding Level of Care Code New Pt Level 3 (71722) Diagnoses Positive colorectal cancer screening using Cologuard test R19.5 CHF (congestive heart failure) I50.9 Hyperparathyroidism E21.3 CKD stage G3b/A1, GFR 30-44 and albumin creatinine ratio <30 mg/g N18.32 Renal failure N19 Anemia in stage 3b chronic kidney disease N18.32; D63.1 Chronic kidney disease stage: stage 3 (moderate) Chronic kidney disease stage 3 subtype: stage 3b (GFR 30-44) Cardiomyopathy I42.9 PAF (paroxysmal atrial fibrillation) I48.0
--- NOTE | 2024-02-29 08:10 | MHC.OFFVIS ---
Intake Vital Signs 02/29/24 08:12 Height 5 ft 7 in Blood Pressure Location Lt brachial Position Sitting Intake Visit Reasons: Colonoscopy screening/fecal abnormalities Allergies amlodipine Allergy (Intermediate, Verified 02/29/24 08:10) Swelling ankles/feet w rash prednisone Allergy (Intermediate, Verified 02/29/24 08:10) REd Blotchy codeine Adverse Reaction (Intermediate, Verified 02/29/24 08:10) Swelling sulfamethoxazole [From Bactrim] Adverse Reaction (Intermediate, Verified 02/29/24 08:10) Stomach Upset HPI Colonoscopy screening/fecal abnormalities HPI Details 83-year-old female here for preprocedural meeting to discuss a screening colonoscopy. She is referred by Capo Sales of [facility] primary care. PMX AFib-on anticoagulant Cardiomyopathy Hypertension High cholesterol Chronic kidney disease stage III Anemia of chronic disease Hyperparathyroidism Hypothyroid History of squamous cell carcinoma of the skin Vitamin B12 deficiency * SURGICAL HISTORY Cardiac ablation Left hand surgery D&C Excuse excision of skin cancer History of cardioversion * ALLERGIES Amlodipine Prednisone Codeine Sulfa * [email or web address] LABS: Laboratory Tests 12/14/23 08:10 WBC 5.8 RBC 4.34 Hgb 10.3 L Hct 33.3 L MCV 76.7 L MCH 23.7 L MCHC 30.9 L Plt Count 249 Estimated GFR 27 Calcium 10.6 H Phosphorus 3.1 Ferritin 17 Total Bilirubin 0.3 AST 20 ALT 14 Alkaline Phosphata se 111 TSH 3.08 Free T4 1.43 PTH Intact 205.4 H TODAY'S VISIT [facility] Medical History (Updated 02/29/24 @ 08:16 by GARY Vazquez) PAF (paroxysmal atrial fibrillation) Breast cancer screening by mammogram PAF (paroxysmal atrial fibrillation) Hx of skin cancer, basal cell Elevated serum creatinine Screening for colon cancer Adult general medical exam Screening for osteoporosis Screening for breast cancer Therapeutic drug monitoring Cough with congestion of paranasal sinus Abnormal creatinine clearance glomerular filtration Breath shortness Rash History of cardioversion PAF (paroxysmal atrial fibrillation) Atrial fibrillation with rapid ventricular response History of vitamin D deficiency History of hypothyroidism Anticoagulant long-term use Hx of squamous cell carcinoma of skin Vitamin B 12 deficiency High cholesterol Hypertension, essential Surgical History S/P ablation of atrial fibrillation History of hand surgery History of dilation and curettage Status post surgical removal of malignant neoplasm of skin Family History Mother Stroke Father Pancreatic cancer Brother Lyme disease Social History Household Members: None Housing: House Do you presently have visiting nurse or other home services: No Alcohol intake: never Comment: pt refuses bed alarm Patient Tobacco Use Status: Never used Tobacco e-Cigarette/Vaping Use: Never Used Second Hand Smoke Exposure: No Advance Directives Date on File: 11/19/22 service: No Current occupational status: retired Cognitive needs: No Hearing needs: No Vision needs: Yes (Patient wears reading glasses.) Review of Systems Const Denies fatigue, Denies fever(s), Denies night sweats, Denies poor appetite and Denies weight loss Eyes Reports requires corrective lenses ENT Reports Normal hearing present, Denies dental pain, Denies dysphagia, Denies hearing loss, Denies mouth pain, Denies odynophagia, Denies throat swelling, Denies tongue swelling and Reports other (Dentition adequate) GI Details: Denies abdominal pain, Denies melena, Denies bloating, Denies hematochezia, Denies constipation, Denies GI cramping, Denies dysphagia, Denies excessive flatus, Denies early satiety, Denies heartburn, Denies diarrhea, Denies nausea, Denies odynophagia, Denies vomiting and Denies hematemesis Skin/Breast Denies pruritus, Denies lesions, Denies rash and Denies jaundice Neuro Reports Normal hearing present and Denies Abnormal speech present Endo Denies fatigue Aller/Immun Denies throat swelling and Denies tongue swelling Physical Exam Const General: cooperative, no acute distress, well developed and well groomed Nutritional Appearance: well nourished, obese and overweight Orientation/consciousness: oriented to person, oriented to place and oriented to time Limitations: No language barrier, ambulation with cane, ambulation with walker and wheelchair HEENT Head: Yes normocephalic and Yes atraumatic Eyes General: appearance normal, both eyes and all related structures Pupils: Equal, round and reactive pupils present Neck Neck: Yes normal visual inspection and Yes no lymphadenopathy Thyroid: Thyroid normal Resp Effort & Inspection: normal respiratory effort and able to speak in complete sentences Auscultation: clear to auscultation bilaterally Cardio Rate: regular rate Rhythm: regular rhythm Heart sounds: Normal, physiologic split S2 sound present Peripheral pulses: radial pulses present and posterior tibial pulses present GI Inspection: No distended and No Abdominal panniculus present Palpation (GI): Soft to palpation, nontender, no guarding, not rigid, No hepatosplenomegaly present and Hepatosplenomegaly present Percussion: Yes normal to percussion Auscultation: normal bowel sounds Rectal Exam - Female: deferred Skin General skin exam: no rashes or lesions noted, turgor normal, skin not dry, no jaundice, No spider nevi and no striae Rashes: no rashes Nails: normal Neuro General: oriented to person, oriented to place and oriented to time Cranial nerves: Yes Equal, round and reactive pupils present and Yes Normal hearing present Speech: No Abnormal speech present Extrem General: Yes normal to inspection, No clubbing, No cyanosis and No edema Psych Thought process: Normal thought process present and not confabulating Thought content: Normal thought content present Insight: Good insight present (Psych) Judgement: Good judgement present (Psych) Assessment & Plan Assessment & Plan (1) Positive colorectal cancer screening using Cologuard test: Code(s): R19.5 - Other fecal abnormalities (2) Anemia in chronic kidney disease: Code(s): N18.9 - Chronic kidney disease, unspecified; D63.1 - Anemia in chronic kidney disease Qualifiers: Chronic kidney disease stage: stage 3 (moderate) Chronic kidney disease stage 3 subtype: stage 3b (GFR 30-44) Qualified Code(s): N18.32 - Chronic kidney disease, stage 3b; D63.1 - Anemia in chronic kidney disease (3) CKD stage G3b/A1, GFR 30-44 and albumin creatinine ratio <30 mg/g: Code(s): N18.32 - Chronic kidney disease, stage 3b (4) PAF (paroxysmal atrial fibrillation): Code(s): I48.0 - Paroxysmal atrial fibrillation (5) Anticoagulant long-term use: Code(s): Z79.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 (6) CHF (congestive heart failure): Code(s): I50.9 - Heart failure, unspecified (7) Cardiomyopathy: Code(s): I42.9 - Cardiomyopathy, unspecified (8) Lower extremity edema: Code(s): R60.0 - Localized edema (9) Renal failure: Code(s): N19 - Unspecified kidney failure (10) Persistent atrial fibrillation: Code(s): I48.19 - Other persistent atrial fibrillation Orders: Orders Colonoscopy - GI Use Only Today R19.5 - Other fecal abnormalities Medications: New peg 3350-electrolytes 236-22.74-6.74 -5.86 gram until fecal effluent is clear; do not exceed a total volume of 2,000 mL 240 mL PO Q10M 1 day 4,000 mL 0RF Z12.11 - Encounter for screening for malignant neoplasm of colon Coding Diagnoses Positive colorectal cancer screening using Cologuard test R19.5 Anemia in stage 3b chronic kidney disease N18.32; D63.1 Chronic kidney disease stage: stage 3 (moderate) Chronic kidney disease stage 3 subtype: stage 3b (GFR 30-44) CKD stage G3b/A1, GFR 30-44 and albumin creatinine ratio <30 mg/g N18.32 PAF (paroxysmal atrial fibrillation) I48.0 Anticoagulant long-term use Z79.01 CHF (congestive heart failure) I50.9 Cardiomyopathy I42.9 Lower extremity edema R60.0 Renal failure N19 Persistent atrial fibrillation I48.19
[2024-02-29 08:12] VITALS: BP 151/72; PULSE 82; RESP 15; BMI 25.5
== END 2024-02-29 09:25 | disposition home or self-care (01) ==
PROVIDERS: PCP Family Medicine; Visit Provider Nurse Practitioner
DX: R19.5 Other fecal abnormalities (principal); I50.9 Heart failure, unspecified; E21.3 Hyperparathyroidism, unspecified; N18.32 Chronic kidney disease, stage 3b; N19 Unspecified kidney failure; D63.1 Anemia in chronic kidney disease; I42.9 Cardiomyopathy, unspecified; I48.0 Paroxysmal atrial fibrillation
CPT/HCPCS: 99203; 99213

== ENCOUNTER → 2024-02-29 08:06 | Outpatient (BNVA) | payer MEDICARE, OTHER, SELFPAY | PROVIDERS: PCP Family Medicine; Visit Provider Nurse Practitioner | DX: R19.5 Other fecal abnormalities (principal); I50.9 Heart failure, unspecified; E21.3 Hyperparathyroidism, unspecified; N18.32 Chronic kidney disease, stage 3b; N19 Unspecified kidney failure; I42.9 Cardiomyopathy, unspecified; I48.0 Paroxysmal atrial fibrillation | CPT/HCPCS: 99202 ==

== ENCOUNTER 2024-03-14 08:59 | Outpatient (AMB) | payer MEDICARE, OTHER, SELFPAY ==
[2024-03-14 09:02] VITALS: BP 126/72; PULSE 76; O2SAT 98; BMI 27.2
--- NOTE | 2024-03-14 09:02 | A.OFFPC_ITS ---
Vital Signs 03/14/24 09:02 Height 5 ft 7 in Weight 173 lb 8 oz BMI 27.2 BP 126/72 Blood Pressure Location Lt brachial Position Sitting Pulse 76 Pulse Source Pulse Oximeter Pulse Oximetry (%) 98 Oxygen Delivery Method Room Air Intake Visit Reasons: Extended exam with f/u labs and health maint. Intake Note: Patient is here for extended exam and follow up on labs and health maintenance. Allergies amlodipine Allergy (Intermediate, Verified 03/14/24 09:05) Swelling ankles/feet w rash prednisone Allergy (Intermediate, Verified 03/14/24 09:05) REd Blotchy codeine Adverse Reaction (Intermediate, Verified 03/14/24 09:05) Swelling sulfamethoxazole [From Bactrim] Adverse Reaction (Intermediate, Verified 03/14/24 09:05) Stomach Upset Tobacco use date assessed: 03/14/24 Fall risk assessment: No Falls in past year Last assessed Fall Risk: 03/14/24 Dental Screening Dental Screen Date: 03/14/24 Did you have a dental visit in the last 12 months?: Yes Did you have a dental problem in the last 6 months where you did not have access to dental care?: No Was dental information given to patient?: Patient has dentist HPI Extended exam with f/u labs and health maint. HPI Details 83 y/o female presents for an extended e xam with f/u labs and health maintenance. Labs were drawn 12/14/23. Reviewed labs with pt. Ongoing anemia, mild but stable. Calcium improved from 11.3 to 10.6 mg/dL. Triglycerides 144. TC 188. LDL 101. HDL 59. PTH elevated at 205.4. Blood pressure today 126/72. She is on hydralazine 25mg b.i.d. Had been following up with dairy cattle farm manager Dr. Sahni for her kidneys and elevated PTH. HPI Comments History of Present Illness Details Documentation assistance for Capo Sales MD, was provided by Kiran Palacios,? Train Inspector on 03/14/2024 9:59 AM KRUNAL. I, Dr. Sales, have read, observed, and verified documentation. [facility] Medical History (Updated 03/14/24 @ 09:58 by Kiran Palacios) Adult general medical exam Screening for breast cancer PAF (paroxysmal atrial fibrillation) Persistent atrial fibrillation Breast cancer screening by mammogram PAF (paroxysmal atrial fibrillation) Hx of skin cancer, basal cell Elevated serum creatinine Screening for colon cancer Screening for osteoporosis Therapeutic drug monitoring Cough with congestion of paranasal sinus Abnormal creatinine clearance glomerular filtration Breath shortness Rash History of cardioversion PAF (paroxysmal atrial fibrillation) Atrial fibrillation with rapid ventricular response History of vitamin D deficiency History of hypothyroidism Anticoagulant long-term use Hx of squamous cell carcinoma of skin Vitamin B 12 deficiency High cholesterol Hypertension, essential Surgical History S/P ablation of atrial fibrillation History of hand surgery History of dilation and curettage Status post surgical removal of malignant neoplasm of skin Family History Mother Stroke Father Pancreatic cancer Brother Lyme disease Social History Household Members: None Housing: House Do you presently have visiting nurse or other home services: No Alcohol intake: never Comment: pt refuses bed alarm Patient Tobacco Use Status: Never used Tobacco e-Cigarette/Vaping Use: Never Used Second Hand Smoke Exposure: No Advance Directives Date on File: 11/19/22 service: No Current occupational status: retired Cognitive needs: No Hearing needs: No Vision needs: Yes (Patient wears reading glasses.) Questionnaire PHQ-9 Over the last 2 weeks, how often have you been bothered by any of the following problems? 1. Little interest or pleasure in doing things: not at all 2. Feeling down, depressed, or hopeless: not at all 3. Trouble falling or staying asleep, or sleeping too much: not at all 4. Feeling tired or having little energy: not at all 5. Poor appetite or overeating: not at all 6. Feeling bad about yourself - or that you are a failure or have let yourself or your family down: not at all 7. Trouble concentrating on things, such as reading the newspaper or watching television: not at all 8. Moving or speaking so slowly that other people could have noticed. Or the opposite - being so fidgety or restless that you have been moving around a lot more than usual: not at all 9. Thoughts that you would be better off or of hurting yourself in some way: not at all Total score: 0 Depression Screening Interpretation: Negative Depression Screening Done: Yes Source: Developed by Drs. Jadiel Marrero, Melany Strickland, Manuel Ferguson and colleagues, with an educational ellen from [employer]. Thrive Questionnaire Date Thrive assessed: 03/14/24 I am a: Patient What is your living situation today?: I have a steady place to live Within the past 12 months, did the food you bought not last and you didn't have the money to get more?: Never true Within the past 12 months, did you worry whether your food would run out before you got money to buy more?: Never true Do you have trouble paying for medicines?: No Do you have trouble getting transportation to medical appointments?: No Do you have trouble paying your heating and electricity bill?: No Do you have trouble taking care of your child, family member or friend?: No Do you have trouble with day-to-day activities such as bathing, preparing meals, shopping, managing finances, etc.?: No Are you currently unemployed and looking for a job?: No Are you interested in more education?: No THRIVE Score: 0 AUDIT C Alcohol Use Questionnaire (AUDIT-C) 1. How often do you have a drink containing alcohol?: Never 3. How often do you have six or more drinks on one occasion?: Never Total Score: 0 ASUNCION-7 AMB Questionnaire ASUNCION-7 Date ASUNCION - 7 assessed: 03/14/24 Feeling nervous, anxious, or on edge: 0 = Not at all Not being able to stop or control worryin = Not at all Worrying too much about different things: 0 = Not at all Trouble relaxin = Not at all Being so restless that it is hard to sit still: 0 = Not at all Becoming easily annoyed or irritable: 0 = Not at all Feeling afraid as if something awful might happen: 0 = Not at all Total ASUNCION-7 score (0-4 normal; 5-9 mild; 10-14 moderate; 15-21 severe): 0 Source: Developed by Drs. Jadiel Marrero, Manuel Lara and colleagues, with an educational ellen from [employer]. Review of Systems Const Denies chills, Denies fatigue, Denies fever(s), Denies headache(s) and Denies weakness Eyes Denies change in vision ENT Denies dizziness, Denies headache(s), Denies hearing loss, Denies nasal congestion, Denies sinus pain, Denies sinus pressure and Denies sore throat Card Denies chest pain, Denies lightheadedness, Denies dyspnea and Denies other (palpitations) Resp Denies cough, Denies dyspnea and Denies wheezing GI Denies abdominal pain, Denies melena, Denies hematochezia, Denies change in bowel habits, Denies dyspepsia and Denies nausea Denies hematuria and Denies dysuria Musc Denies abnormal gait, Denies myalgias, Denies arthralgias, Denies numbness and Denies tingling Skin/Breast Denies rash, Denies unusual bruising and Denies wounds Neuro Denies abnormal gait, Denies dizziness, Denies headache(s), Denies memory loss, Denies numbness, Denies Sensory deficit (Neuro), Denies tingling and Denies weakness Psych Denies anxiety, Denies depression and Denies memory loss Endo Denies cold intolerance, Denies fatigue, Denies heat intolerance, Denies polydipsia and Denies polyuria Hank/Lymph Denies easy bleeding and Denies easy bruising Aller/Immun Denies wheezing Physical exam (Primary Care) Vital Signs: Last Vital Signs Pulse 76 03/14/24 09:02 BP 126/72 03/14/24 09:02 Pulse Ox 98 03/14/24 09:02 Oxygen Delivery Method Room Air 03/14/24 09:02 BMI result Body Mass Index 27.2 Tobacco/Smoking Status: Tobacco use Status Tobacco use date assessed 03/14/24 03/14/24 09:08 Patient Tobacco Use Status Never used Tobacco 03/14/24 09:08 e-Cigarette/Vaping Use Never Used 03/14/24 09:08 PHQ-9: PHQ-9 Score PHQ-9: Total score 0 03/14/24 09:32 Depression Screening Interpretation: Negative Thrive Assessment: Date of Thrive Assessment Date Thrive assessed 03/14/24 03/14/24 09:13 Const General: no acute distress, well developed, alert and awake Nutritional Appearance: well nourished Orientation/consciousness: patient oriented x3 HENMT Head: Yes normocephalic and Yes atraumatic Ears: hearing grossly normal bilaterally and TM's normal bilaterally General nose exam: Normal external nose present and Normal nares present Mouth: Normal oral and palatal mucosa present and moist mucous membranes Teeth and gingiva: dentition normal Throat: Yes posterior oropharynx normal Eyes General: appearance normal, both eyes and all related structures Pupils: Equal, round and reactive pupils present and Pupil accommodation reflex normal EOM: EOMs intact bilaterally Neck Neck: Yes normal visual inspection, Yes no lymphadenopathy and Yes trachea midline Thyroid: Thyroid normal Carotids: no bruits Lymphatic: no lymphadenopathy noted Chest Chest palpation & inspection: normal inspection of the chest Resp Effort & Inspection: normal respiratory effort Auscultation: clear to auscultation bilaterally Cardio Rate: regular rate Rhythm: regular rhythm Heart sounds: S1 normal heart sound present, S2 normal heart sound present, no gallops, no murmurs and no rubs Bruits: no abdominal aortic bruits and no carotid bruits GI Palpation (GI): No Abdominal aortic bruit present, Soft to palpation, nontender, No hepatosplenomegaly present and No Rebound tenderness present Auscultation: normal bowel sounds General: Yes no CVA tenderness Back/Spine/Pelvis Back: no CVA tenderness Cervical Spine: cervical ROM normal and No Cervical spine tenderness Thoracic/Lumbar Spine: thoraco-lumbar ROM normal, No pain with thoraco-lumbar ROM, No thoracic spinal tenderness and No lumbar spinal tenderness Skin Lesions: no lesions Rashes: no rashes Trauma: no lacerations or abrasions Wounds: no wounds Nails: normal Neuro General: patient oriented x3 Cranial nerves: Yes Equal, round and reactive pupils present Cognition (Neuro): normal cognition Gait exam (Neuro): Normal gait present Motor exam (neuro): 5/5 motor strength present throughout Sensory Exam: No Sensory deficit (Neuro) Deep tendon reflexes (DTR's): Right patellar reflex intensity grade: 2+ and Left patellar reflex intensity grade: 2+ Extrem General: Yes normal to inspection and No edema Psych Appearance: grossly normal Affect: normal affect Attitude: cooperative Thought process: Normal thought process present Assessment and Plan Assessment & Plan (1) Hypertension: Code(s): I10 - Essential (primary) hypertension Qualifiers: Hypertension type: primary hypertension Qualified Code(s): I10 - Essential (primary) hypertension Plan: Sugars?controlled.??Goal?is?less?than?130/90 Now?on?hydralazine.??Did?not?tolerate?amlodipine Continue?current?medication (2) Renal failure: Code(s): N19 - Unspecified kidney failure Plan: Chronic?renal?failure?and?followed?by?Nephrology Recent?renal?ultrasound?was?unremarkable. Stable Continue?to?follow-up?with?nephrology (3) Iron deficiency: Code(s): E61.1 - Iron deficiency Plan: Continue?to?work?at?good?sources?of?iron?in?diet Does?not?tolerate?oral?iron She?wants?to?discuss?IV?iron?with?her?dairy cattle farm manager (4) Hyperparathyroidism: Code(s): E21.3 - Hyperparathyroidism, unspecified Plan: High?parathyroid?hormone?levels?and?elevated?calcium?level Parathyroid?scan?was?nonspecific. Follow-up?with?endocrinology?and?Nephrology. (5) Positive colorectal cancer screening using Cologuard test: Code(s): R19.5 - Other fecal abnormalities Plan: She?has?been?referred?to?Gastroenterology. Plan?is?colonoscopy?but?she?needs?clearance?from?Cardiology?1st. (6) Anemia in chronic kidney disease: Code(s): N18.9 - Chronic kidney disease, unspecified; D63.1 - Anemia in chronic kidney disease Qualifiers: Chronic kidney disease stage: stage 3 (moderate) Chronic kidney disease stage 3 subtype: stage 3b (GFR 30-44) Qualified Code(s): N18.32 - Chronic kidney disease, stage 3b; D63.1 - Anemia in chronic kidney disease Plan: Fairly?stable Possibly?secondary?abnormalities?in colon and?or?renal?failure Awaiting?colonoscopy (7) Screening for breast cancer: Code(s): Z12.39 - Encounter for other screening for malignant neoplasm of breast Plan: Mammogram?was?negative?for?malignancies?in?December. Up-to-date.?? She?is?83?years?old.??We?can?discuss?ongoing?screening?at?her?discretion. (8) Adult general medical exam: Code(s): Z00.00 - Encounter for general adult medical examination without abnormal findings Plan: 83-year-old?female?presents?for?an?extended?exam Stable Coding Level of Care Code Est Pt Level 4 (35829) Diagnoses Primary hypertension I10 Hypertension type: primary hypertension Renal failure N19 Iron deficiency E61.1 Hyperparathyroidism E21.3 Positive colorectal cancer screening using Cologuard test R19.5 Anemia in stage 3b chronic kidney disease N18.32; D63.1 Chronic kidney disease stage: stage 3 (moderate) Chronic kidney disease stage 3 subtype: stage 3b (GFR 30-44) Screening for breast cancer Z12.39 Adult general medical exam Z00.00
== END 2024-03-14 10:13 | disposition home or self-care (01) ==
PROVIDERS: PCP Family Medicine; Visit Provider Family Medicine
DX: I12.9 Hypertensive chronic kidney disease with stage 1 through stage 4 chronic kidney disease, or unspecified chronic kidney disease (principal); N18.32 Chronic kidney disease, stage 3b; E21.3 Hyperparathyroidism, unspecified; E61.1 Iron deficiency; R19.5 Other fecal abnormalities; D63.1 Anemia in chronic kidney disease; Z12.39 Encounter for other screening for malignant neoplasm of breast
CPT/HCPCS: 99214

== ENCOUNTER 2024-04-13 14:05 | Outpatient (AMB) | payer MEDICARE, OTHER, SELFPAY ==
--- NOTE | 2024-04-13 14:11 | AM.OFFVISNUR ---
Intake Intake Visit Reasons: ekg Allergies amlodipine Allergy (Intermediate, Verified 03/14/24 09:05) Swelling ankles/feet w rash prednisone Allergy (Intermediate, Verified 03/14/24 09:05) REd Blotchy codeine Adverse Reaction (Intermediate, Verified 03/14/24 09:05) Swelling sulfamethoxazole [From Bactrim] Adverse Reaction (Intermediate, Verified 03/14/24 09:05) Stomach Upset Nursing Note EKG was performed and is being reviewed by SENIOR RESERVATIONS AGENT Office Procedures EKG [id number], Complete Coding CPT Codes EKG - CPT: 57616-[id number], Complete ([id number])
== END 2024-04-13 14:43 | disposition home or self-care (01) ==
PROVIDERS: PCP Family Medicine; Visit Provider Nurse Practitioner Family
DX: R94.31 Abnormal electrocardiogram [ECG] [EKG] (principal)
CPT/HCPCS: 93010

== ENCOUNTER → 2024-04-13 14:05 | Outpatient (BNVA) | payer MEDICARE, OTHER, SELFPAY | PROVIDERS: PCP Family Medicine; Visit Provider Nurse Practitioner Family | DX: R00.2 Palpitations (principal); R94.31 Abnormal electrocardiogram [ECG] [EKG]; I51.7 Cardiomegaly; R00.0 Tachycardia, unspecified; I44.0 Atrioventricular block, first degree | CPT/HCPCS: 93005 ==

== ENCOUNTER → 2024-04-18 09:58 | Outpatient (BNVA) | payer MEDICARE, OTHER, SELFPAY | PROVIDERS: PCP Family Medicine; Visit Provider Nurse Practitioner Family ==

== ENCOUNTER 2024-04-21 09:21 | Inpatient (IN) | payer MEDICARE, OTHER, SELFPAY ==
[2024-04-21] VITALS (18 sets, daily range): BP systolic 118–196; BP diastolic 63–118; PULSE 105–148; RESP 17–24; TEMP 35.8–36.8; O2SAT 92–97; BMI 27.5
--- NOTE | ~2024-04-21 | CT_ITS ---
EXAMINATION: CT ANGIOGRAM OF THE CHEST WITH AND WITHOUT CONTRAST (CT PULMONARY ANGIOGRAM FOR PE) CLINICAL INFORMATION: Reason for Exam hypoxia, recently started on amiodarone COMPARISON: Previous chest x-ray from earlier the same day TECHNIQUE: Prior to contrast administration, noncontrast localization images were obtained. Subsequently, multidetector volumetric imaging was performed from the thoracic inlet to below the diaphragms following the administration of 65 mL Omnipaque 350 intravenous contrast. No contrast reaction reported Sagittal, coronal, and MIP oblique sagittal reformatted images were obtained on the CT workstation, uploaded to PACS, and reviewed. This CT examination was performed using dose optimization techniques as appropriate, variously including the following: *Automated exposure control *Adjustment of mA and/or kV according to patient size (this includes techniques or standardized protocols for targeted exams where dose is matched to indication/reason for exam; i.e. extremities or head) *Use of iterative reconstruction technique Total exam dose-length product 311 mGy-cm FINDINGS: QUALITY OF STUDY/CONTRAST BOLUS: Satisfactory. PULMONARY ARTERIES: No pulmonary emboli. THORACIC AORTA: No aneurysm. LUNG: Increased interstitial markings with interlobular septal thickening greatest at the lung bases and central or perihilar groundglass attenuation. Findings are suggestive of mild pulmonary edema. Mild subsegmental atelectasis at the right lower lobe adjacent to pleural effusion. PLEURA: Small left and moderate right pleural effusions. MEDIASTINUM: Enlarged heart. No pericardial effusion. No hilar or mediastinal lymphadenopathy. No evidence of septal bowing or right heart strain. CORONARY ARTERY CALCIFICATION: Mild CHEST WALL/AXILLA: No axillary or internal mammary lymphadenopathy. OSSEOUS STRUCTURES: No acute or suspicious osseous abnormality. Degenerative changes of the spine. UPPER ABDOMEN: Question 2 cm cyst in the tail of the pancreas. Diverticulosis of the colon. No reflux of contrast into the hepatic veins to suggest elevated right heart pressures. CT/CT angio chest PE protocol IMPRESSION: No evidence of pulmonary embolism. Enlarged heart and CHF. Question 2 cm cyst in the tail of the pancreas. Follow-up dedicated pancreatic imaging should be considered. VTE: negative
--- NOTE | ~2024-04-21 | XR_ITS ---
EXAMINATION: XR CHEST CLINICAL INFORMATION: 83-year-old female with shortness of breath COMPARISON: 10/21/2022 TECHNIQUE: Frontal view of the chest was obtained. FINDINGS: There is new since previous examination right lower lobe ill-defined opacity and vascular redistribution. There is atelectasis at the left lung base. Cardiomediastinal silhouette is normal. XR/XR chest 1V IMPRESSION: Right lower lobe opacity and mild interstitial edema with vascular redistribution
--- NOTE | 2024-04-21 09:24 | ECG_ITS ---
Test Reason : sob, tachy Blood Pressure : / mmHG Vent. Rate : 094 BPM Atrial Rate : 000 BPM P-R Int : 000 ms QRS Dur : 106 ms QT Int : 380 ms P-R-T Axes : 000 -41 -01 degrees QTc Int : 475 ms Atrial fibrillation Left axis deviation Moderate voltage criteria for LVH, may be normal variant ( R in aVL , [place] product ) Septal infarct (cited on or before 22-NOV-2022) Abnormal ECG When compared with ECG of 21-APR-2024 09:23, No significant change was found Referred By: Aroldo Sethi Electronically Signed By:ESTIVEN HARMON
--- NOTE | 2024-04-21 10:23 | PC.NURSE ---
Pt presents in to ED from home, reports 10 days of worsening SOB and palpitations. Has hx of afib, ablation 1 year ago at [facility]. Saw her doctor approx 1 weeks ago, said she was in afib/ aflutter, started her on Amio and diltiazem, med compliant. Reports SOB has been worse since she started the meds. No CP, N/V/D, fevers. Does have dry cough. Alert and oriented, breathing slightly labored, reports it worsens with exertion and lying flat. Skin warm and dry. Afib on monitor and storage bin tender, 100-140. No pitting edema noted to lower extremities.
--- NOTE | 2024-04-21 10:25 | PC.NURSE ---
Pt noted to be 88% on RA, placed on 2L O2 NC and improved to 92%
[2024-04-21 10:38] LABS: MANUAL DIFF FLAG NO
[2024-04-21 10:42] LABS: Basophils Absolute Auto 0.1 X10*3/uL (0.0-0.2); Basophils Percent Auto 0.9 % (0-2); Hematocrit 29.9 % (37.0-47.0); Hemoglobin 9.5 g/dl (12.0-16.0); Imm Gran Abs Auto 0.04 X10*3/uL (0.00-0.03); Imm Gran Pct Auto 0.6 % (0.0-0.4); Lymphocytes Absolute Auto 0.8 X10*3/uL (1.2-4.9); Lymphocytes Percent Auto 12.3 % (20-40); Mean Corpuscular HGB Conc 31.8 g/dl (31.0-35.0); Mean Corpuscular Hemoglobin 23.9 pg (27.0-33.0); Mean Corpuscular Volume 75.3 fL (80.0-98.0); Mean Platelet Volume 8.9 fL (9.4-12.3); Monocytes Absolute Auto 0.8 X10*3/uL (0.1-1.2); Neutrophils Absolute Auto 4.9 x10*3/uL (2.0-8.3); Neutrophils Percent Auto 74.2 % (45-73); Platelet Count 321 X10*3/uL (160-400); Red Blood Count 3.97 X10*6/uL (4.20-5.50); Red Cell Distribution Width 16.9 % (11.0-16.0); White Blood Count 6.6 X10*3/uL (4.8-10.8)
[2024-04-21 11:02] LABS: Alanine Aminotransferase 10 U/L (0-31); Alkaline Phosphatase 117 U/L (39-117); Anion Gap 14 (12-20); Aspartate Amino Transferase 14 U/L (5-31); Bilirubin Total 0.5 mg/dL (0.0-1.0); Blood Urea Nitrogen 25 mg/dL (9-16); Calcium 10.2 mg/dL (8.4-10.2); Carbon Dioxide 21 mmol/L (22-29); Chloride 104 mmol/L (96-108); Creatinine Clr Calc Pharmacy 30.5; Estimated Glomerular Filt Rate 32; Glucose Random 156 mg/dL (60-115); Potassium 4.2 mmol/L (3.3-5.1); Sodium 135 mmol/L (135-145); Total Protein 6.8 g/dL (6.5-8.0)
[2024-04-21 11:04] LABS: Troponin-I High Sensitivity 9.1 ng/L (<3.5-17.0)
--- NOTE | 2024-04-21 12:44 | ED.GENADULT ---
HPI - General Adult General Chief complaint: Dyspnea Stated complaint: fast heart rate, diff catching breath Time Seen by Provider: 04/21/24 10:26 History of Present Illness HPI narrative: This is an 83yof with a pmhx HTN, HLD, cardiomyopathy, PAF (on Eliquis) s/p ablation 03/2023 who presents for evaluation of palpitations and dyspnea. She states this started about 1.5 weeks ago. She states she saw her deputy assessor who found her to be in atrial fibrillation. She states she had previously had an ablation at [facility] in March 2023. She states they started her on amiodarone and diltiazem. She states taking these medications as prescribed. She states taking her Eliquis as prescribed, which she states that she has been on for a long time. She states seeing cardiology again this week and had another ekg done that showed flutter . She states feeling stressed recently due to her neighbors doing construction. She states no chest pain. She states dry cough for a couple of weeks. She states no sputum production or hemoptysis. She states no fevers or chills. She states no headache, neck pain, vision changes, hearing changes, nausea/vomiting, abdominal pain, back pain, dysuria, urinary frequency, diarrhea, constipation, melena or hematochezia. Related Data Home Medications ?Medication ?Instructions ?Recorded ?Confirmed acetaminophen 500 mg tablet 500 mg PO Q6H PRN 04/22/23 10/18/23 (Tylenol Extra Strength) Previous Rx's ?Medication ?Instructions ?Recorded apixaban 5 mg tablet (Eliquis) 5 mg PO BID 90 days #180 tabs 11/30/23 levothyroxine 50 mcg capsule 50 mcg PO DAILY #30 caps 11/30/23 (Tirosint) pravastatin 40 mg tablet 40 mg PO BEDTIME 90 days #90 tabs 11/30/23 peg 3350-electrolytes 236 240 ml PO Q10M 1 day #4,000 mL 02/29/24 gram-22.74 gram-6.74 gram-5.86 gram solution (Golytely) hydralazine 25 mg tablet 25 mg PO BID #180 tabs 04/05/24 amiodarone 200 mg tablet 200 mg PO .COMPLEX 30 days #70 tabs 04/13/24 diltiazem HCl 120 mg 120 mg PO DAILY #30 caps 04/13/24 capsule,extended release 24 hr Allergies Allergy/AdvReac Type Severity Reaction Status Date / Time amlodipine Allergy Intermediate Swelling Verified 04/21/24 09:34 ankles/feet w rash prednisone Allergy Intermediate REd Verified 04/21/24 09:34 Blotchy codeine AdvReac Intermediate Swelling Verified 04/21/24 09:34 sulfamethoxazole AdvReac Intermediate Stomach Verified 04/21/24 09:34 [From Bactrim] Upset Review of Systems Review of Systems: ROS as per HPI [facility] Past Medical History Medical History (Updated 04/21/24 @ 15:23 by Aroldo Sethi MD) Adult general medical exam Screening for breast cancer PAF (paroxysmal atrial fibrillation) Persistent atrial fibrillation Breast cancer screening by mammogram PAF (paroxysmal atrial fibrillation) Hx of skin cancer, basal cell Elevated serum creatinine Screening for colon cancer Screening for osteoporosis Therapeutic drug monitoring Cough with congestion of paranasal sinus Abnormal creatinine clearance glomerular filtration Breath shortness Rash History of cardioversion PAF (paroxysmal atrial fibrillation) Atrial fibrillation with rapid ventricular response History of vitamin D deficiency History of hypothyroidism Anticoagulant long-term use Hx of squamous cell carcinoma of skin Vitamin B 12 deficiency High cholesterol Hypertension, essential Surgical History S/P ablation of atrial fibrillation History of hand surgery History of dilation and curettage Status post surgical removal of malignant neoplasm of skin Family History Family History Mother Stroke Father Pancreatic cancer Brother Lyme disease Social History Social History Household Members: None Housing: House Do you presently have visiting nurse or other home services: No Alcohol intake: never Comment: pt refuses bed alarm Patient Tobacco Use Status: Never used Tobacco Smoked in Last 30 Days: No e-Cigarette/Vaping Use: Never Used Second Hand Smoke Exposure: No Use of substances other than those prescribed or required for medical reasons: No Advance Directives: Yes Advance Directives Information Provided: Yes Advance Directives on File: No Advance Directives Date on File: 11/19/22 service: No Current occupational status: retired Cognitive needs: No Hearing needs: No Vision needs: Yes (Patient wears reading glasses.) Physical Exam ED Vital Signs: Vital Signs - 24 hr 04/21/24 09:33 04/21/24 10:20 04/21/24 10:26 Temperature 98.0 F 98.3 F Pulse Rate 148 H 128 H 122 H Respiratory Rate 20 20 19 Blood Pressure 133/97 H 168/77 H 169/87 H Pulse Oximetry 94 92 Oxygen Delivery Method Room Air Nasal Cannula Oxygen Flow Rate 88 2 04/21/24 12:27 04/21/24 13:08 04/21/24 13:14 Temperature 98.2 F Pulse Rate 119 H 120 H 133 H Respiratory Rate 21 H 21 H Blood Pressure 179/92 H 167/118 H 167/118 H Pulse Oximetry 93 93 Oxygen Delivery Method Nasal Cannula Nasal Cannula Oxygen Flow Rate 2 2 04/21/24 13:20 04/21/24 14:19 04/21/24 14:19 Temperature Pulse Rate 123 H 124 H 126 H Respiratory Rate 22 H Blood Pressure 167/95 H 193/93 H 196/63 H Pulse Oximetry 94 Oxygen Delivery Method Nasal Cannula Oxygen Flow Rate 2 04/21/24 14:24 04/21/24 15:18 Temperature Pulse Rate 125 H 116 H Respiratory Rate 20 24 H Blood Pressure 196/93 H 130/103 H Pulse Oximetry 93 93 Oxygen Delivery Method Nasal Cannula Nasal Cannula Oxygen Flow Rate 2 2 BMI result Body Mass Index 27.5 Gen: NAD, AOx3 HEENT: NCAT, EOMI, normal conjunctiva CV: Irregular rate and rhythm Pulm: CTAB GI: Soft, NTND, no rebound, guarding or rigidity Neuro: Grossly non focal Medications Administered Discontinued Medications Generic Name Dose Route Start Last Admin Trade Name Freq PRN Reason Stop Dose Admin Diltiazem HCl 15 mg 04/21/24 12:43 04/21/24 13:14 Diltiazem Hcl 50 Mg/10 Ml Vial IVPUSH 04/21/24 12:44 15 mg STAT STA Administration Diltiazem HCl 30 mg 04/21/24 13:23 04/21/24 14:19 Diltiazem Hcl 30 Mg Tablet PO 04/21/24 13:24 30 mg ONCE ONE Administration Protocol Diltiazem HCl 25 mg 04/21/24 13:25 04/21/24 14:19 Diltiazem Hcl 50 Mg/10 Ml Vial IVPUSH 04/21/24 13:26 25 mg STAT STA Administration Sodium Chloride 1,000 mls @ 999 mls/hr 04/21/24 12:45 04/21/24 15:19 Ns IV 04/21/24 13:45 Infused .Q1H1M GIRISH Infusion Iohexol 100 ml 04/21/24 14:13 04/21/24 14:14 Iohexol 350 Mg/Ml 100 Ml Infus..Btl IV 04/21/24 14:14 65 ml ONCE ONE Administration Medical Decision Making Medical Decision Making MDM Narrative: Differential diagnosis includes, but is not limited to arrhythmia, dehydration, electrolyte abnormality, pulmonary embolism, pulmonary fibrosis, CHF exacerbation. I considered pneumonia as etiology of her dyspnea, but she does not have any infectious symptoms to suggest this etiology such as with fever, myalgias or sputum production. Patient is afebrile and hemodynamically stable. She is noted to be in atrial fibrillation with rapid ventricular response on telemetry. Exam is benign and reassuring. I reviewed and interpreted labs, which are noncontributory. She has baseline anemia with hemoglobin 9.5 (previous 10.3) and kidney disease with Cr 1.57 (previous 1.81) I reviewed and interpreted EKG, which ... Chest x-ray demonstrates right lower lobe opacity and mild interstitial edema with vascular redistribution. Patient is provided 1L IV NS and 15mg IV diltiazem. Patient remains with elevated heart rates and so is given 25mg IV diltiazem and 30mg po diltiazem. She has borderline hypoxia with SpO2 90% and so given tachycardia and dyspnea will obtain CT imaging for evaluation of pulmonary embolism and further characterization of x-ray findings. CTA chest demonstrates no evidence of pulmonary embolism, enlarged heart and CHF, question 2 cm cyst in the tail of the pancreas. Patient initially given fluids in hopes of improving preload in setting of atrial fibrillation with rapid ventricular response. However, imaging studies as above demonstrate evidence of fluid overload. Per chart review, patient does not appear to be on diuretic therapy and thus will provide 20 mg IV Lasix. Patient is admitted to hospitalist service at 1535 for further workup and management. Critical Care Time: A total of 45 minutes spent in direct patient care with coordinating critical resuscitation, procedures, reviewing records, discussing with consultants, reviewing labs, and/or managing patient. Admission/Observation Consideration of admission/observation: Escalation of care including admission/observation considered Consult Healthcare Provider Management of the patient was discussed with: Hospitalist I discussed case and management with admitting hospitalist (Isabel Holt) Lab Data MDM Lab Attestation statement: I reviewed the patient's lab results. 04/21/24 10:34 04/21/24 10:34 Labs: Lab Results 04/21/24 Range/Units 10:34 WBC 6.6 (4.8-10.8) X10*3/uL RBC 3.97 L (4.20-5.50) X10*6/uL Hgb 9.5 L (12.0-16.0) g/dl Hct 29.9 L (37.0-47.0) % MCV 75.3 L (80.0-98.0) fL MCH 23.9 L (27.0-33.0) pg MCHC 31.8 (31.0-35.0) g/dl RDW 16.9 H (11.0-16.0) % Plt Count 321 D (160-400) X10*3/uL MPV 8.9 L (9.4-12.3) fL Immature Gran % (Auto) 0.6 H (0.0-0.4) % Neut % (Auto) 74.2 H (45-73) % Lymph % (Auto) 12.3 L (20-40) % [place] % (Auto) 12.0 H (2-11) % Eos % (Auto) 0.0 (0-4) % Baso % (Auto) 0.9 (0-2) % Lymph # (Auto) 0.8 L (1.2-4.9) X10*3/uL [place] # (Auto) 0.8 (0.1-1.2) X10*3/uL Eos # (Auto) 0.0 (0.0-0.4) X10*3/uL Baso # (Auto) 0.1 (0.0-0.2) X10*3/uL Abs Immat Gran (auto) 0.04 H (0.00-0.03) X10*3/uL Absolute Neuts (auto) 4.9 (2.0-8.3) x10*3/uL Absolute Nucleated RBC 0.000 (0.0-0.012) X10*3/uL Nucleated RBC % (auto) 0.0 (0.0-0.2) /100WBC Sodium 135 (135-145) mmol/L Potassium 4.2 (3.3-5.1) mmol/L Chloride 104 (96-108) mmol/L Carbon Dioxide 21 L (22-29) mmol/L Anion Gap 14 (12-20) BUN 25 H (9-16) mg/dL Creatinine 1.57 H (0.5-1.4) mg/dL Estim Creat Clear Calc 30.5 Estimated GFR 32 Random Glucose 156 H (60-115) mg/dL Calcium 10.2 (8.4-10.2) mg/dL Total Bilirubin 0.5 (0.0-1.0) mg/dL AST 14 (5-31) U/L ALT 10 (0-31) U/L Alkaline Phosphatase 117 (39-117) U/L Troponin I High Sens 9.1 (<3.5-17.0) ng/L Total Protein 6.8 (6.5-8.0) g/dL Albumin 4.0 (3.5-5.0) g/dL Independent Interpretation I performed an independent interpretation of an: EKG Interpretation: EKG shows atrial fibrillation with rapid ventricular response at 129 beats per minute, no STEMI (compared to prior EKG November 22, 2022 heart rate is increased and atrial fibrillation is new) Radiology Impression Discussion of test interpretation with radiology: I have reviewed the radiologist's reading. Radiologist Impression: IMPRESSION: Right lower lobe opacity and mild interstitial edema with vascular redistribution Dictated By: Abigail León MD Signed By: <Electronically signed by Abigail León MD in [place]> 04/21/24 1159 IMPRESSION: No evidence of pulmonary embolism. Enlarged heart and CHF. Question 2 cm cyst in the tail of the pancreas. Follow-up dedicated pancreatic imaging should be considered. VTE: negative Dictated By: Bridgett Arauz MD Signed By: <Electronically signed by Bridgett Arauz MD in [place]> 04/21/24 3000 Discharge Plan Discharge Clinical Impression: Atrial fibrillation with rapid ventricular response, Acute exacerbation of CHF (congestive heart failure), Acute hypoxic respiratory failure Patient Disposition: Admitted As Inpatient Print Language: [place]
[2024-04-21] MEDS: dilTIAZem HCL 50 MG/10 ML VIAL 15 MG IVPUSH (13:14)
[2024-04-21] MEDS: 0.9 % Sodium Chloride 1,000 ML 999 ML IV (13:15)
--- NOTE | 2024-04-21 13:22 | ECG_ITS ---
Test Reason : SOB Blood Pressure : / mmHG Vent. Rate : 129 BPM Atrial Rate : 000 BPM P-R Int : 000 ms QRS Dur : 104 ms QT Int : 332 ms P-R-T Axes : 000 -46 066 degrees QTc Int : 486 ms Atrial fibrillation with rapid ventricular response Left axis deviation Minimal voltage criteria for LVH, may be normal variant ( Cristofer product ) Septal infarct (cited on or before 22-NOV-2022) Abnormal ECG When compared with ECG of 22-NOV-2022 11:25, Atrial fibrillation has replaced Sinus rhythm Vent. rate has increased BY 68 BPM T wave amplitude has increased in Lateral leads Referred By: Aroldo Sethi Electronically Signed By:ARTHUR CALI MD
--- NOTE | 2024-04-21 13:58 | PC.NURSE ---
pt taken to CT scan
[2024-04-21] MEDS: iohexoL 350 MG/ML 100 ML INFUS..BTL IV (14:14)
[2024-04-21] MEDS: dilTIAZem HCL 30 MG TABLET PO ×3 (14:19→23:44)
[2024-04-21] MEDS: dilTIAZem HCL 50 MG/10 ML VIAL 25 MG IVPUSH (14:19)
[2024-04-21] MEDS: Furosemide 20 MG/2 ML VIAL IVPUSH (15:46)
--- NOTE | 2024-04-21 15:57 | PHA.MEDREC ---
Addendum entered by Jeanine Marie [facility] 04/21/24 18:29: Patient confirmed she started amiodarone 200 mg on wednesday04/14/24, therefore is taking 200 mg BID until 04/27/24 then starting 200 mg QD on 04/28 Original Note: Pharmacy Consult ? Medication Reconciliation Pharmacy has completed the medication reconciliation. Confirmed meds with patient.
--- NOTE | 2024-04-21 16:19 | P.HPHOSP_ITS ---
History of Present Illness Date of Service: 04/21/24 Attending physician on admission: Vijay Garcia Chief Complaint: Palipitations, SOB Pt is an 83-year-old female with a PMH significant for?paroxysmal AFib on Eliquis s/p multiple cardioversions and ablation (03/2023), HTN, CKD 3, and hypothyroidism who presents to the ED for evaluation of palpitations and shortness of breath. Patient previously underwent ablation at [facility] on 03/2023 after 7 failed cardioversions. Approximately 10 days ago patient woke up feeling palpitations and found herself back in AFib. Follows with Dr. Gonzales in Cardiology. Called his office and was started on diltiazem and a higher dose of amiodarone. 5-6 days later patient began developing shortness of breath, dyspnea upon exertion, nonproductive cough, and orthopnea. Also has noticed increased swelling in lower legs. Change in cardiac medications did not help, and patient experienced worsening shortness of breath which prompted her visit to the ED today. Denies fever, chills, nausea, vomiting, abdominal pain. No diarrhea. Denies chest pain/pressure. In the ED pt was tachycardic up to 148, tachypneic up to 24, hypertensive as high as 196/93, Labs were grossly unremarkable and around baseline for patient. Microcytic anemia of 9.5/29.9 with MCV 75.3,. Renal function baseline. No significant electrolyte abnormalities. Hepatic function WNL. Troponin WNL at 9.1, in line with previous. BNP pending. CXR showed right lower lobe opacity and mild interstitial edema with vascular redistribution. CTA of chest found no evidence of pulmonary embolism, but showed enlarged heart and CHF, also had question of 2 cm cyst in the tail of pancreas. EKG demonstrated AFib with RVR of 120 without evidence of significant ST elevations or depressions. Pt was treated with diltiazem 15 mg IV, 25 mg IV, 30 mg p.o., IVF, and furosemide 20 mg IV. Pt will be admitted to the hospital for treatment and further evaluation acute hypoxic respiratory failure in the setting of AFib with RVR and subsequent CHF exacerbation. Review of Systems 2 Review of Systems: Palpitations Shortness of breath, KHAN Nonproductive cough Orthopnea Lower leg edema Denies chest pain/pressure No fever, chills, nausea, vomiting, diarrhea, abdominal pain PMFSH Medical History Adult general medical exam Screening for breast cancer PAF (paroxysmal atrial fibrillation) Persistent atrial fibrillation Breast cancer screening by mammogram PAF (paroxysmal atrial fibrillation) Hx of skin cancer, basal cell Elevated serum creatinine Screening for colon cancer Screening for osteoporosis Therapeutic drug monitoring Cough with congestion of paranasal sinus Abnormal creatinine clearance glomerular filtration Breath shortness Rash History of cardioversion PAF (paroxysmal atrial fibrillation) Atrial fibrillation with rapid ventricular response History of vitamin D deficiency History of hypothyroidism Anticoagulant long-term use Hx of squamous cell carcinoma of skin Vitamin B 12 deficiency High cholesterol Hypertension, essential Family History Mother Stroke Father Pancreatic cancer Brother Lyme disease Surgical History S/P ablation of atrial fibrillation History of hand surgery History of dilation and curettage Status post surgical removal of malignant neoplasm of skin Social History Household Members: None Housing: House Do you presently have visiting nurse or other home services: No Alcohol intake: never Comment: pt refuses bed alarm Patient Tobacco Use Status: Never used Tobacco Smoked in Last 30 Days: No e-Cigarette/Vaping Use: Never Used Second Hand Smoke Exposure: No Use of substances other than those prescribed or required for medical reasons: No Advance Directives: Yes Advance Directives Information Provided: Yes Advance Directives on File: No Advance Directives Date on File: 11/19/22 service: No Current occupational status: retired Cognitive needs: No Hearing needs: No Vision needs: Yes (Patient wears reading glasses.) Meds Allergies Allergy/AdvReac Type Severity Reaction Status Date / Time amlodipine Allergy Intermediate Swelling Verified 04/21/24 09:34 ankles/feet w rash prednisone Allergy Intermediate REd Verified 04/21/24 09:34 Blotchy codeine AdvReac Intermediate Swelling Verified 04/21/24 09:34 sulfamethoxazole AdvReac Intermediate Stomach Verified 04/21/24 09:34 [From Bactrim] Upset metoprolol AdvReac Hypotension Verified 04/21/24 17:26 Home Medications ?Medication ?Instructions ?Recorded ?Confirmed ?Last Taken ?Type acetaminophen 500 mg tablet 500 mg PO DAILY PRN Pain 04/22/23 04/21/24 Unknown History (Tylenol Extra Strength) mupirocin 2 % topical ointment 1 appl topical DAILY 04/21/24 04/21/24 Unknown History Physical Exam 2 Vital Signs and Narrative: Vital Signs: Last Vital Signs Temp 98.2 F 04/21/24 12:27 Pulse 116 H 04/21/24 15:18 Resp 24 H 04/21/24 15:18 BP 157/104 H 04/21/24 15:46 Pulse Ox 93 04/21/24 15:18 O2 Del Method Nasal Cannula 04/21/24 15:18 O2 Flow Rate 2 04/21/24 15:18 BMI result Body Mass Index 27.5 Constitutional: Alert, in no acute distress. Mental Status: Oriented to person, place and time. Eyes: Pupils are equal, round, and reactive to light. Ear, Nose, and Throat: Oropharynx clear, mucous membranes moist. Ears and nose without deformities. Trachea midline. Respiratory: Clear to auscultation bilaterally. No wheezing, rales, or rhonchi. Cardiovascular: Irregularly irregular rhythm. No murmurs, rubs, or gallops. Gastrointestinal: Abdomen soft, non-tender, non-distended. Normal bowel sounds. Neurologic: Cranial nerves II-XII are grossly intact bilaterally. No focal neurological deficits. Moves all extremities spontaneously. Skin: Warm, dry. Extremities: 2+ bilateral pitting lower leg edema. Psychiatric: Normal mood and affect. Results Labs 04/21/24 10:34 04/21/24 10:34 Labs: Laboratory Results - last 24 hr 04/21/24 10:34 MCV 75.3 L MCH 23.9 L MCHC 31.8 RDW 16.9 H Plt Count 321 D MPV 8.9 L Immature Gran % (Auto) 0.6 H Neut % (Auto) 74.2 H Lymph % (Auto) 12.3 L [place] % (Auto) 12.0 H Eos % (Auto) 0.0 Baso % (Auto) 0.9 Lymph # (Auto) 0.8 L [place] # (Auto) 0.8 Eos # (Auto) 0.0 Baso # (Auto) 0.1 Abs Immat Gran (auto) 0.04 H Absolute Neuts (auto) 4.9 Absolute Nucleated RBC 0.000 Nucleated RBC % (auto) 0.0 Anion Gap 14 Estim Creat Clear Calc 30.5 Estimated GFR 32 Random Glucose 156 H Calcium 10.2 Total Bilirubin 0.5 AST 14 ALT 10 Alkaline Phosphatase 117 Troponin I High Sens 9.1 Total Protein 6.8 Albumin 4.0 Imaging Radiologist's Impressions: Impressions Chest X-Ray 04/21/24 11:10 IMPRESSION: Right lower lobe opacity and mild interstitial edema with vascular redistribution Chest CTA 04/21/24 14:25 IMPRESSION: No evidence of pulmonary embolism. Enlarged heart and CHF. Question 2 cm cyst in the tail of the pancreas. Follow-up dedicated pancreatic imaging should be considered. VTE: negative Assessment and Plan (1) Acute hypoxic respiratory failure: Status: Acute (2) Acute exacerbation of CHF (congestive heart failure): Status: Acute (3) Atrial fibrillation with rapid ventricular response: Status: Acute Plan Pt is an 83-year-old female with a PMH significant for?paroxysmal AFib on Eliquis s/p multiple cardioversions and ablation (03/2023), HFpEF, HTN, CKD 3, and hypothyroidism who presents to the ED for evaluation of palpitations and shortness of breath. Pt will be admitted to the hospital for treatment and further evaluation acute hypoxic respiratory failure in the setting of AFib with RVR and subsequent CHF exacerbation. Atrial fibrillation with RVR Heart rate has been as high as 148, currently 113 Patient given diltiazem 15 mg IV, 25 mg IV, and 30 mg p.o. Pt unable to tolerate metoprolol Will treat with diltiazem 30mg p.o. q6h Continue amiodarone Cardiology consult Monitor on telemetry Acute hypoxic respiratory failure in the setting of acute HFpEF exacerbation Patient with SOB, KHAN, orthopnea, increased LLE, nonproductive cough x4-5 days, desatting to 87% on RA CXR showing mild interstitial edema with vascular redistribution, CTA showing CHF Limited echo on 08/26/2023 with LVEF of 62% Patient given Lasix 20 mg IV in the ED Will treat with Lasix 40 mg IV daily Monitor I/O, lytes, Mag Daily weights, low-salt diet Echocardiogram Cardiology consult Titrate supplemental O2 >92, wean as tolerated Monitor on telemetry HTN Continue hydralazine Hypothyroidism Continue levothyroxine CKD stage IIIB Creatinine 1.57, at baseline Monitor labs Full Code Attending:?Dr. Jesin DVT Prophylaxis: On Eliquis Pt will require a hospitalization of at least two nights for treatment of?acute hypoxi respiratory failure in the setting of AFib with RVR and subsequent HFpEF exacerbation. Patient will require treatment with IV diuretics, medications for rate and rhythm control, and supplemental oxygen, as well as close monitoring of labs, cardiac function, and respiratory status. Quality Stroke Does the patient have a stroke diagnosis?: No VTE Prior VTE?: No VTE Risk Level:: Medical - moderate - high VTE Device Contraindication: Treatment Not Indicated VTE Drug Contraindication: N/A - Med Ordered
[2024-04-21 16:51] LABS: B Type Natriuretic Peptide 805 pg/mL (<100)
--- NOTE | 2024-04-21 19:49 | PC.NURSE ---
this rn assumed care of pt, pt resting in stretcher, no acute distress noted. pt given sanitary pads per request, commode empties. denies pain at this time.
[2024-04-21] MEDS: Pravastatin Sodium 40 MG TABLET PO (20:44)
[2024-04-21] MEDS: Amiodarone HCL 200 MG TABLET PO (20:45)
[2024-04-21] MEDS: Apixaban 5 MG TABLET PO (20:45)
[2024-04-21] MEDS: hydrALAZINE HCl 25 MG TABLET PO (20:45)
--- NOTE | 2024-04-21 20:46 | PC.NURSE ---
pt medicated per mar, tolerated well with water.
[2024-04-22] VITALS (12 sets, daily range): BP systolic 112–156; BP diastolic 76–100; PULSE 98–116; RESP 16–19; TEMP 36.2–36.8; O2SAT 93–98
[2024-04-22] MEDS: 0.9 % Sodium Chloride Flush 3 ML SYRINGE IVFLUSH ×3 (00:11→22:54)
[2024-04-22] MEDS: dilTIAZem HCL 30 MG TABLET PO (05:58)
[2024-04-22] MEDS: Levothyroxine Sodium 50 MCG TABLET PO (05:58)
--- NOTE | 2024-04-22 05:59 | PC.NURSE ---
pt medicated per mar, tolerated well. vss.
[2024-04-22 06:31] LABS: Hematocrit 29.8 % (37.0-47.0); Hemoglobin 9.3 g/dl (12.0-16.0); Mean Corpuscular HGB Conc 31.2 g/dl (31.0-35.0); Mean Corpuscular Hemoglobin 23.5 pg (27.0-33.0); Mean Corpuscular Volume 75.3 fL (80.0-98.0); Mean Platelet Volume 9.1 fL (9.4-12.3); Platelet Count 319 X10*3/uL (160-400); Red Blood Count 3.96 X10*6/uL (4.20-5.50); Red Cell Distribution Width 16.8 % (11.0-16.0); White Blood Count 6.9 X10*3/uL (4.8-10.8)
[2024-04-22 06:41] LABS: Alanine Aminotransferase 9 U/L (0-31); Albumin Level 3.7 g/dL (3.5-5.0); Alkaline Phosphatase 113 U/L (39-117); Anion Gap 13 (12-20); Aspartate Amino Transferase 13 U/L (5-31); Bilirubin Total 0.6 mg/dL (0.0-1.0); Blood Urea Nitrogen 20 mg/dL (9-16); Calcium 10.5 mg/dL (8.4-10.2); Carbon Dioxide 23 mmol/L (22-29); Chloride 104 mmol/L (96-108); Creatinine Clr Calc Pharmacy 33.2; Estimated Glomerular Filt Rate 35; Glucose Random 116 mg/dL (60-115); Potassium 3.8 mmol/L (3.3-5.1); Sodium 136 mmol/L (135-145); Total Protein 6.3 g/dL (6.5-8.0)
[2024-04-22] MEDS: hydrALAZINE HCl 25 MG TABLET PO ×2 (09:24→22:52)
[2024-04-22] MEDS: Furosemide 40 MG/4 ML VIAL IVPUSH (09:25)
[2024-04-22] MEDS: Amiodarone HCL 200 MG TABLET PO ×2 (09:25→22:52)
[2024-04-22] MEDS: Apixaban 5 MG TABLET PO ×2 (09:25→22:52)
--- NOTE | 2024-04-22 09:30 | PC.NURSE ---
patient siting up in bed, alert and oriented x3. patient ate her breakfast this morning, currently on 3l NC, patient currently in afib rate between high 90s to 110s. patient stats she feels better this morning, medicated per MAR, respirations equal and unlabored, skin dry and intact
[2024-04-22] MEDS: dilTIAZem HCL 60 MG TABLET PO ×3 (09:34→22:53)
--- NOTE | 2024-04-22 11:04 | PM.CNCAR ---
History of Present Illness History of Present Illness Date of Service: 04/22/24 Requesting physician: Vijay Garcia Consult reason: atrial fibrillation and congestive heart failure Chief complaint: AFib w/RVR, CHF exacerbation Narrative: I was consulted to see Sandi in cardiology consultation today for development of congestive heart failure in a patient with recently recurrent atrial fibrillation. She has a pleasant 83-year-old female with difficult to treat atrial fibrillation past undergoing ablation in March of last year after multiple cardioversion attempts and eventually failing to maintain rhythm. After that she was taken off amiodarone therapy and has been taking oral anticoagulation therapy and says he has been doing very well till about 8 or 9 days ago when she started having recurrent episodes of rapid heart rate. There was no obvious clear triggers for her atrial fibrillation. She was seen in the office after confirmation she was started on amiodarone loading 400 mg b.i.d. along with Cardizem. She would follow-up EKG done and the Cardizem was continued and medications were continued however few days ago she started having increasing symptoms of shortness of breath, leg swelling, orthopnea, PND and she came to the emergency room. Here she was noted to be in recurrent congestive heart failure and has been diuresed. She says today she feels a lot better and breathing is improved although she remains with atrial flutter with rapid ventricular response. Cardiology consult was sought for further management plan. She denies any lightheadedness, syncope Review of Systems Constitutional: Constitutional: Reports no additional constitutional complaints Eyes: Eyes: Reports no additional eye complaints Cardiovascular: Cardiovascular: Denies chest pain, Reports leg edema, Denies lightheadedness, Reports palpitations, Reports dyspnea on exertion and Reports orthopnea Respiratory: Respiratory: Reports no additional respiratory complaints and Reports dyspnea on exertion Gastrointestinal: Gastrointestinal: Reports no additional gastrointestinal complaints Genitourinary: Genitourinary: Reports no additional female genitourinary complaints Endocrine: Endocrine: Reports palpitations PMFSH Past Medical History Medical History Adult general medical exam Screening for breast cancer PAF (paroxysmal atrial fibrillation) Persistent atrial fibrillation Breast cancer screening by mammogram PAF (paroxysmal atrial fibrillation) Hx of skin cancer, basal cell Elevated serum creatinine Screening for colon cancer Screening for osteoporosis Therapeutic drug monitoring Cough with congestion of paranasal sinus Abnormal creatinine clearance glomerular filtration Breath shortness Rash History of cardioversion PAF (paroxysmal atrial fibrillation) Atrial fibrillation with rapid ventricular response History of vitamin D deficiency History of hypothyroidism Anticoagulant long-term use Hx of squamous cell carcinoma of skin Vitamin B 12 deficiency High cholesterol Hypertension, essential Family History Family History Mother Stroke Father Pancreatic cancer Brother Lyme disease Surgical History Surgical History S/P ablation of atrial fibrillation History of hand surgery History of dilation and curettage Status post surgical removal of malignant neoplasm of skin Social History Social History Household Members: None Housing: House Do you presently have visiting nurse or other home services: No Alcohol intake: never Comment: pt refuses bed alarm Patient Tobacco Use Status: Never used Tobacco Smoked in Last 30 Days: No e-Cigarette/Vaping Use: Never Used Second Hand Smoke Exposure: No Use of substances other than those prescribed or required for medical reasons: No Advance Directives: Yes Advance Directives Information Provided: Yes Advance Directives on File: No Advance Directives Date on File: 11/19/22 Nutrition Risks: No Nutritional Risk service: No Current occupational status: retired Cognitive needs: No Hearing needs: No Vision needs: Yes (Patient wears reading glasses.) Meds Allergies Allergy/AdvReac Type Severity Reaction Status Date / Time amlodipine Allergy Intermediate Swelling Verified 04/21/24 09:34 ankles/feet w rash prednisone Allergy Intermediate REd Verified 04/21/24 09:34 Blotchy codeine AdvReac Intermediate Swelling Verified 04/21/24 09:34 sulfamethoxazole AdvReac Intermediate Stomach Verified 04/21/24 09:34 [From Bactrim] Upset metoprolol AdvReac Hypotension Verified 04/21/24 17:26 Active Medications: Current Medications Acetaminophen (Acetaminophen 325 Mg Tablet) 650 mg PO Q6H PRN PRN Reason: Pain, Mild (Pain Scale 1-3) Amiodarone HCl (Amiodarone Hcl 200 Mg Tablet) 200 mg PO DAILY [facility] Amiodarone HCl (Amiodarone Hcl 200 Mg Tablet) 200 mg PO BID [facility] Stop: 04/27/24 20:59 Last Admin: 04/22/24 09:25 Dose: 200 mg Apixaban (Apixaban 5 Mg Tablet) 5 mg PO BID [facility] Last Admin: 04/22/24 09:25 Dose: 5 mg Benzonatate (Benzonatate 100 Mg Capsule) 100 mg PO TID PRN PRN Reason: Cough Diltiazem HCl (Diltiazem Hcl 60 Mg Tablet) 60 mg PO Q6H [facility]; Protocol Last Admin: 04/22/24 09:34 Dose: 60 mg Docusate Sodium (Docusate Sodium 100 Mg Capsule) 100 mg PO DAILY PRN PRN Reason: Constipation Furosemide (Furosemide 40 Mg/4 Ml Vial) 40 mg IVPUSH DAILY [facility]; Protocol Last Admin: 04/22/24 09:25 Dose: 40 mg Hydralazine HCl (Hydralazine Hcl 25 Mg Tablet) 25 mg PO BID [facility]; Protocol Last Admin: 04/22/24 09:24 Dose: 25 mg Levothyroxine Sodium (Levothyroxine Sodium 50 Mcg Tablet) 50 mcg PO DAILY@0600 [facility] Last Admin: 04/22/24 05:58 Dose: 50 mcg Melatonin (Melatonin 3 Mg Tablet) 6 mg PO BEDTIME PRN PRN Reason: Insomnia Ondansetron HCl (Ondansetron Hcl 4 Mg/2 Ml Vial) 4 mg IVPUSH Q8H PRN PRN Reason: Nausea and Vomiting Pravastatin Sodium (Pravastatin Sodium 40 Mg Tablet) 40 mg PO BEDTIME [facility] Last Admin: 04/21/24 20:44 Dose: 40 mg Sodium Chloride (0.9 % Sodium Chloride Flush 3 Ml Syringe) 3 ml IVFLUSH QSHIFT [facility] Last Admin: 04/22/24 07:53 Dose: Not Given Home Medications ?Medication ?Instructions ?Recorded ?Confirmed ?Last Taken ?Type acetaminophen 500 mg tablet 500 mg PO DAILY PRN Pain 04/22/23 04/21/24 Unknown History (Tylenol Extra Strength) mupirocin 2 % topical ointment 1 appl topical DAILY 04/21/24 04/21/24 Unknown History Physical Exam Vital Signs: Vital Signs: Last Vital Signs Temp 97.6 F 04/22/24 09:25 Pulse 111 H 04/22/24 09:25 Resp 19 04/22/24 09:25 BP 112/86 04/22/24 09:25 Pulse Ox 94 04/22/24 09:25 O2 Del Method Nasal Cannula 04/22/24 09:25 O2 Flow Rate 3 04/22/24 09:25 BMI result Body Mass Index 27.5 Const: General: cooperative, comfortable, alert and awake Nutritional Appearance: average body habitus Orientation/consciousness: patient oriented x3 Limitations: no limitations HEENT: Head: Yes normocephalic and Yes atraumatic Neck: Neck: Yes trachea midline, Yes supple and Yes JVD Resp: Effort & Inspection: normal respiratory effort Auscultation: clear to auscultation bilaterally Cardio: Jugular venous distension: JVD Rate: tachycardic Rhythm: abnormal rhythm irregularly irregular Heart sounds: S1 normal heart sound present, S2 normal heart sound present, no click, no gallops, no murmurs and no rubs GI: Auscultation: normal bowel sounds Skin: General skin exam: no rashes or lesions noted and ecchymosis Neuro: General: patient oriented x3 and no focal motor deficits Extrem: General: No clubbing, No cyanosis and Yes edema Objective Labs and Meds 04/22/24 06:07 04/22/24 06:07 Lab results: Laboratory Results - last 24 hr 04/21/24 04/21/24 04/22/24 10:34 16:22 06:07 WBC 6.9 RBC 3.96 L Hgb 9.3 L Hct 29.8 L MCV 75.3 L MCH 23.5 L MCHC 31.2 RDW 16.8 H Plt Count 319 MPV 9.1 L Absolute Nucleated RBC 0.000 Nucleated RBC % (auto) 0.0 Sodium 136 Potassium 3.8 Chloride 104 Carbon Dioxide 23 Anion Gap 13 BUN 20 H Creatinine 1.44 H Estim Creat Clear Calc 33.2 Estimated GFR 35 Random Glucose 116 H Calcium 10.5 H Magnesium 2.0 Total Bilirubin 0.6 AST 13 ALT 9 Alkaline Phosphatase 113 Troponin I High Sens 9.1 B-Natriuretic Peptide 805 H Total Protein 6.3 L Albumin 3.7 Imaging Radiologist's impression: Impressions Chest X-Ray 04/21/24 11:10 IMPRESSION: Right lower lobe opacity and mild interstitial edema with vascular redistribution Chest CTA 04/21/24 14:25 IMPRESSION: No evidence of pulmonary embolism. Enlarged heart and CHF. Question 2 cm cyst in the tail of the pancreas. Follow-up dedicated pancreatic imaging should be considered. VTE: negative Assessment and Plan (1) Acute exacerbation of CHF (congestive heart failure): Status: Acute Decompensated congestive heart failure related to recurrent atrial fibrillation now with rapid ventricular response. Requires rhythm control approach in the long run. She has had very long course of atrial fibrillation which is resistant to rhythm management in the past. Will continue with aggressive rate control approach and uptitrate Cardizem. See below. Continue IV diuresis. Continue monitor renal function as well as BNP tomorrow. Replace electrolytes as needed. Does not require echocardiogram at this point in time. (2) Atrial fibrillation with rapid ventricular response: Status: Acute Recurrent atrial fibrillation which has been going on for many years has been resistant to rhythm management. Underwent ablation and was taken of antiarrhythmic drug therapy many months ago but has now recurrent atrial fibrillation. Started on amiodarone loading and this is not completed. I would suggest that amiodarone loading to be completed prior to pursuing cardioversion although she will have recurrent atrial fibrillation after that although if she fails to improve clinically may require sooner synchronized cardioversion. Continue to uptitrate Cardizem to 60 mg q.6 for better rate control. Continue full oral anticoagulation. Will follow with Procedures Date of Service Date of Service: 04/22/24
--- NOTE | 2024-04-22 11:10 | P.PNIM_ITS ---
Subjective Subjective Date of Service: 04/22/24 Interval History: sob Physical Exam 2 Vital Signs: Vital Signs: Last Vital Signs Temp 97.6 F 04/22/24 09:25 Pulse 111 H 04/22/24 09:25 Resp 19 04/22/24 09:25 BP 112/86 04/22/24 09:25 Pulse Ox 94 04/22/24 09:25 O2 Del Method Nasal Cannula 04/22/24 09:25 O2 Flow Rate 3 04/22/24 09:25 BMI result Body Mass Index 27.5 Const: General: cooperative, comfortable, alert and awake Nutritional Appearance: average body habitus Orientation/consciousness: patient oriented x3 Limitations: no limitations HEENT: Head: Yes normocephalic and Yes atraumatic Neck: Neck: Yes trachea midline, Yes supple and Yes JVD Resp: Effort & Inspection: normal respiratory effort Auscultation: clear to auscultation bilaterally Cardio: Jugular venous distension: JVD Rate: tachycardic Rhythm: a bnormal rhythm irregularly irregular Heart sounds: S1 normal heart sound present, S2 normal heart sound present, no click, no gallops, no murmurs and no rubs GI: Auscultation: normal bowel sounds Skin: General skin exam: no rashes or lesions noted and ecchymosis Neuro: General: patient oriented x3 and no focal motor deficits Extrem: General: No clubbing, No cyanosis and Yes edema Objective Data Active Medications Acetaminophen (Acetaminophen 325 Mg Tablet) 650 mg PO Q6H PRN PRN Reason: Pain, Mild (Pain Scale 1-3) Amiodarone HCl (Amiodarone Hcl 200 Mg Tablet) 200 mg PO DAILY [facility] Amiodarone HCl (Amiodarone Hcl 200 Mg Tablet) 200 mg PO BID [facility] Stop: 04/27/24 20:59 Last Admin: 04/22/24 09:25 Dose: 200 mg Documented By: CHERRY Apixaban (Apixaban 5 Mg Tablet) 5 mg PO BID [facility] Last Admin: 04/22/24 09:25 Dose: 5 mg Documented By: CHERRY Benzonatate (Benzonatate 100 Mg Capsule) 100 mg PO TID PRN PRN Reason: Cough Diltiazem HCl (Diltiazem Hcl 60 Mg Tablet) 60 mg PO Q6H [facility]; Protocol Last Admin: 04/22/24 09:34 Dose: 60 mg Documented By: CHERRY Docusate Sodium (Docusate Sodium 100 Mg Capsule) 100 mg PO DAILY PRN PRN Reason: Constipation Furosemide (Furosemide 40 Mg/4 Ml Vial) 40 mg IVPUSH DAILY [facility]; Protocol Last Admin: 04/22/24 09:25 Dose: 40 mg Documented By: CHERRY Hydralazine HCl (Hydralazine Hcl 25 Mg Tablet) 25 mg PO BID [facility]; Protocol Last Admin: 04/22/24 09:24 Dose: 25 mg Documented By: CHERRY Levothyroxine Sodium (Levothyroxine Sodium 50 Mcg Tablet) 50 mcg PO DAILY@0600 [facility] Last Admin: 04/22/24 05:58 Dose: 50 mcg Documented By: ARTURO Melatonin (Melatonin 3 Mg Tablet) 6 mg PO BEDTIME PRN PRN Reason: Insomnia Ondansetron HCl (Ondansetron Hcl 4 Mg/2 Ml Vial) 4 mg IVPUSH Q8H PRN PRN Reason: Nausea and Vomiting Pravastatin Sodium (Pravastatin Sodium 40 Mg Tablet) 40 mg PO BEDTIME [facility] Last Admin: 04/21/24 20:44 Dose: 40 mg Documented By: ARTURO Sodium Chloride (0.9 % Sodium Chloride Flush 3 Ml Syringe) 3 ml IVFLUSH QSHIFT [facility] Last Admin: 04/22/24 07:53 Dose: Not Given Documented By: CHERRY Non-Admin Reason: See Note Labs 04/22/24 06:07 04/22/24 06:07 Labs: Laboratory Results - last 24 hr 04/21/24 04/22/24 16:22 06:07 MCV 75.3 L MCH 23.5 L MCHC 31.2 RDW 16.8 H Plt Count 319 MPV 9.1 L Absolute Nucleated RBC 0.000 Nucleated RBC % (auto) 0.0 Anion Gap 13 Estim Creat Clear Calc 33.2 Estimated GFR 35 Random Glucose 116 H Calcium 10.5 H Magnesium 2.0 Total Bilirubin 0.6 AST 13 ALT 9 Alkaline Phosphatase 113 B-Natriuretic Peptide 805 H Total Protein 6.3 L Albumin 3.7 Assessment and Plan (1) Acute hypoxic respiratory failure: Status: Acute Plan 83F PMH pafib, hfpef, ckd3, htn, hypothyroid presented with sob and palpitations Acute hypoxic respiratory failure secondary to acute on chronic diastolic CHF IV Lasix, wean O2 as tolerated Paroxysmal atrial fibrillation with rapid ventricular response Does not tolerate metoprolol Increase diltiazem to 60 mg q.6, continue Eliquis Continue amiodarone loading Eventual cardioversion after amiodarone loading Cardiology following Hypertension Hydralazine, diltiazem Hypothyroid Levothyroxine CKD IIIb Creatinine stable DVT prophylaxis on Eliquis Full code reason for continued hospitalization: Heart rate not adequately controlled, ongoing IV diuresis Quality Stroke Does the patient have a stroke diagnosis?: No VTE Prior VTE?: No VTE Risk Level:: Medical - moderate - high VTE Device Contraindication: Treatment Not Indicated VTE Drug Contraindication: N/A - Med Ordered
[2024-04-22] MEDS: Pravastatin Sodium 40 MG TABLET PO (22:46)
[2024-04-23] VITALS (8 sets, daily range): BP systolic 119–166; BP diastolic 69–89; PULSE 94–120; RESP 16–19; TEMP 36–36.6; O2SAT 94–99
[2024-04-23] MEDS: dilTIAZem HCL 60 MG TABLET PO ×2 (04:05→09:40)
[2024-04-23] MEDS: Levothyroxine Sodium 50 MCG TABLET PO (06:59)
[2024-04-23 07:37] LABS: Hematocrit 29.7 % (37.0-47.0); Hemoglobin 9.4 g/dl (12.0-16.0); Mean Corpuscular HGB Conc 31.6 g/dl (31.0-35.0); Mean Corpuscular Hemoglobin 23.9 pg (27.0-33.0); Mean Corpuscular Volume 75.6 fL (80.0-98.0); Mean Platelet Volume 8.8 fL (9.4-12.3); Platelet Count 325 X10*3/uL (160-400); Red Blood Count 3.93 X10*6/uL (4.20-5.50); Red Cell Distribution Width 16.8 % (11.0-16.0); White Blood Count 6.8 X10*3/uL (4.8-10.8)
[2024-04-23 08:00] LABS: Alanine Aminotransferase 8 U/L (0-31); Albumin Level 3.5 g/dL (3.5-5.0); Alkaline Phosphatase 96 U/L (39-117); Anion Gap 11 (12-20); Aspartate Amino Transferase 13 U/L (5-31); Bilirubin Total 0.6 mg/dL (0.0-1.0); Blood Urea Nitrogen 22 mg/dL (9-16); Calcium 9.5 mg/dL (8.4-10.2); Carbon Dioxide 26 mmol/L (22-29); Chloride 102 mmol/L (96-108); Creatinine Clr Calc Pharmacy 33.7; Estimated Glomerular Filt Rate 36; Glucose Fasting 104 mg/dL (60-99); Glucose Random 103 mg/dL (60-115); Potassium 3.6 mmol/L (3.3-5.1); Sodium 135 mmol/L (135-145)
--- NOTE | 2024-04-23 09:05 | HO.PM.IMPN ---
Subjective Subjective Date of Service: 04/23/24 Interval History: feeling better Physical Exam Vital Signs: Vital Signs: Last Vital Signs Temp 96.8 F 04/23/24 07:43 Pulse 120 H 04/23/24 07:43 Resp 18 04/23/24 07:43 BP 129/86 04/23/24 07:43 Pulse Ox 94 04/23/24 07:43 O2 Del Method Nasal Cannula 04/23/24 07:43 O2 Flow Rate 3 04/23/24 07:43 BMI result Body Mass Index 27.5 Const: General: cooperative, comfortable, alert and awake Nutritional Appearance: average body habitus Orientation/consciousness: patient oriented x3 Limitations: no limitations HEENT: Head: Yes normocephalic and Yes atraumatic Neck: Neck: Yes trachea midline, Yes supple and Yes JVD Resp: Effort & Inspection: normal respiratory effort Auscultation: clear to auscultation bilaterally Cardio: Jugular venous distension: JVD Rate: tachycardic Rhythm: abnormal rhythm irregularly irregular Heart sounds: S1 normal heart sound present, S2 normal heart sound present, no click, no gallops, no murmurs and no rubs GI: Auscultation: normal bowel sounds Skin: General skin exam: no rashes or lesions noted and ecchymosis Neuro: General: patient oriented x3 and no focal motor deficits Extrem: General: No clubbing, No cyanosis and Yes edema Objective Data Active Medications Acetaminophen (Acetaminophen 325 Mg Tablet) 650 mg PO Q6H PRN PRN Reason: Pain, Mild (Pain Scale 1-3) Amiodarone HCl (Amiodarone Hcl 200 Mg Tablet) 200 mg PO DAILY [facility] Amiodarone HCl (Amiodarone Hcl 200 Mg Tablet) 400 mg PO BID [facility] Stop: 04/27/24 20:59 Apixaban (Apixaban 5 Mg Tablet) 5 mg PO BID [facility] Last Admin: 04/22/24 22:52 Dose: 5 mg Documented By: MADISON Benzonatate (Benzonatate 100 Mg Capsule) 100 mg PO TID PRN PRN Reason: Cough Diltiazem HCl (Diltiazem Hcl 60 Mg Tablet) 60 mg PO Q6H [facility]; Protocol Last Admin: 04/23/24 04:05 Dose: 60 mg Documented By: MADISON Docusate Sodium (Docusate Sodium 100 Mg Capsule) 100 mg PO DAILY PRN PRN Reason: Constipation Furosemide (Furosemide 40 Mg/4 Ml Vial) 40 mg IVPUSH DAILY [facility]; Protocol Last Admin: 04/22/24 09:25 Dose: 40 mg Documented By: CHERRY Hydralazine HCl (Hydralazine Hcl 25 Mg Tablet) 25 mg PO BID [facility]; Protocol Last Admin: 04/22/24 22:52 Dose: 25 mg Documented By: MADISON Levothyroxine Sodium (Levothyroxine Sodium 50 Mcg Tablet) 50 mcg PO DAILY@0600 [facility] Last Admin: 04/23/24 06:59 Dose: 50 mcg Documented By: MADISON Melatonin (Melatonin 3 Mg Tablet) 6 mg PO BEDTIME PRN PRN Reason: Insomnia Ondansetron HCl (Ondansetron Hcl 4 Mg/2 Ml Vial) 4 mg IVPUSH Q8H PRN PRN Reason: Nausea and Vomiting Pravastatin Sodium (Pravastatin Sodium 40 Mg Tablet) 40 mg PO BEDTIME [facility] Last Admin: 04/22/24 22:46 Dose: 40 mg Documented By: MADISON Sodium Chloride (0.9 % Sodium Chloride Flush 3 Ml Syringe) 3 ml IVFLUSH QSHIFT [facility] Last Admin: 04/22/24 22:54 Dose: 3 ml Documented By: MADISON Labs 04/23/24 07:21 04/23/24 07:21 Labs: Laboratory Results - last 24 hr 04/23/24 07:21 MCV 75.6 L MCH 23.9 L MCHC 31.6 RDW 16.8 H Plt Count 325 MPV 8.8 L Absolute Nucleated RBC 0.000 Nucleated RBC % (auto) 0.0 Anion Gap 11 L Estim Creat Clear Calc 33.7 Estimated GFR 36 Random Glucose 103 Fasting Glucose 104 H Calcium 9.5 D Magnesium 2.0 Total Bilirubin 0.6 AST 13 ALT 8 Alkaline Phosphatase 96 Total Protein 6.0 L Albumin 3.5 Assessment and Plan (1) Acute hypoxic respiratory failure: Status: Acute Plan 83F PMH pafib, hfpef, ckd3, htn, hypothyroid presented with sob and palpitations Acute hypoxic respiratory failure secondary to acute on chronic diastolic CHF IV Lasix, wean O2 as tolerated Paroxysmal atrial fibrillation with rapid ventricular response Does not tolerate metoprolol Increase diltiazem to 60 mg q.6, continue Eliquis Continue amiodarone loading 400mg bid until 04/28/24 then 200mg daily Eventual cardioversion after amiodarone loading Cardiology following Hypertension Hydralazine, diltiazem Hypothyroid Levothyroxine CKD IIIb Creatinine stable DVT prophylaxis on Eliquis Full code reason for continued hospitalization: Heart rate not adequately controlled, ongoing IV diuresis Quality Stroke Does the patient have a stroke diagnosis?: No VTE Prior VTE?: No VTE Risk Level:: Medical - moderate - high VTE Device Contraindication: Treatment Not Indicated VTE Drug Contraindication: N/A - Med Ordered
[2024-04-23] MEDS: Furosemide 40 MG/4 ML VIAL IVPUSH (09:40)
[2024-04-23] MEDS: hydrALAZINE HCl 25 MG TABLET PO ×2 (09:40→22:36)
[2024-04-23] MEDS: Amiodarone HCL 200 MG TABLET 400 MG PO ×2 (09:41→22:36)
[2024-04-23] MEDS: Apixaban 5 MG TABLET PO ×2 (09:41→22:34)
[2024-04-23] MEDS: 0.9 % Sodium Chloride Flush 3 ML SYRINGE IVFLUSH ×3 (09:42→22:38)
--- NOTE | 2024-04-23 11:23 | PM.PNCARD ---
Subjective Subjective Date of Service: 04/23/24 Principal diagnosis: Atrial fibrillation, congestive heart failure. Interval history: Patient says she is using a lot better. Heart rate is better controlled although still between 90-105 Blood pressure is elevated. Urine output is not short it. Renal function is actually improved slightly. Review of Systems Constitutional: Reports no additional constitutional complaints Cardiovascular: Reports palpitations (Improve) and Reports dyspnea on exertion (Improving) Respiratory: Reports dyspnea on exertion (Improving) Endocrine: Reports palpitations (Improve) Physical Exam Vital Signs: Last Vital Signs Temp 97.3 F 04/23/24 10:46 Pulse 110 H 04/23/24 10:46 Resp 19 04/23/24 10:46 BP 148/89 H 04/23/24 10:46 Pulse Ox 96 04/23/24 10:46 O2 Del Method Nasal Cannula 04/23/24 10:46 O2 Flow Rate 3 04/23/24 10:46 BMI result Body Mass Index 27.5 Const General: cooperative, comfortable, alert and awake Nutritional Appearance: average body habitus Orientation/consciousness: patient oriented x3 Limitations: no limitations HEENT Head: Yes normocephalic and Yes atraumatic Neck Neck: Yes trachea midline, Yes supple and Yes no JVD Resp Effort & Inspection: normal respiratory effort Auscultation: clear to auscultation bilaterally Cardio Jugular venous distension: JVD Rate: tachycardic Rhythm: abnormal rhythm irregularly irregular Heart sounds: S1 normal heart sound present, S2 normal heart sound present, no click, no gallops, no murmurs and no rubs GI Auscultation: normal bowel sounds Skin General skin exam: no rashes or lesions noted and ecchymosis Neuro General: patient oriented x3 and no focal motor deficits Extrem General: No clubbing, No cyanosis and Yes edema Objective Labs and Meds 04/23/24 07:21 04/23/24 07:21 Lab results: Laboratory Results - last 24 hr 04/23/24 07:21 WBC 6.8 RBC 3.93 L Hgb 9.4 L Hct 29.7 L MCV 75.6 L MCH 23.9 L MCHC 31.6 RDW 16.8 H Plt Count 325 MPV 8.8 L Absolute Nucleated RBC 0.000 Nucleated RBC % (auto) 0.0 Sodium 135 Potassium 3.6 Chloride 102 Carbon Dioxide 26 Anion Gap 11 L BUN 22 H Creatinine 1.42 H Estim Creat Clear Calc 33.7 Estimated GFR 36 Random Glucose 103 Fasting Glucose 104 H Calcium 9.5 D Magnesium 2.0 Total Bilirubin 0.6 AST 13 ALT 8 Alkaline Phosphatase 96 Total Protein 6.0 L Albumin 3.5 Progress Note: A&P Assessment and plan (1) Acute exacerbation of CHF (congestive heart failure): Status: Acute Assessment and Plan: Acute congestive heart failure related to recurrent atrial fibrillation. Requires rhythm control approach. Will pursue the same in the near future. Continue IV diuresis for 1 more day. Strict intake and output chart needs to be pursued. Trend BMP and BNP tomorrow. If feeling better planned for discharge tomorrow. Oxygen desaturation study and ambulate today as tolerated. Better rate control see below. (2) Atrial fibrillation with rapid ventricular response: Status: Acute Assessment and Plan: Continue amiodarone loading for 400 mg b.i.d. till completed. Switch to 200 mg daily beyond that. Increase Cardizem if possible to 75 mg q.6 or to 90 mg q.6 for better rate control. Continue full oral anticoagulation. Will follow with you Time Spent With Patient Time: Total time managing care of this patient today ____ minutes. Progress Note: Quality Stroke Does the patient have a stroke diagnosis?: No Procedures Date of Service Date of Service: 04/23/24
--- NOTE | 2024-04-23 11:31 | MHC.CM.PN ---
PT REPORTS SHE LIVES ALONE AND IS INDEPENDENT WITH CARE SHE HAS NO SERVICES AND NO DME PT REPORTS HER SON IS HER HCP, COPY REQUESTED PCP: JACQUES ESPINAL IMM AND RIGHTS DELIVERED DCP: HOME NO SERVICES VIA PRIVATE TRANSPORT
--- NOTE | 2024-04-23 14:30 | ECG_ITS ---
Test Reason : CP Blood Pressure : / mmHG Vent. Rate : 110 BPM Atrial Rate : 267 BPM P-R Int : 000 ms QRS Dur : 104 ms QT Int : 344 ms P-R-T Axes : 000 -41 012 degrees QTc Int : 465 ms Atrial flutter with variable A-V block Left axis deviation Minimal voltage criteria for LVH, may be normal variant ( Cristofer product ) Anterior infarct (cited on or before 22-NOV-2022) Abnormal ECG When compared with ECG of 23-APR-2024 14:30, No significant changes seen Referred By: Aroldo Sethi Electronically Signed By:ESTIVEN HARMON
[2024-04-23] MEDS: dilTIAZem HCL 30 MG TABLET 90 MG PO ×2 (17:09→22:34)
[2024-04-23] MEDS: Pravastatin Sodium 40 MG TABLET PO (22:34)
[2024-04-24] VITALS (8 sets, daily range): BP systolic 119–148; BP diastolic 62–78; PULSE 72–102; RESP 18–20; TEMP 36.2–36.7; O2SAT 92–98
[2024-04-24] MEDS: dilTIAZem HCL 30 MG TABLET 90 MG PO ×3 (06:10→17:30)
[2024-04-24] MEDS: Levothyroxine Sodium 50 MCG TABLET PO (06:10)
[2024-04-24 07:08] LABS: Hematocrit 32.7 % (37.0-47.0); Hemoglobin 10.1 g/dl (12.0-16.0); Mean Corpuscular HGB Conc 30.9 g/dl (31.0-35.0); Mean Corpuscular Hemoglobin 23.5 pg (27.0-33.0); Mean Platelet Volume 8.7 fL (9.4-12.3); Platelet Count 380 X10*3/uL (160-400); Red Cell Distribution Width 16.7 % (11.0-16.0); White Blood Count 8.3 X10*3/uL (4.8-10.8)
[2024-04-24 07:33] LABS: Alanine Aminotransferase 10 U/L (0-31); Alkaline Phosphatase 109 U/L (39-117); Anion Gap 19 (12-20); Aspartate Amino Transferase 13 U/L (5-31); Bilirubin Total 0.6 mg/dL (0.0-1.0); Blood Urea Nitrogen 34 mg/dL (9-16); Calcium 9.8 mg/dL (8.4-10.2); Carbon Dioxide 25 mmol/L (22-29); Chloride 98 mmol/L (96-108); Creatinine Clr Calc Pharmacy 26.4; Estimated Glomerular Filt Rate 27; Glucose Fasting 113 mg/dL (60-99); Glucose Random 113 mg/dL (60-115); Potassium 3.6 mmol/L (3.3-5.1); Sodium 138 mmol/L (135-145); Total Protein 6.7 g/dL (6.5-8.0)
[2024-04-24 07:35] LABS: B Type Natriuretic Peptide 208 pg/mL (<100)
[2024-04-24] MEDS: Furosemide 40 MG/4 ML VIAL IVPUSH (09:10)
[2024-04-24] MEDS: Apixaban 5 MG TABLET PO (09:10)
[2024-04-24] MEDS: hydrALAZINE HCl 25 MG TABLET PO (09:10)
[2024-04-24] MEDS: Amiodarone HCL 200 MG TABLET 400 MG PO (09:10)
[2024-04-24] MEDS: 0.9 % Sodium Chloride Flush 3 ML SYRINGE IVFLUSH ×2 (09:11→17:31)
--- NOTE | 2024-04-24 09:23 | PM.PNCARD ---
Subjective Subjective Date of Service: 04/24/24 Principal diagnosis: Atrial fibrillation, congestive heart failure. Interval history: Patient states she feels generally okay. However, not at her baseline. The atrial fibrillation still bothering her. Review of Systems Review of Systems Yes all other systems are reviewed and are negative Constitutional: Reports as per HPI and Reports no additional constitutional complaints Eyes: Reports as per HPI and Denies no additional eye complaints Denies system reviewed and no additional complaints, except as documented and Reports as per HPI Cardiovascular: Reports as per HPI, Reports no additional cardiovascular complaints, Denies acrocyanosis, Denies cool extremities, Denies chest pain, Denies leg edema, Denies lightheadedness, Reports palpitations and Reports dyspnea Respiratory: Reports as per HPI, Denies no additional respiratory complaints and Reports dyspnea Gastrointestinal: Reports as per HPI and Denies no additional gastrointestinal complaints Genitourinary: Reports as per HPI Musculoskeletal: Reports no additional musculoskeletal complaints and Reports as per HPI Skin/Breast: Reports system reviewed and no additional complaints, except as docu Reports system reviewed and no additional complaints, except as documented and Reports as per HPI Psychiatric: Reports no additional psychiatric complaints and Reports as per HPI Endocrine: Reports no additional endocrine complaints, Reports as per HPI and Reports palpitations Hematologic/Lymphatic: Reports no additional hematologic/lymphatic complaints and Reports as per HPI Allergic/Immunologic: Reports no additional allergic/immunologic complaints and Reports as per HPI Physical Exam Vital Signs: Last Vital Signs Temp 97.2 F 04/24/24 08:00 Pulse 89 04/24/24 08:00 Resp 20 04/24/24 08:00 BP 136/62 04/24/24 08:00 Pulse Ox 96 04/24/24 08:00 O2 Del Method Room Air 04/24/24 08:00 O2 Flow Rate 2 04/24/24 04:00 BMI result Body Mass Index 27.5 Const General: comfortable and no acute distress Orientation/consciousness: patient oriented x3 HEENT Other: Unremarkable Head: Yes normal to inspection Neck Neck: Yes normal visual inspection Chest Chest palpation & inspection: normal inspection of the chest Resp Auscultation: clear to auscultation bilaterally Cardio Palpation: normal PMI Heart sounds: S1 normal heart sound present, S2 normal heart sound present, no gallops, no murmurs and no rubs GI Palpation (GI): Soft to palpation Back/Spine/Pelvis Other: unremarkable Skin General skin exam: no rashes or lesions noted Neuro General: patient oriented x3 Extrem General: Yes normal to inspection Psych Mental Status: mental status grossly normal Objective Labs and Meds 04/24/24 06:55 04/24/24 06:55 Lab results: Laboratory Results - last 24 hr 04/24/24 06:55 WBC 8.3 RBC 4.30 Hgb 10.1 L Hct 32.7 L MCV 76.0 L MCH 23.5 L MCHC 30.9 L RDW 16.7 H Plt Count 380 MPV 8.7 L Absolute Nucleated RBC 0.000 Nucleated RBC % (auto) 0.0 Sodium 138 Potassium 3.6 Chloride 98 Carbon Dioxide 25 Anion Gap 19 BUN 34 H Creatinine 1.81 H Estim Creat Clear Calc 26.4 Estimated GFR 27 Random Glucose 113 Fasting Glucose 113 H Calcium 9.8 Magnesium 2.0 Total Bilirubin 0.6 AST 13 ALT 10 Alkaline Phosphatase 109 B-Natriuretic Peptide 208 H Total Protein 6.7 Albumin 4.0 Progress Note: A&P Assessment and plan (1) Atrial flutter with rapid ventricular response: Status: Acute Plan History of prior cardioversions as well as atrial fibrillation ablation. Atrial fibrillation ablation was done last year, 2022. She is back in atrial flutter with rapid rate. Per notes, it seems she has been on amiodarone since 04/13. Also on diltiazem and Eliquis. Will plan for cardioversion tomorrow. Keep NPO past midnight. Time Spent With Patient Time: Total time managing care of this patient today ____ minutes. Progress Note: Quality Stroke Does the patient have a stroke diagnosis?: No Procedures Date of Service Date of Service: 04/24/24
--- NOTE | 2024-04-24 09:32 | P.PNIM_ITS ---
Subjective Subjective Date of Service: 04/24/24 Interval History: sob Physical Exam 2 Vital Signs: Vital Signs: Last Vital Signs Temp 97.2 F 04/24/24 08:00 Pulse 89 04/24/24 08:00 Resp 20 04/24/24 08:00 BP 136/62 04/24/24 08:00 Pulse Ox 96 04/24/24 08:00 O2 Del Method Room Air 04/24/24 08:00 O2 Flow Rate 2 04/24/24 04:00 BMI result Body Mass Index 27.5 Const: General: comfortable and no acute distress O rientation/consciousness: patient oriented x3 HEENT: Other: Unremarkable Head: Yes normal to inspection Neck: Neck: Yes normal visual inspection Chest: Chest palpation & inspection: normal inspection of the chest Resp: Auscultation: clear to auscultation bilaterally Cardio: Palpation: normal PMI Heart sounds: S1 normal heart sound present, S2 normal heart sound present, no gallops, no murmurs and no rubs GI: Palpation (GI): Soft to palpation Back/Spine/Pelvis: Other: unremarkable Skin: General skin exam: no rashes or lesions noted Neuro: General: patient oriented x3 Extrem: General: Yes normal to inspection Psych: Mental Status: mental status grossly normal Objective Data Active Medications Acetaminophen (Acetaminophen 325 Mg Tablet) 650 mg PO Q6H PRN PRN Reason: Pain, Mild (Pain Scale 1-3) Amiodarone HCl (Amiodarone Hcl 200 Mg Tablet) 200 mg PO DAILY [facility] Amiodarone HCl (Amiodarone Hcl 200 Mg Tablet) 400 mg PO BID [facility] Stop: 04/27/24 20:59 Last Admin: 04/24/24 09:10 Dose: 400 mg Documented By: ITFFANY Apixaban (Apixaban 5 Mg Tablet) 5 mg PO BID [facility] Last Admin: 04/24/24 09:10 Dose: 5 mg Documented By: TIFFANY Benzonatate (Benzonatate 100 Mg Capsule) 100 mg PO TID PRN PRN Reason: Cough Diltiazem HCl (Diltiazem Hcl 30 Mg Tablet) 90 mg PO Q6H [facility]; Protocol Last Admin: 04/24/24 06:10 Dose: 90 mg Documented By: AMAYA Docusate Sodium (Docusate Sodium 100 Mg Capsule) 100 mg PO DAILY PRN PRN Reason: Constipation Furosemide (Furosemide 40 Mg/4 Ml Vial) 40 mg IVPUSH DAILY [facility]; Protocol Last Admin: 04/24/24 09:10 Dose: 40 mg Documented By: TIFFANY Hydralazine HCl (Hydralazine Hcl 25 Mg Tablet) 25 mg PO BID [facility]; Protocol Last Admin: 04/24/24 09:10 Dose: 25 mg Documented By: TIFFANY Levothyroxine Sodium (Levothyroxine Sodium 50 Mcg Tablet) 50 mcg PO DAILY@0600 [facility] Last Admin: 04/24/24 06:10 Dose: 50 mcg Documented By: AMAYA Melatonin (Melatonin 3 Mg Tablet) 6 mg PO BEDTIME PRN PRN Reason: Insomnia Ondansetron HCl (Ondansetron Hcl 4 Mg/2 Ml Vial) 4 mg IVPUSH Q8H PRN PRN Reason: Nausea and Vomiting Pravastatin Sodium (Pravastatin Sodium 40 Mg Tablet) 40 mg PO BEDTIME [facility] Last Admin: 04/23/24 22:34 Dose: 40 mg Documented By: AMAYA Sodium Chloride (0.9 % Sodium Chloride Flush 3 Ml Syringe) 3 ml IVFLUSH QSHIFT [facility] Last Admin: 04/24/24 09:11 Dose: 3 ml Documented By: TIFFANY Labs 04/24/24 06:55 04/24/24 06:55 Labs: Laboratory Results - last 24 hr 04/24/24 06:55 MCV 76.0 L MCH 23.5 L MCHC 30.9 L RDW 16.7 H Plt Count 380 MPV 8.7 L Absolute Nucleated RBC 0.000 Nucleated RBC % (auto) 0.0 Anion Gap 19 Estim Creat Clear Calc 26.4 Estimated GFR 27 Random Glucose 113 Fasting Glucose 113 H Calcium 9.8 Magnesium 2.0 Total Bilirubin 0.6 AST 13 ALT 10 Alkaline Phosphatase 109 B-Natriuretic Peptide 208 H Total Protein 6.7 Albumin 4.0 Assessment and Plan (1) Acute hypoxic respiratory failure: Status: Acute Plan 83F PMH pafib, hfpef, ckd3, htn, hypothyroid presented with sob and palpitations Acute hypoxic respiratory failure secondary to acute on chronic diastolic CHF IV Lasix, wean O2 as tolerated Paroxysmal atrial fibrillation with rapid ventricular response Does not tolerate metoprolol diltiazem to 90 mg q.6, continue Eliquis Continue amiodarone loading 400mg bid until 04/28/24 then 200mg daily plan for cardioversion 04/25/24 Hypertension Hydralazine, diltiazem Hypothyroid Levothyroxine CKD IIIb Creatinine stable DVT prophylaxis on Eliquis Full code reason for continued hospitalization: Heart rate not adequately controlled, ongoing IV diuresis Quality Stroke Does the patient have a stroke diagnosis?: No VTE Prior VTE?: No VTE Risk Level:: Medical - moderate - high VTE Device Contraindication: Treatment Not Indicated VTE Drug Contraindication: N/A - Med Ordered
--- NOTE | 2024-04-24 10:29 | MHC.CM.PN ---
PER MD ROUNDS, PLAN IS FOR CARDIOVERSION TOMORROW (04/25/24). NO PLAN FOR DC TODAY
--- NOTE | 2024-04-24 13:06 | HE.PHANOTE ---
RE APIXABAN DOSING RENAL FUNCTION CONTINUES TO DECLINE SO CONFIRMED WITH DR GRIDER THAT OK TO DECREASE TO 2.5 MG APIXABAN BID
[2024-04-25] VITALS (9 sets, daily range): BP systolic 129–167; BP diastolic 58–73; PULSE 59–73; RESP 18–20; TEMP 36.1–36.6; O2SAT 93–96
[2024-04-25] MEDS: dilTIAZem HCL 30 MG TABLET 90 MG PO ×2 (00:03→06:20)
[2024-04-25] MEDS: hydrALAZINE HCl 25 MG TABLET PO ×2 (00:04→08:50)
[2024-04-25] MEDS: Pravastatin Sodium 40 MG TABLET PO (00:04)
[2024-04-25] MEDS: Apixaban 2.5 MG TABLET PO ×2 (00:06→08:51)
[2024-04-25] MEDS: Amiodarone HCL 200 MG TABLET 400 MG PO ×2 (00:08→08:51)
[2024-04-25] MEDS: 0.9 % Sodium Chloride Flush 3 ML SYRINGE IVFLUSH ×2 (00:10→08:56)
[2024-04-25] MEDS: Levothyroxine Sodium 50 MCG TABLET PO (05:58)
[2024-04-25 06:41] LABS: Hemoglobin 9.1 g/dl (12.0-16.0); Mean Corpuscular HGB Conc 31.4 g/dl (31.0-35.0); Mean Corpuscular Hemoglobin 23.2 pg (27.0-33.0); Mean Platelet Volume 8.6 fL (9.4-12.3); Platelet Count 330 X10*3/uL (160-400); Red Blood Count 3.92 X10*6/uL (4.20-5.50); Red Cell Distribution Width 16.7 % (11.0-16.0); White Blood Count 7.4 X10*3/uL (4.8-10.8)
[2024-04-25 06:54] LABS: Anion Gap 16 (12-20); Blood Urea Nitrogen 34 mg/dL (9-16); Calcium 9.5 mg/dL (8.4-10.2); Carbon Dioxide 25 mmol/L (22-29); Chloride 99 mmol/L (96-108); Creatinine Clr Calc Pharmacy 28.1; Estimated Glomerular Filt Rate 29; Glucose Fasting 103 mg/dL (60-99); Potassium 3.6 mmol/L (3.3-5.1); Sodium 136 mmol/L (135-145)
--- NOTE | 2024-04-25 09:28 | PM.PNCARD ---
Subjective Subjective Date of Service: 04/25/24 Principal diagnosis: Atrial fibrillation, congestive heart failure. Interval history: Feels good. Review of Systems Review of Systems Yes all other systems are reviewed and are negative Constitutional: Reports as per HPI and Reports no additional constitutional complaints Eyes: Reports as per HPI and Denies no additional eye complaints Denies system reviewed and no additional complaints, except as documented and Reports as per HPI Cardiovascular: Reports as per HPI, Reports no additional cardiovascular complaints, Denies acrocyanosis, Denies cool extremities, Denies chest pain, Denies leg edema, Denies lightheadedness, Denies palpitations and Denies dyspnea Respiratory: Reports as per HPI, Denies no additional respiratory complaints and Denies dyspnea Gastrointestinal: Reports as per HPI and Denies no additional gastrointestinal complaints Genitourinary: Reports as per HPI Musculoskeletal: Reports no additional musculoskeletal complaints and Reports as per HPI Skin/Breast: Reports system reviewed and no additional complaints, except as docu Reports system reviewed and no additional complaints, except as documented and Reports as per HPI Psychiatric: Reports no additional psychiatric complaints and Reports as per HPI Endocrine: Reports no additional endocrine complaints, Reports as per HPI and Denies palpitations Hematologic/Lymphatic: Reports no additional hematologic/lymphatic complaints and Reports as per HPI Allergic/Immunologic: Reports no additional allergic/immunologic complaints and Reports as per HPI Physical Exam Vital Signs: Last Vital Signs Temp 97.3 F 04/25/24 07:47 Pulse 69 04/25/24 07:47 Resp 18 04/25/24 07:47 BP 133/67 04/25/24 08:50 Pulse Ox 93 04/25/24 07:47 O2 Del Method Room Air 04/25/24 07:47 O2 Flow Rate 2 04/24/24 04:00 BMI result Body Mass Index 27.5 Const General: comfortable and no acute distress Orientation/consciousness: patient oriented x3 HEENT Other: Unremarkable Head: Yes normal to inspection Neck Neck: Yes normal visual inspection Chest Chest palpation & inspection: normal inspection of the chest Resp Auscultation: clear to auscultation bilaterally Cardio Palpation: normal PMI Heart sounds: S1 normal heart sound present, S2 normal heart sound present, no gallops, no murmurs and no rubs GI Palpation (GI): Soft to palpation Back/Spine/Pelvis Other: unremarkable Skin General skin exam: no rashes or lesions noted Neuro General: patient oriented x3 Extrem General: Yes normal to inspection Psych Mental Status: mental status grossly normal Objective Labs and Meds 04/25/24 06:32 04/25/24 06:32 Lab results: Laboratory Results - last 24 hr 04/25/24 06:32 WBC 7.4 RBC 3.92 L Hgb 9.1 L Hct 29.0 L MCV 74.0 L MCH 23.2 L MCHC 31.4 RDW 16.7 H Plt Count 330 MPV 8.6 L Absolute Nucleated RBC 0.000 Nucleated RBC % (auto) 0.0 Sodium 136 Potassium 3.6 Chloride 99 Carbon Dioxide 25 Anion Gap 16 BUN 34 H Creatinine 1.70 H Estim Creat Clear Calc 28.1 Estimated GFR 29 Fasting Glucose 103 H Calcium 9.5 Progress Note: A&P Assessment and plan (1) Atrial flutter with rapid ventricular response: Status: Acute Plan History of prior cardioversions as well as atrial fibrillation ablation. Atrial fibrillation ablation was done last year, 2022. She is back in atrial flutter with rapid rate. Per notes, it seems she has been on amiodarone since 04/13. Also on diltiazem and Eliquis. We were planning repeat cardioversion today but it seems that she converted back to sinus rhythm. Continue amiodarone. Will refer back to EP for another ablation. Continue diltiazem without changes. Continue anticoagulation. Time Spent With Patient Time: Total time managing care of this patient today ____ minutes. Progress Note: Quality Stroke Does the patient have a stroke diagnosis?: No Procedures Date of Service Date of Service: 04/25/24
--- NOTE | 2024-04-25 09:50 | P.DS_ITS ---
DS: Providers Provider Date of Service: 04/25/24 Date of admission: 04/21/24 17:27 Primary care physician: Capo Sales MD Consults: 04/21/24 17:32 Consult to Cardiology Routine Consulting Provider: [facility] [place] [facility] Reason for consultation: AFib w/RVR, CHF exacerbation DS: Diagnosis Discharge Diagnosis (1) Atrial flutter with rapid ventricular response: Status: Acute DS: Summary Hospital Course Hospital Course: from initial hpi: 83-year-old female with a PMH significant for?paroxysmal AFib on Eliquis s/p multiple cardioversions and ablation (03/2023), HTN, CKD 3, and hypothyroidism who presents to the ED for evaluation of palpitations and shortness of breath. Patient previously underwent ablation at [facility] [place] on 03/2023 after 7 failed cardioversions. Approximately 10 days ago patient woke up feeling palpitations and found herself back in AFib. Follows with Dr. Gonzales in Cardiology. Called his office and was started on diltiazem and a higher dose of amiodarone. 5-6 days later patient began developing shortness of breath, dyspnea upon exertion, nonproductive cough, and orthopnea. Also has noticed increased swelling in lower legs. Change in cardiac medications did not help, and patient experienced worsening shortness of breath which prompted her visit to the ED today. Denies fever, chills, nausea, vomiting, abdominal pain. No diarrhea. Denies chest pain/pressure. In the ED pt was tachycardic up to 148, tachypneic up to 24, hypertensive as high as 196/93, Labs were grossly unremarkable and around baseline for patient. Microcytic anemia of 9.5/29.9 with MCV 75.3,. Renal function baseline. No significant electrolyte abnormalities. Hepatic function WNL. Troponin WNL at 9.1, in line with previous. BNP pending. CXR showed right lower lobe opacity a nd mild interstitial edema with vascular redistribution. CTA of chest found no evidence of pulmonary embolism, but showed enlarged heart and CHF, also had question of 2 cm cyst in the tail of pancreas. EKG demonstrated AFib with RVR of 120 without evidence of significant ST elevations or depressions. Pt was treated with diltiazem 15 mg IV, 25 mg IV, 30 mg p.o., IVF, and furosemide 20 mg IV. Pt will be admitted to the hospital for treatment and further evaluation acute hypoxic respiratory failure in the setting of AFib with RVR and subsequent CHF exacerbation. hospital course: Patient was admitted for acute hypoxic respiratory failure secondary to acute on chronic diastolic CHF. She was treated with IV Lasix and weaned off of oxygen. His shortness of breath significantly improved. Course also complicated by paroxysmal atrial fibrillation with rapid ventricular response. She was treated with diltiazem, and ongoing amiodarone load, plan was for cardioversion, however, the patient converted on her own. She will be discharged home and continue amiodarone loading until 04/28/2024 then decrease to 200 mg daily, she is also on Eliquis for anticoagulation. She will follow up with Cardiology as outpatient. For hypertension was continued on hydralazine and diltiazem. For hypothyroidism was continued on Synthroid. Her CKD IIIb remained stable. Time Attestation Discharge Coordination Time (in mins): 33 Quality: Safe Use of Opioids Does Pt have an Active Cancer Diagnosis on the Problem List?: No Quality: Stroke Does the patient have a stroke diagnosis?: No Physical Exam Vital Signs: Vital Signs: Last Vital Signs Temp 97.3 F 04/25/24 07:47 Pulse 69 04/25/24 07:47 Resp 18 04/25/24 07:47 BP 133/67 04/25/24 08:50 Pulse Ox 93 04/25/24 07:47 O2 Del Method Room Air 04/25/24 07:47 O2 Flow Rate 2 04/24/24 04:00 BMI result Body Mass Index 27.5 Const: General: comfortable and no acute distress Orientation/consciousness: patient oriented x3 HEENT: Other: Unremarkable Head: Yes normal to inspection Neck: Neck: Yes normal visual inspection Chest: Chest palpation & inspection: normal inspection of the chest Resp: Auscultation: clear to auscultation bilaterally Cardio: Palpation: normal PMI Heart sounds: S1 normal heart sound present, S2 normal heart sound present, no gallops, no murmurs and no rubs GI: Palpation (GI): Soft to palpation Back/Spine/Pelvis: Other: unremarkable Skin: General skin exam: no rashes or lesions noted Neuro: General: patient oriented x3 Extrem: General: Yes normal to inspection Psych: Mental Status: mental status grossly normal DS: Data Data Completed and Pending Completed studies during hospitalization [Text1]: Procedures Sikh of Cardiac Rhythm, Single (11/19/22) Labs on day of discharge: Laboratory Results - last 24 hr 04/25/24 06:32 WBC 7.4 RBC 3.92 L Hgb 9.1 L Hct 29.0 L MCV 74.0 L MCH 23.2 L MCHC 31.4 RDW 16.7 H Plt Count 330 MPV 8.6 L Absolute Nucleated RBC 0.000 Nucleated RBC % (auto) 0.0 Sodium 136 Potassium 3.6 Chloride 99 Carbon Dioxide 25 Anion Gap 16 BUN 34 H Creatinine 1.70 H Estim Creat Clear Calc 28.1 Estimated GFR 29 Fasting Glucose 103 H Calcium 9.5 Discharge Plan Discharge Anticipated Discharge Date/Time: 04/25/24 09:49 Patient Disposition: Home, Self-Care Discharge Diagnosis: afib, chf Referrals: Capo Sales MD [Primary Care Provider] - 1 Week Discharge Medications: Continued Eliquis 5 mg tablet 5 mg PO BID 90 Days Qty: 180 3RF pravastatin 40 mg tablet 40 mg PO BEDTIME 90 Days Qty: 90 3RF levothyroxine [Tirosint] 50 mcg capsule 50 mcg PO DAILY Qty: 30 11RF hydralazine 25 mg tablet 25 mg PO BID Qty: 180 1RF mupirocin 2 % ointment 1 appl topical DAILY acetaminophen [Tylenol Extra Strength] 500 mg tablet 500 mg PO DAILY PRN (Reason: Pain) amiodarone 200 mg tablet 200 mg PO .COMPLEX 30 Days Qty: 70 1RF Rx Instructions: 200 mg orally 2 tablets twice a day for 14 days then reduce dose to 1 tablet daily; diltiazem HCl 120 mg capsule,extended release 24hr 120 mg PO DAILY Qty: 30 3RF Discharge Orders: Discharge Order (Routine); Ordered 04/25/24 Ordered By: Vijay Garcia Diet: Advance to usual diet Activity on Discharge: As tolerated Stand Alone Forms: Patient Portal Discharge page Print Language: Lao Care Plan Goals: manage pafib Health Concerns: pafib Plan of Treatment: cotniue amiodaron loading, on wednesday decrease to 200mg daily, follow up with cardiology Assessment: see above
--- NOTE | 2024-04-25 10:17 | ECG_ITS ---
Test Reason : aflutte Blood Pressure : / mmHG Vent. Rate : 060 BPM Atrial Rate : 060 BPM P-R Int : 252 ms QRS Dur : 106 ms QT Int : 518 ms P-R-T Axes : 044 -41 -32 degrees QTc Int : 518 ms Sinus rhythm with 1st degree A-V block Left axis deviation Moderate voltage criteria for LVH, may be normal variant ( R in aVL , Cristofer product ) Anterior infarct (cited on or before 22-NOV-2022) Prolonged QT Abnormal ECG When compared with ECG of 23-APR-2024 14:30, Rhythm change Referred By: Estiven Harmon Electronically Signed By:ESTIVEN HARMON
--- NOTE | 2024-04-25 10:30 | MHC.CM.PN ---
Pt is medically cleared for discharge home self-care, pt has arranged her own transport home.
[2024-04-25] MEDS: dilTIAZem HCL CD 120 MG CAP.ER.DEG PO (11:33)
== END 2024-04-25 13:00 | disposition home or self-care (01) | DRG 308 ==
LOC: HO.ED 15:23 → HO.EDOVER 17:44 → HO.IMC 04-22 13:38
PROVIDERS: Admitting Provider Student in an Organized Health Care Education/Training Program; Emergency Provider Emergency Medicine; PCP Family Medicine; Visit Provider Internal Medicine
DX: I48.0 Paroxysmal atrial fibrillation (principal); I50.33 Acute on chronic diastolic (congestive) heart failure; J96.01 Acute respiratory failure with hypoxia; I13.0 Hypertensive heart and chronic kidney disease with heart failure and stage 1 through stage 4 chronic kidney disease, or unspecified chronic kidney disease; N18.32 Chronic kidney disease, stage 3b; E03.9 Hypothyroidism, unspecified; Z79.01 Long term (current) use of anticoagulants; Z79.890 Hormone replacement therapy; Z79.899 Other long term (current) drug therapy
CPT/HCPCS: 36415; 71045; 71275; 80048; 80053; 83735; 83880; 84484; 85025; 85027; 93005; 99285; J1940; Q9967

== ENCOUNTER 2024-04-21 17:27 | Outpatient (BNV) | payer MEDICARE, OTHER, SELFPAY | END 2024-04-23 14:30 | PROVIDERS: Admitting Provider Student in an Organized Health Care Education/Training Program; Emergency Provider Emergency Medicine; PCP Family Medicine; Visit Provider Internal Medicine | DX: R06.02 Shortness of breath (principal) | CPT/HCPCS: 93010 ==

== ENCOUNTER 2024-04-21 17:27 | Outpatient (BNV) | payer MEDICARE, OTHER, SELFPAY | END 2024-04-25 10:17 | PROVIDERS: Admitting Provider Student in an Organized Health Care Education/Training Program; Emergency Provider Emergency Medicine; PCP Family Medicine; Visit Provider Internal Medicine | DX: I48.92 Unspecified atrial flutter (principal) | CPT/HCPCS: 93010 ==

== ENCOUNTER → 2024-04-21 17:27 | Outpatient (BNV) | payer MEDICARE, OTHER, SELFPAY | PROVIDERS: Admitting Provider Student in an Organized Health Care Education/Training Program; Emergency Provider Emergency Medicine; PCP Family Medicine; Visit Provider Internal Medicine Cardiovascular Disease | DX: I48.92 Unspecified atrial flutter (principal); R06.02 Shortness of breath | CPT/HCPCS: 93010; 99222; 99233 ==

== ENCOUNTER → 2024-04-21 17:27 | Outpatient (BNV) | payer MEDICARE, OTHER, SELFPAY | PROVIDERS: Admitting Provider Student in an Organized Health Care Education/Training Program; Emergency Provider Emergency Medicine; PCP Family Medicine; Visit Provider Student in an Organized Health Care Education/Training Program | DX: J96.01 Acute respiratory failure with hypoxia (principal); I11.0 Hypertensive heart disease with heart failure; I50.9 Heart failure, unspecified; I48.92 Unspecified atrial flutter | CPT/HCPCS: 99223; 99232; 99233; 99239 ==

== ENCOUNTER → 2024-05-03 10:20 | Outpatient (REF) | payer MEDICARE, OTHER, SELFPAY ==
--- NOTE | 2024-05-03 10:23 | HM_ITS ---
* Total monitoring time 3 days. * Underlying rhythm is sinus with an average rate of 55/Min. About 87% of the time, rate < 60/Min. * Rare supraventricular ectopy. * Rare ventricular ectopy. One brief run of 5 beats. * No significant pauses or AV blocks. * Patient marker used once in association with supraventricular ectopy. * Patient diary with mention of ' flip flop', possible ectopic beat but there is also artifact. MTDD
== END ==
LOC: HO.CARD 10:20
PROVIDERS: PCP Family Medicine; Visit Provider Internal Medicine
DX: R00.2 Palpitations (principal); I48.92 Unspecified atrial flutter
CPT/HCPCS: 93242

== ENCOUNTER → 2024-05-03 10:23 | Outpatient (BNV) | payer MEDICARE, OTHER, SELFPAY | PROVIDERS: PCP Family Medicine; Visit Provider Internal Medicine | DX: I47.10 Supraventricular tachycardia, unspecified (principal) | CPT/HCPCS: 93244 ==

== ENCOUNTER 2024-05-12 08:55 | Outpatient (AMB) | payer MEDICARE, OTHER, SELFPAY ==
[2024-05-12 09:05] VITALS: BP 122/90; PULSE 64; BMI 27.2
--- NOTE | 2024-05-12 09:05 | A.OFFVIS_ITS ---
Vital Signs 05/12/24 09:05 Height 5 ft 7 in Weight 173 lb 8.061 oz BMI 27.2 BP 122/90 H Blood Pressure Location Lt brachial Position Sitting Pulse 64 Pulse Source Monitor Intake Visit Reasons: ED f/u Intake Note: ED f/u pt doing fine Domestic Travel Consultant Required: No Accompanied by: Self / Same As Patient Allergies amlodipine Allergy (Intermediate, Verified 04/21/24 09:34) Swelling ankles/feet w rash prednisone Allergy (Intermediate, Verified 04/21/24 09:34) REd Blotchy codeine Adverse Reaction (Intermediate, Verified 04/21/24 09:34) Swelling sulfamethoxazole [From Bactrim] Adverse Reaction (Intermediate, Verified 04/21/24 09:34) Stomach Upset metoprolol Adverse Reaction (Verified 04/21/24 17:26) Hypotension Medication List - Last Reconciled 05/12/24 by DELFINO Coronado acetaminophen (Tylenol Extra Strength) 500 mg PO DAILY PRN amiodarone 200 mg PO DAILY 90 days apixaban (Eliquis) 5 mg PO BID 90 days diltiazem HCl CD 120 mg PO DAILY hydralazine 25 mg PO BID levothyroxine (Tirosint) 50 mcg PO DAILY mupirocin 2% 1 appl topical DAILY pravastatin 40 mg PO BEDTIME 90 days HPI HPI ED f/u: Details: Sandi is an 83-year-old female with past medical history of hypertension, hyperlipidemia, cardiomyopathy, paroxysmal atrial fibrillation with prior cardioversion send recurrent AFib in underwent AFib ablation on 03/26/2023, recurrent AFib who was recently admitted to [facility] with AFib RVR and treated for rate control and mild Congestive heart failure. She was put on amiodarone loading dose and she did convert to sinus rhythm prior to discharge. Repeat ablation recommended. Today she reports that she has been doing well since her hospital discharge. At time she feels well. At other times she will notice fatigue, feeling very dragged down and documents her heart rate in the 40s. She has not noticed any recurrent atrial fibrillation. She will feel an occasional skip in her heartbeat. No chest discomfort, shortness of breath, dizziness, presyncope, syncope, PND, orthopnea. She does have chronic mild bilateral lower leg edema which she says currently is looking good for her. Taking all meds as directed. No bleeding issues reported. [facility] Medical History Adult general medical exam Screening for breast cancer PAF (paroxysmal atrial fibrillation) Persistent atrial fibrillation Breast cancer screening by mammogram PAF (paroxysmal atrial fibrillation) Hx of skin cancer, basal cell Elevated serum creatinine Screening for colon cancer Screening for osteoporosis Therapeutic drug monitoring Cough with congestion of paranasal sinus Abnormal creatinine clearance glomerular filtration Breath shortness Rash History of cardioversion PAF (paroxysmal atrial fibrillation) Atrial fibrillation with rapid ventricular response History of vitamin D deficiency History of hypothyroidism Anticoagulant long-term use Hx of squamous cell carcinoma of skin Vitamin B 12 deficiency High cholesterol Hypertension, essential Surgical History S/P ablation of atrial fibrillation History of hand surgery History of dilation and curettage Status post surgical removal of malignant neoplasm of skin Family History Mother Stroke Father Pancreatic cancer Brother Lyme disease Social History Household Members: None Housing: House Do you presently have visiting nurse or other home services: No Alcohol intake: never Comment: pt refuses bed alarm Patient Tobacco Use Status: Never used Tobacco e-Cigarette/Vaping Use: Never Used Second Hand Smoke Exposure: No Advance Directives Date on File: 11/19/22 service: No Current occupational status: retired Cognitive needs: No Hearing needs: No Vision needs: Yes (Patient wears reading glasses.) Review of Systems Const All systems reviewed & are unremarkable except as noted in HPI and below Denies chills, Reports fatigue, Denies fever(s), Denies frequent falls, Reports weakness, Denies weight gain and Denies weight loss ENT Denies dizziness Card Denies chest pain, Denies leg edema, Denies lightheadedness, Denies palpitations, Denies dyspnea and Denies dyspnea on exertion Resp Denies cough, Denies dyspnea and Denies dyspnea on exertion GI Denies hematochezia Musc Denies abnormal gait, Denies muscle weakness, Denies numbness, Denies radiating pain into limb and Denies tingling Neuro Denies abnormal gait, Denies dizziness, Denies frequent falls, Denies numbness, Denies tingling and Reports weakness Endo Reports fatigue and Denies palpitations Physical Exam Vital Signs: Last Vital Signs Pulse 64 05/12/24 09:05 BP 122/90 H 05/12/24 09:05 BMI result Body Mass Index 27.2 Const General: cooperative, healthy appearing, comfortable and no acute distress Orientation/consciousness: patient oriented x3 Neck Neck: Yes normal visual inspection and Yes no JVD Resp Effort & Inspection: normal respiratory effort Auscultation: clear to auscultation bilaterally, no crackles, no rales, no rhonchi and no wheezes Cardio Jugular venous distension: no JVD Rate: regular rate Rhythm: regular rhythm Heart sounds: S1 normal heart sound present, S2 normal heart sound present, no murmurs and no rubs Neuro General: patient oriented x3 Extrem General: Yes normal to inspection and No no pedal edema Psych Appearance: grossly normal Mental Status: mental status grossly normal Speech and movement: Normal speech and movement present Office Procedures EKG Details: Today, read by me, sinus rhythm first-degree AV block, left axis deviation, septal infarct, rate 64, no significant change from last EKG, QTC 447 millisecond [id number], Complete Assessment & Plan Assessment & Plan (1) PAF (paroxysmal atrial fibrillation): Code(s): I48.0 - Paroxysmal atrial fibrillation Category: Medical Plan: History of paroxysmal atrial fibrillation with prior failed cardioversions. She did undergo an AFib ablation on 03/26/[address] Guadalupe. She was recently admitted to [facility] with palpitations, shortness of breath and found to have AFib RV R which was treated with rate control. She was restarted on amiodarone load and converted to sinus rhythm. She did have evidence of mild congestive heart failure and is treated with IV diuretics. Outpatient Holter monitor done 05/03/2024 for 3 days shows sinus rhythm with average heart rate 55, 87% of time heart rate less than 60, one 5 beat ventricular run, no AFib. Today she reports that she has noticed some low heart rates and feelings of fatigued and dragged down at times, especially in the evenings. EKG done today showing normal sinus rhythm, first-degree AV block, left axis deviation, septal Q, unchanged from prior, rate 64. Will reduce her diltiazem dose from 120 mg daily down to 30 mg b.i.d.. Continue amiodarone at 200 mg daily. Continue Eliquis for anticoagulation. She has an electrophysiology appointment scheduled for 05/30/2024 to discuss repeat ablation. Instructed to call if she has issues with recurrent AFib. Emergency care if needed for symptoms. Cardiology follow-up 2- 3 months, sooner if needed. (2) Cardiomyopathy: Code(s): I42.9 - Cardiomyopathy, unspecified Category: Medical Plan: Mild cardiomyopathy. Last echo done 11/20/2022 showed EF 45-50%, left atrium mildly dilated, mild AR, mild MR, mild TR. May have been related to AFib with elevated rates. Prior echo in 2020 showed EF 65-70%. She has had recent AFib RVR. Will hold off on repeat limited echo at this time. No signs of heart failure on examination today. (3) CHF (congestive heart failure): Code(s): I50.9 - Heart failure, unspecified Category: Medical Plan: Treated for mild Congestive heart failure at recent hospitalization. Condition stable at this time. She is not on daily diuretics. (4) Hospital discharge follow-up: Code(s): Z09 - Encounter for follow-up examination after completed treatment for conditions other than malignant neoplasm Category: Medical Plan: As above Plan Time spent on chart review, documentation, interview and assessment Medications: New diltiazem HCl dose reduced 30 mg PO BID 60 tabs 3RF Discontinued diltiazem HCl CD Discontinued Reason: Doctor's Order 120 mg PO DAILY 30 caps 3RF Coding Level of Care Code Est Pt Level 4 (48025) Diagnoses PAF (paroxysmal atrial fibrillation) I48.0 Cardiomyopathy I42.9 CHF (congestive heart failure) I50.9 Hospital discharge follow-up Z09 CPT Codes EKG - CPT: 27893-[id number], Complete ([id number]) Time Spent (min) 30
== END 2024-05-12 10:26 | disposition home or self-care (01) ==
PROVIDERS: PCP Family Medicine; Visit Provider Nurse Practitioner Family
DX: I48.0 Paroxysmal atrial fibrillation (principal); I42.9 Cardiomyopathy, unspecified; I50.9 Heart failure, unspecified; Z09 Encounter for follow-up examination after completed treatment for conditions other than malignant neoplasm
CPT/HCPCS: 93010; 99214

== ENCOUNTER → 2024-05-12 08:55 | Outpatient (BNVA) | payer MEDICARE, OTHER, SELFPAY | PROVIDERS: PCP Family Medicine; Visit Provider Nurse Practitioner Family | DX: Z09 Encounter for follow-up examination after completed treatment for conditions other than malignant neoplasm (principal); I48.0 Paroxysmal atrial fibrillation; I42.9 Cardiomyopathy, unspecified; I50.9 Heart failure, unspecified | CPT/HCPCS: 93005; 99212 ==

== ENCOUNTER 2024-05-30 11:28 | Outpatient (AMB) | payer MEDICARE, OTHER, SELFPAY ==
[2024-05-30 12:14] VITALS: BP 134/80; PULSE 63; RESP 15; TEMP 36.4; O2SAT 97; BMI 26.8
--- NOTE | 2024-05-30 12:14 | MHC.PC.OV ---
Vital Signs 05/30/24 12:14 Height 5 ft 7 in Weight 171 lb BMI 26.8 BP 134/80 Blood Pressure Location Rt brachial Position Sitting Respiration 15 Pulse 63 Pulse Source Pulse Oximeter Temp 97.5 F Temp Source Temporal Artery Scan Pulse Oximetry (%) 97 Oxygen Delivery Method Room Air Intake Visit Reasons: f/u hypertension Intake Note: Patient does not currently have any concerns. Retail Asset Protection Specialist Required: No Accompanied by: Self / Same As Patient Allergies amlodipine Allergy (Intermediate, Verified 05/30/24 12:19) Swelling ankles/feet w rash prednisone Allergy (Intermediate, Verified 05/30/24 12:19) REd Blotchy codeine Adverse Reaction (Intermediate, Verified 05/30/24 12:19) Swelling sulfamethoxazole [From Bactrim] Adverse Reaction (Intermediate, Verified 05/30/24 12:19) Stomach Upset metoprolol Adverse Reaction (Verified 05/30/24 12:19) Hypotension Medication List - Last Reconciled 05/30/24 by Capo Sales MD acetaminophen (Tylenol Extra Strength) 500 mg PO DAILY PRN amiodarone 200 mg PO DAILY 90 days apixaban (Eliquis) 5 mg PO BID 90 days diltiazem HCl 30 mg PO BID hydralazine 25 mg PO BID levothyroxine (Tirosint) 50 mcg PO DAILY mupirocin 2% 1 appl topical DAILY pravastatin 40 mg PO BEDTIME 90 days Tobacco use date assessed: 03/14/24 Fall risk assessment: No Falls in past year Last assessed Fall Risk: 05/30/24 Dental Screening Dental Screen Date: 03/14/24 HPI f/u hypertension HPI Details 83 y/o female presents to f/u hypertension, chronic conditions. She did not tolerate amlodipine but had been well controlled on hydralazine. Blood pressure today 134/80. Recent CHF which she states she had went to the emergency department for. She is on diltiazem 30mg b.i.d. [facility] Medical History (Reviewed 05/30/24 @ 12:22 by Orquidea Grubbs [facility] Adult general medical exam Screening for breast cancer PAF (paroxysmal atrial fibrillation) Persistent atrial fibrillation Breast cancer screening by mammogram PAF (paroxysmal atrial fibrillation) Hx of skin cancer, basal cell Elevated serum creatinine Screening for colon cancer Screening for osteoporosis Therapeutic drug monitoring Cough with congestion of paranasal sinus Abnormal creatinine clearance glomerular filtration Breath shortness Rash History of cardioversion PAF (paroxysmal atrial fibrillation) Atrial fibrillation with rapid ventricular response History of vitamin D deficiency History of hypothyroidism Anticoagulant long-term use Hx of squamous cell carcinoma of skin Vitamin B 12 deficiency High cholesterol Hypertension, essential Surgical History S/P ablation of atrial fibrillation History of hand surgery History of dilation and curettage Status post surgical removal of malignant neoplasm of skin Family History Mother Stroke Father Pancreatic cancer Brother Lyme disease Social History Household Members: None Housing: House Do you presently have visiting nurse or other home services: No Alcohol intake: never Comment: pt refuses bed alarm Patient Tobacco Use Status: Never used Tobacco e-Cigarette/Vaping Use: Never Used Second Hand Smoke Exposure: No Advance Directives Date on File: 11/19/22 service: No Current occupational status: retired Cognitive needs: No Hearing needs: No Vision needs: Yes (Patient wears reading glasses.) Questionnaire Thrive Questionnaire Date Thrive assessed: 04/23/24 ASUNCION-7 AMB Questionnaire ASUNCION-7 Date ASUNCION - 7 assessed: 03/14/24 Source: Developed by Drs. Jadiel Marrero, Melany Strickland, Manuel Ferguson and colleagues, with an educational ellen from [employer]. Review of Systems Const Denies chills, Denies fatigue, Denies fever(s), Denies headache(s) and Denies weakness ENT Denies dizziness and Denies headache(s) Card Denies dyspnea Resp Denies cough, Denies dyspnea, Denies wheezing and Denies other (shortness of breath) Musc Denies numbness and Denies tingling Neuro Denies dizziness, Denies headache(s), Denies numbness, Denies tingling and Denies weakness Psych Denies anxiety and Denies depression Endo Denies fatigue Aller/Immun Denies wheezing Physical exam (Primary Care) Vital Signs: Last Vital Signs Temp 97.5 F 05/30/24 12:14 Pulse 63 05/30/24 12:14 Resp 15 05/30/24 12:14 BP 134/80 05/30/24 12:14 Pulse Ox 97 05/30/24 12:14 Oxygen Delivery Method Room Air 05/30/24 12:14 BMI result Body Mass Index 26.8 Tobacco/Smoking Status: Tobacco use Status Tobacco use date assessed 03/14/24 05/30/24 12:23 Patient Tobacco Use Status Never used Tobacco 05/30/24 12:23 e-Cigarette/Vaping Use Never Used 05/30/24 12:23 Thrive Assessment: Date of Thrive Assessment Date Thrive assessed 04/23/24 05/30/24 12:23 Const General: well developed; No acute distress Nutritional Appearance: well nourished Orientation/consciousness: patient oriented x3 HENMT Head: Yes normocephalic and Yes atraumatic Eyes General: appearance normal, both eyes and all related structures Pupils: Equal, round and reactive pupils present EOM: EOMs intact bilaterally Resp Effort & Inspection: normal respiratory effort Auscultation: clear to auscultation bilaterally Cardio Rate: regular rate Rhythm: regular rhythm Heart sounds: S1 normal heart sound present, S2 normal heart sound present, no gallops, no murmurs and no rubs Neuro General: patient oriented x3 and gait normal Cranial nerves: Yes Equal, round and reactive pupils present Psych Affect: normal affect Assessment and Plan Assessment & Plan (1) Hypertension, essential: Code(s): I10 - Essential (primary) hypertension Plan: Blood?pressure?134/80.??Goal?is?less?than?140/90 Heart?rate?is?63 Continue?diltiazem?and?hydralazine?as?prescribed (2) CHF (congestive heart failure): Code(s): I50.9 - Heart failure, unspecified Plan: Patient?is?breathing?easily?and?lungs?are?clear. No?JVD?or?significant?lower?extremity?edema She?will?watch?for?increases?in?weight?or?edema?or?any?difficulty?breathing.??She?can?call?for?an?appointment?if?she?is?having?any?problems. Follow-up?with?Cardiology?as?well (3) PAF (paroxysmal atrial fibrillation): Code(s): I48.0 - Paroxysmal atrial fibrillation Plan: Patient?has?an?upcoming?appointment?with?electrophysiology?to?discuss?potential?for?another?ablation. Currently?she?seems?to?be?in?regular?rhythm?with?no?volume?overload. I?have?asked?her?to?have?the?EP?office?forward?their?note. (4) Positive colorectal cancer screening using Cologuard test: Code(s): R19.5 - Other fecal abnormalities Plan: Gastroenterology?has?recommended?colonoscopy.??She?is?holding?off?while?she?gets?a?definitive?plan?from?Cardiology?and?electrophysiology?regarding?atrial?fib?and?CHF. Will?follow-up?with?patient?regarding?this?at?a?subsequent?visit (5) CKD stage G3b/A1, GFR 30-44 and albumin creatinine ratio <30 mg/g: Code(s): N18.32 - Chronic kidney disease, stage 3b Plan: Advised?patient?call?for?a?follow-up?appointment?with?Nephrology Coding Level of Care Code Est Pt Level 4 (06381) Diagnoses Hypertension, essential I10 CHF (congestive heart failure) I50.9 PAF (paroxysmal atrial fibrillation) I48.0 Positive colorectal cancer screening using Cologuard test R19.5 CKD stage G3b/A1, GFR 30-44 and albumin creatinine ratio <30 mg/g N18.32
== END 2024-05-30 13:03 | disposition home or self-care (01) ==
PROVIDERS: PCP Family Medicine; Visit Provider Family Medicine
DX: I12.9 Hypertensive chronic kidney disease with stage 1 through stage 4 chronic kidney disease, or unspecified chronic kidney disease (principal); I50.9 Heart failure, unspecified; I48.0 Paroxysmal atrial fibrillation; N18.32 Chronic kidney disease, stage 3b; R19.5 Other fecal abnormalities
CPT/HCPCS: 99214

== ENCOUNTER 2024-06-29 10:13 | Inpatient (IN) | payer MEDICARE, OTHER, SELFPAY ==
[2024-06-29] VITALS (15 sets, daily range): BP systolic 121–173; BP diastolic 69–96; PULSE 85–116; RESP 13–20; TEMP 36.4–36.8; O2SAT 95–98; BMI 26.7
--- NOTE | 2024-06-29 | ECG_ITS ---
Test Reason : IRREGULAR HEARTBEAT Blood Pressure : / mmHG Vent. Rate : 101 BPM Atrial Rate : 000 BPM P-R Int : 000 ms QRS Dur : 106 ms QT Int : 354 ms P-R-T Axes : 000 -52 074 degrees QTc Int : 459 ms Atrial fibrillation with rapid ventricular response with premature ventricular or aberrantly conducted complexes Left axis deviation Moderate voltage criteria for LVH, may be normal variant ( R in aVL , Cristofer product ) Septal infarct (cited on or before 22-NOV-2022) ST & T wave abnormality, consider lateral ischemia Abnormal ECG When compared with ECG of 25-APR-2024 10:26, Rhythm change Referred By: Generic ED Physician Electronically Signed By:ESTIVEN HARMON
--- NOTE | ~2024-06-29 | XR_ITS ---
EXAMINATION: XR CHEST CLINICAL INFORMATION: Palpitations COMPARISON: Chest radiograph from 04/21/2024, CT angiography chest from 04/21/2024 TECHNIQUE: Frontal view of the chest was obtained. FINDINGS: Stable elevation left hemidiaphragm. No pneumothorax. Trachea is midline. Cardiac mediastinal silhouette is stable. No large pleural effusion. Osseous structures are intact. Soft tissues are unremarkable. XR/XR chest 1V IMPRESSION: 1. No acute cardiopulmonary process. 2. Stable elevation left hemidiaphragm.
--- NOTE | 2024-06-29 10:38 | ED_ITS ---
HPI - Arrhythmia/Palpitations General Chief Complaint: Arrhythmia/Palpitations Stated Complaint: irregular heartbeat Time Seen by Provider: 06/29/24 10:26 Source: patient, RN notes reviewed and old records reviewed History of Present Illness ED Provider: Marlene Posadas PA-C HPI narrative: 83-year-old female with a past medical history proximal AFib on Eliquis with prior cardioversion and ablation on 03/26/2023, hypothyroid, cardiomyopathy, HLD, HTN, presenting to the ED complaining of palpitations since yesterday and tachycardia noted 3 days ago. Patient suspects she is in AFib. Denies fever, chills, recent illness, CP/SOB, pedal edema. Reports compliance with medications Related Data Home Medications ?Medication ?Instructions ?Recorded ?Confirmed acetaminophen 500 mg tablet 500 mg PO DAILY PRN Pain 04/22/23 06/29/24 (Tylenol Extra Strength) levothyroxine 50 mcg capsule 50 mcg PO DAILY@0600 06/29/24 06/29/24 (Tirosint) Previous Rx's ?Medication ?Instructions ?Recorded apixaban 5 mg tablet (Eliquis) 5 mg PO BID 90 days #180 tabs 11/30/23 pravastatin 40 mg tablet 40 mg PO BEDTIME 90 days #90 tabs 11/30/23 hydralazine 25 mg tablet 25 mg PO BID #180 tabs 04/05/24 amiodarone 200 mg tablet 200 mg PO DAILY 90 days #90 tabs 05/11/24 diltiazem HCl 30 mg tablet 30 mg PO BID #60 tabs 05/12/24 Allergies Allergy/AdvReac Type Severity Reaction Status Date / Time amlodipine Allergy Intermediate Swelling Verified 06/29/24 10:31 ankles/feet w rash prednisone Allergy Intermediate REd Verified 05/30/24 12:19 Blotchy codeine AdvReac Intermediate Swelling Verified 05/30/24 12:19 sulfamethoxazole AdvReac Intermediate Stomach Verified 05/30/24 12:19 [From Bactrim] Upset metoprolol AdvReac Hypotension Verified 05/30/24 12:19 Review of Systems 2 Review of Systems: Constitutional: No Weight loss, No Fever, No Chills ENT/Mouth: No Ear Pain, No Nasal Congestion, No sore throat, No Rhinorrhea, No Swallowing Difficulty Cardiovascular: No Chest Pain, No SOB, + palpitations Respiratory: No Cough, No Sputum, No Wheezing Gastrointestinal: No Nausea, No Vomiting, No Abdominal pain Musculoskeletal: No joint pain, No Myalgias, No Joint Swelling Skin: No Skin Lesions, No rash Neuro: No Weakness, No Numbness, No Paresthesias Yes all other systems are reviewed and are negative Constitutional: Constitutional: Reports as per [facility] Past Medical History Attestation statement: The following information was validated with the patient. Source: old records reviewed Medical History Adult general medical exam Screening for breast cancer PAF (paroxysmal atrial fibrillation) Persistent atrial fibrillation Breast cancer screening by mammogram PAF (paroxysmal atrial fibrillation) Hx of skin cancer, basal cell Elevated serum creatinine Screening for colon cancer Screening for osteoporosis Therapeutic drug monitoring Cough with congestion of paranasal sinus Abnormal creatinine clearance glomerular filtration Breath shortness Rash History of cardioversion PAF (paroxysmal atrial fibrillation) Atrial fibrillation with rapid ventricular response History of vitamin D deficiency History of hypothyroidism Anticoagulant long-term use Hx of squamous cell carcinoma of skin Vitamin B 12 deficiency High cholesterol Hypertension, essential Surgical History S/P ablation of atrial fibrillation History of hand surgery History of dilation and curettage Status post surgical removal of malignant neoplasm of skin Family History Family History Mother Stroke Father Pancreatic cancer Brother Lyme disease Social History Social History Household Members: None Housing: House Do you presently have visiting nurse or other home services: No Alcohol intake: never Comment: pt refuses bed alarm Patient Tobacco Use Status: Never used Tobacco Smoked in Last 30 Days: No e-Cigarette/Vaping Use: Never Used Second Hand Smoke Exposure: No Advance Directives: Yes Advance Directives on File: Yes Advance Directives Date on File: 11/19/22 Nutrition Risks: No Nutritional Risk service: No Current occupational status: retired Cognitive needs: No Hearing needs: No Vision needs: Yes (Patient wears reading glasses.) Physical Exam 2 Vital Signs: Vital Signs: Last Vital Signs Temp 97.8 F 06/29/24 13:57 Pulse 100 06/29/24 15:42 Resp 16 06/29/24 15:42 BP 173/72 H 06/29/24 13:57 Pulse Ox 97 06/29/24 15:42 O2 Del Method Room Air 06/29/24 15:42 BMI result Body Mass Index 26.7 Const: General: cooperative, healthy appearing and no acute distress O rientation/consciousness: patient oriented x3 Limitations: no limitations HEENT: Head: Yes normal to inspection and Yes atraumatic Ears: hearing grossly normal bilaterally General nose exam: Normal external nose present Face and sinus: Yes normal facial exam Eyes: General: appearance normal, both eyes and all related structures EOM: EOMs intact bilaterally Neck: Neck: Yes normal visual inspection and Yes no meningeal signs Resp: Effort & Inspection: normal respiratory effort and no respiratory distress Auscultation: clear to auscultation bilaterally, no crackles and no wheezes Cardio: Rate: tachycardic Rhythm: abnormal rhythm Heart sounds: S1 normal heart sound present and S2 normal heart sound present GI: Inspection: Yes normal to inspection Palpation (GI): Soft to palpation, nontender, no guarding and not rigid : General: Yes no CVA tenderness Back/Spine/Pelvis: Back: no CVA tenderness Skin: Rashes: no rashes Wounds: no wounds Neuro: General: patient oriented x3, tone normal and no meningeal signs C ranial nerves: Yes CN's II-XII intact bilaterally Gait exam (Neuro): Normal gait present Extrem: General: Yes normal to inspection and Yes pedal edema Course Course Course Narrative: -1110--no leukocytosis. H&H at patient's baseline. Chronic CKD. Troponin 7.3 > will obtain 3 hour repeat. -BNP acute on chronically elevated to 562 > will give 20 mg IV Lasix -HR 111 > will give 15 mg of IV diltiazem and re-evaluate -1214-- HR 107 after IV diltiazem. Will consult Cardiology Dr. Espinosa > recc HR control with Dilt & possible cardioversion outpatient next week vs admission -1345--HR still elevated after 2nd dose IV diltiazem. Will initiate drip and plan for admission Medications Administered Generic Name Dose Route Start Last Admin Trade Name Freq PRN Reason Stop Dose Admin Diltiazem HCl 125 mg/ Sodium 125 mls @ 0 mls/hr 06/29/24 13:45 06/29/24 14:17 Chloride IVCONT 10 mg/hr .Q0M GIRISH 10 mls/hr Titration Protocol Per Protocol Discontinued Medications Generic Name Dose Route Start Last Admin Trade Name Reuben PRN Reason Stop Dose Admin Diltiazem HCl 15 mg 06/29/24 11:12 06/29/24 11:53 Diltiazem Hcl 50 Mg/10 Ml Vial IVPUSH 06/29/24 11:13 15 mg STAT STA Administration Diltiazem HCl 25 mg 06/29/24 12:33 06/29/24 12:46 Diltiazem Hcl 50 Mg/10 Ml Vial IVPUSH 06/29/24 12:34 25 mg STAT STA Administration Furosemide 20 mg 06/29/24 11:11 06/29/24 11:52 Furosemide 20 Mg/2 Ml Vial IVPUSH 06/29/24 11:12 20 mg ONCE ONE Administration Protocol Medical Decision Making Medical Decision Making MDM Narrative: 83-year-old female with a past medical history proximal AFib on Eliquis with prior cardioversion and ablation on 03/26/2023, hypothyroid, cardiomyopathy, HLD, HTN, presenting to the ED complaining of palpitations since yesterday and tachycardia noted 3 days ago. On exam tachycardic to 105, AFib appreciated on EKG, NAD, nontoxic appearing, lungs CTA, pedal edema noted. Concern for AFib with RVR vs CHF. Rule out ACS vs NAN on CKD. Plan: EKG, labs, CXR, Cardiology consult Please refer to course for remaining clinical decision making, interpretation of labs/imaging results, and discussions with consultants and/or family members. Differential Diagnosis Differential Diagnoses: The differential diagnosis associated with the presentation includes As above Admission/Observation Consideration of admission/observation: Escalation of care including admission/observation considered Consult Healthcare Provider Management of the patient was discussed with: Barber Stylist Lab Data [facility] Lab Attestation statement: I reviewed the patient's lab results. 06/29/24 10:40 06/29/24 10:40 Labs: Lab Results 06/29/24 06/29/24 06/29/24 Range/Units 10:40 10:41 13:32 WBC 5.6 (4.8-10.8) X10*3/uL RBC 4.68 (4.20-5.50) X10*6/uL Hgb 10.7 L (12.0-16.0) g/dl Hct 34.2 L (37.0-47.0) % MCV 73.1 L (80.0-98.0) fL MCH 22.9 L (27.0-33.0) pg MCHC 31.3 (31.0-35.0) g/dl RDW 17.6 H (11.0-16.0) % Plt Count 303 (160-400) X10*3/uL MPV 9.0 L (9.4-12.3) fL Immature Gran % (Auto) 0.4 (0.0-0.4) % Neut % (Auto) 61.2 (45-73) % Lymph % (Auto) 19.4 L (20-40) % [place] % (Auto) 17.7 H (2-11) % Eos % (Auto) 0.4 (0-4) % Baso % (Auto) 0.9 (0-2) % Lymph # (Auto) 1.1 L (1.2-4.9) X10*3/uL [place] # (Auto) 1.0 (0.1-1.2) X10*3/uL Eos # (Auto) 0.0 (0.0-0.4) X10*3/uL Baso # (Auto) 0.1 (0.0-0.2) X10*3/uL Abs Immat Gran (auto) 0.02 (0.00-0.03) X10*3/uL Absolute Neuts (auto) 3.4 (2.0-8.3) x10*3/uL Absolute Nucleated RBC 0.000 (0.0-0.012) X10*3/uL Nucleated RBC % (auto) 0.0 (0.0-0.2) /100WBC PT 22.3 H (11.1-13.3) SEC INR 1.8 H (0.9-1.1) Sodium 136 (135-145) mmol/L Potassium 4.2 (3.3-5.1) mmol/L Chloride 105 (96-108) mmol/L Carbon Dioxide 23 (22-29) mmol/L Anion Gap 12 (12-20) BUN 27 H (9-16) mg/dL Creatinine 1.85 H (0.5-1.4) mg/dL Estim Creat Clear Calc 25.5 Estimated GFR 26 Random Glucose 140 H (60-115) mg/dL Calcium 10.5 H D (8.4-10.2) mg/dL Magnesium 2.2 (1.6-2.6) mg/dL Total Bilirubin 0.5 (0.0-1.0) mg/dL Direct Bilirubin 0.1 (0.0-0.5) mg/dL AST 18 (5-31) U/L ALT 13 (0-31) U/L Alkaline Phosphatase 117 (39-117) U/L Troponin I High Sens 7.3 6.9 (<3.5-17.0) ng/L B-Natriuretic Peptide 562 H (<100) pg/mL Total Protein 7.2 (6.5-8.0) g/dL Albumin 4.3 (3.5-5.0) g/dL TSH 3.94 (0.32-4.0) uIU/mL Independent Interpretation I performed an independent interpretation of an: EKG (My interpretation EKG AFib with RVR at a rate of 101. QRS 106. No STEMI.) Radiology Impression Discussion of test interpretation with radiology: I have reviewed the radiologist's reading. External Record Review External record reviewed: Inpatient record, Office record, Outpatient record, Prior outpatient labs, Prior outpatient radiology, Primary care record and Outside ED record Tests considered The following testing was considered but not selected: As above Prescription Management I considered prescription management with: Other Chronic Conditions Patient?s care impacted by: Hypertension and Other Critical Care Time Critical Care Time Critical Care Time: Yes Total Critical Care Time: 45 Attestation: I have personally provided critical care time exclusive of time spent on separately billable procedures. Time includes review of lab data, radiology results, discussion with consultants, and monitoring for potential decompensation. Intervention performed as documented. Discharge Plan Discharge Clinical Impression: Atrial fibrillation with rapid ventricular response Patient Disposition: Admitted As Inpatient
[2024-06-29 10:44] LABS: MANUAL DIFF FLAG NO
[2024-06-29 10:48] LABS: Basophils Absolute Auto 0.1 X10*3/uL (0.0-0.2); Basophils Percent Auto 0.9 % (0-2); Eosinophils Percent Auto 0.4 % (0-4); Hematocrit 34.2 % (37.0-47.0); Hemoglobin 10.7 g/dl (12.0-16.0); Imm Gran Abs Auto 0.02 X10*3/uL (0.00-0.03); Imm Gran Pct Auto 0.4 % (0.0-0.4); Lymphocytes Absolute Auto 1.1 X10*3/uL (1.2-4.9); Lymphocytes Percent Auto 19.4 % (20-40); Mean Corpuscular HGB Conc 31.3 g/dl (31.0-35.0); Mean Corpuscular Hemoglobin 22.9 pg (27.0-33.0); Mean Corpuscular Volume 73.1 fL (80.0-98.0); Monocytes Percent Auto 17.7 % (2-11); Neutrophils Absolute Auto 3.4 x10*3/uL (2.0-8.3); Neutrophils Percent Auto 61.2 % (45-73); Platelet Count 303 X10*3/uL (160-400); Red Blood Count 4.68 X10*6/uL (4.20-5.50); Red Cell Distribution Width 17.6 % (11.0-16.0); White Blood Count 5.6 X10*3/uL (4.8-10.8)
[2024-06-29 10:51] LABS: INTERNATIONAL NORM RATIO 1.8 (0.9-1.1); Prothrombin Time 22.3 SEC (11.1-13.3)
[2024-06-29 11:01] LABS: Alanine Aminotransferase 13 U/L (0-31); Albumin Level 4.3 g/dL (3.5-5.0); Alkaline Phosphatase 117 U/L (39-117); Anion Gap 12 (12-20); Aspartate Amino Transferase 18 U/L (5-31); Bilirubin Direct 0.1 mg/dL (0.0-0.5); Bilirubin Total 0.5 mg/dL (0.0-1.0); Blood Urea Nitrogen 27 mg/dL (9-16); Calcium 10.5 mg/dL (8.4-10.2); Carbon Dioxide 23 mmol/L (22-29); Chloride 105 mmol/L (96-108); Creatinine Clr Calc Pharmacy 25.5; Estimated Glomerular Filt Rate 26; Glucose Random 140 mg/dL (60-115); Magnesium 2.2 mg/dL (1.6-2.6); Potassium 4.2 mmol/L (3.3-5.1); Sodium 136 mmol/L (135-145); Total Protein 7.2 g/dL (6.5-8.0)
[2024-06-29 11:05] LABS: B Type Natriuretic Peptide 562 pg/mL (<100)
[2024-06-29 11:07] LABS: Troponin-I High Sensitivity 7.3 ng/L (<3.5-17.0)
[2024-06-29 11:22] LABS: TSH reflex Free T4 3.94 uIU/mL (0.32-4.0)
[2024-06-29] MEDS: Furosemide 20 MG/2 ML VIAL IVPUSH (11:52)
[2024-06-29] MEDS: dilTIAZem HCL 50 MG/10 ML VIAL 15 MG IVPUSH (11:53)
[2024-06-29] MEDS: dilTIAZem HCL 50 MG/10 ML VIAL 25 MG IVPUSH (12:46)
[2024-06-29 13:57] LABS: Troponin-I High Sensitivity 6.9 ng/L (<3.5-17.0)
[2024-06-29] MEDS: dilTIAZem HCL 125 MG in 0.9 % Sodium Chloride 100 ML 10 MG IVCONT (14:02)
--- NOTE | 2024-06-29 14:18 | PM.IMHP ---
History of Present Illness Date of Service: 06/29/24 Attending physician on admission: Vijay Garcia Chief Complaint: Palpitations Pt is an 83-year-old female with a PMH significant for?paroxysmal AFib on Eliquis s/p multiple cardioversions and ablation (03/2023), HFpEF, HTN, HLD, CKD 3, and hypothyroidism who presents to the ED with?palpitations. Pt has a home monitoring system and noticed was tachycardic over the weekend up to 105-110 but was in regular rhythm. Yesterday patient began feeling palpitations and was noted to be in AFib. Reports has been compliant with her home medications and denies any recent illnesses. No shortness a breath or difficulty breathing. Denies lower leg edema. No chest pain. Denies fever, chills, nausea, vomiting, abdominal pain. Of note, patient was recently admitted to the hospital on 04/21-04/25 for acute hypoxic respiratory failure secondary to acute on chronic diastolic CHF. Course was complicated by paroxysmal AFib with RVR where patient was treated with diltiazem and ongoing amiodarone load with plan for cardioversion while in the hospital, however patient self converted. Has a long history of 7-8 cardioversions since 2019. Reports normally takes a cardioversion to get her back into regular rhythm. In the ED pt was tachycardic up to 116 and hypertensive up to 173/72. Labs were significant for BNP 562, otherwise grossly unremarkable and around baseline for patient. No leukocytosis. Stable microcytic anemia 10.7/34.2. Creatinine 1.85. No significant electrolyte abnormalities. Hepatic function WNL. Initial troponin 7.3 with repeat flat at 6.9. TSH WNL. CXR showed no acute cardiopulmonary process with stable elevation of left hemidiaphragm. EKG demonstrated AFib with RVR [address] and T-wave abnormalities. Pt was treated with Lasix, diltiazem 15 mg in 25 mg IV, then started on a diltiazem drip. Pt will be admitted to the hospital for treatment and further evaluation of AFib with RVR requiring diltiazem drip and likely cardioversion. Review of Systems Review of Systems: Palpitations, racing heart Denies shortness a breath or difficulty breathing No fever, chills, nausea, vomiting, abdominal pain Denies chest pain/pressure, palpitations PMFSH Medical History Adult general medical exam Screening for breast cancer PAF (paroxysmal atrial fibrillation) Persistent atrial fibrillation Breast cancer screening by mammogram PAF (paroxysmal atrial fibrillation) Hx of skin cancer, basal cell Elevated serum creatinine Screening for colon cancer Screening for osteoporosis Therapeutic drug monitoring Cough with congestion of paranasal sinus Abnormal creatinine clearance glomerular filtration Breath shortness Rash History of cardioversion PAF (paroxysmal atrial fibrillation) Atrial fibrillation with rapid ventricular response History of vitamin D deficiency History of hypothyroidism Anticoagulant long-term use Hx of squamous cell carcinoma of skin Vitamin B 12 deficiency High cholesterol Hypertension, essential Family History Mother Stroke Father Pancreatic cancer Brother Lyme disease Surgical History S/P ablation of atrial fibrillation History of hand surgery History of dilation and curettage Status post surgical removal of malignant neoplasm of skin Social History Household Members: None Housing: House Do you presently have visiting nurse or other home services: No Alcohol intake: never Comment: pt refuses bed alarm Patient Tobacco Use Status: Never used Tobacco Smoked in Last 30 Days: No e-Cigarette/Vaping Use: Never Used Second Hand Smoke Exposure: No Advance Directives: Yes Advance Directives on File: Yes Advance Directives Date on File: 11/19/22 service: No Current occupational status: retired Cognitive needs: No Hearing needs: No Vision needs: Yes (Patient wears reading glasses.) Meds Allergies Allergy/AdvReac Type Severity Reaction Status Date / Time amlodipine Allergy Intermediate Swelling Verified 06/29/24 10:31 ankles/feet w rash prednisone Allergy Intermediate REd Verified 05/30/24 12:19 Blotchy codeine AdvReac Intermediate Swelling Verified 05/30/24 12:19 sulfamethoxazole AdvReac Intermediate Stomach Verified 05/30/24 12:19 [From Bactrim] Upset metoprolol AdvReac Hypotension Verified 05/30/24 12:19 Active Medications: Current Medications Diltiazem HCl 125 mg/ Sodium (Chloride) 125 mls @ 0 mls/hr IVCONT .Q0M [facility]; Protocol Last Admin: 06/29/24 14:02 Dose: 10 mg/hr, 10 mls/hr Home Medications ?Medication ?Instructions ?Recorded ?Confirmed ?Last Taken ?Type acetaminophen 500 mg tablet 500 mg PO DAILY PRN Pain 04/22/23 06/29/24 06/29/24 08:00 History (Tylenol Extra Strength) levothyroxine 50 mcg capsule 50 mcg PO DAILY@0600 06/29/24 06/29/24 06/29/24 08:00 History (Tirosint) Physical Exam Vital Signs and Narrative: Vital Signs: Last Vital Signs Temp 97.8 F 06/29/24 13:57 Pulse 113 H 06/29/24 13:57 Resp 16 06/29/24 13:57 BP 173/72 H 06/29/24 13:57 Pulse Ox 97 06/29/24 13:57 O2 Del Method Room Air 06/29/24 13:57 BMI result Body Mass Index 26.7 General: AOx3, no acute distress Resp: CTA bilaterally CVS: Irregularly irregular rhythm, tachycardic GI: +BS, NT, no distention Skin: Warm, dry Neuro: Cranial nerves II-XII grossly intact bilaterally. Motor grossly intact bilaterally Extremities: No edema Psych: Appropriate affect Results Labs 06/29/24 10:40 06/29/24 10:40 Labs: Laboratory Results - last 24 hr 06/29/24 06/29/24 06/29/24 10:40 10:41 13:32 MCV 73.1 L MCH 22.9 L MCHC 31.3 RDW 17.6 H Plt Count 303 MPV 9.0 L Immature Gran % (Auto) 0.4 Neut % (Auto) 61.2 Lymph % (Auto) 19.4 L [place] % (Auto) 17.7 H Eos % (Auto) 0.4 Baso % (Auto) 0.9 Lymph # (Auto) 1.1 L [place] # (Auto) 1.0 Eos # (Auto) 0.0 Baso # (Auto) 0.1 Abs Immat Gran (auto) 0.02 Absolute Neuts (auto) 3.4 Absolute Nucleated RBC 0.000 Nucleated RBC % (auto) 0.0 PT 22.3 H INR 1.8 H Anion Gap 12 Estim Creat Clear Calc 25.5 Estimated GFR 26 Random Glucose 140 H Calcium 10.5 H D Magnesium 2.2 Total Bilirubin 0.5 Direct Bilirubin 0.1 AST 18 ALT 13 Alkaline Phosphatase 117 Troponin I High Sens 7.3 6.9 B-Natriuretic Peptide 562 H Total Protein 7.2 Albumin 4.3 TSH 3.94 Imaging Radiologist's Impressions: Impressions Chest X-Ray 06/29/24 10:56 IMPRESSION: 1. No acute cardiopulmonary process. 2. Stable elevation left hemidiaphragm. Assessment and Plan (1) Atrial fibrillation with rapid ventricular response: Status: Acute Plan Pt is an 83-year-old female with a PMH significant for?paroxysmal AFib on Eliquis s/p multiple cardioversions and ablation (03/2023), HFpEF, HTN, HLD, CKD 3, and hypothyroidism who presents to the ED with?palpitations. Pt will be admitted to the hospital for treatment and further evaluation of AFib with RVR requiring diltiazem drip and likely cardioversion. Atrial fibrillation with RVR Heart rate has been as high as 120s, currently 110s Patient given diltiazem 15 mg IV and 25 mg IV, and and started on diltiazem drip in the ED Pt unable to tolerate metoprolol Hold diltiazem p.o. Continue amiodarone Cardiology consult NPO after midnight for possible cardioversion in the morning Monitor on telemetry HFpEF Not in acute exacerbation Elevated BNP, but no edema, SOB, and CXR negative for pulmonary edema or pleural effusions Patient received Lasix 20 mg IV in the ED Will hold off on additional diuretics for now Monitor for fluid overload HTN Continue hydralazine Hypothyroidism Continue levothyroxine CKD stage IIIB Creatinine 1.85, around baseline Monitor labs Full Code Attending:?Dr. Garcia DVT Prophylaxis: On Eliquis Pt will require a hospitalization of at least two nights for treatment of?acute hypoxi respiratory failure in the setting of AFib with RVR and subsequent HFpEF exacerbation. Patient will require treatment with IV diuretics, medications for rate and rhythm control, and supplemental oxygen, as well as close monitoring of labs, cardiac function, and respiratory status. Quality Stroke Does the patient have a stroke diagnosis?: No VTE Prior VTE?: No VTE Risk Level:: Medical - moderate - high VTE Device Contraindication: Treatment Not Indicated VTE Drug Contraindication: N/A - Med Ordered
--- NOTE | 2024-06-29 14:29 | PHA.MEDREC ---
Addendum entered by Sky Tapia RP 06/29/24 15:14: Reviewed by [facility] Original Note: Pharmacy Consult ? Medication Reconciliation Pharmacy has completed the medication reconciliation. Confirmed medications with patient and Discharge Packet from 04/25/24. Patient claimed no changes from last time she was here. She is on Amiodarone 200mg she confirmed she is taking it once daily and Diltiazem 30mg 1 BID.
--- NOTE | 2024-06-29 14:30 | PC.NURSE ---
15 minutes after drip has started HR afib 105-118
[2024-06-29] MEDS: Apixaban 5 MG TABLET PO (20:40)
[2024-06-29] MEDS: hydrALAZINE HCl 25 MG TABLET PO (20:40)
[2024-06-29] MEDS: Pravastatin Sodium 40 MG TABLET PO (21:02)
--- NOTE | 2024-06-29 21:03 | PC.NURSE ---
Patient's HR ranging from 80's - 100's afib, BP now 121/69, messaged Dr. Glaser regarding lower dilt rate, okay to lower rate to 5ml/hr, reflected in MAR.
[2024-06-29] MEDS: Acetaminophen 325 MG TABLET 650 MG PO (21:05)
[2024-06-29] MEDS: 0.9 % Sodium Chloride Flush 3 ML SYRINGE IVFLUSH (23:15)
--- NOTE | 2024-06-29 23:21 | PC.NURSE ---
patient up to bathroom with one assist and back into bed.
[2024-06-30] VITALS (17 sets, daily range): BP systolic 131–197; BP diastolic 59–98; PULSE 64–123; RESP 16–20; TEMP 36.1–37.7; O2SAT 95–99
[2024-06-30] MEDS: Levothyroxine Sodium 50 MCG TABLET PO (05:53)
[2024-06-30 07:03] LABS: Anion Gap 13 (12-20); Blood Urea Nitrogen 26 mg/dL (9-16); Calcium 10.5 mg/dL (8.4-10.2); Carbon Dioxide 25 mmol/L (22-29); Chloride 105 mmol/L (96-108); Creatinine Clr Calc Pharmacy 28.6; Estimated Glomerular Filt Rate 30; Glucose Random 106 mg/dL (60-115); Potassium 3.7 mmol/L (3.3-5.1); Sodium 139 mmol/L (135-145)
[2024-06-30] MEDS: dilTIAZem HCL 125 MG in 0.9 % Sodium Chloride 100 ML IVCONT (07:46)
--- NOTE | 2024-06-30 08:46 | PC.NURSE ---
Pt to remain NPO until cardioversion that will happen this afternoon
--- NOTE | 2024-06-30 09:05 | HO.PM.IMPN ---
Subjective Subjective Date of Service: 06/30/24 Interval History: no new complaints Physical Exam Vital Signs: Vital Signs: Last Vital Signs Temp 97.7 F 06/30/24 06:30 Pulse 114 H 06/30/24 07:46 Resp 17 06/30/24 06:30 BP 133/73 06/30/24 07:46 Pulse Ox 96 06/30/24 06:30 O2 Del Method Room Air 06/30/24 06:30 BMI result Body Mass Index 26.7 General: AO X 3, no acute distress Resp: CTA bilateral, no accessory muscles used CVS: S1,S2, irregular GI: soft, non tender, non distended Neuro: motor grossly intact, alert Psych: appropriate affect, appropriate insight Objective Data Active Medications Acetaminophen (Acetaminophen 325 Mg Tablet) 650 mg PO Q6H PRN PRN Reason: Pain, Mild (Pain Scale 1-3), fever or headache Last Admin: 06/29/24 21:05 Dose: 650 mg Documented By: ADORE Amiodarone HCl (Amiodarone Hcl 200 Mg Tablet) 200 mg PO DAILY [facility] Apixaban (Apixaban 5 Mg Tablet) 5 mg PO BID [facility] Last Admin: 06/29/24 20:40 Dose: 5 mg Documented By: AODRE Benzonatate (Benzonatate 100 Mg Capsule) 100 mg PO TID PRN PRN Reason: Cough Calcium Carbonate (Calcium Carbonate 750 Mg Tab.Chew) 750 mg PO Q4H PRN PRN Reason: Heartburn Hydralazine HCl (Hydralazine Hcl 25 Mg Tablet) 25 mg PO BID [facility]; Protocol Last Admin: 06/29/24 20:40 Dose: 25 mg Documented By: ADORE Diltiazem HCl 125 mg/ Sodium (Chloride) 125 mls @ 0 mls/hr IVCONT .Q0M [facility]; Protocol Last Admin: 06/30/24 07:46 Dose: 5 mg/hr, 5 mls/hr Documented By: ZOE Levothyroxine Sodium (Levothyroxine Sodium 50 Mcg Tablet) 50 mcg PO DAILY@0600 [facility] Last Admin: 06/30/24 05:53 Dose: 50 mcg Documented By: ILDA Magnesium Hydroxide (Milk Of Magnesia 30 Ml Oral.Susp) 30 ml PO DAILY PRN PRN Reason: Constipation Melatonin (Melatonin 3 Mg Tablet) 6 mg PO BEDTIME PRN PRN Reason: Insomnia Ondansetron HCl (Ondansetron Hcl 4 Mg/2 Ml Vial) 4 mg IVPUSH Q8H PRN PRN Reason: Nausea and Vomiting Pravastatin Sodium (Pravastatin Sodium 40 Mg Tablet) 40 mg PO BEDTIME [facility] Last Admin: 06/29/24 21:02 Dose: 40 mg Documented By: TAMMYTOAIRAM Sodium Chloride (0.9 % Sodium Chloride Flush 3 Ml Syringe) 3 ml IVFLUSH QSHIFT [facility] Last Admin: 06/29/24 23:15 Dose: 3 ml Documented By: ILDA Labs 06/29/24 10:40 06/30/24 05:48 Labs: Laboratory Results - last 24 hr 06/29/24 06/29/24 06/29/24 10:40 10:41 13:32 MCV 73.1 L MCH 22.9 L MCHC 31.3 RDW 17.6 H Plt Count 303 MPV 9.0 L Immature Gran % (Auto) 0.4 Neut % (Auto) 61.2 Lymph % (Auto) 19.4 L Williams % (Auto) 17.7 H Eos % (Auto) 0.4 Baso % (Auto) 0.9 Lymph # (Auto) 1.1 L Williams # (Auto) 1.0 Eos # (Auto) 0.0 Baso # (Auto) 0.1 Abs Immat Gran (auto) 0.02 Absolute Neuts (auto) 3.4 Absolute Nucleated RBC 0.000 Nucleated RBC % (auto) 0.0 Hold Purple Top PT 22.3 H INR 1.8 H Anion Gap 12 Estim Creat Clear Calc 25.5 Estimated GFR 26 Random Glucose 140 H Calcium 10.5 H D Magnesium 2.2 Total Bilirubin 0.5 Direct Bilirubin 0.1 AST 18 ALT 13 Alkaline Phosphatase 117 Troponin I High Sens 7.3 6.9 B-Natriuretic Peptide 562 H Total Protein 7.2 Albumin 4.3 TSH 3.94 06/30/24 05:48 MCV MCH MCHC RDW Plt Count MPV Immature Gran % (Auto) Neut % (Auto) Lymph % (Auto) Williams % (Auto) Eos % (Auto) Baso % (Auto) Lymph # (Auto) Williams # (Auto) Eos # (Auto) Baso # (Auto) Abs Immat Gran (auto) Absolute Neuts (auto) Absolute Nucleated RBC Nucleated RBC % (auto) Hold Purple Top SEE NOTE PT INR Anion Gap 13 Estim Creat Clear Calc 28.6 Estimated GFR 30 Random Glucose 106 Calcium 10.5 H Magnesium Total Bilirubin Direct Bilirubin AST ALT Alkaline Phosphatase Troponin I High Sens B-Natriuretic Peptide Total Protein Albumin TSH Assessment and Plan (1) Atrial fibrillation with rapid ventricular response: Status: Acute Plan 83F PMH?paroxysmal AFib on Eliquis s/p multiple cardioversions and ablation (03/2023), HFpEF, HTN, HLD, CKD 3, and hypothyroidism presented to the ED with?palpitations. paroxysmal Atrial fibrillation with RVR diltiazem drip, eliquis Continue amiodarone plan for cardioversion today HFpEF stable HTN Continue hydralazine Hypothyroidism Continue levothyroxine CKD stage IIIB Creatinine 1.85, around baseline dvt prophylaxis - eliquis full code reason for continued hospitalization:cardioversion today for afib with rvr Quality Stroke Does the patient have a stroke diagnosis?: No VTE Prior VTE?: No VTE Risk Level:: Medical - moderate - high VTE Device Contraindication: Treatment Not Indicated VTE Drug Contraindication: N/A - Med Ordered
--- NOTE | 2024-06-30 09:20 | P.CONCA_ITS ---
History of Present Illness History of Present Illness Date of Service: 06/30/24 Chief complaint: AFib with RVR Narrative: This is a cardiology consultation regarding atrial fibrillation. We have seen in the past in the inpatient setting as well as an outpatient. History of prior cardioversions as well as atrial fibrillation ablation. She in fact had the ablation last year, 2022. She was readmitted to the hospital with atrial fibrillation and rapid ventricular rate. At that time, cardioversion was planned but then she went back to normal sinus rhythm by herself. Then she was referred back to EP for another ablation but she was left on medical management. Now she is readmitted with palpitations and found to be in atrial fibrillation rapid rate. She states that this has been going on for about 3-4 days. She states she can feel it clearly. Otherwise no angina or shortness of breath or other complaints. She is currently on a Cardizem drip. Review of Systems 2 Review of Systems: Yes all other systems are reviewed and are negative Constitutional: Constitutional: Reports as per HPI and Reports no additional constitutional complaints Eyes: Eyes: Reports as per HPI and Denies no additional eye complaints ENT: Denies system reviewed and no additional complaints, except as documented and Reports as per HPI Cardiovascular: Cardiovascular: Reports as per HPI, Reports no additional cardiovascular complaints, Denies acrocyanosis, Denies cool extremities, Denies chest pain, Denies leg edema, Denies lightheadedness, Denies palpitations and Denies dyspnea Respiratory: Respiratory: Reports as per HPI, Denies no additional respiratory complaints and Denies dyspnea Gastrointestinal: Gastrointestinal: Reports as per HPI and Denies no additional gastrointestinal complaints Genitourinary: Genitourinary: Reports as per HPI Musculoskeletal: Musculoskeletal: Reports no additional musculoskeletal complaints and Reports as per HPI Integumentary/Breasts: Skin/Breast: Reports system reviewed and no additional complaints, except as docu Neurologic: Reports system reviewed and no additional complaints, except as documented and Reports as per HPI Psychiatric: Psychiatric: Reports no additional psychiatric complaints and Reports as per HPI Endocrine: Endocrine: Reports no additional endocrine complaints, Reports as per HPI and Denies palpitations Hematologic/Lymphatic: Hematologic/Lymphatic: Reports no additional hematologic/lymphatic complaints and Reports as per HPI Allergic/Immunologic: Allergic/Immunologic: Reports no additional allergic/immunologic complaints and Reports as per HPI [facility] Past Medical History Medical History Adult general medical exam Screening for breast cancer PAF (paroxysmal atrial fibrillation) Persistent atrial fibrillation Breast cancer screening by mammogram PAF (paroxysmal atrial fibrillation) Hx of skin cancer, basal cell Elevated serum creatinine Screening for colon cancer Screening for osteoporosis Therapeutic drug monitoring Cough with congestion of paranasal sinus Abnormal creatinine clearance glomerular filtration Breath shortness Rash History of cardioversion PAF (paroxysmal atrial fibrillation) Atrial fibrillation with rapid ventricular response History of vitamin D deficiency History of hypothyroidism Anticoagulant long-term use Hx of squamous cell carcinoma of skin Vitamin B 12 deficiency High cholesterol Hypertension, essential Family History Family History Mother Stroke Father Pancreatic cancer Brother Lyme disease Surgical History Surgical History S/P ablation of atrial fibrillation History of hand surgery History of dilation and curettage Status post surgical removal of malignant neoplasm of skin Social History Social History Household Members: None Housing: House Do you presently have visiting nurse or other home services: No Alcohol intake: never Comment: pt refuses bed alarm Patient Tobacco Use Status: Never used Tobacco Smoked in Last 30 Days: No e-Cigarette/Vaping Use: Never Used Second Hand Smoke Exposure: No Advance Directives: Yes Advance Directives on File: Yes Advance Directives Date on File: 11/19/22 Nutrition Risks: No Nutritional Risk service: No Current occupational status: retired Cognitive needs: No Hearing needs: No Vision needs: Yes (Patient wears reading glasses.) Meds Allergies Allergy/AdvReac Type Severity Reaction Status Date / Time amlodipine Allergy Intermediate Swelling Verified 06/29/24 10:31 ankles/feet w rash prednisone Allergy Intermediate REd Verified 05/30/24 12:19 Blotchy codeine AdvReac Intermediate Swelling Verified 05/30/24 12:19 sulfamethoxazole AdvReac Intermediate Stomach Verified 05/30/24 12:19 [From Bactrim] Upset metoprolol AdvReac Hypotension Verified 05/30/24 12:19 Active Medications: Current Medications Acetaminophen (Acetaminophen 325 Mg Tablet) 650 mg PO Q6H PRN PRN Reason: Pain, Mild (Pain Scale 1-3), fever or headache Last Admin: 06/29/24 21:05 Dose: 650 mg Amiodarone HCl (Amiodarone Hcl 200 Mg Tablet) 200 mg PO DAILY [facility] Apixaban (Apixaban 5 Mg Tablet) 5 mg PO BID [facility] Last Admin: 06/29/24 20:40 Dose: 5 mg Benzonatate (Benzonatate 100 Mg Capsule) 100 mg PO TID PRN PRN Reason: Cough Calcium Carbonate (Calcium Carbonate 750 Mg Tab.Chew) 750 mg PO Q4H PRN PRN Reason: Heartburn Hydralazine HCl (Hydralazine Hcl 25 Mg Tablet) 25 mg PO BID [facility]; Protocol Last Admin: 06/29/24 20:40 Dose: 25 mg Diltiazem HCl 125 mg/ Sodium (Chloride) 125 mls @ 0 mls/hr IVCONT .Q0M [facility]; Protocol Last Admin: 06/30/24 07:46 Dose: 5 mg/hr, 5 mls/hr Levothyroxine Sodium (Levothyroxine Sodium 50 Mcg Tablet) 50 mcg PO DAILY@0600 [facility] Last Admin: 06/30/24 05:53 Dose: 50 mcg Magnesium Hydroxide (Milk Of Magnesia 30 Ml Oral.Susp) 30 ml PO DAILY PRN PRN Reason: Constipation Melatonin (Melatonin 3 Mg Tablet) 6 mg PO BEDTIME PRN PRN Reason: Insomnia Ondansetron HCl (Ondansetron Hcl 4 Mg/2 Ml Vial) 4 mg IVPUSH Q8H PRN PRN Reason: Nausea and Vomiting Pravastatin Sodium (Pravastatin Sodium 40 Mg Tablet) 40 mg PO BEDTIME [facility] Last Admin: 06/29/24 21:02 Dose: 40 mg Sodium Chloride (0.9 % Sodium Chloride Flush 3 Ml Syringe) 3 ml IVFLUSH QSHIFT [facility] Last Admin: 06/29/24 23:15 Dose: 3 ml Home Medications ?Medication ?Instructions ?Recorded ?Confirmed ?Last Taken ?Type acetaminophen 500 mg tablet 500 mg PO DAILY PRN Pain 04/22/23 06/29/24 06/29/24 08:00 History (Tylenol Extra Strength) levothyroxine 50 mcg capsule 50 mcg PO DAILY@0600 06/29/24 06/29/24 06/29/24 08:00 History (Tirosint) Physical Exam 2 Vital Signs: Vital Signs: Last Vital Signs Temp 97.7 F 06/30/24 06:30 Pulse 114 H 06/30/24 07:46 Resp 17 06/30/24 06:30 BP 133/73 06/30/24 07:46 Pulse Ox 96 06/30/24 06:30 O2 Del Method Room Air 06/30/24 06:30 BMI result Body Mass Index 26.7 Const: General: comfortable and no acute distress O rientation/consciousness: patient oriented x3 HEENT: Other: Unremarkable Head: Yes normal to inspection Neck: Neck: Yes normal visual inspection Chest: Chest palpation & inspection: normal inspection of the chest Resp: Auscultation: clear to auscultation bilaterally Cardio: Palpation: normal PMI Heart sounds: S1 normal heart sound present, S2 normal heart sound present, no gallops, no murmurs and no rubs GI: Palpation (GI): Soft to palpation Back/Spine/Pelvis: Other: unremarkable Skin: General skin exam: no rashes or lesions noted Neuro: General: patient oriented x3 Extrem: General: Yes normal to inspection Psych: Mental Status: mental status grossly normal Objective Labs and Meds 06/29/24 10:40 06/30/24 05:48 Lab results: Laboratory Results - last 24 hr 06/29/24 06/29/24 06/29/24 10:40 10:41 13:32 WBC 5.6 RBC 4.68 Hgb 10.7 L Hct 34.2 L MCV 73.1 L MCH 22.9 L MCHC 31.3 RDW 17.6 H Plt Count 303 MPV 9.0 L Immature Gran % (Auto) 0.4 Neut % (Auto) 61.2 Lymph % (Auto) 19.4 L Martin % (Auto) 17.7 H Eos % (Auto) 0.4 Baso % (Auto) 0.9 Lymph # (Auto) 1.1 L Martin # (Auto) 1.0 Eos # (Auto) 0.0 Baso # (Auto) 0.1 Abs Immat Gran (auto) 0.02 Absolute Neuts (auto) 3.4 Absolute Nucleated RBC 0.000 Nucleated RBC % (auto) 0.0 Hold Purple Top PT 22.3 H INR 1.8 H Sodium 136 Potassium 4.2 Chloride 105 Carbon Dioxide 23 Anion Gap 12 BUN 27 H Creatinine 1.85 H Estim Creat Clear Calc 25.5 Estimated GFR 26 Random Glucose 140 H Calcium 10.5 H D Magnesium 2.2 Total Bilirubin 0.5 Direct Bilirubin 0.1 AST 18 ALT 13 Alkaline Phosphatase 117 Troponin I High Sens 7.3 6.9 B-Natriuretic Peptide 562 H Total Protein 7.2 Albumin 4.3 TSH 3.94 06/30/24 05:48 WBC RBC Hgb Hct MCV MCH MCHC RDW Plt Count MPV Immature Gran % (Auto) Neut % (Auto) Lymph % (Auto) Martin % (Auto) Eos % (Auto) Baso % (Auto) Lymph # (Auto) Martin # (Auto) Eos # (Auto) Baso # (Auto) Abs Immat Gran (auto) Absolute Neuts (auto) Absolute Nucleated RBC Nucleated RBC % (auto) Hold Purple Top SEE NOTE PT INR Sodium 139 Potassium 3.7 Chloride 105 Carbon Dioxide 25 Anion Gap 13 BUN 26 H Creatinine 1.65 H Estim Creat Clear Calc 28.6 Estimated GFR 30 Random Glucose 106 Calcium 10.5 H Magnesium Total Bilirubin Direct Bilirubin AST ALT Alkaline Phosphatase Troponin I High Sens B-Natriuretic Peptide Total Protein Albumin TSH ECG Interpretation: EKG with atrial flutter versus fibrillation at a rate of 101/Min; voltage criteria for LVH; can not exclude old septal infarct; nonspecific ST-T changes. Imaging Radiologist's impression: Impressions Chest X-Ray 06/29/24 10:56 IMPRESSION: 1. No acute cardiopulmonary process. 2. Stable elevation left hemidiaphragm. Assessment and Plan (1) Atrial fibrillation with rapid ventricular response: Status: Acute Plan EKG shows either atrial flutter or fibrillation, difficult to say with rapid ventricular response. High sensitivity troponins within normal limits. Cardiac BNP is slightly high but she also has abnormal kidney function. For medications, she is on amiodarone for the last 3 months or so. She is also on a small dose of diltiazem. She was slightly higher dose but it seems because of concern bradycardia was lower. In the hospital, she is on Cardizem drip. Keep her NPO. We will plan on cardioversion today. After that, continue amiodarone but we will increase the diltiazem dose slightly more as long as she is not too bradycardic. Already discussed with EP that she needs another ablation. Procedures Date of Service Date of Service: 06/30/24
--- NOTE | 2024-06-30 09:28 | MHC.CM.PN ---
Addendum entered by Carolyn Andersen 06/30/24 09:32: PCP is Dr. Capo Sales. Original Note: CM met with Patient at bedside, in the ED, and addressed IMM with her (original was given to Patient and a copy will be placed on the chart). Patient lives alone in a house and she required no prior services nor DME. Home/self care is the goal and CM has initiated and will follow for dc planning. Son/Raúl or Neighbor will transport home and Son/Leland is the HCP/completed by Patient's Farm Operations Manager.
[2024-06-30] MEDS: hydrALAZINE HCl 25 MG TABLET PO ×2 (09:30→21:49)
[2024-06-30] MEDS: Amiodarone HCL 200 MG TABLET PO ×2 (09:31→15:06)
[2024-06-30] MEDS: Apixaban 5 MG TABLET PO (09:32)
--- NOTE | 2024-06-30 09:33 | P.CDIM_ITS ---
PROVIDER RESPONSE TEXT: To clarify, the appropriate diagnosis supported by the clinical indicators: Other (explain): no hypercalcemia, mild dehydration QUERY TEXT: PHYSICIAN'S DOCUMENTATION REQUEST Date of Query: 06/30/2024 09:26 AM EDT Patient Name: Sandi Leonardo Admit Date: 06/29/2024 Dear Vijay Garcia MD, A review of the medical record indicates additional documentation may be needed. Please review below and update the documentation accordingly. Clinical Indicators: LABS: calcium 10.5 H Based on the above, is there a diagnosis that correlates with these lab findings: Hypercalcemia possible, probable, suspected Labs indicate a diagnosis of (please specify) Other (explain) Clinically unable to determine (explain) Thank you, Saundra Herndon, CCS, CDIS Use of terms such as suspected, likely, concern for, or probable (associated with a specific diagnosi s that is being evaluated, monitored, or treated as if it exists) are acceptable and can be coded in the inpatient se tting, when documented at the time of discharge. Please use your independent medical judgment in providing your response. THIS QUERY IS PART OF THE PERMANENT MEDICAL RECORD
--- NOTE | 2024-06-30 11:29 | PC.NURSE ---
Cardiology came to bedside and verbally told this RN to stop dilt drip, this RN verbally reported back his orders, drip paused, plan to go for cardioversion around 1300/1330
--- NOTE | 2024-06-30 12:44 | MHC.SHP ---
Pre-Procedural Eval Section A - 24 Hr Update-Section A only Date of Service: 06/30/24 The patient is an INPATIENT: Yes Section B - Complete if H&P > 30 days Chief Complaint: AFib with RVR Allergies: Allergies Allergy/AdvReac Type Severity Reaction Status Date / Time amlodipine Allergy Intermediate Swelling Verified 06/29/24 10:31 ankles/feet w rash prednisone Allergy Intermediate REd Verified 05/30/24 12:19 Blotchy codeine AdvReac Intermediate Swelling Verified 05/30/24 12:19 sulfamethoxazole AdvReac Intermediate Stomach Verified 05/30/24 12:19 [From Bactrim] Upset metoprolol AdvReac Hypotension Verified 05/30/24 12:19 Plan I have reviewed the history and physical and performed a pertinent physical examination on my patient. No changes have occurred unless specified. Time Spent With Patient Time: Total time managing care of this patient today ____ minutes.
--- NOTE | 2024-06-30 12:45 | HO.CARDIVERS ---
Cardioversion Procedure Note Cardioversion Date of Procedure: 06/30/2024 Pre-Op Diagnosis: Atrial fibrillation with rapid ventricular response Post-Op Diagnosis: Sinus rhythm Consent: Informed consent obtained. Procedure: After informed consent was obtained, patient was taken to the PACU. The patient was then positioned appropriately. The cardioversion pads were placed in anteroposterior position. Once under anesthesia, 120 joules of synchronized shock was administered. The rhythm converted from atrial fibrillation to sinus rhythm. Patient remained in sinus rhythm after the end of procedure. Complications: None. Impression: Successful cardioversion from atrial fibrillation to sinus rhythm. Recommendations: Increase amiodarone to 400 mg daily. Increase diltiazem to 120 mg daily. Will monitor overnight.
[2024-06-30] MEDS: Lactated Ringers 1,000 ML 100 ML IVCONT (13:51)
--- NOTE | 2024-06-30 14:24 | HO.ANESPROP2 ---
[facility] Active Problems Active Problems: All Active Problems Atrial fibrillation with rapid ventricular response (Acute) Hospital discharge follow-up (Acute) Screening for breast cancer (Acute) Adult general medical exam (Acute) PAF (paroxysmal atrial fibrillation) (Acute) CHF (congestive heart failure) (Acute) Hyperparathyroidism (Acute) Iron deficiency (Acute) Positive colorectal cancer screening using Cologuard test (Acute) Hypertension (Acute) Anemia in chronic kidney disease (Acute) CKD stage G3b/A1, GFR 30-44 and albumin creatinine ratio <30 mg/g (Acute) Renal failure (Acute) Lower extremity edema (Acute) Hypothyroidism (Acute) Right leg pain (Acute) Cardiomyopathy (Acute) NAN (acute kidney injury) (Acute) Elevated brain natriuretic peptide (BNP) level (Acute) History of vitamin D deficiency (Acute) Seasonal allergies (Acute) 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) Vitamin D deficiency (Acute) Cellulitis of right lower extremity (Acute) Anticoagulant long-term use (Acute) Hypertension, essential (Acute) High cholesterol (Acute) Hx of squamous cell carcinoma of skin (Acute) Vitamin B 12 deficiency (Acute) Past Medical History Medical History Adult general medical exam Screening for breast cancer PAF (paroxysmal atrial fibrillation) Persistent atrial fibrillation Breast cancer screening by mammogram PAF (paroxysmal atrial fibrillation) Hx of skin cancer, basal cell Elevated serum creatinine Screening for colon cancer Screening for osteoporosis Therapeutic drug monitoring Cough with congestion of paranasal sinus Abnormal creatinine clearance glomerular filtration Breath shortness Rash History of cardioversion PAF (paroxysmal atrial fibrillation) Atrial fibrillation with rapid ventricular response History of vitamin D deficiency History of hypothyroidism Anticoagulant long-term use Hx of squamous cell carcinoma of skin Vitamin B 12 deficiency High cholesterol Hypertension, essential Family History Family History Mother Stroke Father Pancreatic cancer Brother Lyme disease Family history of problems with anesthesia: No Surgical History Surgical History S/P ablation of atrial fibrillation History of hand surgery History of dilation and curettage Status post surgical removal of malignant neoplasm of skin History of Problems with Anesthesia: No Social History Social History Household Members: None Housing: House Do you presently have visiting nurse or other home services: No Alcohol intake: never Comment: pt refuses bed alarm Patient Tobacco Use Status: Never used Tobacco Smoked in Last 30 Days: No e-Cigarette/Vaping Use: Never Used Second Hand Smoke Exposure: No Use of substances other than those prescribed or required for medical reasons: No Are you DNR?: No Advance Directives: Yes Advance Directives Information Provided: No Advance Directives on File: Yes Advance Directives Date on File: 11/19/22 Nutrition Risks: No Nutritional Risk service: No Current occupational status: retired Cognitive needs: No Hearing needs: No Vision needs: Yes (Patient wears reading glasses.) Meds Allergies Allergy/AdvReac Type Severity Reaction Status Date / Time amlodipine Allergy Intermediate Swelling Verified 06/29/24 10:31 ankles/feet w rash prednisone Allergy Intermediate REd Verified 05/30/24 12:19 Blotchy codeine AdvReac Intermediate Swelling Verified 05/30/24 12:19 sulfamethoxazole AdvReac Intermediate Stomach Verified 05/30/24 12:19 [From Bactrim] Upset metoprolol AdvReac Hypotension Verified 05/30/24 12:19 Active Medications: Current Medications Acetaminophen (Acetaminophen 325 Mg Tablet) 650 mg PO Q6H PRN PRN Reason: Pain, Mild (Pain Scale 1-3), fever or headache Last Admin: 06/29/24 21:05 Dose: 650 mg Amiodarone HCl (Amiodarone Hcl 200 Mg Tablet) 200 mg PO DAILY [facility] Last Admin: 06/30/24 09:31 Dose: 200 mg Apixaban (Apixaban 2.5 Mg Tablet) 2.5 mg PO BID [facility] Benzonatate (Benzonatate 100 Mg Capsule) 100 mg PO TID PRN PRN Reason: Cough Calcium Carbonate (Calcium Carbonate 750 Mg Tab.Chew) 750 mg PO Q4H PRN PRN Reason: Heartburn Hydralazine HCl (Hydralazine Hcl 25 Mg Tablet) 25 mg PO BID [facility]; Protocol Last Admin: 06/30/24 09:30 Dose: 25 mg Diltiazem HCl 125 mg/ Sodium (Chloride) 125 mls @ 0 mls/hr IVCONT .Q0M [facility]; Protocol Last Titration: 06/30/24 11:29 Dose: 0 mg/hr, 0 mls/hr Lactated Ringer's (Lr) 1,000 mls @ 100 mls/hr IVCONT .Q10H [facility] Last Admin: 06/30/24 13:51 Dose: 100 mls/hr Levothyroxine Sodium (Levothyroxine Sodium 50 Mcg Tablet) 50 mcg PO DAILY@0600 [facility] Last Admin: 06/30/24 05:53 Dose: 50 mcg Magnesium Hydroxide (Milk Of Magnesia 30 Ml Oral.Susp) 30 ml PO DAILY PRN PRN Reason: Constipation Melatonin (Melatonin 3 Mg Tablet) 6 mg PO BEDTIME PRN PRN Reason: Insomnia Ondansetron HCl (Ondansetron Hcl 4 Mg/2 Ml Vial) 4 mg IVPUSH Q8H PRN PRN Reason: Nausea and Vomiting Pravastatin Sodium (Pravastatin Sodium 40 Mg Tablet) 40 mg PO BEDTIME [facility] Last Admin: 06/29/24 21:02 Dose: 40 mg Sodium Chloride (0.9 % Sodium Chloride Flush 3 Ml Syringe) 3 ml IVFLUSH QSHIFT [facility] Last Admin: 06/30/24 09:33 Dose: Not Given Home Medications ?Medication ?Instructions ?Recorded ?Confirmed ?Last Taken ?Type acetaminophen 500 mg tablet 500 mg PO DAILY PRN Pain 04/22/23 06/29/24 06/29/24 08:00 History (Tylenol Extra Strength) levothyroxine 50 mcg capsule 50 mcg PO DAILY@0600 06/29/24 06/29/24 06/29/24 08:00 History (Tirosint) Exam Height,Weight and Vital Signs: Height 5 ft 7 in Weight 77.2 kg Last Vital Signs Temp 97.3 F 06/30/24 12:30 Pulse 123 H 06/30/24 12:30 Resp 16 06/30/24 12:30 BP 174/98 H 06/30/24 12:30 Pulse Ox 98 06/30/24 12:30 O2 Del Method Room Air 06/30/24 12:30 Pertinent Lab Results Pertinent Lab Results: Laboratory Tests 06/29/24 06/29/24 06/29/24 10:40 10:41 13:32 WBC 5.6 RBC 4.68 Hgb 10.7 L Hct 34.2 L MCV 73.1 L MCH 22.9 L MCHC 31.3 RDW 17.6 H Plt Count 303 MPV 9.0 L Immature Gran % (Auto) 0.4 Neut % (Auto) 61.2 Lymph % (Auto) 19.4 L [place] % (Auto) 17.7 H Eos % (Auto) 0.4 Baso % (Auto) 0.9 Lymph # (Auto) 1.1 L [place] # (Auto) 1.0 Eos # (Auto) 0.0 Baso # (Auto) 0.1 Abs Immat Gran (auto) 0.02 Absolute Neuts (auto) 3.4 Absolute Nucleated RBC 0.000 Nucleated RBC % (auto) 0.0 Hold Purple Top PT 22.3 H INR 1.8 H Sodium 136 Potassium 4.2 Chloride 105 Carbon Dioxide 23 Anion Gap 12 BUN 27 H Creatinine 1.85 H Estim Creat Clear Calc 25.5 Estimated GFR 26 Random Glucose 140 H Calcium 10.5 H D Magnesium 2.2 Total Bilirubin 0.5 Direct Bilirubin 0.1 AST 18 ALT 13 Alkaline Phosphatase 117 Troponin I High Sens 7.3 6.9 B-Natriuretic Peptide 562 H Total Protein 7.2 Albumin 4.3 TSH 3.94 06/30/24 05:48 WBC RBC Hgb Hct MCV MCH MCHC RDW Plt Count MPV Immature Gran % (Auto) Neut % (Auto) Lymph % (Auto) [place] % (Auto) Eos % (Auto) Baso % (Auto) Lymph # (Auto) [place] # (Auto) Eos # (Auto) Baso # (Auto) Abs Immat Gran (auto) Absolute Neuts (auto) Absolute Nucleated RBC Nucleated RBC % (auto) Hold Purple Top SEE NOTE PT INR Sodium 139 Potassium 3.7 Chloride 105 Carbon Dioxide 25 Anion Gap 13 BUN 26 H Creatinine 1.65 H Estim Creat Clear Calc 28.6 Estimated GFR 30 Random Glucose 106 Calcium 10.5 H Magnesium Total Bilirubin Direct Bilirubin AST ALT Alkaline Phosphatase Troponin I High Sens B-Natriuretic Peptide Total Protein Albumin TSH Airway Mallampati Class: II TM Dist: >3cm Neck ROM: Full Heart: rrr Lungs: cta Assessment and Plan Assessment Anesthesia Assessment: Anesthesia Plan Discussed and Chart Reviewed Final Anesthetic Review Family History of Problems with Anesthesia: No History of Problems with Anesthesia: No NPO: Yes ASA Class: III Final Preanesthetic Review: No Changes in Pt Med Stat, Meds/Allgs Chart Reviewed and Consent Obtained/Reviewed Patient Risk: Low Procedure Risk: Low Anesthetic Plan Anesthetic Plan: MAC: Disposition: Standard PACU
--- NOTE | 2024-06-30 14:45 | ECG_ITS ---
Test Reason : post cardioversion Blood Pressure : / mmHG Vent. Rate : 081 BPM Atrial Rate : 081 BPM P-R Int : 216 ms QRS Dur : 098 ms QT Int : 404 ms P-R-T Axes : 000 -50 012 degrees QTc Int : 469 ms Sinus rhythm with 1st degree A-V block with Premature atrial complexes in a pattern of bigeminy Left axis deviation Left ventricular hypertrophy with repolarization abnormality ( R in aVL , Cristofer product ) Abnormal ECG When compared with ECG of 29-JUN-2024 10:16, Sinus rhythm has replaced Atrial fibrillation T wave inversion no longer evident in Lateral leads Referred By: Aditya Espinosa Electronically Signed By:CHRISTI CISSE
[2024-06-30] MEDS: dilTIAZem HCL CD 120 MG CAP.ER.DEG PO (15:10)
[2024-06-30] MEDS: Apixaban 2.5 MG TABLET PO (21:49)
[2024-06-30] MEDS: 0.9 % Sodium Chloride Flush 3 ML SYRINGE IVFLUSH (21:52)
[2024-06-30] MEDS: Pravastatin Sodium 40 MG TABLET PO (21:52)
[2024-07-01 03:28] VITALS: BP 123/59; PULSE 56; RESP 20; TEMP 36.4; O2SAT 98
[2024-07-01] MEDS: Levothyroxine Sodium 50 MCG TABLET PO (06:30)
[2024-07-01 07:37] LABS: Hematocrit 32.3 % (37.0-47.0); Hemoglobin 10.1 g/dl (12.0-16.0); Mean Corpuscular HGB Conc 31.3 g/dl (31.0-35.0); Mean Corpuscular Hemoglobin 22.8 pg (27.0-33.0); Mean Corpuscular Volume 72.9 fL (80.0-98.0); Mean Platelet Volume 9.4 fL (9.4-12.3); Platelet Count 293 X10*3/uL (160-400); Red Blood Count 4.43 X10*6/uL (4.20-5.50); Red Cell Distribution Width 17.7 % (11.0-16.0); White Blood Count 5.5 X10*3/uL (4.8-10.8)
[2024-07-01 07:55] LABS: Anion Gap 15 (12-20); Blood Urea Nitrogen 30 mg/dL (9-16); Calcium 10.5 mg/dL (8.4-10.2); Carbon Dioxide 22 mmol/L (22-29); Chloride 105 mmol/L (96-108); Creatinine Clr Calc Pharmacy 28.4; Estimated Glomerular Filt Rate 30; Glucose Fasting 96 mg/dL (60-99); Potassium 3.9 mmol/L (3.3-5.1); Sodium 138 mmol/L (135-145)
[2024-07-01 08:00] VITALS: BP 144/68; PULSE 52; RESP 16; TEMP 37.2; O2SAT 95
[2024-07-01] MEDS: 0.9 % Sodium Chloride Flush 3 ML SYRINGE IVFLUSH (09:22)
[2024-07-01 09:23] VITALS: BP 144/68; PULSE 56
[2024-07-01] MEDS: Amiodarone HCL 200 MG TABLET 400 MG PO (09:23)
[2024-07-01] MEDS: hydrALAZINE HCl 25 MG TABLET PO (09:23)
[2024-07-01] MEDS: dilTIAZem HCL CD 120 MG CAP.ER.DEG PO (09:23)
[2024-07-01] MEDS: Apixaban 2.5 MG TABLET PO (09:23)
--- NOTE | 2024-07-01 10:08 | PM.PNCARD ---
Subjective Subjective Date of Service: 07/01/24 Interval history: Patient underwent cardioversion as today. She states she feels well. Review of Systems Review of Systems Yes all other systems are reviewed and are negative Constitutional: Reports as per HPI and Reports no additional constitutional complaints Eyes: Reports as per HPI and Denies no additional eye complaints Denies system reviewed and no additional complaints, except as documented and Reports as per HPI Cardiovascular: Reports as per HPI, Reports no additional cardiovascular complaints, Denies acrocyanosis, Denies cool extremities, Denies chest pain, Denies leg edema, Denies lightheadedness, Denies palpitations and Denies dyspnea Respiratory: Reports as per HPI, Denies no additional respiratory complaints and Denies dyspnea Gastrointestinal: Reports as per HPI and Denies no additional gastrointestinal complaints Genitourinary: Reports as per HPI Musculoskeletal: Reports no additional musculoskeletal complaints and Reports as per HPI Skin/Breast: Reports system reviewed and no additional complaints, except as docu Reports system reviewed and no additional complaints, except as documented and Reports as per HPI Psychiatric: Reports no additional psychiatric complaints and Reports as per HPI Endocrine: Reports no additional endocrine complaints, Reports as per HPI and Denies palpitations Hematologic/Lymphatic: Reports no additional hematologic/lymphatic complaints and Reports as per HPI Allergic/Immunologic: Reports no additional allergic/immunologic complaints and Reports as per HPI Physical Exam Vital Signs: Last Vital Signs Temp 98.9 F 07/01/24 08:00 Pulse 56 07/01/24 09:23 Resp 16 07/01/24 08:00 BP 144/68 H 07/01/24 09:23 Pulse Ox 95 07/01/24 08:00 O2 Del Method Room Air 07/01/24 08:00 O2 Flow Rate 2 06/30/24 15:06 BMI result Body Mass Index 26.7 Const General: comfortable and no acute distress Orientation/consciousness: patient oriented x3 HEENT Other: Unremarkable Head: Yes normal to inspection Neck Neck: Yes normal visual inspection Chest Chest palpation & inspection: normal inspection of the chest Resp Auscultation: clear to auscultation bilaterally Cardio Palpation: normal PMI Heart sounds: S1 normal heart sound present, S2 normal heart sound present, no gallops, no murmurs and no rubs GI Palpation (GI): Soft to palpation Back/Spine/Pelvis Other: unremarkable Skin General skin exam: no rashes or lesions noted Neuro General: patient oriented x3 Extrem General: Yes normal to inspection Psych Mental Status: mental status grossly normal Objective Labs and Meds 07/01/24 06:33 07/01/24 06:33 Lab results: Laboratory Results - last 24 hr 07/01/24 06:33 WBC 5.5 RBC 4.43 Hgb 10.1 L Hct 32.3 L MCV 72.9 L MCH 22.8 L MCHC 31.3 RDW 17.7 H Plt Count 293 MPV 9.4 Absolute Nucleated RBC 0.000 Nucleated RBC % (auto) 0.0 Sodium 138 Potassium 3.9 Chloride 105 Carbon Dioxide 22 Anion Gap 15 BUN 30 H Creatinine 1.66 H Estim Creat Clear Calc 28.4 Estimated GFR 30 Fasting Glucose 96 Calcium 10.5 H Progress Note: A&P Assessment and plan (1) Atrial fibrillation with rapid ventricular response: Status: Acute Plan History of atrial fibrillation ablation last year. Recurring atrial fibrillation spite of amiodarone. Cardioverted as today back to normal sinus rhythm. We can increase the amiodarone to 400 mg daily as maintenance for the time being. Increase diltiazem to CD 120 mg daily. Continue with anticoagulation. Message sent to Dr. Crystal, who stated that he will be arranging another ablation soon. Otherwise, she is stable and can be discharged home. Follow up in clinic. Time Spent With Patient Time: Total time managing care of this patient today ____ minutes. Progress Note: Quality Stroke Does the patient have a stroke diagnosis?: No Procedures Date of Service Date of Service: 07/01/24
--- NOTE | 2024-07-01 10:26 | P.DS_ITS ---
DS: Providers Provider Date of Service: 07/01/24 Date of admission: 06/29/24 15:10 Date of discharge: 07/01/24 Primary care physician: Capo Sales MD Consults: 06/29/24 15:13 Consult to Cardiology Routine Consulting Provider: [facility] [place] [facility] Reason for consultation: AFib with RVR, ?cardioversion DS: Diagnosis Discharge Diagnosis (1) Atrial fibrillation with rapid ventricular response: Status: Acute DS: Summary Hospital Course Hospital Course: from initial hpi: 83-year-old female with a PMH significant for?paroxysmal AFib on Eliquis s/p multiple cardioversions and ablation (03/2023), HFpEF, HTN, HLD, CKD 3, and hypothyroidism who presents to the ED with?palpitations. Pt has a home monitoring system and noticed was tachycardic over the weekend up to 105-110 but was in regular rhythm. Yesterday patient began feeling palpitations and was noted to be in AFib. Reports has been compliant with her home medications and denies any recent illnesses. No shortness a breath or difficulty breathing. Denies lower leg edema. No chest pain. Denies fever, chills, nausea, vomiting, abdominal pain. Of note, patient was recently admitted to the hospital on 04/21- 04/25 for acute hypoxic respiratory failure secondary to acute on chronic diastolic CHF. Course was complicated by paroxysmal AFib with RVR where patient was treated with diltiazem and ongoing amiodarone load with plan for cardioversion while in the hospital, however patient self converted. Has a long history of 7-8 cardioversions since 2019. Reports normally takes a cardioversion to get her back into regular rhythm. In the ED pt was tachycardic up to 116 and hypertensive up to 173/72. Labs were significant for BNP 562, otherwise grossly unremarkable and around baseline for patient. No leukocytosis. Stable microcytic anemia 10.7/34.2. Creatinine 1.85. No significant electrolyte abnormalities. Hepatic function WNL. Initial troponin 7.3 with repeat flat at 6.9. TSH WNL. CXR showed no acute cardiopulmonary process with stable elevation of left hemidiaphragm. EKG demonstrated AFib with RVR [address] and T-wave abnormalities. Pt was treated with Lasix, diltiazem 15 mg in 25 mg IV, then started on a diltiazem drip. Pt will be admitted to the hospital for treatment and further evaluation of AFib with RVR requiring diltiazem drip and likely cardioversion. hospital course: Patient was admitted for paroxysmal atrial fibrillation with rapid ventricular response. She was treated with diltiazem infusion and underwent cardioversion with successful transitioned to normal sinus rhythm. She was seen by Cardiology recommended increasing amiodarone 400 mg daily and changing diltiazem to 120 daily. Patient will follow up closely with Cardiology and electrophysiology as outpatient. For chronic diastolic CHF she remained stable. For hypertension she was continued on hydralazine. For hypothyroidism she was continued on Synthroid. For CKD stage IIIB her creatinine remained stable. Patient is feeling better will be discharged home. Time Attestation Discharge Coordination Time (in mins): 35 Quality: Safe Use of Opioids Does Pt have an Active Cancer Diagnosis on the Problem List?: No Quality: Stroke Does the patient have a stroke diagnosis?: No Physical Exam Vital Signs: Vital Signs: Last Vital Signs Temp 98.9 F 07/01/24 08:00 Pulse 56 07/01/24 09:23 Resp 16 07/01/24 08:00 BP 144/68 H 07/01/24 09:23 Pulse Ox 95 07/01/24 08:00 O2 Del Method Room Air 07/01/24 08:00 O2 Flow Rate 2 06/30/24 15:06 BMI result Body Mass Index 26.7 Const: General: comfortable and no acute distress Orientation/consciousness: patient oriented x3 HEENT: Other: Unremarkable Head: Yes normal to inspection Neck: Neck: Yes normal visual inspection Chest: Chest palpation & inspection: normal inspection of the chest Resp: Auscultation: clear to auscultation bilaterally Cardio: Palpation: normal PMI Heart sounds: S1 normal heart sound present, S2 normal heart sound present, no gallops, no murmurs and no rubs GI: Palpation (GI): Soft to palpation Back/Spine/Pelvis: Other: unremarkable Skin: General skin exam: no rashes or lesions noted Neuro: General: patient oriented x3 Extrem: General: Yes normal to inspection Psych: Mental Status: mental status grossly normal DS: Data Data Completed and Pending Completed studies during hospitalization [Text1]: Procedures Baptism of Cardiac Rhythm, Single (11/19/22) Labs on day of discharge: Laboratory Results - last 24 hr 07/01/24 06:33 WBC 5.5 RBC 4.43 Hgb 10.1 L Hct 32.3 L MCV 72.9 L MCH 22.8 L MCHC 31.3 RDW 17.7 H Plt Count 293 MPV 9.4 Absolute Nucleated RBC 0.000 Nucleated RBC % (auto) 0.0 Sodium 138 Potassium 3.9 Chloride 105 Carbon Dioxide 22 Anion Gap 15 BUN 30 H Creatinine 1.66 H Estim Creat Clear Calc 28.4 Estimated GFR 30 Fasting Glucose 96 Calcium 10.5 H Discharge Plan Discharge Anticipated Discharge Date/Time: 07/01/24 10:22 Patient Disposition: Home, Self-Care Discharge Diagnosis: afib Referrals: Capo Sales MD [Primary Care Provider] - 1 Week Discharge Medications: New amiodarone 200 mg Tablet 400 mg PO DAILY Qty: 90 0RF diltiazem HCl [Cardizem CD] 120 mg Capsule,Extended Release 24hr 120 mg PO DAILY Qty: 90 0RF Protocol: Hold for SBP/HR < HOLD for SBP < : 90 HOLD for HR < : 60 Continued Eliquis 5 mg tablet 5 mg PO BID 90 Days Qty: 180 3RF pravastatin 40 mg tablet 40 mg PO BEDTIME 90 Days Qty: 90 3RF hydralazine 25 mg tablet 25 mg PO BID Qty: 180 1RF levothyroxine [Tirosint] 50 mcg capsule 50 mcg PO DAILY@0600 acetaminophen [Tylenol Extra Strength] 500 mg tablet 500 mg PO DAILY PRN (Reason: Pain) Discontinued amiodarone 200 mg tablet 200 mg PO DAILY 90 Days Qty: 90 3RF diltiazem HCl 30 mg tablet 30 mg PO BID Qty: 60 3RF Rx Instructions: dose reduced Discharge Orders: Discharge Order (Routine); Ordered 07/01/24 Ordered By: Vijay Garcia Diet: Advance to usual diet Activity on Discharge: As tolerated Stand Alone Forms: Patient Portal Discharge page Print Language: Azerbaijani Care Plan Goals: stay in sinus Health Concerns: afib Plan of Treatment: amio increased to 400, cardizem cahnged to 120 Assessment: see above Patient Instructions: A-fib (Atrial Fibrillation) (DC) Discharge Date/Time: 07/01/24 11:39
--- NOTE | 2024-07-01 10:59 | MHC.CM.PN ---
IMM 06/30/24 Patient has been cleared for discharge today. She will follow up out patient for Cardiac procedure. She is discharged to home self care. She has arranged for her son to provide transportation home.
--- NOTE | 2024-07-01 21:42 | HO.POSTANES ---
Post Anesthesia Evaluation Post Anesthesia Evaluation Date of Service: 06/30/24 Anesthesia: General Mental Status: Awake Pain Control: Satisfactory Nausea/Vomiting: None Hydration: Adequate Anesthesia-Related Issues: No Anes. Related Issues
== END 2024-07-01 11:39 | disposition home or self-care (01) | DRG 309 ==
LOC: HO.ED 13:46 → HO.EDOVER 15:17 → HO.IMC 06-30 14:58
PROVIDERS: Internal Medicine; Physician Assistant; Admitting Provider Student in an Organized Health Care Education/Training Program; Emergency Provider Emergency Medicine; PCP Family Medicine; Visit Provider Internal Medicine
PROC: 5A2204Z Restoration of Cardiac Rhythm, Single (ICD-10-PCS; principal; 2024-06-30 14:50)
DX: I48.0 Paroxysmal atrial fibrillation (principal); I13.0 Hypertensive heart and chronic kidney disease with heart failure and stage 1 through stage 4 chronic kidney disease, or unspecified chronic kidney disease; I50.32 Chronic diastolic (congestive) heart failure; E03.9 Hypothyroidism, unspecified; E86.0 Dehydration; N18.32 Chronic kidney disease, stage 3b; Z79.01 Long term (current) use of anticoagulants; Z79.890 Hormone replacement therapy; Z79.899 Other long term (current) drug therapy
CPT/HCPCS: 36415; 71045; 80048; 80076; 83735; 83880; 84443; 84484; 85025; 85027; 85610; 92960; 93005; 99285; J1940; J2704; J7120

== ENCOUNTER → 2024-06-29 10:16 | Outpatient (BNV) | payer MEDICARE, OTHER, SELFPAY | PROVIDERS: Emergency Provider Emergency Medicine; PCP Family Medicine; Visit Provider Internal Medicine | DX: R94.31 Abnormal electrocardiogram [ECG] [EKG] (principal) | CPT/HCPCS: 93010 ==

== ENCOUNTER → 2024-06-29 15:10 | Outpatient (BNV) | payer MEDICARE, OTHER, SELFPAY | PROVIDERS: Admitting Provider Student in an Organized Health Care Education/Training Program; Emergency Provider Emergency Medicine; PCP Family Medicine; Visit Provider Internal Medicine | DX: I48.91 Unspecified atrial fibrillation (principal) | CPT/HCPCS: 92960; 99223; 99232 ==

== ENCOUNTER → 2024-06-29 15:10 | Outpatient (BNV) | payer MEDICARE, OTHER, SELFPAY | PROVIDERS: Admitting Provider Student in an Organized Health Care Education/Training Program; Emergency Provider Emergency Medicine; PCP Family Medicine; Visit Provider Student in an Organized Health Care Education/Training Program | DX: I48.91 Unspecified atrial fibrillation (principal) | CPT/HCPCS: 99223; 99232; 99239 ==

== ENCOUNTER 2024-07-15 10:55 | Outpatient (REF) | payer MEDICARE, OTHER, SELFPAY ==
[2024-07-15 11:59] LABS: B Type Natriuretic Peptide 941 pg/mL (<100)
[2024-07-15 12:04] LABS: Anion Gap 14 (12-20); Blood Urea Nitrogen 26 mg/dL (9-16); Calcium 10.7 mg/dL (8.4-10.2); Carbon Dioxide 22 mmol/L (22-29); Chloride 104 mmol/L (96-108); Estimated Glomerular Filt Rate 35; Glucose Random 138 mg/dL (60-115); Sodium 136 mmol/L (135-145)
== END 2024-07-15 10:56 | disposition home or self-care (01) ==
LOC: HO.LAB 10:55
PROVIDERS: PCP Family Medicine; Visit Provider Internal Medicine Cardiovascular Disease
DX: I50.9 Heart failure, unspecified (principal)
CPT/HCPCS: 36415; 80048; 83880

== ENCOUNTER 2024-07-27 15:08 | Outpatient (AMB) | payer MEDICARE, OTHER, SELFPAY ==
[2024-07-27 15:24] VITALS: BP 134/90; PULSE 55; BMI 26.8
--- NOTE | 2024-07-27 15:24 | MHC.OFFVIS ---
Vital Signs 07/27/24 15:24 Height 5 ft 7 in Weight 171 lb 1.259 oz BMI 26.8 BP 134/90 H Blood Pressure Location Lt brachial Position Sitting Pulse 55 Pulse Source Monitor Intake Visit Reasons: f/up-after cardioversion w/EKG Financial Cost Analyst Required: No Allergies amlodipine Allergy (Intermediate, Verified 07/27/24 15:26) Swelling ankles/feet w rash prednisone Allergy (Intermediate, Verified 07/27/24 15:26) REd Blotchy codeine Adverse Reaction (Intermediate, Verified 07/27/24 15:26) Swelling sulfamethoxazole [From Bactrim] Adverse Reaction (Intermediate, Verified 07/27/24 15:26) Stomach Upset metoprolol Adverse Reaction (Verified 07/27/24 15:26) Hypotension Medication List - Last Reconciled 07/27/24 by DELFINO Coronado acetaminophen (Tylenol Extra Strength) 500 mg PO DAILY PRN amiodarone 200 mg PO DAILY apixaban (Eliquis) 5 mg PO BID 90 days diltiazem HCl 30 mg PO BID furosemide (Lasix) 40 mg PO DAILY hydralazine 25 mg PO BID levothyroxine (Tirosint) 50 mcg PO DAILY@0600 pravastatin 40 mg PO BEDTIME 90 days HPI HPI f/up-after cardioversion w/EKG: Details: Sandi is an 83-year-old female with past medical history of hypertension, hyperlipidemia, cardiomyopathy, paroxysmal atrial fibrillation with prior cardioversions send recurrent AFib in underwent AFib ablation on 03/26/2023, then recurrent AFib, placed on amiodarone with conversion then readmitted to [facility] [place] with palpitations and treated again for AFib RVR. She did require inpatient cardioversion. She was then sent back to EP for a repeat ablation evaluation. Today she reports that she did see Dr. Guadalupe and he is not planning an ablation at this time. Her amiodarone had been at 400 mg daily and he reduced it back to 200 mg daily. She is on diltiazem 30 mg b.i.d.. Since her hospital discharge she has not had recurrent heart palpitations. She is concerned about having recurrent AFib. She feels better on the lower dose diltiazem. On 120 mg daily she had fatigue and bradycardia. No chest discomfort, shortness of breath, dizziness, presyncope, syncope, PND, orthopnea. She does have chronic mild bilateral lower leg puffiness which she says currently is looking good for her. Taking all meds as directed. No bleeding issues reported [facility] Medical History Adult general medical exam Screening for breast cancer PAF (paroxysmal atrial fibrillation) Persistent atrial fibrillation Breast cancer screening by mammogram PAF (paroxysmal atrial fibrillation) Hx of skin cancer, basal cell Elevated serum creatinine Screening for colon cancer Screening for osteoporosis Therapeutic drug monitoring Cough with congestion of paranasal sinus Abnormal creatinine clearance glomerular filtration Breath shortness Rash History of cardioversion PAF (paroxysmal atrial fibrillation) Atrial fibrillation with rapid ventricular response History of vitamin D deficiency History of hypothyroidism Anticoagulant long-term use Hx of squamous cell carcinoma of skin Vitamin B 12 deficiency High cholesterol Hypertension, essential Surgical History S/P ablation of atrial fibrillation History of hand surgery History of dilation and curettage Status post surgical removal of malignant neoplasm of skin Family History Mother Stroke Father Pancreatic cancer Brother Lyme disease Social History Household Members: None Housing: House Do you presently have visiting nurse or other home services: No Alcohol intake: never Comment: pt refuses bed alarm Patient Tobacco Use Status: Never used Tobacco e-Cigarette/Vaping Use: Never Used Second Hand Smoke Exposure: No Advance Directives Date on File: 11/19/22 service: No Current occupational status: retired Cognitive needs: No Hearing needs: No Vision needs: Yes (Patient wears reading glasses.) Review of Systems Const All systems reviewed & are unremarkable except as noted in HPI and below ENT Denies dizziness Card Denies chest pain, Denies chest pain at rest, Denies chest pain with activity, Denies rapid heart rate, Denies pedal edema, Denies edema, Denies leg edema, Denies lightheadedness, Denies palpitations, Denies dyspnea, Denies dyspnea on exertion and Denies orthopnea Resp Denies cough, Denies dyspnea and Denies dyspnea on exertion GI Denies hematochezia and Denies change in stool character Musc Denies abnormal gait, Denies limited range of motion, Denies muscle cramps, Denies muscle weakness, Denies numbness, Denies radiating pain into limb, Denies stiffness and Denies tingling Neuro Denies abnormal gait, Denies dizziness, Denies numbness and Denies tingling Endo Denies palpitations Physical Exam Vital Signs: Last Vital Signs Pulse 55 07/27/24 15:24 BP 134/90 H 07/27/24 15:24 BMI result Body Mass Index 26.8 Const General: cooperative, healthy appearing, comfortable and no acute distress Orientation/consciousness: patient oriented x3 Neck Neck: Yes normal visual inspection and Yes no JVD Resp Effort & Inspection: normal respiratory effort Auscultation: clear to auscultation bilaterally, no crackles, no rales, no rhonchi and no wheezes Cardio Jugular venous distension: no JVD Rate: regular rate Rhythm: regular rhythm Heart sounds: S1 normal heart sound present, S2 normal heart sound present, no murmurs and no rubs Neuro General: patient oriented x3 Extrem General: Yes normal to inspection and No no pedal edema Psych Appearance: grossly normal Mental Status: mental status grossly normal Speech and movement: Normal speech and movement present Office Procedures EKG Details: Today, read by me, sinus Cristofer with first-degree AV block, left axis deviation, minimal voltage for LVH, nonspecific ST abnormality rate 55, QTC 472 milliseconds [id number], Complete Assessment & Plan Assessment & Plan (1) PAF (paroxysmal atrial fibrillation): Code(s): I48.0 - Paroxysmal atrial fibrillation Category: Medical Plan: History of paroxysmal atrial fibrillation with prior failed cardioversions. She did undergo an AFib ablation on 03/26/[address] Guadalupe. She was admitted to [facility] [place] with recurrent AFib in April 2024 and again June 2024. She has been on amiodarone and at the time of last admission her dose was increased to 400 mg daily. She did require cardioversion on 06/30/2024. Following discharge she did see Dr. Guadalupe on 07/26/2024. He reduced her amiodarone down to 200 mg daily. She continues on diltiazem 30 mg b.i.d.. There is no plan for repeat ablation at this time. Dr. Espinosa informed and he will reach out to to discuss plan of care. EKG done today is showing sinus bradycardia, first-degree AV block. She has not had any recurrent heart palpitations since her last hospitalization. She has been instructed by Dr. Guadalupe to present to [facility] in the event of recurrent atrial fibrillation. At this time will continue on current med management with amiodarone, diltiazem and she is on Eliquis for anticoagulation. Bleeding issues reported. Labs done 07/15/2024 showed creatinine 1.43, labs 06/29/2024 showed TSH 3.94, normal LFT. Chest x-ray 06/29/2024 shows no acute findings. Will plan to call her with any changes to plan of care. Cardiology office visit 3 months, sooner if needed. (2) Cardiomyopathy: Code(s): I42.9 - Cardiomyopathy, unspecified Category: Medical Plan: Mild cardiomyopathy. Last echo done 11/20/2022 showed EF 45-50%, left atrium mildly dilated, mild AR, mild MR, mild TR. May have been related to AFib with elevated rates. Prior echo in 2020 showed EF 65-70%. She has had recent AFib RVR. Will hold off on repeat limited echo at this time. No signs of heart failure on examination today. Continue with management for her PAF. (3) CHF (congestive heart failure): Code(s): I50.9 - Heart failure, unspecified Category: Medical Plan: Treated for mild Congestive heart failure at prior hospitalization. Condition stable at this time. She is Lasix 40 mg daily. (4) Hospital discharge follow-up: Code(s): Z09 - Encounter for follow-up examination after completed treatment for conditions other than malignant neoplasm Category: Medical Plan: As above Plan Time spent on chart review, documentation, interview and assessment Coding Level of Care Code Est Pt Level 4 (84452) Diagnoses PAF (paroxysmal atrial fibrillation) I48.0 Cardiomyopathy I42.9 CHF (congestive heart failure) I50.9 Hospital discharge follow-up Z09 CPT Codes EKG - CPT: 59317-[id number], Complete ([id number]) Time Spent (min) 36
== END 2024-07-27 15:59 | disposition home or self-care (01) ==
PROVIDERS: PCP Family Medicine; Visit Provider Nurse Practitioner Family
DX: I44.0 Atrioventricular block, first degree (principal)
CPT/HCPCS: 93010; 99214

== ENCOUNTER → 2024-07-27 15:08 | Outpatient (BNVA) | payer MEDICARE, OTHER, SELFPAY | PROVIDERS: PCP Family Medicine; Visit Provider Nurse Practitioner Family | DX: Z09 Encounter for follow-up examination after completed treatment for conditions other than malignant neoplasm (principal); I44.0 Atrioventricular block, first degree; I48.0 Paroxysmal atrial fibrillation; I11.0 Hypertensive heart disease with heart failure; I42.9 Cardiomyopathy, unspecified; I50.9 Heart failure, unspecified | CPT/HCPCS: 93005; 99212 ==

== ENCOUNTER 2024-09-22 08:53 | Outpatient (AMB) | payer MEDICARE, OTHER, SELFPAY ==
[2024-09-22 09:06] VITALS: BP 130/62; PULSE 70; BMI 26.6
--- NOTE | 2024-09-22 09:06 | A.OFFVIS_ITS ---
Vital Signs 09/22/24 09:06 Height 5 ft 7 in Weight 169 lb 12.095 oz BMI 26.6 BP 130/62 Blood Pressure Location Lt brachial Position Sitting Pulse 70 Pulse Source Monitor Intake Visit Reasons: 3 mth f/up Intake Note: 3 mth f/up/ pt is doing fine Restaurant District Manager Required: No Accompanied by: Self / Same As Patient Allergies amlodipine Allergy (Intermediate, Verified 07/27/24 15:26) Swelling ankles/feet w rash prednisone Allergy (Intermediate, Verified 07/27/24 15:26) REd Blotchy codeine Adverse Reaction (Intermediate, Verified 07/27/24 15:26) Swelling sulfamethoxazole [From Bactrim] Adverse Reaction (Intermediate, Verified 07/27/24 15:26) Stomach Upset metoprolol Adverse Reaction (Verified 07/27/24 15:26) Hypotension Medication List - Last Reconciled 09/22/24 by Don Gonzales MD acetaminophen (Tylenol Extra Strength) 500 mg PO DAILY PRN amiodarone 400 mg PO DAILY apixaban (Eliquis) 5 mg PO BID 90 days diltiazem HCl 30 mg PO BID 90 days furosemide (Lasix) 40 mg PO DAILY hydralazine 25 mg PO BID levothyroxine (Tirosint) 50 mcg PO DAILY@0600 pravastatin 40 mg PO BEDTIME 90 days HPI Comments Details: 83 year old female with PAF. She has symptomatic Afib. She was cardioverted before and has been on amiodarone. In October 2022 she again developed atrial fibrillation and was in the emergency department. She was cardioverted by my partner Dr. Lopez. She was subsequently referred to electrophysiology and underwent AFib ablation on 03/26/[address] Crystal. She said 2 days later she had episode of atrial fibrillation and she was advised to restart amiodarone at this stage at 200 mg twice a day. She took amiodarone for a week at 200 mg twice a day and has been taking 200 mg daily since then. She has not had an further episodes of AFib. She is saying she is still recovering from the procedure and trying to get her strength back.\ October for 2022: She returns for follow-up. She is recovering from gastroenteritis. No palpitations. No chest pain or shortness of breath. Blood pressure control is good. Continues to be in sinus rhythm based on EKG. On apixaban without any bleeding issues. 09/22/2024: She is here for follow-up. She had an episode of atrial fibrillation in June. She has seen Dr. Crystal and was taking amiodarone 400 mg at that time and she was advised to drop it to 200 mg. She said in July she had another episode of atrial fibrillation and since then she started taking 2 tablets of amiodarone and since mid July she has been using 400 mg of amiodarone. She has been noticing some lightheadedness after breakfast after she takes her hydralazine diltiazem and Lasix. She is on hydralazine 25 mg twice a day. [facility] Medical History Adult general medical exam Screening for breast cancer PAF (paroxysmal atrial fibrillation) Persistent atrial fibrillation Breast cancer screening by mammogram PAF (paroxysmal atrial fibrillation) Hx of skin cancer, basal cell Elevated serum creatinine Screening for colon cancer Screening for osteoporosis Therapeutic drug monitoring Cough with congestion of paranasal sinus Abnormal creatinine clearance glomerular filtration Breath shortness Rash History of cardioversion PAF (paroxysmal atrial fibrillation) Atrial fibrillation with rapid ventricular response History of vitamin D deficiency History of hypothyroidism Anticoagulant long-term use Hx of squamous cell carcinoma of skin Vitamin B 12 deficiency High cholesterol Hypertension, essential Surgical History S/P ablation of atrial fibrillation History of hand surgery History of dilation and curettage Status post surgical removal of malignant neoplasm of skin Family History Mother Stroke Father Pancreatic cancer Brother Lyme disease Social History Household Members: None Housing: House Do you presently have visiting nurse or other home services: No Alcohol intake: never Comment: pt refuses bed alarm Patient Tobacco Use Status: Never used Tobacco e-Cigarette/Vaping Use: Never Used Second Hand Smoke Exposure: No Advance Directives Date on File: 11/19/22 service: No Current occupational status: retired Cognitive needs: No Hearing needs: No Vision needs: Yes (Patient wears reading glasses.) Review of Systems Const Denies chills, Denies fatigue, Denies fever(s), Denies frequent falls, Denies weakness, Denies weight gain and Denies weight loss ENT Denies dizziness Card Denies chest pain, Denies leg edema, Denies lightheadedness, Denies palpitations, Denies dyspnea and Denies dyspnea on exertion Resp Denies cough, Denies dyspnea and Denies dyspnea on exertion GI Denies hematochezia Musc Denies abnormal gait, Denies muscle weakness, Denies numbness, Denies radiating pain into limb and Denies tingling Neuro Denies abnormal gait, Denies dizziness, Denies frequent falls, Denies numbness, Denies tingling and Denies weakness Endo Denies fatigue and Denies palpitations Physical Exam Vital Signs: Last Vital Signs Pulse 70 09/22/24 09:06 BP 130/62 09/22/24 09:06 BMI result Body Mass Index 26.6 GENERAL APPEARANCE: in no acute distress, pleasant. NECK: no carotid bruit, no jugular venous distention. SKIN: no suspicious lesions, warm and dry. HEART: no murmurs, regular rate and rhythm. LUNGS: clear to auscultation bilaterally. ABDOMEN: soft, nontender. EXTREMITIES: no edema. PERIPHERAL PULSES: equal. NEUROLOGIC: No gross deficits, AAO X 3 Office Procedures EKG Details: Sinus rhythm 70 beats per minute, left axis deviation, can not rule out anteroseptal infarct, QTC 457 milliseconds. [id number], Complete Assessment & Plan Assessment & Plan (1) PAF (paroxysmal atrial fibrillation): Code(s): I48.0 - Paroxysmal atrial fibrillation Category: Medical (2) Hypertension: Code(s): I10 - Essential (primary) hypertension Category: Medical Qualifiers: Hypertension type: primary hypertension Qualified Code(s): I10 - Essential (primary) hypertension Plan Pleasant 83 year female who is here for follow-up. She has background history of paroxysmal atrial fibrillation and underwent cardioversion multiple times as well as ablation. She has been on amiodarone 400 mg daily since mid July. She is clinically stable right now but had 1 episode in July which lasted for 1 hour. I have advised her to decrease the amiodarone to 200 mg daily. She has been getting some lightheadedness after breakfast when she takes all her medicines. I have advised her to stop the hydralazine for now. Difficult to control atrial fibrillation. She has seen electrophysiology and if she has recurrent episodes then may have to go back for pulse field ablation versus AV marcia ablation with permanent pacemaker placement. She will see us back in 3 months. Thank you for allowing me to participate in the care of your patient. Please feel free to contact me if you have any questions. Medications: Changed From amiodarone 400 mg PO DAILY To amiodarone 200 mg PO DAILY Discontinued hydralazine Discontinued Reason: Doctor's Order 25 mg PO BID 180 tabs 1RF Coding Level of Care Code Est Pt Level 4 (91537) Diagnoses PAF (paroxysmal atrial fibrillation) I48.0 Primary hypertension I10 Hypertension type: primary hypertension CPT Codes EKG - CPT: 59653-[id number], Complete ([id number])
== END 2024-09-22 09:34 | disposition home or self-care (01) ==
PROVIDERS: PCP Family Medicine; Visit Provider Internal Medicine Cardiovascular Disease
DX: I48.0 Paroxysmal atrial fibrillation (principal); I10 Essential (primary) hypertension
CPT/HCPCS: 93010; 99214

== ENCOUNTER → 2024-09-22 08:53 | Outpatient (BNVA) | payer MEDICARE, OTHER, SELFPAY | PROVIDERS: PCP Family Medicine; Visit Provider Internal Medicine Cardiovascular Disease | DX: I44.4 Left anterior fascicular block (principal); R94.31 Abnormal electrocardiogram [ECG] [EKG]; I48.0 Paroxysmal atrial fibrillation; I10 Essential (primary) hypertension | CPT/HCPCS: 93005; 99212 ==

== ENCOUNTER 2024-10-02 09:30 | Outpatient (AMB) | payer MEDICARE, OTHER, SELFPAY ==
--- NOTE | 2024-10-02 09:40 | A.OFFPC_ITS ---
Vital Signs 10/02/24 09:42 Height 5 ft 7 in Weight 167 lb 2 oz BMI 26.2 BP 126/70 Blood Pressure Location Lt brachial Position Sitting Respiration 14 Pulse 60 Pulse Source Pulse Oximeter Temp 97.5 F Temp Source Oral Pulse Oximetry (%) 97 Oxygen Delivery Method Room Air Intake Visit Reasons: f/u hypertension Intake Note: f/u HTN Allergies amlodipine Allergy (Intermediate, Verified 10/02/24 09:40) Swelling ankles/feet w rash prednisone Allergy (Intermediate, Verified 10/02/24 09:40) REd Blotchy codeine Adverse Reaction (Intermediate, Verified 10/02/24 09:40) Swelling sulfamethoxazole [From Bactrim] Adverse Reaction (Intermediate, Verified 09/15 07/08 09:40) Stomach Upset metoprolol Adverse Reaction (Verified 10/02/24 09:40) Hypotension Medication List - Last Reconciled 10/02/24 by Capo Sales MD acetaminophen (Tylenol Extra Strength) 500 mg PO DAILY PRN amiodarone 200 mg PO DAILY apixaban (Eliquis) 5 mg PO BID 90 days diltiazem HCl 30 mg PO BID 90 days furosemide (Lasix) 40 mg PO DAILY levothyroxine (Tirosint) 50 mcg PO DAILY@0600 pravastatin 40 mg PO BEDTIME 90 days Tobacco use date assessed: 03/14/24 Dental Screening Dental Screen Date: 03/14/24 HPI f/u hypertension HPI Details 83 y/o female presents to f/u hypertensi on and chronic conditions. Blood pressure today 126/70, 60p. She is on diltiazem 30mg b.i.d. Continues to be on amiodarone 200mg and Eliqiuis. [facility] Medical History Adult general medical exam Screening for breast cancer PAF (paroxysmal atrial fibrillation) Persistent atrial fibrillation Breast cancer screening by mammogram PAF (paroxysmal atrial fibrillation) Hx of skin cancer, basal cell Elevated serum creatinine Screening for colon cancer Screening for osteoporosis Therapeutic drug monitoring Cough with congestion of paranasal sinus Abnormal creatinine clearance glomerular filtration Breath shortness Rash History of cardioversion PAF (paroxysmal atrial fibrillation) Atrial fibrillation with rapid ventricular response History of vitamin D deficiency History of hypothyroidism Anticoagulant long-term use Hx of squamous cell carcinoma of skin Vitamin B 12 deficiency High cholesterol Hypertension, essential Surgical History S/P ablation of atrial fibrillation History of hand surgery History of dilation and curettage Status post surgical removal of malignant neoplasm of skin Family History Mother Stroke Father Pancreatic cancer Brother Lyme disease Social History Household Members: None Housing: House Do you presently have visiting nurse or other home services: No Alcohol intake: never Comment: pt refuses bed alarm Patient Tobacco Use Status: Never used Tobacco e-Cigarette/Vaping Use: Never Used Second Hand Smoke Exposure: No Advance Directives Date on File: 11/19/22 service: No Current occupational status: retired Cognitive needs: No Hearing needs: No Vision needs: Yes (Patient wears reading glasses.) Questionnaire PHQ-9 Over the last 2 weeks, how often have you been bothered by any of the following problems? 2. Feeling down, depressed, or hopeless: not at all 3. Trouble falling or staying asleep, or sleeping too much: not at all 4. Feeling tired or having little energy: several days 5. Poor appetite or overeating: not at all 6. Feeling bad about yourself - or that you are a failure or have let yourself or your family down: not at all 7. Trouble concentrating on things, such as reading the newspaper or watching television: not at all 8. Moving or speaking so slowly that other people could have noticed. Or the opposite - being so fidgety or restless that you have been moving around a lot more than usual: not at all 9. Thoughts that you would be better off or of hurting yourself in some way: not at all Source: Developed by Drs. Jadiel Marrero, Melany Strickland, Manuel Ferguson and colleagues, with an educational ellen from [employer]. Thrive Questionnaire Date Thrive assessed: 06/30/24 I am a: Patient What is your living situation today?: I have a steady place to live Within the past 12 months, did the food you bought not last and you didn't have the money to get more?: Never true Within the past 12 months, did you worry whether your food would run out before you got money to buy more?: Never true Do you have trouble paying for medicines?: No Do you have trouble getting transportation to medical appointments?: No Do you have trouble paying your heating and electricity bill?: No Do you have trouble taking care of your child, family member or friend?: No Do you have trouble with day-to-day activities such as bathing, preparing meals, shopping, managing finances, etc.?: No Are you currently unemployed and looking for a job?: No Are you interested in more education?: No Please select the resources that you would like help with: None Currently or been in a relationship where the following occur: No concerns reported THRIVE Score: 0 AUDIT C Alcohol Use Questionnaire (AUDIT-C) 1. How often do you have a drink containing alcohol?: Never Total Score: 0 ASUNCION-7 AMB Questionnaire ASUNCION-7 Date ASUNCION - 7 assessed: 03/14/24 Feeling nervous, anxious, or on edge: 0 = Not at all Not being able to stop or control worryin = Not at all Worrying too much about different things: 0 = Not at all Trouble relaxin = Not at all Being so restless that it is hard to sit still: 0 = Not at all Becoming easily annoyed or irritable: 0 = Not at all Feeling afraid as if something awful might happen: 0 = Not at all Total ASUNCION-7 score (0-4 normal; 5-9 mild; 10-14 moderate; 15-21 severe): 0 Source: Developed by Drs. Jadiel Marrero, Melany Strickland, Manuel Ferguson and colleagues, with an educational ellen from [employer]. Review of Systems Const Denies chills, Denies fatigue, Denies fever(s), Denies headache(s) and Denies weakness ENT Denies dizziness and Denies headache(s) Card Denies chest pain, Denies lightheadedness, Denies dyspnea and Denies other (Palpitations) Resp Denies cough, Denies dyspnea, Denies wheezing and Denies other ( shortness of breath) Musc Denies numbness and Denies tingling Neuro Denies dizziness, Denies headache(s), Denies numbness, Denies tingling, Denies paresthesias and Denies weakness Psych Denies anxiety and Denies depression Endo Denies fatigue Aller/Immun Denies wheezing Physical exam (Primary Care) Vital Signs: Last Vital Signs Temp 97.5 F 10/02/24 09:42 Pulse 60 10/02/24 09:42 Resp 14 10/02/24 09:42 BP 126/70 10/02/24 09:42 Pulse Ox 97 10/02/24 09:42 Oxygen Delivery Method Room Air 10/02/24 09:42 BMI result Body Mass Index 26.2 Tobacco/Smoking Status: Tobacco use Status Tobacco use date assessed 03/14/24 10/02/24 09:45 Patient Tobacco Use Status Never used Tobacco 10/02/24 09:45 e-Cigarette/Vaping Use Never Used 10/02/24 09:45 Thrive Assessment: Date of Thrive Assessment Date Thrive assessed 06/30/24 10/02/24 09:45 Currently or been in a relationship where the following occur: No concerns reported Const General: no acute distress and well developed Nutritional Appearance: well nourished Orientation/consciousness: patient oriented x3 HENMT Head: Yes normocephalic and Yes atraumatic Eyes General: appearance normal, both eyes and all related structures Pupils: Equal, round and reactive pupils present EOM: EOMs intact bilaterally Resp Other: Coarse breath sounds Effort & Inspection: normal respiratory effort Auscultation: clear to auscultation bilaterally Cardio Rate: regular rate Rhythm: regular rhythm Heart sounds: S1 normal heart sound present, S2 normal heart sound present, no gallops, no murmurs and no rubs Neuro General: patient oriented x3 and gait normal Cranial nerves: Yes Equal, round and reactive pupils present Psych Affect: normal affect Coding Level of Care Code Est Pt Level 4 (44672) Diagnoses Hypertension, essential I10 PAF (paroxysmal atrial fibrillation) I48.0 CHF (congestive heart failure) I50.9 Assessment & Plan Assessment & Plan (1) Hypertension, essential: Code(s): I10 - Essential (primary) hypertension Category: Medical Plan: Blood?pressure?is?well?controlled.??Goal?is?less?than?130/80 Hydralazine?was?discontinued?due?to?lightheadedness?but?blood?pressure?controlle d?with?diltiazem Continue?current?medication?regimen (2) PAF (paroxysmal atrial fibrillation): Code(s): I48.0 - Paroxysmal atrial fibrillation Category: Medical Plan: Multiple?cardioversions?and?also?ablation. She?has?difficult?to?control?paroxysmal?atrial?fibrillation. She?remains?anticoagulated?and?is?taking?amiodarone?and?diltiazem. Followed?by?cardiology?and?EP Currently?stable. She?has?regular?rate?and?rhythm?today. Follow-up?with?cardiology?and?EP?as?recommended (3) CHF (congestive heart failure): Code(s): I50.9 - Heart failure, unspecified Category: Medical Plan: Lungs?are?currently?clear Continue?furosemide Follow-up?with?Cardiology?as?recommended Orders: Orders B Type Natriuretic Peptide 3 Months I50.9 - Heart failure, unspecified Comprehensive Met. Panel 3 Months N18.32 - Chronic kidney disease, stage 3b
[2024-10-02 09:42] VITALS: BP 126/70; PULSE 60; RESP 14; TEMP 36.4; O2SAT 97; BMI 26.2
== END 2024-10-02 10:12 | disposition home or self-care (01) ==
PROVIDERS: PCP Family Medicine; Visit Provider Family Medicine
DX: I10 Essential (primary) hypertension (principal); I48.0 Paroxysmal atrial fibrillation; I50.9 Heart failure, unspecified

== ENCOUNTER → 2024-10-02 09:30 | Outpatient (BNVA) | payer MEDICARE, OTHER, SELFPAY | PROVIDERS: PCP Family Medicine; Visit Provider Family Medicine | DX: I11.0 Hypertensive heart disease with heart failure (principal); I50.9 Heart failure, unspecified; I48.0 Paroxysmal atrial fibrillation | CPT/HCPCS: 99212 ==

== ENCOUNTER 2024-10-24 09:38 | Outpatient (AMB) | payer MEDICARE, OTHER, SELFPAY ==
--- NOTE | 2024-10-24 09:44 | MHC.PC.OV ---
Intake Visit Reasons: est left ear blockage Allergies amlodipine Allergy (Intermediate, Verified 10/02/24 09:40) Swelling ankles/feet w rash prednisone Allergy (Intermediate, Verified 10/02/24 09:40) REd Blotchy codeine Adverse Reaction (Intermediate, Verified 10/02/24 09:40) Swelling sulfamethoxazole [From Bactrim] Adverse Reaction (Intermediate, Verified 10/02/24 09:40) Stomach Upset metoprolol Adverse Reaction (Verified 10/02/24 09:40) Hypotension Tobacco use date assessed: 03/14/24 Dental Screening Dental Screen Date: 03/14/24 [facility] Medical History Adult general medical exam Screening for breast cancer PAF (paroxysmal atrial fibrillation) Persistent atrial fibrillation Breast cancer screening by mammogram PAF (paroxysmal atrial fibrillation) Hx of skin cancer, basal cell Elevated serum creatinine Screening for colon cancer Screening for osteoporosis Therapeutic drug monitoring Cough with congestion of paranasal sinus Abnormal creatinine clearance glomerular filtration Breath shortness Rash History of cardioversion PAF (paroxysmal atrial fibrillation) Atrial fibrillation with rapid ventricular response History of vitamin D deficiency History of hypothyroidism Anticoagulant long-term use Hx of squamous cell carcinoma of skin Vitamin B 12 deficiency High cholesterol Hypertension, essential Surgical History S/P ablation of atrial fibrillation History of hand surgery History of dilation and curettage Status post surgical removal of malignant neoplasm of skin Family History Mother Stroke Father Pancreatic cancer Brother Lyme disease Social History Household Members: None Housing: House Do you presently have visiting nurse or other home services: No Alcohol intake: never Comment: pt refuses bed alarm Patient Tobacco Use Status: Never used Tobacco e-Cigarette/Vaping Use: Never Used Second Hand Smoke Exposure: No Advance Directives Date on File: 11/19/22 service: No Current occupational status: retired Cognitive needs: No Hearing needs: No Vision needs: Yes (Patient wears reading glasses.) Questionnaire Thrive Questionnaire Date Thrive assessed: 06/30/24 ASUNCION-7 AMB Questionnaire ASUNCION-7 Date ASUNCION - 7 assessed: 03/14/24 Source: Developed by Drs. Jadiel Marrero, Melany Strickland, Manuel Ferguson and colleagues, with an educational ellen from [employer]. Physical exam (Primary Care) Tobacco/Smoking Status: Tobacco use Status Tobacco use date assessed 03/14/24 10/02/24 09:45 Patient Tobacco Use Status Never used Tobacco 10/02/24 09:45 e-Cigarette/Vaping Use Never Used 10/02/24 09:45 Thrive Assessment: Date of Thrive Assessment Date Thrive assessed 06/30/24 10/02/24 09:45 Coding
--- NOTE | 2024-10-24 09:45 | AM.OFFWIN_ITS ---
Intake Vital Signs 10/24/24 09:52 10/24/24 10:05 Height 5 ft 7 in Weight 170 lb 2 oz BMI 26.6 BP 189/77 H 140/90 H Blood Pressure Location Lt brachial Lt brachial Position Sitting Sitting Respiration 16 Pulse 69 Pulse Source Pulse Oximeter Temp 97.0 F Temp Source Temporal Artery Scan Pulse Oximetry (%) 97 Oxygen Delivery Method Room Air Intake Visit Reasons: est left ear blockage Patient Tobacco Use Status: Never used Tobacco Is last menstrual period known: No Post menopausal: No Patient : No Allergies amlodipine Allergy (Intermediate, Verified 10/24/24 09:50) Swelling ankles/feet w rash prednisone Allergy (Intermediate, Verified 10/24/24 09:50) REd Blotchy codeine Adverse Reaction (Intermediate, Verified 10/24/24 09:50) Swelling sulfamethoxazole [From Bactrim] Adverse Reaction (Intermediate, Verified 10/24/24 09:50) Stomach Upset metoprolol Adverse Reaction (Verified 10/24/24 09:50) Hypotension Do you need a note to return to daycare/school/sports/work: No HPI HPI Comments History of Present Illness Details 83 y/o female presents with c/o ALATNA in t he left ear for the past 2 weeks. She was seen at an urgent care few weeks ago and was told she has wax in her ears. She used Debrox and a different [id number] earwax treatment 2-3 weeks ago. She denies current respiratory illness or acute symptoms. She admits to taking her medications as prescribed. She took her morning medications around 9 AM today. Her initial BP is elevated, 189/77. She notes that her home BP readings are usually between 120 - 140/70-80. [facility] Medical History Adult general medical exam Screening for breast cancer PAF (paroxysmal atrial fibrillation) Persistent atrial fibrillation Breast cancer screening by mammogram PAF (paroxysmal atrial fibrillation) Hx of skin cancer, basal cell Elevated serum creatinine Screening for colon cancer Screening for osteoporosis Therapeutic drug monitoring Cough with congestion of paranasal sinus Abnormal creatinine clearance glomerular filtration Breath shortness Rash History of cardioversion PAF (paroxysmal atrial fibrillation) Atrial fibrillation with rapid ventricular response History of vitamin D deficiency History of hypothyroidism Anticoagulant long-term use Hx of squamous cell carcinoma of skin Vitamin B 12 deficiency High cholesterol Hypertension, essential Surgical History S/P ablation of atrial fibrillation History of hand surgery History of dilation and curettage Status post surgical removal of malignant neoplasm of skin Family History Mother Stroke Father Pancreatic cancer Brother Lyme disease Social History Household Members: None Housing: House Do you presently have visiting nurse or other home services: No Alcohol intake: never Comment: pt refuses bed alarm Patient Tobacco Use Status: Never used Tobacco e-Cigarette/Vaping Use: Never Used Second Hand Smoke Exposure: No Advance Directives Date on File: 11/19/22 service: No Current occupational status: retired Cognitive needs: No Hearing needs: No Vision needs: Yes (Patient wears reading glasses.) Review of Systems Const Details: Denies chills, Denies fatigue, Denies fever(s), Denies headache(s) and Denies weakness Cardiac Denies chest pain, Denies claudication, Denies leg edema, Denies lightheadedness, Denies palpitations, Denies dyspnea, Denies dyspnea on exertion, Denies orthopnea and Denies other (Loss of consciousness) Resp Denies cough, Denies excessive phlegm production, Denies dyspnea, Denies dyspnea on exertion, Denies snoring and Denies wheezing ENT Reports as per HPI Physical Exam Vital Signs: Last Vital Signs Temp 97.0 F 10/24/24 09:52 Pulse 69 10/24/24 09:52 Resp 16 10/24/24 09:52 BP 140/90 H 10/24/24 10:05 Pulse Ox 97 10/24/24 09:52 Oxygen Delivery Method Room Air 10/24/24 09:52 BMI result Body Mass Index 26.6 Const Other: General: comfortable and no acute distress Orientation/consciousness: patient oriented x3 Chest Chest palpation & inspection: normal inspection of the chest Resp Auscultation: clear to auscultation bilaterally Cardiac Palpation: normal PMI Heart sounds: S1 normal heart sound present, S2 normal heart sound present, no gallops, no murmur, no rubs ENT Head is normocephalic Impacted cerumen in both ears occluding the TMs Nasal turbinates and oropharynx are pink and moist Sinuses are nontender with palpation No auricular or cervical lymphadenopathy Assessment & Plan Assessment & Plan (1) Impacted cerumen of both ears: Code(s): H61.23 - Impacted cerumen, bilateral Plan: Impacted cerumen of both ears occluding the TMs. Some amount of cerumen removed from both ears with ear lavage and curette. Significant amount of cerumen remained in both ears. Patient reports minimal left ear improvement. Advised to apply Debrox, 4-5 drops in each ear daily for 4 days and come to the working for cerumen removal. Verbalized understanding and agreed with treatment plan. (2) Hypertension: Code(s): I10 - Essential (primary) hypertension Qualifiers: Hypertension type: primary hypertension Qualified Code(s): I10 - Essential (primary) hypertension Plan: Resting blood pressure is 140/90. Continue current treatment regimen. Low- sodium diet encouraged. Monitor blood pressure routinely and report persistent elevated readings. Verbalized understanding and agreed with the plan. Coding Level of Care Code Est Pt Level 4 (25055) Diagnoses Impacted cerumen of both ears H61.23 Primary hypertension I10 Hypertension type: primary hypertension
[2024-10-24 09:52] VITALS: BP 189/77; PULSE 69; RESP 16; TEMP 36.1; O2SAT 97; BMI 26.6
[2024-10-24 10:05] VITALS: BP 140/90
--- OUTSIDE RECORDS SUMMARY | 2024-10-25 19:31 | XMS_ITS | Continuity of Care Document ---
Author Name [facility] Organization [facility] Care Team Providers Care Cotton Tier Name Role Phone [facility] Unavailable Unavailable Medications Combined list of outpatient medications from Department of Defense and Veterans Affairs facilities.Medications provided include 1) outpatient medications from the last 15 months, and 2) patient-reported medications. Medication Details Route Status Patient Instructions Prescription Expires Prescription Number Last Dispense Date Ordering Provider Order Date Order Qty Source AMIODARONE HCL (amiodarone HCl), 200 MG, TABLET, ORAL, [employer], 60 ea. BOTTLE Active [id number] 4 2023 70 Pharmac y Data Transac tion Service Facilit y AMIODARONE HCL (amiodarone HCl), 200 MG, TABLET, ORAL, A[employer]OB[employer]O [employer]ARM, 60 ea. BOTTLE Active [id number] 4 2023 70 Pharmac y Data Transac tion Service Facilit y CLOBETASOL PROPIONATE (clobetasol propionate) , 0.05 %, CREAM (G), TOPICAL, ENCUBE [employer], 15 g TUBE Cancele d [id number] : 2023 0 Pharmac y Data Transac tion Service Facilit y CLOBETASOL PROPIONATE (clobetasol propionate) , 0.05 %, CREAM (G), TOPICAL, ENCUBE [employer]ICALS, 30 g TUBE Active [id number] 4 2023 90 Pharmac y Data Transac tion Service Facilit y DILTIAZEM 24HR ER (CD) (diltiazem HCl), 120 MG, CAP ER 24H, ORAL, [employer], 90 ea. BOTTLE Active [id number] 4 2023 30 Pharmac y Data Transac tion Service Facilit y DILTIAZEM 24HR ER (DILTIAZEM HCL), 120 MG, CAP ER 24H, ORAL, OCEANSIDE PHARM, 90 ea. BOTTLE Active [id number] 4 2023 30 Pharmac y Data Transac tion Service Facilit y DOXYCYCLINE HYCLATE (doxycyclin e hyclate), 100 MG, CAPSULE, ORAL, [employer], 500 ea. BOTTLE Active [id number] 4 2023 14 Pharmac y Data Transac tion Service Facilit y DOXYCYCLINE HYCLATE (doxycyclin e hyclate), 100 MG, TABLET, ORAL, [employer], 50 ea. BOTTLE Active [id number] 2023 20 Pharmac y Data Transac tion Service Facilit y ELIQUIS (APIXABAN), 5 MG, TABLET, ORAL, [facility] , 60 ea. BOTTLE Active [id number] 4 2023 180 Pharmac y Data Transac tion Service Facilit y ELIQUIS (APIXABAN), 5 MG, TABLET, ORAL, [facility] , 60 ea. BOTTLE Active [id number] 4 2023 180 Pharmac y Data Transac tion Service Facilit y GAVILYTE-G (PEG 3350/NA SULF,BICARB ,CL/KCL), 236-22.74G, SOLN RECON, ORAL, GAVIS PHARMACEU, 4000 ml BOTTLE Active [id number] 4 2023 4000 Pharmac y Data Transac tion Service Facilit y HYDRALAZINE HCL (HYDRALAZIN E HCL), 25MG, TABLET, ORAL, [employer], 100 ea. BOTTLE Cancele d [id number] 4 [id number] : 2023 0 Pharmac y Data Transac tion Service Facilit y HYDRALAZINE HCL (HYDRALAZIN E HCL), 25MG, TABLET, ORAL, [employer], 100 ea. BOTTLE Active [id number] 4 2023 60 Pharmac y Data Transac tion Service Facilit y HYDRALAZINE HCL (HYDRALAZIN E HCL), 25MG, TABLET, ORAL, [employer], 100 ea. BOTTLE Active [id number] 4 2023 60 Pharmac y Data Transac tion Service Facilit y HYDRALAZINE HCL (HYDRALAZIN E HCL), 25MG, TABLET, ORAL, [employer], 100 ea. BOTTLE Active [id number] 4 2023 60 Pharmac y Data Transac tion Service Facilit y HYDRALAZINE HCL (HYDRALAZIN E HCL), 25MG, TABLET, ORAL, [employer], 100 ea. BOTTLE Active [id number] 4 2023 60 Pharmac y Data Transac tion Service Facilit y HYDRALAZINE HCL (HYDRALAZIN E HCL), 25MG, TABLET, ORAL, [employer], 100 ea. BOTTLE Active [id number] 4 2023 60 Pharmac y Data Transac tion Service Facilit y HYDRALAZINE HCL (HYDRALAZIN E HCL), 25MG, TABLET, ORAL, [employer], 100 ea. BOTTLE Active [id number] 4 2023 60 Pharmac y Data Transac tion Service Facilit y MUPIROCIN (mupirocin) , 2 %, OINT. (G), TOPICAL, PADAGIS, 15 g TUBE Active [id number] 4 2023 15 Pharmac y Data Transac tion Service Facilit y MUPIROCIN (MUPIROCIN) , 2%, OINT.(GM), TOPICAL, [employer] 22 g TUBE Active [id number] 2023 22 Pharmac y Data Transac tion Service Facilit y MUPIROCIN (MUPIROCIN) , 2%, OINT.(GM), TOPICAL, [employer], 22 g TUBE Active [id number] 2023 22 Pharmac y Data Transac tion Service Facilit y PRAVASTATIN SODIUM (PRAVASTATI N SODIUM), 40 MG, TABLET, ORAL, [employer], 1000 ea. BOTTLE Active [id number] 4 2023 90 Pharmac y Data Transac tion Service Facilit y PRAVASTATIN SODIUM (PRAVASTATI N SODIUM), 40 MG, TABLET, ORAL, [employer], 1000 ea. BOTTLE Active [id number] 4 2023 90 Pharmac y Data Transac tion Service Facilit y TIROSINT (levothyrox ine sodium), 50 MCG, CAPSULE, ORAL, [employer], 30 ea. BLIST PACK Active [id number] 4 2023 90 Pharmac y Data Transac tion Service Facilit y TIROSINT (levothyrox ine sodium), 50 MCG, CAPSULE, ORAL, [employer], 30 ea. BLIST PACK Active [id number] 4 2023 90 Pharmac y Data Transac tion Service Facilit y TIROSINT (levothyrox ine sodium), 50 MCG, CAPSULE, ORAL, [employer], 30 ea. BLIST PACK Active [id number] 4 2023 90 Pharmac y Data Transac tion Service Facilit y Social History Combined list of available smoking, tobacco, and other social history from Department of Defense and Veterans Affairs facilities. Social History Type Response Date Comment [facility] e This section is an empty social history section. [employer]
== END 2024-10-24 10:46 | disposition home or self-care (01) ==
PROVIDERS: PCP Family Medicine; Visit Provider Nurse Practitioner Family
DX: H61.23 Impacted cerumen, bilateral (principal); I10 Essential (primary) hypertension

== ENCOUNTER → 2024-10-24 09:38 | Outpatient (BNVA) | payer MEDICARE, OTHER, SELFPAY | PROVIDERS: PCP Family Medicine; Visit Provider Nurse Practitioner Family | DX: H61.23 Impacted cerumen, bilateral (principal); I10 Essential (primary) hypertension | CPT/HCPCS: 99212 ==

== ENCOUNTER 2024-10-30 12:27 | Outpatient (AMB) | payer MEDICARE, OTHER, SELFPAY ==
--- NOTE | 2024-10-30 12:28 | MHC.PC.OV ---
Vital Signs 10/30/24 12:35 10/30/24 13:07 Height 5 ft 7 in Weight 172 lb 2 oz BMI 27.0 BP 181/81 H 136/90 H Blood Pressure Location Rt brachial Rt brachial Position Sitting Sitting Respiration 16 Pulse 68 Pulse Source Pulse Oximeter Temp 97.2 F Temp Source Temporal Artery Scan Pulse Oximetry (%) 97 Oxygen Delivery Method Room Air Intake Visit Reasons: Recheck left ear Intake Note: patient here for Left ear Rehabilitation Physician Required: No Is last menstrual period known: No Post menopausal: No Patient : No Allergies amlodipine Allergy (Intermediate, Verified 10/30/24 12:41) Swelling ankles/feet w rash prednisone Allergy (Intermediate, Verified 10/30/24 12:41) REd Blotchy codeine Adverse Reaction (Intermediate, Verified 10/30/24 12:41) Swelling sulfamethoxazole [From Bactrim] Adverse Reaction (Intermediate, Verified 10/30/24 12:41) Stomach Upset metoprolol Adverse Reaction (Verified 10/30/24 12:41) Hypotension Medication List - Last Reconciled 10/30/24 by Koko Ventura CNP acetaminophen (Tylenol Extra Strength) 500 mg PO DAILY PRN amiodarone 200 mg PO DAILY apixaban (Eliquis) 5 mg PO BID 90 days diltiazem HCl 30 mg PO BID 90 days furosemide (Lasix) 40 mg PO DAILY levothyroxine (Tirosint) 50 mcg PO DAILY@0600 pravastatin 40 mg PO BEDTIME 90 days Tobacco use date assessed: 10/30/24 Fall risk assessment: No Falls in past year Last assessed Fall Risk: 10/30/24 Dental Screening Dental Screen Date: 10/30/24 Did you have a dental visit in the last 12 months?: No Did you have a dental problem in the last 6 months where you did not have access to dental care?: No Was dental information given to patient?: Patient has dentist HPI HPI Comments History of Present Illness Details 83-year-old female presents for left ear lavage. She has had impacted cerumen in left ear, with associated left hearing impairment. She was seen on 10/24/2024, some cerumen was removed from both ears, and was advised to apply Debrox in both ears 4 days before this follow-up appointment. She notes that she applied Debrox as instructed but only in the left ear. [facility] Medical History Adult general medical exam Screening for breast cancer PAF (paroxysmal atrial fibrillation) Persistent atrial fibrillation Breast cancer screening by mammogram PAF (paroxysmal atrial fibrillation) Hx of skin cancer, basal cell Elevated serum creatinine Screening for colon cancer Screening for osteoporosis Therapeutic drug monitoring Cough with congestion of paranasal sinus Abnormal creatinine clearance glomerular filtration Breath shortness Rash History of cardioversion PAF (paroxysmal atrial fibrillation) Atrial fibrillation with rapid ventricular response History of vitamin D deficiency History of hypothyroidism Anticoagulant long-term use Hx of squamous cell carcinoma of skin Vitamin B 12 deficiency High cholesterol Hypertension, essential Surgical History S/P ablation of atrial fibrillation History of hand surgery History of dilation and curettage Status post surgical removal of malignant neoplasm of skin Family History Mother Stroke Father Pancreatic cancer Brother Lyme disease Social History Household Members: None Housing: House Do you presently have visiting nurse or other home services: No Alcohol intake: never Comment: pt refuses bed alarm Patient Tobacco Use Status: Never used Tobacco e-Cigarette/Vaping Use: Never Used Second Hand Smoke Exposure: No Advance Directives Date on File: 11/19/22 service: No Current occupational status: retired Current occupational exposures/hazards: No Cognitive needs: No Hearing needs: No Vision needs: Yes (Patient wears reading glasses.) Questionnaire Thrive Questionnaire Date Thrive assessed: 10/02/24 I am a: Patient What is your living situation today?: I have a steady place to live Within the past 12 months, did the food you bought not last and you didn't have the money to get more?: Never true Within the past 12 months, did you worry whether your food would run out before you got money to buy more?: Never true Do you have trouble paying for medicines?: No Do you have trouble getting transportation to medical appointments?: No Do you have trouble paying your heating and electricity bill?: No Do you have trouble taking care of your child, family member or friend?: No Do you have trouble with day-to-day activities such as bathing, preparing meals, shopping, managing finances, etc.?: No Are you currently unemployed and looking for a job?: No Are you interested in more education?: No Please select the resources that you would like help with: None Currently or been in a relationship where the following occur: No concerns reported THRIVE Score: 0 ASUNCION-7 AMB Questionnaire ASUNCION-7 Date ASUNCION - 7 assessed: 03/14/24 Source: Developed by Drs. Jadiel Marrero, Melany Strickland, Manuel Ferguson and colleagues, with an educational ellen from [employer]. Review of Systems Const Details: Const Denies chills, Denies fatigue, Denies fever(s), Denies headache(s) and Denies weakness ENT Reports as per HPI Card Denies chest pain, Denies lightheadedness, Denies dyspnea and Denies other (Palpitations) Resp Denies cough, Denies dyspnea, Denies wheezing and Denies other ( shortness of breath) GI Denies abdominal pain, Denies melena, Denies hematochezia, Denies change in bowel habits, Denies dyspepsia and Denies nausea Denies hematuria and Denies dysuria Musc Denies abnormal gait, Denies myalgias, Denies arthralgias, Denies numbness and Denies tingling Skin/Breast Denies rash, Denies unusual bruising and Denies wounds Neuro Denies abnormal gait, Denies dizziness, Denies headache(s), Denies memory loss, Denies numbness, Denies Sensory deficit (Neuro), Denies tingling and Denies weakness Psych Denies anxiety, Denies depression, Denies memory loss Endo Denies cold intolerance, Denies fatigue, Denies heat intolerance, Denies polydipsia and Denies polyuria Aller/Immun Denies wheezing Physical exam (Primary Care) Vital Signs: Last Vital Signs Temp 97.2 F 10/30/24 12:35 Pulse 68 10/30/24 12:35 Resp 16 10/30/24 12:35 BP 181/81 H 10/30/24 12:35 Pulse Ox 97 10/30/24 12:35 Oxygen Delivery Method Room Air 10/30/24 12:35 BMI result Body Mass Index 27.0 Tobacco/Smoking Status: Tobacco use Status Tobacco use date assessed 03/14/24 10/30/24 12:31 Patient Tobacco Use Status Never used Tobacco 10/30/24 12:31 e-Cigarette/Vaping Use Never Used 10/30/24 12:31 Thrive Assessment: Date of Thrive Assessment Date Thrive assessed 10/02/24 10/30/24 12:31 Currently or been in a relationship where the following occur: No concerns reported Const Other: General: no acute distress and well developed Nutritional Appearance: well nourished Orientation/consciousness: patient oriented x3 HENMT Head is normocephalic Impacted cerumen of the left ear, occluding the TMs. Right ear canal and TM normal Nasal turbinates and oropharynx are pink and moist Sinuses are nontender with palpation No auricular or cervical lymphadenopathy Eyes General: appearance normal, both eyes and all related structures Pupils: Equal, round and reactive pupils present EOM: EOMs intact bilaterally Resp Effort & Inspection: normal respiratory effort Auscultation: clear to auscultation bilaterally Cardio Rate: regular rate Rhythm: regular rhythm Heart sounds: S1 normal heart sound present, S2 normal heart sound present, no gallops, no murmurs and no rubs GI Palpation (GI): No Abdominal aortic bruit present, Soft to palpation, nontender, No hepatosplenomegaly present and No Rebound tenderness present Auscultation: normal bowel sounds General: Yes no CVA tenderness Back/Spine/Pelvis Back: no CVA tenderness Cervical Spine: cervical ROM normal and No Cervical spine tenderness Thoracic/Lumbar Spine: thoraco-lumbar ROM normal, No pain with thoraco-lumbar ROM, No thoracic spinal tenderness and No lumbar spinal tenderness Extrem General: Yes normal to inspection, No edema and No calf tenderness Skin General: warm and dry. Normal skin color. Normal skin turgor Neuro General: patient oriented x3, gait normal and no focal neuro deficit Cranial nerves: Yes Equal, round and reactive pupils present Cognition (Neuro): normal cognition Gait exam (Neuro): Normal gait present Sensory Exam: No Sensory deficit (Neuro) Psych Appearance: grossly normal Affect: normal affect Attitude: cooperative Thought process: Normal thought process present Coding Level of Care Code Est Pt Level 4 (54600) Diagnoses Impacted cerumen of both ears H61.23 Hypertension, essential I10 Assessment & Plan Assessment & Plan (1) Impacted cerumen of both ears: Code(s): H61.23 - Impacted cerumen, bilateral Category: Medical Plan: Significant amount of cerumen removed from the left ear with ear lavage. Left ear canal became patent with normal TM. Patient reports significant hearing improvement from the left ear after lavage. Advised to follow-up with symptoms or concerns. Verbalized understanding and agreed with the plan. (2) Hypertension, essential: Code(s): I10 - Essential (primary) hypertension Category: Medical Plan: Resting blood pressure is 136/90. Advised to continue current treatment regimen. Follow-up with Cardiology and PCP as planned. Return with symptoms or concerns. Verbalized understanding and agreed with treatment plan.
--- OUTSIDE RECORDS SUMMARY | 2024-10-30 12:29 | XMS_ITS | Continuity of Care Document ---
Author Name [facility] Organization [facility] Care Team Providers Care Food Service Representative Name Role Phone [facility] Unavailable Unavailable Medications Combined list of outpatient [...] ORAL, AUROBINDO PHARM, 60 ea. BOTTLE Active [id number] 4 2023 70 Pharmac y Data Transac tion Service Facilit y AMIODARONE HCL (amiodarone HCl), 200 MG, TABLET, ORAL, AUROBINDO PHARM, 60 ea. BOTTLE Active [id number] 4 2023 70 Pharmac y Data Transac tion Service Facilit y CLOBETASOL PROPIONATE (clobetasol propionate) , 0.05 %, CREAM (G), TOPICAL, ENCUBE ETHICALS, 15 g TUBE Cancele d [id number] : 2023 0 Pharmac y Data Transac tion Service Facilit y CLOBETASOL PROPIONATE (clobetasol propionate) , 0.05 %, CREAM (G), TOPICAL, ENCUBE ETHICALS, 30 g TUBE Active [id number] 4 2023 90 Pharmac y Data Transac tion Service Facilit y DILTIAZEM 24HR ER (CD) (diltiazem HCl), 120 MG, CAP ER 24H, ORAL, INGENUS PHARMAC, 90 ea. BOTTLE Active [id number] 4 2023 30 Pharmac y Data Transac tion Service Facilit y DILTIAZEM 24HR ER (DILTIAZEM HCL), 120 MG, CAP ER 24H, ORAL, OCEANSIDE PHARM, 90 ea. BOTTLE Active [id number] 4 2023 30 Pharmac y Data Transac tion Service Facilit y DOXYCYCLINE HYCLATE (doxycyclin e hyclate), 100 MG, CAPSULE, ORAL, [employer], 500 ea. BOTTLE Active [id number] 2023 14 Pharmac y Data Transac tion Service Facilit y DOXYCYCLINE HYCLATE (doxycyclin e hyclate), 100 MG, TABLET, ORAL, [employer], 50 ea. BOTTLE Active [id number] 2023 20 Pharmac y Data Transac tion Service Facilit y ELIQUIS (APIXABAN), 5 MG, TABLET, ORAL, BMS PRIMARYCARE , 60 ea. BOTTLE Active [id number] 4 2023 180 Pharmac y Data Transac tion Service Facilit y ELIQUIS (APIXABAN), 5 MG, TABLET, ORAL, BMS PRIMARYCARE , 60 ea. BOTTLE Active [id number] 4 2023 180 Pharmac y Data Transac tion Service Facilit y GAVILYTE-G (PEG 3350/NA SULF,BICARB ,CL/KCL), 236-22.74G, SOLN RECON, ORAL, GAVIS PHARMACEU, 4000 ml BOTTLE Active [id number] 2023 4000 Pharmac y Data Transac tion Service Facilit y HYDRALAZINE HCL (HYDRALAZIN E HCL), 25MG, TABLET, ORAL, CAMBER PHARMACE, 100 ea. BOTTLE Cancele d [id number] : 2023 0 Pharmac y Data Transac tion Service Facilit y HYDRALAZINE HCL (HYDRALAZIN E HCL), 25MG, TABLET, ORAL, CAMBER PHARMACE, 100 ea. BOTTLE Active [id number] 2023 60 Pharmac y Data Transac tion Service Facilit y HYDRALAZINE HCL (HYDRALAZIN E HCL), 25MG, TABLET, ORAL, [employer]ARMACE, 100 ea. BOTTLE Active [id number] 2023 60 Pharmac y Data Transac tion Service Facilit y HYDRALAZINE HCL (HYDRALAZIN E HCL), 25MG, TABLET, ORAL, [employer]ARMACE, 100 ea. BOTTLE Active [id number] 4 2023 60 Pharmac y Data Transac tion Service Facilit y HYDRALAZINE HCL (HYDRALAZIN E HCL), 25MG, TABLET, ORAL, [employer] PHARMACE, 100 ea. BOTTLE Active [id number] 2023 60 Pharmac y Data Transac tion Service Facilit y HYDRALAZINE HCL (HYDRALAZIN E HCL), 25MG, TABLET, ORAL, [employer]ARMACE, 100 ea. BOTTLE Active [id number] 2023 60 Pharmac y Data Transac tion Service Facilit y HYDRALAZINE HCL (HYDRALAZIN E HCL), 25MG, TABLET, ORAL, [employer] PHARMACE, 100 ea. BOTTLE Active [id number] 2023 60 Pharmac y Data Transac tion Service Facilit y MUPIROCIN (mupirocin) , 2 %, OINT. (G), TOPICAL, PADAGIS, 15 g TUBE Active [id number] 2023 15 Pharmac y Data Transac tion Service Facilit y MUPIROCIN (MUPIROCIN) , 2%, OINT.(GM), TOPICAL, [employer] 22 g TUBE Active [id number] 2023 22 Pharmac y Data Transac tion Service Facilit y MUPIROCIN (MUPIROCIN) , 2%, OINT.(GM), TOPICAL, [employer] [place], 22 g TUBE Active [id number] 4 2023 22 Pharmac y Data Transac tion Service Facilit y PRAVASTATIN SODIUM (PRAVASTATI N SODIUM), 40 MG, TABLET, ORAL, [employer], 1000 ea. BOTTLE Active [id number] 2023 90 Pharmac y Data Transac tion Service Facilit y PRAVASTATIN SODIUM (PRAVASTATI N SODIUM), 40 MG, TABLET, ORAL, [employer], 1000 ea. BOTTLE Active [id number] 2023 90 Pharmac y Data Transac tion Service Facilit y TIROSINT (levothyrox ine sodium), 50 MCG, CAPSULE, ORAL, [employer]BSA [employer], 30 ea. BLIST PACK Active [id number] 2023 90 Pharmac y Data Transac tion Service Facilit y TIROSINT (levothyrox ine sodium), 50 MCG, CAPSULE, ORAL, [employer]BS[employer], 30 ea. BLIST PACK Active [id number] 4 2023 90 Pharmac y Data Transac tion Service Facilit y TIROSINT (levothyrox ine sodium), 50 MCG, CAPSULE, ORAL, [employer]MA [employer], 30 ea. BLIST PACK Active [id number] 2023 90 Pharmac y Data Transac tion Service Facilit y Social History Combined list of available smoking, tobacco, and other social history from Department of Defense and Veterans Affairs facilities. Social History Type Response Date Comment [facility] e This section is an empty social history section. DoD
[2024-10-30 12:35] VITALS: BP 181/81; PULSE 68; RESP 16; TEMP 36.2; O2SAT 97; BMI 27.0
[2024-10-30 13:07] VITALS: BP 136/90
== END 2024-10-30 13:13 | disposition home or self-care (01) ==
PROVIDERS: PCP Family Medicine; Visit Provider Nurse Practitioner Family
DX: H61.23 Impacted cerumen, bilateral (principal); I10 Essential (primary) hypertension

== ENCOUNTER → 2024-10-30 12:27 | Outpatient (BNVA) | payer MEDICARE, OTHER, SELFPAY | PROVIDERS: PCP Family Medicine; Visit Provider Nurse Practitioner Family | DX: H61.23 Impacted cerumen, bilateral (principal); I10 Essential (primary) hypertension | CPT/HCPCS: 99212 ==

== ENCOUNTER 2025-01-25 08:02 | Outpatient (REF) | payer MEDICARE, OTHER, SELFPAY ==
--- OUTSIDE RECORDS SUMMARY | 2025-01-25 08:08 | XMS_ITS | Continuity of Care Document ---
Author Name [facility] Organization [facility] Care Team Providers Care Copier Field Service Technician Name Role Phone [facility] Unavailable Unavailable Medications Combined list of outpatient [...] ORAL, AUROBINDO PHARM, 60 ea. BOTTLE Active [id number] 2023 70 Pharmac y Data Transac tion Service Facilit y AMIODARONE HCL (amiodarone HCl), 200 MG, TABLET, ORAL, AUROBINDO PHARM, 60 ea. BOTTLE Active [id number] 4 2023 70 Pharmac y Data Transac tion Service Facilit y CLOBETASOL PROPIONATE (clobetasol propionate) , 0.05 %, CREAM (G), TOPICAL, ENCUBE ETHICALS, 15 g TUBE Cancele d [id number] : 2023 0 Pharmac y Data Transac tion Service Facilit y CLOBETASOL PROPIONATE (clobetasol propionate) , 0.05 %, CREAM (G), TOPICAL, ENCUBE ETHICALS, 30 g TUBE Active [id number] 2023 90 Pharmac y Data Transac tion Service Facilit y DILTIAZEM 24HR ER (CD) (diltiazem HCl), 120 MG, CAP ER 24H, ORAL, INGENUS PHARMAC, 90 ea. BOTTLE Active [id number] 2023 30 Pharmac y Data Transac tion Service Facilit y DILTIAZEM 24HR ER (DILTIAZEM HCL), 120 MG, CAP ER 24H, ORAL, OCEANSIDE PHARM, 90 ea. BOTTLE Active [id number] 2023 30 Pharmac y Data Transac tion Service Facilit y DOXYCYCLINE HYCLATE (doxycyclin e hyclate), 100 MG, CAPSULE, ORAL, [employer], 500 ea. BOTTLE Active [id number] 2023 14 Pharmac y Data Transac tion Service Facilit y DOXYCYCLINE HYCLATE (doxycyclin e hyclate), 100 MG, TABLET, ORAL, [employer], 50 ea. BOTTLE Active [id number] 2023 20 Pharmac y Data Transac tion Service Facilit y ELIQUIS (APIXABAN), 5 MG, TABLET, ORAL, BMS PRIMARYCARE , 60 ea. BOTTLE Active [id number] 4 2023 180 Pharmac y Data Transac tion Service Facilit y ELIQUIS (APIXABAN), 5 MG, TABLET, ORAL, BMS PRIMARYCARE , 60 ea. BOTTLE Active [id number] 2023 180 Pharmac y Data Transac tion Service Facilit y GAVILYTE-G (PEG 3350/NA SULF,BICARB ,CL/KCL), 236-22.74G, SOLN RECON, ORAL, GAVIS PHARMACEU, 4000 ml BOTTLE Active [id number] 4 2023 4000 Pharmac y Data Transac tion Service Facilit y HYDRALAZINE HCL (HYDRALAZIN E HCL), 25MG, TABLET, ORAL, CAMBER PHARMACE, 100 ea. BOTTLE Cancele d [id number] : 2023 0 Pharmac y Data Transac tion Service Facilit y HYDRALAZINE HCL (HYDRALAZIN E HCL), 25MG, TABLET, ORAL, CAMBER PHARMACE, 100 ea. BOTTLE Active [id number] 2023 60 Pharmac y Data Transac tion Service Facilit y HYDRALAZINE HCL (HYDRALAZIN E HCL), 25MG, TABLET, ORAL, [employer] PHARMACE, 100 ea. BOTTLE Active [id number] 2023 60 Pharmac y Data Transac tion Service Facilit y HYDRALAZINE HCL (HYDRALAZIN E HCL), 25MG, TABLET, ORAL, [employer] PHARMACE, 100 ea. BOTTLE Active [id number] 2023 60 Pharmac y Data Transac tion Service Facilit y HYDRALAZINE HCL (HYDRALAZIN E HCL), 25MG, TABLET, ORAL, [employer] PHARMACE, 100 ea. BOTTLE Active [id number] 2023 60 Pharmac y Data Transac tion Service Facilit y HYDRALAZINE HCL (HYDRALAZIN E HCL), 25MG, TABLET, ORAL, [employer]ARMACE, 100 ea. BOTTLE Active [id number] 2023 60 Pharmac y Data Transac tion Service Facilit y HYDRALAZINE HCL (HYDRALAZIN E HCL), 25MG, TABLET, ORAL, CAMBER PHARMACE, 100 ea. BOTTLE Active [id number] 2023 60 Pharmac y Data Transac tion Service Facilit y MUPIROCIN (mupirocin) , 2 %, OINT. (G), TOPICAL, PADAGIS, 15 g TUBE Active [id number] 2023 15 Pharmac y Data Transac tion Service Facilit y MUPIROCIN (MUPIROCIN) , 2%, OINT.(GM), TOPICAL, [employer] 22 g TUBE Active [id number] 2023 22 Pharmac y Data Transac tion Service Facilit y MUPIROCIN (MUPIROCIN) , 2%, OINT.(GM), TOPICAL, [employer] [place], 22 g TUBE Active [id number] 2023 22 Pharmac y Data Transac tion Service Facilit y PRAVASTATIN SODIUM (PRAVASTATI N SODIUM), 40 MG, TABLET, ORAL, [employer], 1000 ea. BOTTLE Active [id number] 2023 90 Pharmac y Data Transac tion Service Facilit y PRAVASTATIN SODIUM (PRAVASTATI N SODIUM), 40 MG, TABLET, ORAL, [employer], 1000 ea. BOTTLE Active [id number] 2023 90 Pharmac y Data Transac tion Service Facilit y TIROSINT (levothyrox ine sodium), 50 MCG, CAPSULE, ORAL, [employer]BSA [employer], 30 ea. BLIST PACK Active [id number] 2023 90 Pharmac y Data Transac tion Service Facilit y TIROSINT (levothyrox ine sodium), 50 MCG, CAPSULE, ORAL, [employer]BS[employer], 30 ea. BLIST PACK Active [id number] 2023 90 Pharmac y Data Transac tion Service Facilit y TIROSINT (levothyrox ine sodium), 50 MCG, CAPSULE, ORAL, [employer], 30 ea. BLIST PACK Active [id number] 2023 90 Pharmac y Data Transac tion Service Facilit y Social History Combined list of available smoking, tobacco, and other social history from Department of Defense and Veterans Affairs facilities. Social History Type Response Date Comment [facility] e This section is an empty social history section. DoD
[2025-01-25 11:35] LABS: B Type Natriuretic Peptide 361 pg/mL (<100)
[2025-01-25 12:33] LABS: Alanine Aminotransferase 12 U/L (0-31); Albumin Level 3.9 g/dL (3.5-5.0); Alkaline Phosphatase 130 U/L (39-117); Anion Gap 12 (12-20); Aspartate Amino Transferase 24 U/L (5-31); Bilirubin Total 0.4 mg/dL (0.0-1.0); Blood Urea Nitrogen 29 mg/dL (9-16); Carbon Dioxide 27 mmol/L (22-29); Chloride 105 mmol/L (96-108); Estimated Glomerular Filt Rate 33; Glucose Random 103 mg/dL (60-115); Potassium 3.6 mmol/L (3.3-5.1); Sodium 140 mmol/L (135-145)
== END 2025-01-25 08:03 | disposition home or self-care (01) ==
LOC: HO.WFDLDS 08:02
PROVIDERS: Visit Provider Family Medicine
DX: N18.32 Chronic kidney disease, stage 3b (principal); I50.9 Heart failure, unspecified
CPT/HCPCS: 36415; 80053; 83880

== ENCOUNTER 2025-01-30 09:32 | Outpatient (AMB) | payer MEDICARE, OTHER, SELFPAY ==
--- NOTE | 2025-01-30 09:37 | A.OFFPC_ITS ---
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 Allergies amlodipine Allergy (Intermediate, Verified 01/30/25 09:38) Swelling ankles/feet w rash prednisone Allergy (Intermediate, Verified 01/30/25 09:38) REd Blotchy codeine Adverse Reaction (Intermediate, Verified 01/30/25 09:38) Swelling sulfamethoxazole [From Bactrim] Adverse Reaction (Intermediate, Verified 01/30/25 09:38) Stomach Upset metoprolol Adverse Reaction (Verified 01/30/25 09:38) Hypotension Tobacco use date assessed: 10/30/24 Dental Screening Dental Screen Date: 10/30/24 HPI f/u hypertension, chronic conditions HPI Details 84 y/o female presents to f/u hypertensi on, chronic conditions. Blood pressure today 168/90, 67p. She is on diltiazem 30mg b.i.d.. Had been unable to tolerate amlodipine and metoprolol in the past. She notes she had used to take diltiazem 60mg b.i.d. but had been unable to tolerate this. She reports nausea/diarrhea the past few days which she says was due to so mething she had eaten. The rest of her family had gotten sick as well. HPI Comments History of Present Illness Details Documentation assistance for Capo Sales MD, was provided by Kiran Palacios,? Bottle And Glass Inspector on 01/30/2025 at 10:22 AM EST. I, Dr. Sales, have read, observed, and verified documentation. ?? [facility] Medical History Adult general medical exam Screening for breast cancer PAF (paroxysmal atrial fibrillation) Persistent atrial fibrillation Breast cancer screening by mammogram PAF (paroxysmal atrial fibrillation) Hx of skin cancer, basal cell Elevated serum creatinine Screening for colon cancer Screening for osteoporosis Therapeutic drug monitoring Cough with congestion of paranasal sinus Abnormal creatinine clearance glomerular filtration Breath shortness Rash History of cardioversion PAF (paroxysmal atrial fibrillation) Atrial fibrillation with rapid ventricular response History of vitamin D deficiency History of hypothyroidism Anticoagulant long-term use Hx of squamous cell carcinoma of skin Vitamin B 12 deficiency High cholesterol Hypertension, essential Surgical History S/P ablation of atrial fibrillation History of hand surgery History of dilation and curettage Status post surgical removal of malignant neoplasm of skin Family History Mother Stroke Father Pancreatic cancer Brother Lyme disease Social History Household Members: None Housing: House Do you presently have visiting nurse or other home services: No Alcohol intake: never Comment: pt refuses bed alarm Patient Tobacco Use Status: Never used Tobacco e-Cigarette/Vaping Use: Never Used Second Hand Smoke Exposure: No Advance Directives Date on File: 11/19/22 service: No Current occupational status: retired Current occupational exposures/hazards: No Cognitive needs: No Hearing needs: No Vision needs: Yes (Patient wears reading glasses.) Questionnaire Thrive Questionnaire Date Thrive assessed: 01/30/25 ASUNCION-7 AMB Questionnaire ASUNCION-7 Date ASUNCION - 7 assessed: 03/14/24 Source: Developed by Drs. Jadiel Marrero, Melany Strickland, Manuel Ferguson and colleagues, with an educational ellen from [employer]. Review of Systems Const Denies chills, Denies fatigue, Denies fever(s), Denies headache(s) and Denies weakness ENT Denies dizziness and Denies headache(s) Card Denies dyspnea Resp Denies cough, Denies dyspnea, Denies wheezing and Denies other (shortness of breath) GI Reports diarrhea Musc Denies numbness and Denies tingling Neuro Denies dizziness, Denies headache(s), Denies numbness, Denies tingling and Denies weakness Psych Denies anxiety and Denies depression Endo Denies fatigue Aller/Immun Denies wheezing Physical exam (Primary Care) Vital Signs: Last Vital Signs Temp 97.7 F 01/30/25 09:41 Pulse 67 01/30/25 09:41 Resp 14 01/30/25 09:41 BP 150/80 H 01/30/25 10:17 Pulse Ox 96 01/30/25 09:41 Oxygen Delivery Method Room Air 01/30/25 09:41 BMI result Body Mass Index 27.4 Tobacco/Smoking Status: Tobacco use Status Tobacco use date assessed 10/30/24 01/30/25 09:41 Patient Tobacco Use Status Never used Tobacco 01/30/25 09:41 e-Cigarette/Vaping Use Never Used 01/30/25 09:41 Thrive Assessment: Date of Thrive Assessment Date Thrive assessed 01/30/25 01/30/25 09:41 Const General: well developed; No acute distress Nutritional Appearance: well nourished Orientation/consciousness: patient oriented x3 HENMT Head: Yes normocephalic and Yes atraumatic Eyes General: appearance normal, both eyes and all related structures Pupils: Equal, round and reactive pupils present EOM: EOMs intact bilaterally Resp Effort & Inspection: normal respiratory effort Auscultation: clear to auscultation bilaterally Cardio Rate: regular rate Rhythm: regular rhythm Heart sounds: S1 normal heart sound present, S2 normal heart sound present, no gallops, no murmurs and no rubs Neuro General: patient oriented x3 and gait normal Cranial nerves: Yes Equal, round and reactive pupils present Psych Affect: normal affect Coding Level of Care Code Est Pt Level 4 (00539) Diagnoses Hypertension, essential I10 PAF (paroxysmal atrial fibrillation) I48.0 Viral gastroenteritis A08.4 Assessment & Plan Assessment & Plan (1) Hypertension, essential: Code(s): I10 - Essential (primary) hypertension Category: Medical Plan: Blood?pressure?is?still?too?high.??Goal?is?less?than?140/90 She?has?not?tolerated?amlodipine?or?metoprolol. She?had?been?on?diltiazem?60?mg?b.i.d.?and?is?cause?dizziness She?will?try?diltiazem 45?mg?(1.5?tabs) b.i.d. She?will?let?me?know?if?she ?is?having?problems?with?this.??She?does?have?a?blood?pressure?monitor?at?home. (2) PAF (paroxysmal atrial fibrillation): Code(s): I48.0 - Paroxysmal atrial fibrillation Category: Medical Plan: Currently?in?regular?rhythm?and?feeling?well. 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 Dx: I10. Daily As directed, 999 days/lifetime 1 ea 0RF I10 - Essential (primary) hypertension Changed From diltiazem HCl 30 mg PO BID 90 days 180 tabs 3RF To diltiazem HCl 45 mg (1.5 x 30 mg) PO BID 270 tabs 3RF 90 days
[2025-01-30 09:41] VITALS: BP 168/90; PULSE 67; RESP 14; TEMP 36.5; O2SAT 96; BMI 27.4
[2025-01-30 10:17] VITALS: BP 150/80
== END 2025-01-30 10:29 | disposition home or self-care (01) ==
LOC: HO.HMCFM 09:32
PROVIDERS: PCP Family Medicine; Visit Provider Family Medicine
DX: I10 Essential (primary) hypertension (principal); I48.0 Paroxysmal atrial fibrillation; A08.4 Viral intestinal infection, unspecified

== ENCOUNTER → 2025-01-30 09:32 | Outpatient (BNVA) | payer MEDICARE, OTHER, SELFPAY | PROVIDERS: PCP Family Medicine; Visit Provider Family Medicine | DX: I10 Essential (primary) hypertension (principal); I48.0 Paroxysmal atrial fibrillation; A08.4 Viral intestinal infection, unspecified | CPT/HCPCS: 99212 ==

== ENCOUNTER 2025-02-14 15:32 | Outpatient (AMB) | payer MEDICARE, OTHER, SELFPAY ==
--- NOTE | 2025-02-14 15:42 | A.OFFVIS_ITS ---
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: No Accompanied by: Self / Same As Patient Allergies amlodipine Allergy (Intermediate, Verified 01/30/25 09:38) Swelling ankles/feet w rash prednisone Allergy (Intermediate, Verified 01/30/25 09:38) REd Blotchy codeine Adverse Reaction (Intermediate, Verified 01/30/25 09:38) Swelling sulfamethoxazole [From Bactrim] Adverse Reaction (Intermediate, Verified 01/30/25 09:38) Stomach Upset metoprolol Adverse Reaction (Verified 01/30/25 09:38) Hypotension Medication List - Last Reconciled 02/14/25 by Don Gonzales MD acetaminophen (Tylenol Extra Strength) 500 mg PO DAILY PRN amiodarone 200 mg PO DAILY apixaban (Eliquis) 5 mg PO BID blood pressure monitor Automatic, Digital. Dx: I10. Daily As directed, 999 days/lifetime diltiazem HCl 30 mg PO DAILY furosemide (Lasix) 40 mg PO DAILY levothyroxine (Tirosint) 50 mcg PO DAILY 30 days pravastatin 40 mg PO BEDTIME 90 days HPI Comments Details: 84 year old female with PAF. She has symptomatic Afib. She was cardioverted before and has been on amiodarone. In October 2022 she again developed atrial fibrillation and was in the emergency department. She was cardioverted by my partner Dr. Lopez. She was subsequently referred to electrophysiology and underwent AFib ablation on 03/26/[address] Crystal. She said 2 days later she had episode of atrial fibrillation and she was advised to restart amiodarone at this stage at 200 mg twice a day. She took amiodarone for a week at 200 mg twice a day and has been taking 200 mg daily since then. She has not had an further episodes of AFib. She is saying she is still recovering from the procedure and trying to get her strength back.\ October for 2022: She returns for follow-up. She is recovering from gastroenteritis. No palpitations. No chest pain or shortness of breath. Blood pressure control is good. Continues to be in sinus rhythm based on EKG. On apixaban without any bleeding issues. 09/22/2024: She is here for follow-up. She had an episode of atrial fibrillation in June. She has seen Dr. Crystal and was taking amiodarone 400 mg at that time and she was advised to drop it to 200 mg. She said in July she had another episode of atrial fibrillation and since then she started taking 2 tablets of amiodarone and since mid July she has been using 400 mg of amiodarone. 02/14/2025: She is here for follow-up. She said she was hypertensive in her primary care physician's office and she was advised to take 1-1/2 tablet of Cardizem twice a day. She said she started taking it and had dizziness. Previously she was also on hydralazine and had dizziness. Her blood pressure currently is 140/76. She has not had any further episodes of atrial fibrillation since July 2024. Overall doing well. We discussed about monitoring required with amiodarone. I will send her for chest x-ray and TSH today. She recently had LFTs which were normal. [facility] Medical History (Updated 02/14/25 @ 16:14 by Don Gonzales MD) Therapeutic drug monitoring Adult general medical exam Screening for breast cancer PAF (paroxysmal atrial fibrillation) Persistent atrial fibrillation Breast cancer screening by mammogram PAF (paroxysmal atrial fibrillation) Hx of skin cancer, basal cell Elevated serum creatinine Screening for colon cancer Screening for osteoporosis Cough with congestion of paranasal sinus Abnormal creatinine clearance glomerular filtration Breath shortness Rash History of cardioversion PAF (paroxysmal atrial fibrillation) Atrial fibrillation with rapid ventricular response History of vitamin D deficiency History of hypothyroidism Anticoagulant long-term use Hx of squamous cell carcinoma of skin Vitamin B 12 deficiency High cholesterol Hypertension, essential Surgical History S/P ablation of atrial fibrillation History of hand surgery History of dilation and curettage Status post surgical removal of malignant neoplasm of skin Family History Mother Stroke Father Pancreatic cancer Brother Lyme disease Social History Household Members: None Housing: House Do you presently have visiting nurse or other home services: No Alcohol intake: never Comment: pt refuses bed alarm Patient Tobacco Use Status: Never used Tobacco e-Cigarette/Vaping Use: Never Used Second Hand Smoke Exposure: No Advance Directives Date on File: 11/19/22 service: No Current occupational status: retired Current occupational exposures/hazards: No Cognitive needs: No Hearing needs: No Vision needs: Yes (Patient wears reading glasses.) Review of Systems Const Denies chills, Denies fatigue, Denies fever(s), Denies frequent falls, Denies weakness, Denies weight gain and Denies weight loss ENT Denies dizziness Card Denies chest pain, Denies leg edema, Denies lightheadedness, Denies palpitations, Denies dyspnea and Denies dyspnea on exertion Resp Denies cough, Denies dyspnea and Denies dyspnea on exertion GI Denies hematochezia Musc Denies abnormal gait, Denies muscle weakness, Denies numbness, Denies radiating pain into limb and Denies tingling Neuro Denies abnormal gait, Denies dizziness, Denies frequent falls, Denies numbness, Denies tingling and Denies weakness Endo Denies fatigue and Denies palpitations Physical Exam Vital Signs: Last Vital Signs Pulse 64 02/14/25 15:44 BP 140/76 H 02/14/25 15:44 BMI result Body Mass Index 27.3 GENERAL APPEARANCE: in no acute distress, pleasant. NECK: no carotid bruit, no jugular venous distention. SKIN: no suspicious lesions, warm and dry. HEART: no murmurs, regular rate and rhythm. LUNGS: clear to auscultation bilaterally. ABDOMEN: soft, nontender. EXTREMITIES: no edema. PERIPHERAL PULSES: equal. NEUROLOGIC: No gross deficits, AAO X 3 Office Procedures EKG Details: Normal sinus rhythm 64 beats per minute, left axis deviation, poor R-wave progression, QTC 455 milliseconds. [id number], Complete Assessment & Plan Assessment & Plan (1) Therapeutic drug monitoring: Code(s): Z51.81 - Encounter for therapeutic drug level monitoring Category: Medical (2) PAF (paroxysmal atrial fibrillation): Code(s): I48.0 - Paroxysmal atrial fibrillation Category: Medical (3) Hypertension, essential: Code(s): I10 - Essential (primary) hypertension Category: Medical Plan Very pleasant 84 year female with background history of paroxysmal atrial fibrillation, diastolic heart failure, hypertension and CKD. Very difficult to manage atrial fibrillation and after ablation and amiodarone 200 mg daily she has been stable since July 2024. Clinically euvolemic at this point. Blood pressure is mildly elevated but she has not tolerated titration or addition of any other antihypertensives at this stage. Overall I think she has been doing well. We will check TSH and do a chest x-ray on her. She will need monitoring while she is on amiodarone. Recent LFTs were normal. I have told her that she needs to do yearly eye exams why she is on amiodarone. She will see us back in few months. Thank you for allowing me to participate in the care of your patient. Please feel free to contact me if you have any questions. Orders: Orders TSH reflex Free T4 Today Don Gonzales MD Z51.81 - Encounter for therapeutic drug level monitoring XR chest 2V Today Don Gonzales MD Z51.81 - Encounter for therapeutic drug level monitoring Medications: Changed From diltiazem HCl 45 mg (1.5 x 30 mg) PO BID 270 tabs 3RF 90 days To diltiazem HCl 30 mg PO DAILY Capo Sales MD Coding Level of Care Code Est Pt Level 4 (58777) Complex EM visit Add On G2211 Diagnoses Therapeutic drug monitoring Z51.81 PAF (paroxysmal atrial fibrillation) I48.0 Hypertension, essential I10 CPT Codes EKG - CPT: 50850-[id number], Complete ([id number])
[2025-02-14 15:44] VITALS: BP 140/76; PULSE 64; BMI 27.3
== END 2025-02-14 16:14 | disposition home or self-care (01) ==
PROVIDERS: PCP Family Medicine; Visit Provider Internal Medicine Cardiovascular Disease
DX: Z51.81 Encounter for therapeutic drug level monitoring (principal); I48.0 Paroxysmal atrial fibrillation; I10 Essential (primary) hypertension
CPT/HCPCS: 93010; 99214; G2211

== ENCOUNTER → 2025-02-14 15:32 | Outpatient (BNVA) | payer MEDICARE, OTHER, SELFPAY | PROVIDERS: PCP Family Medicine; Visit Provider Internal Medicine Cardiovascular Disease | DX: I48.0 Paroxysmal atrial fibrillation (principal); Z51.81 Encounter for therapeutic drug level monitoring; I10 Essential (primary) hypertension; R94.31 Abnormal electrocardiogram [ECG] [EKG]; I44.0 Atrioventricular block, first degree; Z79.899 Other long term (current) drug therapy | CPT/HCPCS: 93005; 99212 ==

== ENCOUNTER 2025-05-22 09:32 | Outpatient (AMB) | payer MEDICARE, OTHER, SELFPAY ==
--- NOTE | 2025-05-22 09:44 | A.OFFPC_ITS ---
Vital Signs 05/22/25 09:50 Height 5 ft 7 in Weight 171 lb 2 oz BMI 26.8 BP 138/78 Blood Pressure Location Lt brachial Position Sitting Respiration 14 Pulse 59 Pulse Source Pulse Oximeter Temp 97.7 F Temp Source Temporal Artery Scan Pulse Oximetry (%) 97 Oxygen Delivery Method Room Air Intake Visit Reasons: f/u hypertension, chronic conditions Intake Note: Sandi presents in the office for a follow up to hypertension. Allergies amlodipine Allergy (Intermediate, Verified 05/22/25 09:46) Swelling ankles/feet w rash prednisone Allergy (Intermediate, Verified 05/22/25 09:46) REd Blotchy codeine Adverse Reaction (Intermediate, Verified 05/22/25 09:46) Swelling sulfamethoxazole (From Bactrim) Adverse Reaction (Intermediate, Verified 05/22/25 09:46) Stomach Upset metoprolol Adverse Reaction (Verified 05/22/25 09:46) Hypotension Medication List - Last Reconciled 05/22/25 by Capo Sales MD acetaminophen (Tylenol Extra Strength) 500 mg PO DAILY PRN amiodarone 200 mg PO DAILY apixaban (Eliquis) 5 mg PO BID blood pressure monitor Automatic, Digital. Dx: I10. Daily As directed, 999 days/lifetime diltiazem HCl 30 mg PO DAILY furosemide (Lasix) 40 mg PO DAILY levothyroxine 50 mcg PO DAILY pravastatin 40 mg PO BEDTIME 90 days Tobacco use date assessed: 05/22/25 Fall risk assessment: No Falls in past year Last assessed Fall Risk: 05/22/25 Dental Screening Dental Screen Date: 05/22/25 Did you have a dental visit in the last 12 months?: Yes Did you have a dental problem in the last 6 months where you did not have access to dental care?: No Was dental information given to patient?: Patient has dentist HPI f/u hypertension, chronic conditions HPI Details 84 y/o female presents to f/u hypertensi on, chronic conditions. Blood pressure today 138/78, 59p. She is on diltiazem 30mg daily. Has been following up with Cardiology. She is on furosemide 40mg daily. Reports ear discomfort and hearing changes. HPI Comments History of Present Illness Details Documentation assistance for Capo Sales MD, was provided by Kiran Palacios, Rocket Scientist on 05/22/2025 at 10:34 AM EST. Summers, Dr. Sales, have read, observed, and verified documentation. ? PFS Medical History (Updated 05/22/25 @ 10:42 by Kiran Palacios) Therapeutic drug monitoring Adult general medical exam Screening for breast cancer PAF (paroxysmal atrial fibrillation) Persistent atrial fibrillation Breast cancer screening by mammogram PAF (paroxysmal atrial fibrillation) Hx of skin cancer, basal cell Elevated serum creatinine Screening for colon cancer Screening for osteoporosis Cough with congestion of paranasal sinus Abnormal creatinine clearance glomerular filtration Breath shortness Rash History of cardioversion PAF (paroxysmal atrial fibrillation) Atrial fibrillation with rapid ventricular response History of vitamin D deficiency History of hypothyroidism Anticoagulant long-term use Hx of squamous cell carcinoma of skin Vitamin B 12 deficiency High cholesterol Hypertension, essential Surgical History S/P ablation of atrial fibrillation History of hand surgery History of dilation and curettage Status post surgical removal of malignant neoplasm of skin Family History Mother Stroke Father Pancreatic cancer Brother Lyme disease Social History (Updated 05/22/25 @ 09:49 by Jacquelyn Shannon MA) Household Members: None Housing: House Do you presently have visiting nurse or other home services: No Alcohol intake: never Comment: pt refuses bed alarm Patient Tobacco Use Status: Never used Tobacco e-Cigarette/Vaping Use: Never Used Second Hand Smoke Exposure: No Use of substances other than those prescribed or required for medical reasons: No Advance Directives Date on File: 11/19/22 service: No Current occupational status: retired Current occupational exposures/hazards: No Cognitive needs: No Hearing needs: No Vision needs: Yes (Patient wears reading glasses.) Questionnaire PHQ-9 Over the last 2 weeks, how often have you been bothered by any of the following problems? 1. Little interest or pleasure in doing things: not at all 2. Feeling down, depressed, or hopeless: not at all 3. Trouble falling or staying asleep, or sleeping too much: not at all 4. Feeling tired or having little energy: not at all 5. Poor appetite or overeating: not at all 6. Feeling bad about yourself - or that you are a failure or have let yourself or your family down: not at all 7. Trouble concentrating on things, such as reading the newspaper or watching television: not at all 8. Moving or speaking so slowly that other people could have noticed. Or the opposite - being so fidgety or restless that you have been moving around a lot more than usual: not at all 9. Thoughts that you would be better off or of hurting yourself in some way: not at all Total score: 0 Depression Screening Interpretation: Negative Depression Screening Done: Yes Source: Developed by Drs. Jadiel Marrero, Melany Strickland, Manuel Ferguson and colleagues, with an educational ellen from [employer]. Thrive Questionnaire Date Thrive assessed: 05/22/25 I am a: Patient What is your living situation today?: I have a steady place to live Within the past 12 months, did the food you bought not last and you didn't have the money to get more?: Never true Within the past 12 months, did you worry whether your food would run out before you got money to buy more?: Never true Do you have trouble paying for medicines?: No Do you have trouble getting transportation to medical appointments?: No Do you have trouble paying your heating and electricity bill?: No Do you have trouble taking care of your child, family member or friend?: No Do you have trouble with day-to-day activities such as bathing, preparing meals, shopping, managing finances, etc.?: No Are you currently unemployed and looking for a job?: No Are you interested in more education?: No Please select the resources that you would like help with: None Currently or been in a relationship where the following occur: No concerns reported THRIVE Score: 0 AUDIT C Alcohol Use Questionnaire (AUDIT-C) 1. How often do you have a drink containing alcohol?: Never 3. How often do you have six or more drinks on one occasion?: Never Total Score: 0 ASUNCION-7 AMB Questionnaire ASUNCION-7 Date ASUNCION - 7 assessed: 05/22/25 Feeling nervous, anxious, or on edge: 0 = Not at all Not being able to stop or control worryin = Not at all Worrying too much about different things: 0 = Not at all Trouble relaxin = Not at all Being so restless that it is hard to sit still: 0 = Not at all Becoming easily annoyed or irritable: 0 = Not at all Feeling afraid as if something awful might happen: 0 = Not at all Total ASUNCION-7 score (0-4 normal; 5-9 mild; 10-14 moderate; 15-21 severe): 0 Source: Developed by Drs. Jadiel Marrero, Melany Strickland, Manuel Ferguson and colleagues, with an educational ellen from [employer]. ASUNCION-7 Assessment Billing ASUNCION-7 Assessment Tool: ASUNCION-7 Assessment 21199 Review of Systems Const Denies chills, Denies fatigue, Denies fever(s), Denies headache(s) and Denies weakness ENT Denies dizziness and Denies headache(s) Card Denies dyspnea Resp Denies cough, Denies dyspnea, Denies wheezing and Denies other (shortness of breath) Musc Denies numbness and Denies tingling Neuro Denies dizziness, Denies headache(s), Denies numbness, Denies tingling and Denies weakness Psych Denies anxiety and Denies depression Endo Denies fatigue Aller/Immun Denies wheezing Physical exam (Primary Care) Vital Signs: Last Vital Signs Temp 97.7 F 05/22/25 09:50 Pulse 59 05/22/25 09:50 Resp 14 05/22/25 09:50 BP 138/78 05/22/25 09:50 Pulse Ox 97 05/22/25 09:50 Oxygen Delivery Method Room Air 05/22/25 09:50 BMI result Body Mass Index 26.8 Tobacco/Smoking Status: Tobacco use Status Tobacco use date assessed 05/22/25 05/22/25 09:49 Patient Tobacco Use Status Never used Tobacco 05/22/25 09:49 e-Cigarette/Vaping Use Never Used 05/22/25 09:49 PHQ-9: PHQ-9 Score PHQ-9: Total score 0 05/22/25 10:03 Depression Screening Interpretation: Negative Thrive Assessment: Date of Thrive Assessment Date Thrive assessed 05/22/25 05/22/25 10:03 Currently or been in a relationship where the following occur: No concerns reported Const General: well developed; No acute distress Nutritional Appearance: well nourished Orientation/consciousness: patient oriented x3 HENMT Head: Yes normocephalic and Yes atraumatic Eyes General: appearance normal, both eyes and all related structures Pupils: Equal, round and reactive pupils present EOM: EOMs intact bilaterally Resp Effort & Inspection: normal respiratory effort Auscultation: clear to auscultation bilaterally Cardio Rate: regular rate Rhythm: regular rhythm Heart sounds: S1 normal heart sound present, S2 normal heart sound present, no gallops, no murmurs and no rubs Neuro General: patient oriented x3 and gait normal Cranial nerves: Yes Equal, round and reactive pupils present Psych Affect: normal affect Coding Level of Care Code Est Pt Level 4 (38070) Diagnoses Primary hypertension I10 Hypertension type: primary hypertension CHF (congestive heart failure) I50.9 PAF (paroxysmal atrial fibrillation) I48.0 Ear discomfort H92.09 Change in hearing H91.90 CKD stage G3b/A1, 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 Goal is less than 140/90 Continue current medications (2) CHF (congestive heart failure): Code(s): I50.9 - Heart failure, unspecified Category: Medical Plan: BNP elevated but likely at baseline and patient is breathing easily Lungs are clear to auscultation Continue furosemide as prescribed Follow-up with Cardiology as recommended (3) PAF (paroxysmal atrial fibrillation): Code(s): I48.0 - Paroxysmal atrial fibrillation Category: Medical Plan: Currently in regular rhythm with heart rate in 50s Stable Continue apixaban Follow-up with Cardiology as recommended (4) Ear discomfort: Code(s): H92.09 - Otalgia, unspecified ear Category: Medical Plan: Left ear discomfort She had had significant wax buildup at prior visits which was irrigated. She notes left ear has discomfort decreased hearing. TM is visible though looks somewhat sclerotic. 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 She avoids NSAIDs medications affect her kidneys. She hydrates well. Using furosemide carefully Will continue to monitor Orders: Orders Free T4 (Free Thyroxine) Today E03.2 - Hypothyroidism due to medicaments and other exogenous substances, E03.9 - Hypothyroidism, unspecified, T46.2X1A - P oisoning by other antidysrhythmic drugs, accidental (unintentional), initial encounter B Type Natriuretic Peptide Today I50.9 - Heart failure, unspecified, R79.89 - Other specified abnormal findings of blood chemistry Comprehensive Mcgill. Panel Fast Today N17.9 - Acute kidney failure, unspecified, Z00.00 - Encounter for general adult medical examination without abnormal findings UA CC w/rflx Micro + Cult Today Z00.00 - Encounter for general adult medical examination without abnormal findings IRON PROFILE Today E61.1 - Iron deficiency Vitamin D 25-OH Total Today E55.9 - Vitamin D deficiency, unspecified Complete Blood Count Auto Diff Today E61.1 - Iron deficiency, Z00.00 - Encounter for general adult medical examination without abnormal findings Lipid Panel Today Z00.00 - Encounter for general adult medical examination without abnormal findings Microalbumin, Random (w Creat) Today I10 - Essential (primary) hypertension Referrals Ear/Nose/Throat Referral H91.90 - Unspecified hearing loss, unspecified ear, H92.09 - Otalgia, unspecified ear
[2025-05-22 09:50] VITALS: BP 138/78; PULSE 59; RESP 14; TEMP 36.5; O2SAT 97; BMI 26.8
--- OUTSIDE RECORDS SUMMARY | 2025-05-22 10:00 | XMS_ITS | Continuity of Care Document ---
Author Name [facility] Organization [facility] Care Team Providers Care Can Piler Name Role Phone [facility] Unavailable Unavailable Medications Combined list of outpatient [...] ORAL, AUROBINDO PHARM, 60 ea. BOTTLE Active [id number] 4 2023 70 Pharmac y Data Transac tion Service Facilit y AMIODARONE HCL (amiodarone HCl), 200 MG, TABLET, ORAL, AUROBINDO PHARM, 60 ea. BOTTLE Active [id number] 4 2023 70 Pharmac y Data Transac tion Service Facilit y DILTIAZEM 24HR ER (CD) (diltiazem HCl), 120 MG, CAP ER 24H, ORAL, INGENUS PHARMAC, 90 ea. BOTTLE Active [id number] 2023 30 Pharmac y Data Transac tion Service Facilit y DILTIAZEM 24HR ER (DILTIAZEM HCL), 120 MG, CAP ER 24H, ORAL, [employer]ARM, 90 ea. BOTTLE Active [id number] 4 2023 30 Pharmac y Data Transac tion Service Facilit y DOXYCYCLINE HYCLATE (doxycyclin e hyclate), 100 MG, CAPSULE, ORAL, [employer], 500 ea. BOTTLE Active [id number] 4 2023 14 Pharmac y Data Transac tion Service Facilit y GAVILYTE-G (PEG 3350/NA SULF,BICARB ,CL/KCL), 236-22.74G, SOLN RECON, ORAL, GAVIS PHARMACEU, 4000 ml BOTTLE Active [id number] 2023 4000 Pharmac y Data Transac tion Service Facilit y HYDRALAZINE HCL (HYDRALAZIN E HCL), 25MG, TABLET, ORAL, CAMBER PHARMACE, 100 ea. BOTTLE Cancele d [id number] : 2023 0 Pharmac y Data Transac tion Service Facilit y HYDRALAZINE HCL (HYDRALAZIN E HCL), 25MG, TABLET, ORAL, CAMBER PHARMACE, 100 ea. BOTTLE Active [id number] 4 2023 60 Pharmac y Data Transac tion Service Facilit y HYDRALAZINE HCL (HYDRALAZIN E HCL), 25MG, TABLET, ORAL, CAMBER PHARMACE, 100 ea. BOTTLE Active [id number] 4 2023 60 Pharmac y Data Transac tion Service Facilit y MUPIROCIN (mupirocin) , 2 %, OINT. (G), TOPICAL, PADAGIS, 15 g TUBE Active [id number] 4 2023 15 Pharmac y Data Transac tion Service Facilit y MUPIROCIN (MUPIROCIN) , 2%, OINT.(GM), TOPICAL, [employer] 22 g TUBE Active [id number] 4 2023 22 Pharmac y Data Transac tion Service Facilit y MUPIROCIN (MUPIROCIN) , 2%, OINT.(GM), TOPICAL, [employer] [place], 22 g TUBE Active [id number] 2023 22 Pharmac y Data Transac tion Service Facilit y Social History Combined list of available smoking, tobacco, and other social history from Department of Defense and Veterans Affairs facilities. Social History Type Response Date Comment Sour e This section is an empty social history section. DoD
== END 2025-05-22 10:44 | disposition home or self-care (01) ==
LOC: HO.HMCFM 09:33
PROVIDERS: PCP Family Medicine; Visit Provider Family Medicine
DX: I12.9 Hypertensive chronic kidney disease with stage 1 through stage 4 chronic kidney disease, or unspecified chronic kidney disease (principal); I50.9 Heart failure, unspecified; I48.0 Paroxysmal atrial fibrillation; N18.32 Chronic kidney disease, stage 3b; H92.02 Otalgia, left ear; H91.92 Unspecified hearing loss, left ear

== ENCOUNTER → 2025-05-22 09:32 | Outpatient (BNVA) | payer MEDICARE, OTHER, SELFPAY | PROVIDERS: PCP Family Medicine; Visit Provider Family Medicine | DX: I13.0 Hypertensive heart and chronic kidney disease with heart failure and stage 1 through stage 4 chronic kidney disease, or unspecified chronic kidney disease (principal); N18.32 Chronic kidney disease, stage 3b; I50.9 Heart failure, unspecified; I48.0 Paroxysmal atrial fibrillation; H92.09 Otalgia, unspecified ear; H91.90 Unspecified hearing loss, unspecified ear | CPT/HCPCS: 96127; 99212 ==

== ENCOUNTER 2025-09-04 08:33 | Outpatient (REF) | payer MEDICARE, OTHER, SELFPAY ==
--- OUTSIDE RECORDS SUMMARY | 2025-09-04 08:50 | XMS_ITS | Clinical Summary ---
Author Organization [facility] Address [address] [place] [id number] Phone Care Team Providers Care Senior Lead Project Manager Name Role Phone Capo Sales MD Primary Care Provider Allergies Active Allergy Reactions Criticality Noted Date Comments Cephalexin 07/08/2023 Other reaction(s): severe GI symptoms Ciprofloxacin 07/08/2023 Other reaction(s): bad headaches/bad dreams Codeine 05/30/2018 Vomiting, Diarrhea Other reaction(s): swelling and redness Coenzyme Q10 07/08/2023 Other reaction(s): diuretic dehydation Enalapril Maleate 07/08/2023 Other reaction(s): cough Guanfacine 07/08/2023 Other reaction(s): tingling in lip/chest tightness Lorazepam 05/31/2018 Other reaction(s): lips swole up Prednisone Swelling High 05/30/2018 Other reaction(s): swelling, redness Sulfamethoxazole-Trimethopri m GI Upset 05/30/2018 Other reaction(s): swelling rash Medications apixaban (ELIQUIS) 5 mg tablet Take 5 mg by mouth. 06/16/2019 Active metoprolol succinate (TOPROL-XL) 25 MG 24 hr tablet Take 25 mg by mouth. 10/16/2019 Active spironolactone (ALDACTONE) 25 MG tablet Take 25 mg by mouth. Active pravastatin (PRAVACHOL) 40 MG tablet Take 1 tablet by mouth. 03/16/2018 Active amLODIPine (NORVASC) 5 MG tablet 02/10/2020 Active furosemide (LASIX) 40 MG tablet 02/23/2020 Active amLODIPine (NORVASC) 10 MG tablet 06/21/2023 Active TIROSINT 50 mcg Cap 06/09/2023 Active clobetasol (TEMOVATE) 0.05 % cream 12/01/2023 Active cyanocobalamin, vitamin B-12, 1000 MCG tablet Take 1,000 mcg by mouth daily. Active digoxin (LANOXIN) 125 mcg tablet 07/13/2024 Active dilTIAZem (CARDIZEM CD) 120 MG 24 hr capsule 07/01/2024 Active dilTIAZem (CARDIZEM) 30 MG immediate release tablet Take 30 mg by mouth 2 (two) times a day. Active doxycycline hyclate (VIBRAMYCIN) 100 MG capsule 03/16/2024 Active doxycycline hyclate (DORYX) 100 MG tablet 02/10/2024 Activ e hydrALAZINE (APRESOLINE) 25 MG tablet 12/14/2023 Active Active Problems Problem Noted Date Diagnosed Date Obesity due to excess calories 07/08/2023 0 07/08/2023 CKD (chronic kidney disease) stage 3, GFR 30-59 ml/min 07/08/2023 07/08/2023 Hypercalcemia 07/08/2023 07/08/2023 Hyperlipidemia 07/08/2023 07/08/2023 Vitamin D deficiency 07/08/2023 07/08/2023 Paroxysmal atrial fibrillation 09/04/2019 0 07/08/2023 ARNETT (headache) 07/13/2019 07/08/2023 Hypertension 06/01/2018 07/08/2023 Overview (07/08/2023): Last Assessment & Plan: Hypertension is unchanged. Continue current treatment regimen. Abnormal EKG 05/30/2018 07/08/2023 Overview (07/08/2023): Last Assessment & Plan: Continue ASA. -likely related to atrial fibrillation with rapid ventricular response. -troponins negative. No chest pain. Hyponatremia 05/30/2018 07/08/2023 Overview (07/08/2023): Last Assessment & Plan: Chronic Lower than baseline Appears eu volemic Will get urine and serum osmo Will start IVF Daily BMP Mitral valve prolapse 04/21/2016 07/08/2023 Immunizations Immunization Administration Dates Next Due Tdap 04/28/2020 Social History Tobacco Use Types Packs/Day Years Used Date Smoking Tobacco: Never Smokeless Tobacco: Never Tobacco Cessation:Counseling Given: Not Answered Education Answer Date Recorded Are you interested in more education? Not on racheal e 03/12/2023 Are you concerned about learning? Not on file 03/12/2023 No 03/12/2023 No 03/12/2023 Digital Access Answer Date Recorded No 04/10/2023 No 04/10/2023 Reliable internet access at home? Not on file 04/10/2023 Device with a working camera? Not on file Comments Unknown Sex and Gender Information Value Date Recorded Sex Assigned at Not on file Legal Sex Female 11:14 AM EDT Gender Identity Not on file Sexual Orientation Not on file Last Filed Vital Signs Vital Sign Reading Time Taken Comments Blood Pressure 182/78 09/04/2024 10:12 AM EDT Pulse 70 09/04/2024 10:12 AM EDT Temperature 36.9 C (98.5 F) 09/04/2024 10:12 AM EDT Respiratory Rate 20 09/04/2024 10:12 AM EDT Oxygen Saturation 97% 09/04/2024 10:12 AM EDT Inhaled Oxygen Concentration - - Weight 72.6 kg (160 lb) 07/08/2023 4:56 PM EDT Height 170.2 cm (5' 7 ) 10/26/2020 10:07 AM EST Body Mass Index 25.06 10/26/2020 10:07 AM EST Plan of Treatment Health Maintenance Due Date Last Done Comments CREATININE LEVEL 1942 POTASSIUM LEVEL 1942 DEPRESSION SCREENING 1954 PNEUMOCOCCAL VACCINES (50+ years) (1 of 1 - PCV) 1992 ZOSTER VACCINES (1 of 2) 1992 OSTEOPOROSIS SCREENING INITI AL (ONE-TIME) 2007 RSV VACCINE (1 - 1-dose 75+ series) 2017 TSH LEVEL 09/01/2020 09/01/2019, 05/29/2019, 05/30/2018 BLOOD PRESSURE 03/05/2025 09/04/2024 INFLUENZA VACCINE (#1) 2025 COVID-19 VACCINE (2024-2 6 season) 2025 11/11/2021 Adult Td,Tdap Booster 04/28/2030 04/28/2020 HEPATITIS A VACCINES Aged Out No long er eligible based on patient's age to complete this topic HIB VACCINES Aged Out No longer eligi ble based on patient's age to complete this topic MENINGOCOCCAL VACCINES (ACWY) Aged Out No longer eligible based on patient's age to complete this topic MENINGOCOCCAL VACCINES (B) Aged Out N o longer eligible based on patient's age to complete this topic Medical Devices Not on file Insurance MEDICARE PART A & B [facility] MEDICARE SUPPLEMENT MEDICARE PART A & B [facility] [place] [facility] [place] [place]: [place] [id number] MEDICARE PART A & B [facility] [place] [facility] [place] [address] [address] MEDICARE PART A & B [facility] [facility] [place] [address] [address] MEDICARE PART A & B [facility] [facility] [place]: [place] [id number] MEDICARE PART A & B [employer] [facility] [place] [address] [address] MEDICARE PART A & B [employer] [facility] [place] [facility] [place]: [place] [id number] MEDICARE PART A & B [employer] [facility] [place] [facility] [place] [id number] MEDICARE PART A & B [employer] MEDICARE SUPPLEMENT Care Teams Senior Lead Project Manager Relationship Specialty Start Date End Date Capo Sales MD [address] [place] [id number] PCP - General Family Medicine 08/30/24 Additional Source Comments The information contained in this document represents components of the legal health record. It is not the complete legal health record.[facility]
[2025-09-04 11:47] LABS: MANUAL DIFF FLAG NO
[2025-09-04 11:52] LABS: Hematocrit 30.3 % (37.0-47.0); Hemoglobin 9.0 g/dl (12.0-16.0); Imm Gran Abs Auto 0.03 X10*3/uL (0.00-0.03); Imm Gran Pct Auto 0.5 % (0.0-0.4); Lymphocytes Absolute Auto 1.4 X10*3/uL (1.2-4.9); Mean Corpuscular HGB Conc 29.7 g/dl (31.0-35.0); Mean Corpuscular Hemoglobin 21.1 pg (27.0-33.0); Mean Corpuscular Volume 71.1 fL (80.0-98.0); NRBC Abs Auto 0.000 X10*3/uL (0.0-0.012); NRBC Pct Auto 0.0 /100WBC (0.0-0.2); Platelet Count 305 X10*3/uL (160-400); Red Blood Count 4.26 X10*6/uL (4.20-5.50); White Blood Count 5.8 X10*3/uL (4.8-10.8)
[2025-09-04 12:50] LABS: Alanine Aminotransferase 22 U/L (0-31); Albumin Level 4.0 g/dL (3.5-5.0); Alkaline Phosphatase 127 U/L (39-117); Anion Gap 10 (12-20); Aspartate Amino Transferase 32 U/L (5-31); Blood Urea Nitrogen 27 mg/dL (9-16); Calcium 10.1 mg/dL (8.4-10.2); Carbon Dioxide 27 mmol/L (22-29); Chloride 106 mmol/L (96-108); Cholesterol 153 mg/dL (<200); Estimated Glomerular Filt Rate 30; HDL Cholesterol 47 mg/dL (>40); Iron 21 mcg/dL (30-160); Percent Iron Saturation 6 % (15-50); Potassium 3.7 mmol/L (3.3-5.1); Sodium 139 mmol/L (135-145); Total Iron Binding Capacity 359 mcg/dL (228-428); Total Protein 6.5 g/dL (6.5-8.0); Triglycerides 144 mg/dL (<150); Unsaturated Iron Binding 338 ug/dL
[2025-09-04 14:02] LABS: Free T4 (Free Thyroxine) 1.45 ng/dL (0.71-1.85)
[2025-09-04 18:09] LABS: Appearance Urine Clear; Glucose Urine UA Negative (Negative); PH 6.0 (5.0-9.0); Specific Gravity - Urine 1.010 (1.005-1.025); UMIC TRIGGER UACC YES
[2025-09-04 18:21] LABS: UACC Culture Trigger YES
[2025-09-04 18:44] LABS: Microalbum/Creatinine Ratio Ur 38.9 ug/mg cr (<30)
== END 2025-09-04 08:34 | disposition home or self-care (01) ==
LOC: HO.WFDLDS 08:33
PROVIDERS: Referring Provider Family Medicine; Visit Provider Internal Medicine Cardiovascular Disease
DX: Z00.00 Encounter for general adult medical examination without abnormal findings (principal); Z51.81 Encounter for therapeutic drug level monitoring; T46.2X1A Poisoning by other antidysrhythmic drugs, accidental (unintentional), initial encounter; E03.2 Hypothyroidism due to medicaments and other exogenous substances; E61.1 Iron deficiency; I11.0 Hypertensive heart disease with heart failure; E03.9 Hypothyroidism, unspecified; I50.9 Heart failure, unspecified; N17.9 Acute kidney failure, unspecified; E55.9 Vitamin D deficiency, unspecified
CPT/HCPCS: 36415; 80048; 80053; 80061; 81001; 82043; 82306; 82570; 83540; 84439; 84443; 85025; 87086

== ENCOUNTER 2025-09-10 09:28 | Outpatient (AMB) | payer MEDICARE, OTHER, SELFPAY ==
--- NOTE | 2025-09-10 09:37 | A.OFFVIS_ITS ---
Vital Signs 09/10/25 09:39 Height 5 ft 7 in Weight 173 lb 4.533 oz BMI 27.1 BP 130/72 Blood Pressure Location Lt brachial Position Sitting Pulse 66 Pulse Source Monitor Intake Visit Reasons: 6m follow up Intake Note: 6mth f/up Willow Worker Required: No Accompanied by: Self / Same As Patient Allergies amlodipine Allergy (Intermediate, Verified 05/22/25 09:46) Swelling ankles/feet w rash prednisone Allergy (Intermediate, Verified 05/22/25 09:46) REd Blotchy codeine Adverse Reaction (Intermediate, Verified 05/22/25 09:46) Swelling sulfamethoxazole (From Bactrim) Adverse Reaction (Intermediate, Verified 05/22/25 09:46) Stomach Upset metoprolol Adverse Reaction (Verified 05/22/25 09:46) Hypotension Medication List - Last Reconciled 09/10/25 by Don Gonzales MD acetaminophen (Tylenol Extra Strength) 500 mg PO DAILY PRN amiodarone 200 mg PO DAILY apixaban (Eliquis) 5 mg PO BID blood pressure monitor Automatic, Digital. Dx: I10. Daily As directed, 999 days/lifetime diltiazem HCl 30 mg PO DAILY furosemide 40 mg PO DAILY levothyroxine 50 mcg PO DAILY pravastatin 40 mg PO BEDTIME 90 days HPI Comments Details: 84 year old female with PAF. She has symptomatic Afib. She was cardioverted before and has been on amiodarone. In October 2022 she again developed atrial fibrillation and was in the emergency department. She was cardioverted by my partner Dr. Lopez. She was subsequently referred to electrophysiology and underwent AFib ablation on 03/26/[address] Crystal. She said 2 days later she had episode of atrial fibrillation and she was advised to restart amiodarone at this stage at 200 mg twice a day. She took amiodarone for a week at 200 mg twice a day and has been taking 200 mg daily since then. She has not had an further episodes of AFib. She is saying she is still recovering from the procedure and trying to get her strength back.\ October for 2022: She returns for follow-up. She is recovering from gastroenteritis. No palpitations. No chest pain or shortness of breath. Blood pressure control is good. Continues to be in sinus rhythm based on EKG. On apixaban without any bleeding issues. 09/22/2024: She is here for follow-up. She had an episode of atrial fibrillation in June. She has seen Dr. Crystal and was taking amiodarone 400 mg at that time and she was advised to drop it to 200 mg. She said in July she had another episode of atrial fibrillation and since then she started taking 2 tablets of amiodarone and since mid July she has been using 400 mg of amiodarone. 02/14/2025: She is here for follow-up. She said she was hypertensive in her primary care physician's office and she was advised to take 1-1/2 tablet of Cardizem twice a day. She said she started taking it and had dizziness. Previously she was also on hydralazine and had dizziness. Her blood pressure currently is 140/76. She has not had any further episodes of atrial fibrillation since July 2024. Overall doing well. We discussed about monitoring required with amiodarone. I will send her for chest x-ray and TSH today. She recently had LFTs which were normal. 09/10/2025: Here for follow-up. She had blood workup done which showed anemia with hemoglobin 9 MCV 71.1 and platelet counts 305. BUN 27 creatinine 1.64, AST 32, ALT 22, alkaline phosphatase 127, TSH 1.45. LDL 78. She said she had 2 short episodes of atrial fibrillation lasting for few minutes. She said she took her diltiazem and episodes broke. She is taking diltiazem 30 mg daily. She is also on amiodarone 200 mg daily. Overall she has been clinically stable. [facility] Medical History Therapeutic drug monitoring Adult general medical exam Screening for breast cancer PAF (paroxysmal atrial fibrillation) Persistent atrial fibrillation Breast cancer screening by mammogram PAF (paroxysmal atrial fibrillation) Hx of skin cancer, basal cell Elevated serum creatinine Screening for colon cancer Screening for osteoporosis Cough with congestion of paranasal sinus Abnormal creatinine clearance glomerular filtration Breath shortness Rash History of cardioversion PAF (paroxysmal atrial fibrillation) Atrial fibrillation with rapid ventricular response History of vitamin D deficiency History of hypothyroidism Anticoagulant long-term use Hx of squamous cell carcinoma of skin Vitamin B 12 deficiency High cholesterol Hypertension, essential Surgical History S/P ablation of atrial fibrillation History of hand surgery History of dilation and curettage Status post surgical removal of malignant neoplasm of skin Family History Mother Stroke Father Pancreatic cancer Brother Lyme disease Social History Household Members: None Housing: House Do you presently have visiting nurse or other home services: No Alcohol intake: never Comment: pt refuses bed alarm Patient Tobacco Use Status: Never used Tobacco e-Cigarette/Vaping Use: Never Used Second Hand Smoke Exposure: No Advance Directives Date on File: 11/19/22 service: No Current occupational status: retired Current occupational exposures/hazards: No Cognitive needs: No Hearing needs: No Vision needs: Yes (Patient wears reading glasses.) Review of Systems Const Denies chills, Denies fatigue, Denies fever(s), Denies frequent falls, Denies weakness, Denies weight gain and Denies weight loss ENT Denies dizziness Card Denies chest pain, Denies leg edema, Denies lightheadedness, Denies palpitations, Denies dyspnea and Denies dyspnea on exertion Resp Denies cough, Denies dyspnea and Denies dyspnea on exertion GI Denies hematochezia Musc Denies abnormal gait, Denies muscle weakness, Denies numbness, Denies radiating pain into limb and Denies tingling Neuro Denies abnormal gait, Denies dizziness, Denies frequent falls, Denies numbness, Denies tingling and Denies weakness Endo Denies fatigue and Denies palpitations Physical Exam Vital Signs: Last Vital Signs Pulse 66 09/10/25 09:39 BP 130/72 09/10/25 09:39 BMI result Body Mass Index 27.1 GENERAL APPEARANCE: in no acute distress, pleasant. NECK: no carotid bruit, no jugular venous distention. SKIN: no suspicious lesions, warm and dry. HEART: no murmurs, regular rate and rhythm. LUNGS: clear to auscultation bilaterally. ABDOMEN: soft, nontender. EXTREMITIES: no edema. PERIPHERAL PULSES: equal. NEUROLOGIC: No gross deficits, AAO X 3 Office Procedures EKG Details: Sinus rhythm 66 beats per minute, first-degree AV block with IN interval 222 milliseconds. Left axis deviation, poor R-wave progression and can not rule out anterior infarct, QTC 452 milliseconds. ECG is unchanged compared to February 2025. [id number], Complete Assessment & Plan Assessment & Plan (1) Therapeutic drug monitoring: Code(s): Z51.81 - Encounter for therapeutic drug level monitoring Category: Medical (2) PAF (paroxysmal atrial fibrillation): Code(s): I48.0 - Paroxysmal atrial fibrillation Category: Medical (3) Hypertension, essential: Code(s): I10 - Essential (primary) hypertension Category: Medical Plan Very pleasant 84 year female with background history of paroxysmal atrial fibrillation, diastolic heart failure, hypertension and CKD. Very difficult to manage atrial fibrillation and after ablation and amiodarone 200 mg daily she has been stable since July 2024. Clinically euvolemic at this point. Blood pressure is well controlled. Lab stable with amiodarone. She has been advised to do yearly eye exams. She will see us back in 4 months. Thank you for allowing me to participate in the care of your patient. Please feel free to contact me if you have any questions. Coding Level of Care Code Est Pt Level 2 (89602) Diagnoses Therapeutic drug monitoring Z51.81 PAF (paroxysmal atrial fibrillation) I48.0 Hypertension, essential I10 CPT Codes EKG - CPT: 81944-[id number], Complete ([id number])
[2025-09-10 09:39] VITALS: BP 130/72; PULSE 66; BMI 27.1
== END 2025-09-10 10:03 | disposition home or self-care (01) ==
LOC: HO.HCS 09:28
PROVIDERS: PCP Family Medicine; Visit Provider Internal Medicine Cardiovascular Disease
DX: Z51.81 Encounter for therapeutic drug level monitoring (principal); I48.0 Paroxysmal atrial fibrillation; I10 Essential (primary) hypertension
CPT/HCPCS: 93010; 99212

== ENCOUNTER → 2025-09-10 09:28 | Outpatient (BNVA) | payer MEDICARE, OTHER, SELFPAY | PROVIDERS: PCP Family Medicine; Visit Provider Internal Medicine Cardiovascular Disease | DX: Z51.81 Encounter for therapeutic drug level monitoring (principal); I10 Essential (primary) hypertension; Z79.01 Long term (current) use of anticoagulants | CPT/HCPCS: 93005; 99212 ==

== ENCOUNTER 2025-09-18 08:58 | Outpatient (AMB) | payer MEDICARE, OTHER, SELFPAY ==
--- NOTE | 2025-09-18 09:01 | A.OFFPC_ITS ---
Vital Signs 09/18/25 09:13 Height 5 ft 7 in Weight 171 lb 4 oz BMI 26.8 BP 116/80 Blood Pressure Location Lt brachial Position Sitting Respiration 14 Pulse 67 Pulse Source Pulse Oximeter Temp 97.7 F Temp Source Temporal Artery Scan Pulse Oximetry (%) 97 Oxygen Delivery Method Room Air Intake Visit Reasons: extended exam with f/u labs and health maint Intake Note: Sandi presents in the office today for a follow up to her labs and health maintenance. Allergies amlodipine Allergy (Intermediate, Verified 09/18/25 09:12) Swelling ankles/feet w rash prednisone Allergy (Intermediate, Verified 09/18/25 09:12) REd Blotchy codeine Adverse Reaction (Intermediate, Verified 09/18/25 09:12) Swelling sulfamethoxazole (From Bactrim) Adverse Reaction (Intermediate, Verified 09/18/25 09:12) Stomach Upset metoprolol Adverse Reaction (Verified 09/18/25 09:12) Hypotension Medication List - Last Reconciled 09/18/25 by Capo Sales MD acetaminophen (Tylenol Extra Strength) 500 mg PO DAILY PRN amiodarone 200 mg PO DAILY apixaban (Eliquis) 5 mg PO BID blood pressure monitor Automatic, Digital. Dx: I10. Daily As directed, 999 days/lifetime diltiazem HCl 30 mg PO DAILY furosemide 40 mg PO DAILY levothyroxine 50 mcg PO DAILY pravastatin 40 mg PO BEDTIME 90 days Tobacco use date assessed: 09/18/25 Fall risk assessment: No Falls in past year Last assessed Fall Risk: 09/18/25 Dental Screening Dental Screen Date: 09/18/25 Did you have a dental visit in the last 12 months?: Yes Did you have a dental problem in the last 6 months where you did not have access to dental care?: No Was dental information given to patient?: Patient has dentist HPI extended exam with f/u labs and health maint HPI Details 84 y/o female presents for an extended e xam with f/u labs and health maint. Labs drawn 09/04/25. Reviewed labs with pt. Ongoing anemia. Creatinine level worsened from 1.51 to 1.64. Triglycerides 144. TC 153. LDL 78. HDL 47. Vitamin D low at 27.1 ng/mL. Has been following up with Cardiology for AFib. [facility] Medical History (Updated 09/18/25 @ 09:59 by Kiran Palacios) Screening for colon cancer Screening for osteoporosis Therapeutic drug monitoring Adult general medical exam Screening for breast cancer PAF (paroxysmal atrial fibrillation) Persistent atrial fibrillation Breast cancer screening by mammogram PAF (paroxysmal atrial fibrillation) Hx of skin cancer, basal cell Elevated serum creatinine Cough with congestion of paranasal sinus Abnormal creatinine clearance glomerular filtration Breath shortness Rash History of cardioversion PAF (paroxysmal atrial fibrillation) Atrial fibrillation with rapid ventricular response History of vitamin D deficiency History of hypothyroidism Anticoagulant long-term use Hx of squamous cell carcinoma of skin Vitamin B 12 deficiency High cholesterol Hypertension, essential Surgical History S/P ablation of atrial fibrillation History of hand surgery History of dilation and curettage Status post surgical removal of malignant neoplasm of skin Family History Mother Stroke Father Pancreatic cancer Brother Lyme disease Social History (Updated 09/18/25 @ 09:13 by Jacquelyn Shannon [facility]) Household Members: None Housing: House Do you presently have visiting nurse or other home services: No Alcohol intake: never Comment: pt refuses bed alarm Patient Tobacco Use Status: Never used Tobacco e-Cigarette/Vaping Use: Never Used Second Hand Smoke Exposure: No Advance Directives Date on File: 11/19/22 service: No Current occupational status: retired Current occupational exposures/hazards: No Cognitive needs: No Hearing needs: No Vision needs: Yes (Patient wears reading glasses.) Questionnaire Thrive Questionnaire Date Thrive assessed: 05/22/25 ASUNCION-7 AMB Questionnaire ASUNCION-7 Date ASUNCION - 7 assessed: 05/22/25 Source: Developed by Drs. Jadiel Marrero, Melany Strickland, Manuel Ferguson and colleagues, with an educational ellen from [employer] Review of Systems Const Denies chills, Denies fatigue, Denies fever(s), Denies headache(s) and Denies weakness Eyes Denies change in vision ENT Denies dizziness, Denies headache(s), Denies hearing loss, Denies nasal congestion, Denies sinus pain, Denies sinus pressure and Denies sore throat Card Denies chest pain, Denies lightheadedness, Denies dyspnea and Denies other (palpitations) Resp Denies cough, Denies dyspnea and Denies wheezing GI Denies abdominal pain, Denies melena, Denies hematochezia, Denies change in bowel habits, Denies dyspepsia and Denies nausea Denies hematuria and Denies dysuria Musc Denies abnormal gait, Denies myalgias, Denies arthralgias, Denies numbness and Denies tingling Skin/Breast Denies rash, Denies unusual bruising and Denies wounds Neuro Denies abnormal gait, Denies dizziness, Denies headache(s), Denies memory loss, Denies numbness, Denies Sensory deficit (Neuro), Denies tingling and Denies weakness Psych Denies anxiety, Denies depression and Denies memory loss Endo Denies cold intolerance, Denies fatigue, Denies heat intolerance, Denies polydipsia and Denies polyuria Hank/Lymph Denies easy bleeding and Denies easy bruising Aller/Immun Denies wheezing Physical exam (Primary Care) Vital Signs: Last Vital Signs Temp 97.7 F 09/18/25 09:13 Pulse 67 09/18/25 09:13 Resp 14 09/18/25 09:13 BP 116/80 09/18/25 09:13 Pulse Ox 97 09/18/25 09:13 Oxygen Delivery Method Room Air 09/18/25 09:13 BMI result Body Mass Index 26.8 Tobacco/Smoking Status: Tobacco use Status Tobacco use date assessed 09/18/25 09/18/25 09:13 Patient Tobacco Use Status Never used Tobacco 09/18/25 09:13 e-Cigarette/Vaping Use Never Used 09/18/25 09:13 Thrive Assessment: Date of Thrive Assessment Date Thrive assessed 05/22/25 09/18/25 09:01 Const General: no acute distress, well developed, alert and awake Nutritional Appearance: well nourished Orientation/consciousness: patient oriented x3 HENMT Head: Yes normocephalic and Yes atraumatic Ears: hearing grossly normal bilaterally and TM's normal bilaterally General nose exam: Normal external nose present and Normal nares present Mouth: Normal oral and palatal mucosa present and moist mucous membranes Teeth and gingiva: dentition normal Throat: Yes posterior oropharynx normal Eyes General: appearance normal, both eyes and all related structures Pupils: Equal, round and reactive pupils present and Pupil accommodation reflex normal EOM: EOMs intact bilaterally Neck Neck: Yes normal visual inspection, Yes no lymphadenopathy and Yes trachea midline Thyroid: Thyroid normal Carotids: no bruits Lymphatic: no lymphadenopathy noted Chest Chest palpation & inspection: normal inspection of the chest Resp Effort & Inspection: normal respiratory effort Auscultation: clear to auscultation bilaterally Cardio Rate: regular rate Rhythm: regular rhythm Heart sounds: S1 normal heart sound present, S2 normal heart sound present, no gallops, no murmurs and no rubs Bruits: no abdominal aortic bruits and no carotid bruits GI Palpation (GI): No Abdominal aortic bruit present, Soft to palpation, nontender, No hepatosplenomegaly present and No Rebound tenderness present Auscultation: normal bowel sounds General: Yes no CVA tenderness Back/Spine/Pelvis Back: no CVA tenderness Cervical Spine: cervical ROM normal and No Cervical spine tenderness Thoracic/Lumbar Spine: thoraco-lumbar ROM normal, No pain with thoraco-lumbar ROM, No thoracic spinal tenderness and No lumbar spinal tenderness Skin Lesions: no lesions Rashes: no rashes Trauma: no lacerations or abrasions Wounds: no wounds Nails: normal Neuro General: patient oriented x3 Cranial nerves: Yes Equal, round and reactive pupils present Cognition (Neuro): normal cognition Gait exam (Neuro): Normal gait present Motor exam (neuro): 5/5 motor strength present throughout Sensory Exam: No Sensory deficit (Neuro) Deep tendon reflexes (DTR's): Right patellar reflex intensity grade: 2+ and Left patellar reflex intensity grade: 2+ Extrem General: Yes normal to inspection and No edema Psych Appearance: grossly normal Affect: normal affect Attitude: cooperative Thought process: Normal thought process present Coding Level of Care Code Est Pt Level 4 (10173) Diagnoses CKD stage G3b/A1, GFR 30-44 and albumin creatinine ratio <30 mg/g N18.32 Elevated fasting glucose R73.01 Primary hypertension I10 Hypertension type: primary hypertension Vitamin D deficiency E55.9 Screening for breast cancer Z12.39 PAF (paroxysmal atrial fibrillation) I48.0 Screening for osteoporosis Z13.820 Screening for colon cancer Z12.11 Anemia D64.9 Adult general medical exam Z00.00 Assessment & Plan Assessment & Plan (1) CKD stage G3b/A1, GFR 30-44 and albumin creatinine ratio <30 mg/g: Code(s): N18.32 - Chronic kidney disease, stage 3b Category: Medical Plan: Mild/moderate CKD Encouraged good hydration Will continue to monitor Avoid NSAIDs, control blood pressure and blood sugar. (2) Elevated fasting glucose: Code(s): R73.01 - Impaired fasting glucose Category: Medical Plan: Mildly elevated fasting blood sugar Will repeat with next blood draw along with A1c test (3) Hypertension: Code(s): I10 - Essential (primary) hypertension Category: Medical Qualifiers: Hypertension type: primary hypertension Qualified Code(s): I10 - Essential (primary) hypertension Plan: Blood pressure is well controlled. Goal is less than 130/80 Continue current medication (4) Vitamin D deficiency: Code(s): E55.9 - Vitamin D deficiency, unspecified Category: Medical Plan: Will have her use vitamin-D through darker months of the year (5) Screening for breast cancer: Code(s): Z12.39 - Encounter for other screening for malignant neoplasm of breast Category: Medical Plan: Patient is now 84. She will get mammograms about every 2 years per her preference (6) PAF (paroxysmal atrial fibrillation): Code(s): I48.0 - Paroxysmal atrial fibrillation Category: Medical Plan: Currently in regular rhythm Continue Eliquis and diltiazem Stable Follow-up with Cardiology as recommended (7) Screening for osteoporosis: Code(s): Z13.820 - Encounter for screening for osteoporosis Category: Medical Plan: Bone density test ordered (8) Screening for colon cancer: Code(s): Z12.11 - Encounter for screening for malignant neoplasm of colon Category: Medical Plan: Patient had a Cologuard test in 2023 which was positive. I had referred her to Gastroenterology but she did not want a colonoscopy. She does not have industrial roof plumber. Recommended she see gastroenterology for consult to discuss next steps. (9) Anemia: Code(s): D64.9 - Anemia, unspecified Category: Medical Plan: Significant anemia, worsening. Likely iron-deficiency anemia superimposed over mild anemia of chronic disease. She says she has tried iron in the past and did not tolerate taking it. She has only ever tried taking it every day. She will try every other day or even every 3rd day as she is able to tolerate. She denies any blood loss Will recheck again in about 6 weeks. If her anemia continues to worsen, will refer her to Hematology-Oncology (10) Adult general medical exam: Code(s): Z00.00 - Encounter for general adult medical examination without abnormal findings Category: Medical Plan: 84-year-old female presents for an extended exam Encouraged healthy diet with active lifestyle and plenty of exercise Orders: Orders XR DEXA axial skeleton Today M81.0 - Age-related osteoporosis without current pathological fracture Reticulocyte Count Today E61.1 - Iron deficiency Vitamin D 25-OH Total Today E55.9 - Vitamin D deficiency, unspecified Hemoglobin A1c Today R73.01 - Impaired fasting glucose IRON PROFILE Today E61.1 - Iron deficiency Complete Blood Count Auto Diff Today E61.1 - Iron deficiency, Z00.00 - Encounter for general adult medical examination without abnormal findings Comprehensive Met. Panel Today E61.1 - Iron deficiency Ferritin Today E61.1 - Iron deficiency Referrals Gastroenterology Referral R19.5 - Other fecal abnormalities Medications: New cholecalciferol (vitamin D3) 50 mcg PO DAILY 90 caps 2RF 90 days ferrous gluconate 18 mg PO DAILY 90 caps 2RF 90 days
[2025-09-18 09:13] VITALS: BP 116/80; PULSE 67; RESP 14; TEMP 36.5; O2SAT 97; BMI 26.8
--- OUTSIDE RECORDS SUMMARY | 2025-09-18 09:42 | XMS_ITS | Clinical Summary ---
Author Organization [facility] Address [address] [place] [id number] Phone Care Team Providers Care Community Health Program Coordinator Name Role Phone Capo Sales MD Primary [...] file Insurance MEDICARE PART A & B Member Subscriber Plan / Payer (Ef fective 2007-Present) Name:Sandi Leonardo Member ID:[id number] Relation to Subscriber:Self Name:Sandi Leonardo Subscriber ID:[id number] Payer ID:[id number] Group ID:Not on file Type:Medicare Address: [employer] [facility]. [address] [facility] [place] [address] [facility] MEDICARE SUPPLEMENT MEDICARE PART A & B [facility] MEDICARE SUPPLEMENT [facility] Address: [place] [phone] MEDICARE PART A & B [facility] FOR [facility] MEDICARE SUPPLEMENT [facility] Address: [address] [address] MEDICARE PART A & B [employer] FOR LIFE MEDICARE SUPPLEMENT [facility] Address: [address] [address] MEDICARE PART A & B [employer] MEDICARE SUPPLEMENT [facility] Address: [place] [id number] MEDICARE PART A & B [employer] MEDICARE SUPPLEMENT [facility] Address: [address] [address] MEDICARE PART A & B [employer] MEDICARE SUPPLEMENT [facility] Address: [place] [phone] MEDICARE PART A & B [employer] MEDICARE SUPPLEMENT [facility] Address: [place] [phone] MEDICARE PART A & B [employer] MEDICARE SUPPLEMENT Care Teams Community Health Program Coordinator Relationship Specialty Start Date End Date Capo Sales MD PCP - General Family Medicine 08/30/24 Additional Source Comments The information contained in this document represents components of the legal health record. It is not the complete legal health record.[facility]
== END 2025-09-18 09:57 | disposition home or self-care (01) ==
LOC: HO.HMCFM 08:58
PROVIDERS: PCP Family Medicine; Visit Provider Family Medicine
DX: N18.32 Chronic kidney disease, stage 3b (principal); R73.01 Impaired fasting glucose; I10 Essential (primary) hypertension; E55.9 Vitamin D deficiency, unspecified; Z12.39 Encounter for other screening for malignant neoplasm of breast; I48.0 Paroxysmal atrial fibrillation; Z13.820 Encounter for screening for osteoporosis; Z12.11 Encounter for screening for malignant neoplasm of colon; D64.9 Anemia, unspecified; Z00.00 Encounter for general adult medical examination without abnormal findings

== ENCOUNTER → 2025-09-18 08:58 | Outpatient (BNVA) | payer MEDICARE, OTHER, SELFPAY | PROVIDERS: PCP Family Medicine; Visit Provider Family Medicine | DX: N18.32 Chronic kidney disease, stage 3b (principal); R73.01 Impaired fasting glucose; I10 Essential (primary) hypertension; E55.9 Vitamin D deficiency, unspecified; I48.0 Paroxysmal atrial fibrillation; D64.9 Anemia, unspecified; R19.5 Other fecal abnormalities; E61.1 Iron deficiency | CPT/HCPCS: 99212 ==